=== PATIENT | male | born 1960 | race Caucasian/White ===

== ENCOUNTER 2021-09-04 15:22 | Inpatient (IN) | payer BC, MEDICAID ==
[2021-09-04 15:32] VITALS: TEMP 98
[2021-09-04] MEDS ORDERED: MAGNESIUM SULFATE-D5W PMX 1 GM in DEXTROSE/WATER 1 100ML.BAG IVPB STA (15:52)
[2021-09-04] MEDS ORDERED: DILTIAZEM DRIP BOLUS FROM BAG 1 MG SOLN IV ONE (15:52)
[2021-09-04] MEDS ORDERED: DILTIAZEM 125 MG in SODIUM CHLORIDE 0.9% 100 ML IV SCH (16:00)
[2021-09-04 16:03] LABS: Basophils # (A) 0.1 k/uL (0-0.2); Basophils % (A) 1 %; Eosinophils % (A) 0 %; HCT 48.8 % (39.0-53.0); HGB 16.6 gm/dL (13.0-17.5); Lymphocytes # (A) 0.8 k/uL (1.0-4.8); Lymphocytes % (A) 10 %; MCH 32.2 pg (25.0-35.0); MCV 94.8 fL (80.0-100.0); Mean Platelet Volume 9.3; Monocytes # (A) 0.4 k/uL (0-1.0); Monocytes % (A) 6 %; Neutrophils # (A) 6.5 k/uL (1.3-7.7); Neutrophils % (A) 83 %; Platelet Count 196 k/uL (150-450); RBC 5.15 m/uL (4.30-5.90); RDW 11.5 % (11.5-15.5); WBC 7.9 k/uL (3.8-10.6)
[2021-09-04] MEDS ORDERED: SODIUM CHLORIDE 0.9% 1,000 ML IV ONE (16:05)
[2021-09-04 16:08] VITALS: RESP 18
[2021-09-04 16:14] LABS: INR 1.2 (<1.2); Partial Thromboplastin Time 32.8 sec (22.0-30.0); Prothrombin Time 12.9 sec (9.0-12.0)
[2021-09-04 16:19] LABS: ALT 31 U/L (4-49); AST 28 U/L (17-59); African American GFR (CKD) 82 (>60 ml/min/1.73 sqM); Albumin 4.7 g/dL (3.5-5.0); Alkaline Phosphatase 67 U/L (38-126); Anion Gap 15 mmol/L; Blood Urea Nitrogen 15 mg/dL (9-20); Calcium 9.7 mg/dL (8.4-10.2); Carbon Dioxide 23 mmol/L (22-30); Chloride 98 mmol/L (98-107); Glucose 151 mg/dL (74-99); Magnesium 1.6 mg/dL (1.6-2.3); Non-African American GFR(CKD) 71 (>60 ml/min/1.73 sqM); Potassium 4.3 mmol/L (3.5-5.1); Sodium 136 mmol/L (137-145); Total Bilirubin 0.9 mg/dL (0.2-1.3); Total Protein 7.6 g/dL (6.3-8.2)
--- NOTE | 2021-09-04 17:29 | ED ---
Chest Pain HPI - General Chief Complaint: Chest Pain Stated Complaint: Chest Tightness Time Seen by Provider: 09/04/21 15:52 Source: patient Mode of arrival: wheelchair Limitations: no limitations - History of Present Illness Initial Comments: 61-year-old male with past medical history of A. fib presents emergency room with palpitations. Stated that they started around 9:30 AM this morning while he was at work. He had associated chest tightness and shortness of breath. Patient has a known history of A. fib and is on Cardizem and Xarelto. He took his medications this morning as directed. He follows with Dr. Garvey out of [facility]. No history of coronary disease or congestive heart failure. Patient has never had a heart cath before. He denies any nausea or vomiting. No recent medication changes. Denies ripping or tearing sensation to his back. Patient took an extra xarelto and aspirin today because of his discomfort. No alleviating, precipitating or modifying factors. - Related Data Home Medications Medication Instructions Recorded Confirmed Cyanocobalamin (Vitamin B-12) 1,000 mcg PO DAILY 09/04/21 09/04/21 [Vitamin B-12] Diltiazem HCl [Diltiazem HCl 24Hr 180 mg PO DAILY 09/04/21 09/04/21 ER (CD)] Ibuprofen [Motrin Ib] 400 mg PO BID 09/04/21 09/04/21 Rivaroxaban [Xarelto] 20 mg PO DAILY 09/04/21 09/04/21 lisinopriL [Zestril] 5 mg PO DAILY 09/04/21 09/04/21 Allergies Allergy/AdvReac Type Severity Reaction Status Date / Time No Known Allergies Allergy Verified 09/04/21 17:53 Review of Systems ROS Statement: Those systems with pertinent positive or pertinent negative responses have been documented in the HPI. ROS Other: All systems not noted in ROS Statement are negative. EKG Findings - EKG Comments: EKG Findings:: EKG done at 1537 demonstrates a narrow complex tachycardia with a rate of 177. QRS 162. QTC of 456. Diffuse ST depression 1, 2, 3, aVF as well as V3 through V6. A repeat EKG done at 1608 demonstrates normal sinus rhythm. Continued ST depression in the inferior and lateral leads. Past Medical History Past Medical History: Atrial Fibrillation, Hypertension History of Any Multi-Drug Resistant Organisms: None Reported Past Surgical History: No Surgical Hx Reported Past Psychological History: No Psychological Hx Reported Smoking Status: Never smoker Past Alcohol Use History: None Reported Past Drug Use History: None Reported General Exam Limitations: no limitations Course Vital Signs 09/04/21 09/04/21 09/04/21 15:28 15:45 15:49 Temperature 98 F Pulse Rate 188 H 188 H Pulse Rate [ 179 H Sales Representative Door To Door ] Respiratory 20 22 Rate Blood Pressure 86/61 104/61 O2 Sat by Pulse 100 99 Oximetry 09/04/21 09/04/21 09/04/21 16:00 16:06 17:00 Temperature Pulse Rate 179 H 83 81 Pulse Rate [ Sales Representative Door To Door ] Respiratory 22 18 18 Rate Blood Pressure 95/69 105/79 116/78 O2 Sat by Pulse 98 99 98 Oximetry 09/04/21 09/04/21 18:00 19:00 Temperature Pulse Rate 84 75 Pulse Rate [ Sales Representative Door To Door ] Respiratory 18 18 Rate Blood Pressure 118/78 126/79 O2 Sat by Pulse 98 100 Oximetry Chest Pain MDM - MDM Upon arrival patient was placed into trauma 1. He does have a heart rate of 190. He is placed on continuous pulse ox and cardiac monitoring. 12-lead EKG is obtained which demonstrates a narrow complex, tachycardic rhythm. IV is established and laboratory studies were conducted. Patient is hemodynamically stable with a blood pressure 104/61. Because of this the patient is given a Cardizem bolus and 1 g of magnesium. Patient does almost instantly convert with the Cardizem bolus to normal sinus rhythm and a repeat 12-lead EKG was performed. He does have some continued ST depression in the inferior and late ral leads. I do attempt to find an old EKG is a patient reports a complete resolution of his symptoms with conversion. We do request records from a chemical [facility] however these are never received after several hours. Because of the concerning ST depression and recommend hospital admission in order trend his troponins for which the patient did agree to. I spoke with Dr. Macias who agreed to admit the patient. Patient awaiting a bed on the floor in stable condition. Disposition Clinical Impression: Chest pain, Atrial fibrillation with RVR, Abnormal EKG Disposition: ADMITTED IP TO THIS HOSP Condition: Stable Is patient prescribed a controlled substance at d/c from ED?: No Referrals: Yue Barnes DO [Primary Care Provider] - 1-2 days Decision to Admit Reason: Admit from EC Decision Date: 09/04/21
--- NOTE | 2021-09-04 18:50 | XR ---
EXAMINATION TYPE: XR chest 2V DATE OF EXAM: 09/04/2021 COMPARISON: NONE HISTORY: Chest pain TECHNIQUE: 3 views FINDINGS: Heart and mediastinum are normal. Lungs are clear. Diaphragm is normal. Bony thorax is norm al. There are no hilar masses costophrenic angles are clear. IMPRESSION: No active cardiopulmonary disease. Normal heart.
[2021-09-04] MEDS ORDERED: NALOXONE 0.4 MG/ML 1 ML VIAL IV PRN (19:25)
[2021-09-04] MEDS ORDERED: ASPIRIN 81 MG PO STA (22:29)
[2021-09-05 03:08] LABS: Basophils % (A) 0 %; Eosinophils % (A) 0 %; HCT 41.9 % (39.0-53.0); HGB 14.4 gm/dL (13.0-17.5); Lymphocytes # (A) 1.1 k/uL (1.0-4.8); Lymphocytes % (A) 24 %; MCHC 34.5 g/dL (31.0-37.0); MCV 95.8 fL (80.0-100.0); Monocytes # (A) 0.4 k/uL (0-1.0); Monocytes % (A) 9 %; Neutrophils # (A) 3.1 k/uL (1.3-7.7); Neutrophils % (A) 65 %; Platelet Count 142 k/uL (150-450); RBC 4.37 m/uL (4.30-5.90); RDW 11.7 % (11.5-15.5); WBC 4.8 k/uL (3.8-10.6)
[2021-09-05 03:31] LABS: African American GFR (CKD) >90 (>60 ml/min/1.73 sqM); Anion Gap 5 mmol/L; Blood Urea Nitrogen 15 mg/dL (9-20); Calcium 9.2 mg/dL (8.4-10.2); Carbon Dioxide 29 mmol/L (22-30); Chloride 103 mmol/L (98-107); Glucose 107 mg/dL (74-99); Non-African American GFR(CKD) >90 (>60 ml/min/1.73 sqM); Potassium 4.5 mmol/L (3.5-5.1); Sodium 137 mmol/L (137-145)
--- NOTE | 2021-09-05 08:26 | P.HPIM ---
History of Present Illness This is a pleasant 61 years old male with past medical history of hypertension and atrial fibrillation on Xarelto. Patient states that he was going to work yesterday when he started noticing exertional dyspnea and sweating while walking, his chest was tight and he has to sit down so he can feel but are limited. After 1 hour he is been informed to go home and he lie down for about 2 hours he notices that he has but he shakes, li ttle bit with losing consciousness and at that time he checked his heart rate was 179-189 so he decided to come to emergency room Currently he denies any chest pain or dyspnea or coughing. No diarrhea or vomiting. No urinary complaints. He tested positive for colic in the emergency room which was an expected for him He denies smoking, alcohol or illicit drugs. 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 On admission he was tachycardic around 188, rest of Vitas looks stable Labs including CBC, INR, BMP and liver enzymes are unremarkable. Troponin are mildly elevated but stable at 0.08, 0.08 and 1.2. TSH is 1.2. Coronavirus detected EKG showing A. fib with RVR at 177 Chest x-ray:No acute process. In the emergency room patient was started on Cardizem drip Review of Systems CONSTITUTIONAL: No fever, no malaise, no fatigue. HEENT: No recent visual problems or hearing problems. Denied any sore throat. CARDIOVASCULAR: No orthopnea, PND, no palpitations, no syncope. PULMONARY: No shortness of breath, no cough, no hemoptysis. GASTROINTESTINAL: No diarrhea, no nausea, no vomiting, no abdominal pain. Normoactive bowel sounds. NEUROLOGICAL: No headaches, no weakness, no numbness. HEMATOLOGICAL: Denies any bleeding or petechiae. GENITOURINARY: Denies any burning micturition, frequency, or urgency. MUSCULOSKELETAL/RHEUMATOLOGICAL: Denies any joint pain, swelling, or any muscle pain. ENDOCRINE: Denies any polyuria or polydipsia. Past Medical History Past Medical History: Atrial Fibrillation, Hypertension History of Any Multi-Drug Resistant Organisms: None Reported Past Surgical History: No Surgical Hx Reported Past Psychological History: No Psychological Hx Reported Smoking Status: Never smoker Past Alcohol Use History: None Reported Past Drug Use History: None Reported Medications and Allergies Home Medications Medication Instructions Recorded Confirmed Type Cyanocobalamin (Vitamin B-12) 1,000 mcg PO DAILY 09/04/21 09/04/21 History [Vitamin B-12] Diltiazem HCl [Diltiazem HCl 24Hr 180 mg PO DAILY 09/04/21 09/04/21 History ER (CD)] Ibuprofen [Motrin Ib] 400 mg PO BID 09/04/21 09/04/21 History Rivaroxaban [Xarelto] 20 mg PO DAILY 09/04/21 09/04/21 History lisinopriL [Zestril] 5 mg PO DAILY 09/04/21 09/04/21 History Allergies Allergy/AdvReac Type Severity Reaction Status Date / Time No Known Allergies Allergy Verified 09/04/21 17:53 Physical Exam Vitals: Vital Signs Temp Pulse Pulse Resp BP Pulse Ox 09/05/21 04:22 56 L 18 107/71 95 09/05/21 01:12 55 L 18 127/86 99 09/04/21 22:59 75 18 135/97 99 09/04/21 19:00 75 18 126/79 100 09/04/21 18:00 84 18 118/78 98 09/04/21 17:00 81 18 116/78 98 09/04/21 16:06 83 18 105/79 99 09/04/21 16:00 179 H 22 95/69 98 09/04/21 15:49 179 H 09/04/21 15:45 188 H 22 104/61 99 09/04/21 15:28 98 F 188 H 20 86/61 100 Intake and Output 09/04/21 09/04/21 09/05/21 14:59 22:59 06:59 Other: Weight 85.275 kg GENERAL: The patient is alert and oriented x3, not in any acute distress. Well developed, well nourished. HEENT: Pupils are round and equally reacting to light. EOMI. No scleral icterus. No conjunctival pallor. Normocephalic, atraumatic. No pharyngeal erythema. No thyromegaly. CARDIOVASCULAR: S1 and S2 present. No murmurs, rubs, or gallops. PULMONARY: Chest is clear to auscultation, no wheezing or crackles. ABDOMEN: Soft, nontender, nondistended, normoactive bowel sounds. No palpable organomegaly. MUSCULOSKELETAL: No joint swelling or deformity. EXTREMITIES: No cyanosis, clubbing, or pedal edema. NEUROLOGICAL: Gross neurological examination did not reveal any focal deficits. SKIN: No rashes. No petechiae Results CBC & Chem 7: 09/05/21 02:34 09/05/21 02:34 Labs: Abnormal Lab Results - Last 24 Hours (Table) 09/04/21 09/04/21 09/04/21 Range/Units 15:53 15:53 15:53 Plt Count (150-450) k/uL Lymphocytes # 0.8 L (1.0-4.8) k/uL PT 12.9 H (9.0-12.0) sec INR 1.2 H (<1.2) APTT 32.8 H (22.0-30.0) sec Sodium 136 L (137-145) mmol/L Glucose 151 H (74-99) mg/dL Troponin I (0.000-0.034) ng/mL Coronavirus (PCR) (Not Detectd) 09/04/21 09/04/21 09/04/21 Range/Units 15:53 20:00 21:14 Plt Count (150-450) k/uL Lymphocytes # (1.0-4.8) k/uL PT (9.0-12.0) sec INR (<1.2) APTT (22.0-30.0) sec Sodium (137-145) mmol/L Glucose (74-99) mg/dL Troponin I 0.086 H* 0.868 H* (0.000-0.034) ng/mL Coronavirus (PCR) Detected A (Not Detectd) 09/05/21 09/05/21 09/05/21 Range/Units 00:24 02:34 02:34 Plt Count 142 L (150-450) k/uL Lymphocytes # (1.0-4.8) k/uL PT (9.0-12.0) sec INR (<1.2) APTT (22.0-30.0) sec Sodium (137-145) mmol/L Glucose 107 H (74-99) mg/dL Troponin I 1.200 H* (0.000-0.034) ng/mL Coronavirus (PCR) (Not Detectd) Assessment and Plan Assessment: Atrial fibrillation's with RVR, present on admission Hypertension Covid 19 infection without pneumonia or hypoxia Plan: This is a pleasant 61 years old male who presents with A. fib and RVR. Continue with Cardizem drip and switched to oral medication when his more stable heart rate. Cardiology consult Labs and medication were reviewed.. Continue same treatment. Continue with symptomatic treatment. Resume home medication. Monitor lytes and vitals. DVT and GI prophylaxis. Further recommendations depends on the clinical course of the patient DVT prophylaxis: Xarelto GI Prophylaxis: Pepcid
[2021-09-05] MEDS: lisinopriL 5 MG TAB PO SCH ×2 (08:51→08:52)
[2021-09-05] MEDS ORDERED: RIVAROXABAN 20 MG TAB PO SCH (09:00)
[2021-09-05] MEDS ORDERED: IBUPROFEN 400 MG TAB PO SCH (09:00)
[2021-09-05] MEDS ORDERED: CYANOCOBALAMIN 500 MCG TAB PO SCH (09:00)
[2021-09-05] MEDS ORDERED: DILTIAZEM CD 180 MG CAP.ER.24H PO SCH (09:00)
[2021-09-05] MEDS ORDERED: CHOLECALCIFEROL 25 MCG (1000 IU) TABLET PO SCH (09:00)
[2021-09-05] MEDS ORDERED: ZINC SULFATE 220 MG CAP PO SCH (09:00)
[2021-09-05] MEDS ORDERED: ASCORBIC ACID 500 MG TAB PO SCH (09:00)
--- NOTE | 2021-09-05 10:21 | P.CRDCN ---
History of Present Illness Consult date: 09/05/21 History of present illness: CHIEF COMPLAINT: afib with RVR HISTORY OF PRESENT ILLNESS: This is a 61-year-old male with a past medical history significant for hypertension and atrial fibrillation. Patient follows with a Dr. Garvey at [facility]. We have been asked to see the patient in consultation for atrial fibrillation with RVR. Patient examined this morning at the bedside in the ER. Patient states yesterday he was on his way to work when he began feeling short of breath. He also reports feeling mild palpitations. The patient states he left work and went home and his took his pulse ox which showed a heart rate in the 170s. At that time the patient came to the emergency room for further evaluation. The patient was found to be in atrial fibrillation/atrial tachycardia with heart rate in the 170s. The patient was given IV Cardizem and magnesium. He has since converted to sinus mechanism. The patient states he is feeling better this morning. He denies chest pain or pressure. Denies shortness of breath. The patient states he had a stress test about 3 years ago which was normal to his knowledge. He denies alcohol use. He is a former cigarette smoker. He reports minimal caffeine use and states he drinks decaf coffee. The patient was also found to be positive for Covid. He did receive the covid vaccine. He is currently asymptomatic in terms of his coronavirus. DIAGNOSTICS: EKG reveals atrial fibrillation versus atrial tachycardia with 2:1 conduction with RVR with ST depression throughout. No previous EKG available for comparison. Chest xray no active cardiopulmonary disease. Normal heart. Laboratory data: WBC 4.8. Hemoglobin 14.4. Platelet count 142. Sodium 137. Potassium 4.5. BUN 15. Creatinine 0.77. Troponin 0.086. 0.868. 1.200. Current home cardiac medications include Xarelto 20 mg daily, lisinopril 5 mg daily, and Cardizem CD 180 mg daily REVIEW OF SYSTEMS: Thorough review of systems not completed secondary to limited evaluation/examination due to Covid19 PHYSICAL EXAM: Thorough physical exam not completed secondary to limited evaluation/examination due to Covid19 ASSESSMENT: Covid 19 Shortness of breath Palpitations Paroxysmal atrial fibrillation/atrial tachycardia with RVR Abnormal troponins, suspect secondary to A. 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 Signing provider agrees with the documented findings, assessment, and plan of care. Past Medical History Past Medical History: Atrial Fibrillation, Hypertension History of Any Multi-Drug Resistant Organisms: None Reported Past Surgical History: No Surgical Hx Reported Past Psychological History: No Psychological Hx Reported Smoking Status: Never smoker Past Alcohol Use History: None Reported Past Drug Use History: None Reported Medications and Allergies Home Medications Medication Instructions Recorded Confirmed Type Cyanocobalamin (Vitamin B-12) 1,000 mcg PO DAILY 09/04/21 09/04/21 History [Vitamin B-12] Diltiazem HCl [Diltiazem HCl 24Hr 180 mg PO DAILY 09/04/21 09/04/21 History ER (CD)] Ibuprofen [Motrin Ib] 400 mg PO BID 09/04/21 09/04/21 History Rivaroxaban [Xarelto] 20 mg PO DAILY 09/04/21 09/04/21 History lisinopriL [Zestril] 5 mg PO DAILY 09/04/21 09/04/21 History Allergies Allergy/AdvReac Type Severity Reaction Status Date / Time No Known Allergies Allergy Verified 09/04/21 17:53 Physical Exam Vitals: Vital Signs Temp Pulse Pulse Resp BP Pulse Ox 09/05/21 07:27 56 L 18 115/70 98 09/05/21 04:22 56 L 18 107/71 95 09/05/21 01:12 55 L 18 127/86 99 09/04/21 22:59 75 18 135/97 99 09/04/21 19:00 75 18 126/79 100 09/04/21 18:00 84 18 118/78 98 09/04/21 17:00 81 18 116/78 98 09/04/21 16:06 83 18 105/79 99 09/04/21 16:00 179 H 22 95/69 98 09/04/21 15:49 179 H 09/04/21 15:45 188 H 22 104/61 99 09/04/21 15:28 98 F 188 H 20 86/61 100 Intake and Output 09/04/21 09/05/21 09/05/21 22:59 06:59 14:59 Other: Weight 85.275 kg Results 09/05/21 02:34 09/05/21 02:34 Cardiac Enzymes 09/04/21 09/04/21 09/04/21 Range/Units 15:53 15:53 21:14 AST 28 (17-59) U/L Troponin I 0.086 H* 0.868 H* (0.000-0.034) ng/mL 09/05/21 Range/Units 00:24 AST (17-59) U/L Troponin I 1.200 H* (0.000-0.034) ng/mL Coagulation 09/04/21 Range/Units 15:53 PT 12.9 H (9.0-12.0) sec APTT 32.8 H (22.0-30.0) sec CBC 09/04/21 09/05/21 Range/Units 15:53 02:34 WBC 7.9 4.8 (3.8-10.6) k/uL RBC 5.15 4.37 (4.30-5.90) m/uL Hgb 16.6 14.4 (13.0-17.5) gm/dL Hct 48.8 41.9 (39.0-53.0) % Plt Count 196 142 L (150-450) k/uL Comprehensive Metabolic Panel 09/04/21 09/05/21 Range/Units 15:53 02:34 Sodium 136 L 137 (137-145) mmol/L Potassium 4.3 4.5 (3.5-5.1) mmol/L Chloride 98 103 (98-107) mmol/L Carbon Dioxide 23 29 (22-30) mmol/L BUN 15 15 (9-20) mg/dL Creatinine 1.11 0.77 (0.66-1.25) mg/dL Glucose 151 H 107 H (74-99) mg/dL Calcium 9.7 9.2 (8.4-10.2) mg/dL AST 28 (17-59) U/L ALT 31 (4-49) U/L Alkaline Phosphatase 67 (38-126) U/L Total Protein 7.6 (6.3-8.2) g/dL Albumin 4.7 (3.5-5.0) g/dL Current Medications Generic Name Dose Route Start Last Admin Trade Name Coral PRN Reason Stop Dose Admin Ascorbic Acid 1,000 mg 09/05/21 09:00 09/05/21 08:51 Ascorbic Acid 500 Mg Tab PO 1,000 mg DAILY NIDA Administration Cholecalciferol 50 mcg 09/05/21 09:00 09/05/21 08:52 Cholecalciferol 25 Mcg (1000 Iu) Tablet PO 50 mcg DAILY NIDA Administration Cyanocobalamin 1,000 mcg 09/05/21 09:00 09/05/21 08:51 Cyanocobalamin 500 Mcg Tab PO 1,000 mcg DAILY NIDA Administration Diltiazem HCl 180 mg 09/05/21 09:00 09/05/21 08:51 Diltiazem Cd 180 Mg Cap.Er.24h PO 180 mg DAILY NIDA Administration Lisinopril 5 mg 09/05/21 09:00 09/05/21 08:52 Lisinopril 5 Mg Tab PO Not Given DAILY NIDA Naloxone HCl 0.2 mg 09/04/21 19:25 Naloxone 0.4 Mg/Ml 1 Ml Vial IV Q2M PRN Opioid Reversal Rivaroxaban 20 mg 09/05/21 09:00 09/05/21 08:51 Rivaroxaban 20 Mg Tab PO 20 mg DAILY NIDA Administration Protocol Zinc Sulfate 220 mg 09/05/21 09:00 09/05/21 08:51 Zinc Sulfate 220 Mg Cap PO 220 mg DAILY NIDA Administration Intake and Output 09/04/21 09/05/21 09/05/21 22:59 06:59 14:59 Other: Weight 85.275 kg 09/05/21 02:34 09/05/21 02:34
--- NOTE | 2021-09-05 11:11 | ECHOF ---
Referral Reason:LV function, abnormal troponins, afib, Covid MEASUREMENTS -------- HEIGHT: 182.9 cm WEIGHT: 86.2 kg BP: RVIDd: 3.0 cm (< 3.3) IVSd: 1.4 cm (0.6 - 1.1) LVIDd: 4.4 cm (3.9 - 5.3) LVPWd: 1.6 cm (0.6 - 1.1) IVSs: 1.2 cm LVIDs: 3.7 cm LVPWs: 1.3 cm LA Diam: 2.8 cm (2.7 - 3.8) FINDINGS -------- Sinus rhythm. Limited Study due to Covid 19 exposure. LV size, wall thickness and systolic function are normal, with an EF greater than 55%. The left shaina tricular size is normal. The right ventricle is normal in size. The left atrial size is normal. The right atrial size is normal. Echo free space indicative of a pericardial fat pad. CONCLUSIONS -------- 1. Limited Study due to Covid 19 exposure. 2. LV size, wall thickness and systolic function are normal, with an EF greater than 55%. 3. The left ventricular size is normal. 4. The right ventricle is normal in size. 5. The left atrial size is normal. 6. The right atrial size is normal. 7. Echo free space indicative of a pericardial fat pad. MANUFACTURING BUSINESS ANALYST: Regina Fraser RDCS
[2021-09-05 14:39] VITALS: BP 122/81; PULSE 70
== END 2021-09-05 16:27 | disposition home or self-care (01) | DRG 308 ==
LOC: EC 15:22 → 3SCARD 19:25 → 4SSUR 09-05 → 3SCARD 09-05 05:15
PROVIDERS: ADMIT Internal Medicine; ATTEND Internal Medicine
DX: I48.0 Paroxysmal atrial fibrillation (principal); U07.1 COVID-19; I47.1 Supraventricular tachycardia; R79.89 Other specified abnormal findings of blood chemistry; R09.89 Other specified symptoms and signs involving the circulatory and respiratory systems; I10 Essential (primary) hypertension; Z79.01 Long term (current) use of anticoagulants; Z79.899 Other long term (current) drug therapy; Z87.891 Personal history of nicotine dependence
CPT/HCPCS: 36415; 71046; 80048; 80053; 83735; 84443; 84484; 85025; 85610; 85730; 87635; 93005; 93308; 96365; 96366; 96368; 99285

== ENCOUNTER 2023-01-16 22:33 | Observation (INO) | payer MEDICAID ==
[2023-01-16 22:40] VITALS: TEMP 98.5
[2023-01-16] MEDS ORDERED: SODIUM CHLORIDE 0.9% 1,000 ML IV ONE (22:59)
[2023-01-16] MEDS ORDERED: DILTIAZEM 125 MG in SODIUM CHLORIDE 0.9% 100 ML IV SCH (23:00)
[2023-01-16 23:06] LABS: Basophils % (A) 0 %; Eosinophils # (A) 0.1 k/uL (0-0.7); Eosinophils % (A) 1 %; HCT 49.2 % (39.0-53.0); Lymphocytes # (A) 2.9 k/uL (1.0-4.8); Lymphocytes % (A) 29 %; MCH 32.4 pg (25.0-35.0); MCHC 34.6 g/dL (31.0-37.0); MCV 93.7 fL (80.0-100.0); Monocytes # (A) 0.5 k/uL (0-1.0); Monocytes % (A) 5 %; Neutrophils # (A) 6.3 k/uL (1.3-7.7); Neutrophils % (A) 63 %; Platelet Count 235 k/uL (150-450); RBC 5.24 m/uL (4.30-5.90); WBC 10.1 k/uL (3.8-10.6)
[2023-01-16 23:17] LABS: ALT 35 U/L (4-49); AST 29 U/L (17-59); African American GFR (CKD) 73 (>60 ml/min/1.73 sqM); Albumin 4.8 g/dL (3.5-5.0); Alkaline Phosphatase 67 U/L (38-126); Anion Gap 10 mmol/L; Blood Urea Nitrogen 20 mg/dL (9-20); Calcium 9.9 mg/dL (8.4-10.2); Carbon Dioxide 28 mmol/L (22-30); Chloride 100 mmol/L (98-107); Glucose 142 mg/dL (74-99); Magnesium 1.9 mg/dL (1.6-2.3); Non-African American GFR(CKD) 63 (>60 ml/min/1.73 sqM); Potassium 3.9 mmol/L (3.5-5.1); Sodium 138 mmol/L (137-145); Total Bilirubin 0.8 mg/dL (0.2-1.3); Total Protein 7.6 g/dL (6.3-8.2)
[2023-01-16 23:20] LABS: INR 1.2 (<1.2); Partial Thromboplastin Time 29.9 sec (22.0-30.0); Prothrombin Time 12.1 sec (9.0-12.0)
--- NOTE | 2023-01-17 00:03 | XR ---
EXAM: XR Chest, 1 View CLINICAL HISTORY: ITS.REASON XR Reason: CP TECHNIQUE: Frontal view of the chest. COMPARISON: No relevant prior studies available. FINDINGS: Lungs: Unremarkable. No consolidation. Pleural space: Unremarkable. No pneumothorax. Heart: Unremarkable. No cardiomegaly. Mediastinum: Unremarkable. Bones/joints: Unremarkable. IMPRESSION: No focal infiltrate.
[2023-01-17] MEDS ORDERED: ADENOSINE 3 MG/ML 2 ML VIAL IVP STA (00:13)
[2023-01-17] MEDS ORDERED: NALOXONE 0.4 MG/ML 1 ML VIAL IV PRN (03:49)
--- NOTE | 2023-01-17 03:49 | ED ---
General Adult HPI - General Chief complaint: Chest Pain Stated complaint: AFIB Time Seen by Provider: 01/16/23 22:47 Source: patient Mode of arrival: wheelchair Limitations: no limitations - History of Present Illness Initial comments: This is a 62-year-old male with a past medical history including atrial fibrillation presents the emergency department for elevated heart rate. The patient stated that he denied of any symptoms but stated that he did feel tired and did feel his pulse and noted that it was racing. The patient denied any chest pain, shortness of breath and lightheadedness. The patient did state he came to the emergency department just to make sure he was okay. The patient denied any other acute pain or complaints at this time. - Related Data Home Medications Medication Instructions Recorded Confirmed Cyanocobalamin (Vitamin B-12) 1,000 mcg PO DAILY 09/04/21 09/04/21 [Vitamin B-12] Rivaroxaban [Xarelto] 20 mg PO DAILY 09/04/21 09/04/21 dilTIAZem HCL [dilTIAZem HCL 24Hr 180 mg PO DAILY 09/04/21 09/04/21 ER (CD)] lisinopriL [Zestril] 5 mg PO DAILY 09/04/21 09/04/21 Previous Rx's Medication Instructions Recorded Ascorbic Acid [Vitamin C] 1,000 mg PO DAILY #60 tab 09/05/21 Cholecalciferol [Vitamin D3 (25 50 mcg PO DAILY #60 tablet 09/05/21 Mcg = 1000 Iu)] Zinc Sulfate [Orazinc] 220 mg PO DAILY #30 cap 09/05/21 Allergies Allergy/AdvReac Type Severity Reaction Status Date / Time No Known Allergies Allergy Verified 01/16/23 22:40 Review of Systems ROS Statement: Those systems with pertinent positive or pertinent negative responses have been documented in the HPI. ROS Other: All systems not noted in ROS Statement are negative. Past Medical History Past Medical History: Atrial Fibrillation, Hypertension Additional Past Medical History / Comment(s): 2009 esophageal cancer with sugery/chemo/radiation, recent antibiotic d/t tooth nerve pain, R caratid bruit, hemorrhoids/occasionally bleed. History of Any Multi-Drug Resistant Organisms: None Reported Past Surgical History: No Surgical Hx Reported Additional Past Surgical History / Comment(s): Vocal cord surgery, bilateral lasik eye surgery, wisdom teeth extractions, colonoscopy Past Anesthesia/Blood Transfusion Reactions: No Reported Reaction Past Psychological History: No Psychological Hx Reported Smoking Status: Never smoker Past Alcohol Use History: None Reported Past Drug Use History: None Reported - Past Family History Father Family Medical History: No Reported History Additional Family Medical History / Comment(s): Father is 90yrs old and takes care of his spouse. Mother Family Medical History: Cancer Additional Family Medical History / Comment(s): Mother is living. She has bone cancer General Exam Limitations: no limitations General appearance: alert, in no apparent distress Head exam: Present: atraumatic, normocephalic, normal inspection Eye exam: Present: normal appearance, PERRL Pupils: Present: normal accommodation ENT exam: Present: normal exam, normal oropharynx, mucous membranes moist Neck exam: Present: normal inspection, full ROM Respiratory exam: Present: normal lung sounds bilaterally Cardiovascular Exam: Present: normal rhythm, tachycardia, normal heart sounds GI/Abdominal exam: Present: soft, normal bowel sounds Extremities exam: Present: normal inspection, full ROM Back exam: Present: normal inspection, full ROM Neurological exam: Present: alert, oriented X3, CN II-XII intact Psychiatric exam: Present: normal affect, normal mood Skin exam: Present: warm, dry Course Vital Signs 01/16/23 01/16/23 01/16/23 22:36 22:50 23:40 Temperature 98.5 F Pulse Rate 180 H 165 H Pulse Rate [ 180 H Supine Dumping Machine Operator] Respiratory 16 18 Rate Blood Pressure 111/81 90/63 O2 Sat by Pulse 100 97 Oximetry 01/17/23 01/17/23 01/17/23 00:40 01:00 02:30 Temperature Pulse Rate 161 H 98 76 Pulse Rate [ Supine Dumping Machine Operator] Respiratory 18 16 18 Rate Blood Pressure 85/74 110/77 122/75 O2 Sat by Pulse 98 100 96 Oximetry 01/17/23 04:00 Temperature Pulse Rate 60 Pulse Rate [ Supine Dumping Machine Operator] Respiratory 14 Rate Blood Pressure 106/67 O2 Sat by Pulse 95 Oximetry EKG Findings - EKG Comments: EKG Findings:: An EKG was obtained and was interpreted by myself showing a rate of 181, QRS duration of 159, QTC of 347. There was no ST segment elevation or depression noted however the patient showed likely SVT versus A. fib with RVR. It was a regular rhythm however there was no P waves present. An EKG was also obtained as the patient did receive adenosine for his supposedly SVT. The EKG was continuous and did show conversion to normal sinus rhythm at a rate of 90. Medical Decision Making - Medical Decision Making Was pt. sent in by a medical professional or institution (NANDINI Osman, WORK[employer] S[employer]IOR [employer]OCIATE, urgent care, hospital, or residential...) When possible be specific @ -No Did you speak to anyone other than the patient for history (EMS, parent, family, police, friend...)? What history was obtained from this source @ -No Did you review nursing and triage notes (agree or disagree)? Why? @ -I reviewed and agree with nursing and triage notes Were old charts reviewed (outside hosp., previous admission, EMS record, old EKG, old radiological studies, urgent care reports/EKG's, residential records)? Report findings @ -No old charts were reviewed Differential Diagnosis (chest pain, altered mental status, abdominal pain women, abdominal pain men, vaginal bleeding, weakness, fever, dyspnea, syncope, headache, dizziness, GI bleed, back pain, seizure, CVA, palpatations, mental health)? @ -SVT, atrial fibrillation with RVR, ACS EKG interpreted by me (3pts min.). @ -As above X-rays interpreted by me (1pt min.). @ -Chest x-ray was obtained and was interpreted by myself showing no acute process. CT interpreted by me (1pt min.). @ -None done U/S interpreted by me (1pt. min.). @ -None done What testing was considered but not performed or refused? (CT, X-rays, U/S, labs)? Why? @ -None What meds were considered but not given or refused? Why? @ -None Did you discuss the management of the patient with other professionals (p rofessionals i.e. , NANDINI, WORKDAY SENIOR ASSOCIATE, lab, RT, psych nurse, social worker assistant, body builder apprentice, teacher, chief information security officer, showcase maker)? Give summary @ -Yes, admitting physician was contacted regarding observation for the patient. Was smoking cessation discussed for >3mins.? @ -No Was critical care preformed (if so, how long)? @ -Yes, see above Were there social determinants of health that impacted care today? How? (Homelessness, low income, unemployed, alcoholism, drug addiction, transportation, low edu. Level, literacy, decrease access to med. care, penitentiary, rehab)? @ -No Was there de-escalation of care discussed even if they declined (Discuss DNR or withdrawal of care, Hospice)? DNR status @ -No What co-morbidities impacted this encounter? (DM, HTN, Smoking, COPD, CAD, Cancer, CVA, ARF, Chemo, Hep., AIDS, mental health diagnosis, sleep apnea, morbid obesity)? @ -Atrial fibrillation Was patient admitted / discharged? Hospital course, mention meds given and route, prescriptions, significant lab abnormalities, going to OR and other pertinent info. @ -The patient was seen and evaluated in emergency department. Physical exam, the patient was resting in bed without any acute distress. Vital signs admission showed significant tachycardia and therefore an EKG was obtained on arrival. The patient had a blood pressure of 108/80 on arrival and did not complaining of any further pain at this time. Laboratory workup, chest x-ray was obtained. All laboratory workup and chest x-ray were negative. Because the EKG showed possible atrial fibrillation in the absence of P waves and elevated rate, the patient was started on a Cardizem drip and was not given a bolus secondary to the patient's lower blood pressure. The patient's heart rate minimally decreased and as the patient was watched in the emergency department, the patient's blood pressure did decrease with any increasing Cardizem. Because of the regularity of the tachycardia on EKG, it was decided to treat the rhythm is an SVT and vagal maneuvers were obtained however were unsuccessful. The nandini john did receive 6 mg of adenosine and did have conversion to a normal sinus rhythm. The patient remained asymptomatically and on reevaluation had stable blood pressure. Due to the patient's converted SVT, the patient will be placed observation for cardiology to evaluate the patient and will no longer be on a Cardizem drip requiring for admission. The patient was told of this plan and was agreeable. The patient was placed in observation in stable condition. Undiagnosed new problem with uncertain prognosis? @ -No Drug Therapy requiring intensive monitoring for toxicity (Heparin, Nitro, Insulin, Cardizem)? @ -No Were any procedures done? @ -No Diagnosis/symptom? @ -New-onset SVT, converted Acute, or Chronic, or Acute on Chronic? @ -Acute Uncomplicated (without systemic symptoms) or Complicated (systemic symptoms)? @ -Uncomplicated Side effects of treatment? @ -No Exacerbation, Progression, or Severe Exacerbation? @ -No Poses a threat to life or bodily function? How? (Chest pain, [place], [place], pneumonia, PE, COPD, DKA, ARF, appy, cholecystitis, CVA, Diverticulitis, Homicidal, Suicidal, threat to staff... and all critical care pts) @ -NoWas pt. sent in by a medical professional or institution (, NANDINI, WORK[employer] SENIOR ASSOCIATE, urgent care, hospital, or residential...) When possible be specific @ -No Did you speak to anyone other than the patient for history (EMS, parent, family, police, friend...)? What history was obtained from this source @ -No Did you review nursing and triage notes (agree or disagree)? Why? @ -I reviewed and agree with nursing and triage notes Were old charts reviewed (outside hosp., previous admission, EMS record, old EKG, old radiological studies, urgent care reports/EKG's, residential records)? Report findings @ -No old charts were reviewed Differential Diagnosis (chest pain, altered mental status, abdominal pain women, abdominal pain men, vaginal bleeding, weakness, fever, dyspnea, syncope, headache, dizziness, GI bleed, back pain, seizure, CVA, palpatations, mental health)? @ -SVT, atrial fibrillation with RVR, ACS EKG interpreted by me (3pts min.). @ -As above X-rays interpreted by me (1pt min.). @ -Chest x-ray was obtained and was interpreted by myself showing no acute process. CT interpreted by me (1pt min.). @ -None done U/S interpreted by me (1pt. min.). @ -None done What testing was considered but not performed or refused? (CT, X-rays, U/S, l abs)? Why? @ -None What meds were considered but not given or refused? Why? @ -None Did you discuss the management of the patient with other professionals (professionals i.e. NANDINI Osman, WORK[employer] SENIOR ASSOCIATE, lab, RT, psych nurse, social worker assistant, body builder apprentice, teacher, chief information security officer, showcase maker)? Give summary @ -Yes, admitting physician was contacted regarding observation for the patient. Was smoking cessation discussed for >3mins.? @ -No Was critical care preformed (if so, how long)? @ -Yes, see above Were there social determinants of health that impacted care today? How? (Homelessness, low income, unemployed, alcoholism, drug addiction, transportation, low edu. Level, literacy, decrease access to med. care, penitentiary, rehab)? @ -No Was there de-escalation of care discussed even if they declined (Discuss DNR or withdrawal of care, Hospice)? DNR status @ -No What co-morbidities impacted this encounter? (DM, HTN, Smoking, COPD, CAD, Cancer, CVA, ARF, Chemo, Hep., AIDS, mental health diagnosis, sleep apnea, morbid obesity)? @ -Atrial fibrillation Was patient admitted / discharged? Hospital course, mention meds given and route, prescriptions, significant lab abnormalities, going to OR and other pertinent info. @ -The patient was seen and evaluated in emergency department. Physical exam, the patient was resting in bed without any acute distress. Vital signs admission showed significant tachycardia and therefore an EKG was obtained on arrival. The patient had a blood pressure of 108/80 on arrival and did not complaining of any further pain at this time. Laboratory workup, chest x-ray was obtained. All laboratory workup and chest x-ray were negative. Because the EKG showed possible atrial fibrillation in the absence of P waves and elevated rate, the patient was started on a Cardizem drip and was not given a bolus secondary to the patient's lower blood pressure. The patient's heart rate minimally decreased and as the patient was watched in the emergency department, the patient's blood pressure did decrease with any increasing Cardizem. Because of the regularity of the tachycardia on EKG, it was decided to treat the rhythm is an SVT and vagal maneuvers were obtained however were unsuccessful. The patient did receive 6 mg of adenosine and did have conversion to a normal sinus rhythm. The patient remained asymptomatically and on reevaluation had stable blood pressure. Due to the patient's converted SVT, the patient will be placed observation for cardiology to evaluate the patient and will no longer be on a Cardizem drip requiring for admission. The patient was told of this plan and was agreeable. The patient was placed in observation in stable condition. Undiagnosed new problem with uncertain prognosis? @ -No Drug Therapy requiring intensive monitoring for toxicity (Heparin, Nitro, Insulin, Cardizem)? @ -No Were any procedures done? @ -No Diagnosis/symptom? @ -New-onset SVT, converted Acute, or Chronic, or Acute on Chronic? @ -Acute Uncomplicated (without systemic symptoms) or Complicated (systemic symptoms)? @ -Uncomplicated Side effects of treatment? @ -No Exacerbation, Progression, or Severe Exacerbation? @ -No Poses a threat to life or bodily function? How? (Chest pain, [place], [place], pneumonia, PE, COPD, DKA, ARF, appy, cholecystitis, CVA, Diverticulitis, Homicidal, Suicidal, threat to staff... and all critical care pts) @ -No - Lab Data Result diagrams: 01/16/23 22:51 01/16/23 23:01 Lab Results 01/16/23 01/16/23 01/16/23 Range/Units 22:51 23:01 23:01 WBC 10.1 (3.8-10.6) k/uL RBC 5.24 (4.30-5.90) m/uL Hgb 17.0 (13.0-17.5) gm/dL Hct 49.2 (39.0-53.0) % MCV 93.7 (80.0-100.0) fL MCH 32.4 (25.0-35.0) pg MCHC 34.6 (31.0-37.0) g/dL RDW 12.0 (11.5-15.5) % Plt Count 235 (150-450) k/uL MPV 9.0 Neutrophils % 63 % Lymphocytes % 29 % Monocytes % 5 % Eosinophils % 1 % Basophils % 0 % Neutrophils # 6.3 (1.3-7.7) k/uL Lymphocytes # 2.9 (1.0-4.8) k/uL Monocytes # 0.5 (0-1.0) k/uL Eosinophils # 0.1 (0-0.7) k/uL Basophils # 0.0 (0-0.2) k/uL PT 12.1 H (9.0-12.0) sec INR 1.2 H (<1.2) APTT 29.9 (22.0-30.0) sec Sodium 138 (137-145) mmol/L Potassium 3.9 (3.5-5.1) mmol/L Chloride 100 (98-107) mmol/L Carbon Dioxide 28 (22-30) mmol/L Anion Gap 10 mmol/L BUN 20 (9-20) mg/dL Creatinine 1.21 (0.66-1.25) mg/dL Est GFR (CKD-EPI)AfAm 73 (>60 ml/min/1.73 sqM) Est GFR (CKD-EPI)NonAf 63 (>60 ml/min/1.73 sqM) Glucose 142 H (74-99) mg/dL Calcium 9.9 (8.4-10.2) mg/dL Magnesium 1.9 (1.6-2.3) mg/dL Total Bilirubin 0.8 (0.2-1.3) mg/dL AST 29 (17-59) U/L ALT 35 (4-49) U/L Alkaline Phosphatase 67 (38-126) U/L Troponin I (0.000-0.034) ng/mL NT-Pro-B Natriuret Pep pg/mL Total Protein 7.6 (6.3-8.2) g/dL Albumin 4.8 (3.5-5.0) g/dL 01/16/23 01/16/23 Range/Units 23:01 23:01 WBC (3.8-10.6) k/uL RBC (4.30-5.90) m/uL Hgb (13.0-17.5) gm/dL Hct (39.0-53.0) % MCV (80.0-100.0) fL MCH (25.0-35.0) pg MCHC (31.0-37.0) g/dL RDW (11.5-15.5) % Plt Count (150-450) k/uL MPV Neutrophils % % Lymphocytes % % Monocytes % % Eosinophils % % Basophils % % Neutrophils # (1.3-7.7) k/uL Lymphocytes # (1.0-4.8) k/uL Monocytes # (0-1.0) k/uL Eosinophils # (0-0.7) k/uL Basophils # (0-0.2) k/uL PT (9.0-12.0) sec INR (<1.2) APTT (22.0-30.0) sec Sodium (137-145) mmol/L Potassium (3.5-5.1) mmol/L Chloride (98-107) mmol/L Carbon Dioxide (22-30) mmol/L Anion Gap mmol/L BUN (9-20) mg/dL Creatinine (0.66-1.25) mg/dL Est GFR (CKD-EPI)AfAm (>60 ml/min/1.73 sqM) Est GFR (CKD-EPI)NonAf (>60 ml/min/1.73 sqM) Glucose (74-99) mg/dL Calcium (8.4-10.2) mg/dL Magnesium (1.6-2.3) mg/dL Total Bilirubin (0.2-1.3) mg/dL AST (17-59) U/L ALT (4-49) U/L Alkaline Phosphatase (38-126) U/L Troponin I <0.012 (0.000-0.034) ng/mL NT-Pro-B Natriuret Pep 79 pg/mL Total Protein (6.3-8.2) g/dL Albumin (3.5-5.0) g/dL Critical Care Time Critical Care Time: Yes Total Critical Care Time: 62 Disposition Clinical Impression: SVT (supraventricular tachycardia) Disposition: ADMITTED IP TO THIS [facility] Condition: Stable Is patient prescribed a controlled substance at d/c from ED?: No Time of Disposition: 23:30 Decision to Admit Reason: Admit from EC Decision Date: 01/16/23 Decision Time: 23:30
[2023-01-17] MEDS ORDERED: RIVAROXABAN 20 MG TAB PO SCH (11:00)
[2023-01-17] MEDS ORDERED: VERAPAMIL SR 180 MG TABLET.ER PO SCH (11:00)
[2023-01-17 12:07] VITALS: PULSE 60; RESP 20
--- NOTE | 2023-01-17 12:22 | CONS ---
CONSULTATION HISTORY OF PRESENT ILLNESS: Mr. Lion is a 62-year-old gentleman, who presented to the emergency room early this morning with complaints of feeling tired and could not feel his pulse, and he felt his heart racing, no chest pain, had some mild shortness of breath, but no lightheadedness. He was found to be in supraventricular tachycardia, received adenosine, and converted to sinus rhythm. He does carry a history of atrial fibrillation and was in this hospital emergency room about a year ago. He carries a diagnosis of atrial fibrillation and is currently on diltiazem and Xarelto 20 mg daily. He also has hypertension and takes Zestril 5 mg daily. He is now in sinus rhythm, resting comfortably without symptoms. I reviewed the EKG and noted that the EKG from early this morning revealed what looks like an SVT at a rate of 180 beats per minute. Cannot exclude this being flutter, but I cannot see clear-cut flutter waves. Possibility of atrial tachycardia also exists. His prior EKG from August of 2021, also revealed the similar appearance suggesting that his rhythm abnormalities more of atrial tachycardia or SVT rather than atrial fibrillation. I explained to the patient and that he can be discharged, but I am suggesting he should take verapamil SR 180 mg daily, and this will substitute Cardizem. He can continue Xarelto, and he already has a visit with his chair frame builder scheduled in the next 2 weeks. Advised to follow up with him and consider EP evaluation as well. MEDICATIONS AT HOME: Include: 1. Diltiazem. 2. Rivaroxaban. 3. Zestril. PHYSICAL EXAMINATION: VITAL SIGNS: Blood pressure is 118/70. Pulse rate 64, regular. NECK: No JVD. HEART: S1 and S2 heard normally. LUNGS: Clear. ABDOMEN: Unchanged. LOWER EXTREMITIES: Unchanged. CENTRAL NERVOUS SYSTEM: Within normal limits. IMPRESSION: 1. Paroxysmal supraventricular tachycardia. 2. Hypertension. RECOMMENDATIONS: I am switching him from Cardizem to verapamil and advised to seek EP evaluation, and he is seeing his chair frame builder in the next 2 weeks. Thank you very much for the consult. MMODL / IJN: [id number] /
--- NOTE | 2023-01-17 12:41 | P.HPIM ---
History of Present Illness 62-year-old male came to ER with complaints of palpitations feeling tired and lightheadedness and heart racing, patient is found to be in SVT was given Indocin and the patient was converted to sinus rhythm. Patient is clinically do ing well. Patient was on Cardizem which is being discontinued at this time patient heart rate is well controlled at this time. Patient does have history of atrial fibrillation for which patient is an anticoagulation with Xarelto. Patient was ordered by cardiology cleared for discharge and they recommended switching to oral Cardizem to verapamil. Patient had a recent echocardiogram at his medical auditor office. REVIEW OF SYSTEMS: CONSTITUTIONAL: No fever, no malaise, no fatigue. HEENT: No recent visual problems or hearing problems. Denied any sore throat. CARDIOVASCULAR: As mentioned in HPI PULMONARY: No shortness of breath, no cough, no hemoptysis. GASTROINTESTINAL: No diarrhea, no nausea, no vomiting, no abdominal pain. NEUROLOGICAL: No headaches, no weakness, no numbness. HEMATOLOGICAL: Denies any bleeding or petechiae. GENITOURINARY: Denies any burning micturition, frequency, or urgency. MUSCULOSKELETAL/RHEUMATOLOGICAL: Denies any joint pain, swelling, or any muscle pain. ENDOCRINE: Denies any polyuria or polydipsia. The rest of the 14-point review of systems is negative. PHYSICAL EXAMINATION: GENERAL: The patient is alert and oriented x3, not in any acute distress. Well developed, well nourished. HEENT: Pupils are round and equally reacting to light. EOMI. No scleral icterus. No conjunctival pallor. Normocephalic, atraumatic. No pharyngeal erythema. No thyromegaly. CARDIOVASCULAR: S1 and S2 present. No murmurs, rubs, or gallops. PULMONARY: Chest is clear to auscultation, no wheezing or crackles. ABDOMEN: Soft, nontender, nondistended, normoactive bowel sounds. No palpable organomegaly. MUSCULOSKELETAL: No joint swelling or deformity. EXTREMITIES: No cyanosis, clubbing, or pedal edema. NEUROLOGICAL: Gross neurological examination did not reveal any focal deficits. SKIN: No rashes. Assessment and plan -Episode of SVT which resolved with Adenosine -Atrial fibrillation history patient will continue his anti-correlation Cardizem is being switched to verapamil follow-up with his medical auditor as an outpatient. Patient's atrial fibrillation is paroxysmal presently sinus rhythm. -Hypertension patient will be discharged today Past Medical History Past Medical History: Atrial Fibrillation, Hypertension Additional Past Medical History / Comment(s): 2009 esophageal cancer with sugery/chemo/radiation, recent antibiotic d/t tooth nerve pain, R caratid bruit, hemorrhoids/occasionally bleed. History of Any Multi-Drug Resistant Organisms: None Reported Past Surgical History: No Surgical Hx Reported Additional Past Surgical History / Comment(s): Vocal cord surgery, bilateral lasik eye surgery, wisdom teeth extractions, colonoscopy Past Anesthesia/Blood Transfusion Reactions: No Reported Reaction Past Psychological History: No Psychological Hx Reported Smoking Status: Never smoker Past Alcohol Use History: None Reported Past Drug Use History: None Reported - Past Family History Father Family Medical History: No Reported History Additional Family Medical History / Comment(s): Father is 90yrs old and takes care of his spouse. Mother Family Medical History: Cancer Additional Family Medical History / Comment(s): Mother is living. She has bone cancer Medications and Allergies Home Medications Medication Instructions Recorded Confirmed Type Rivaroxaban [Xarelto] 20 mg PO DAILY 09/04/21 01/17/23 History lisinopriL [Zestril] 5 mg PO DAILY 09/04/21 01/17/23 History Verapamil Sr [Isoptin Sr] 180 mg PO DAILY #30 tab 01/17/23 Rx Allergies Allergy/AdvReac Type Severity Reaction Status Date / Time No Known Allergies Allergy Verified 01/17/23 08:10 Physical Exam Vitals: Vital Signs Temp Pulse Pulse Resp BP Pulse Ox 01/17/23 12:05 60 20 101/76 100 01/17/23 09:00 64 22 116/77 96 01/17/23 08:00 62 21 113/71 96 01/17/23 07:36 58 L 18 113/71 98 01/17/23 06:00 60 19 104/68 97 01/17/23 05:00 64 102/67 97 01/17/23 04:00 60 14 106/67 95 01/17/23 02:30 76 18 122/75 96 01/17/23 01:00 98 16 110/77 100 01/17/23 00:40 161 H 18 85/74 98 01/16/23 23:40 165 H 18 90/63 97 01/16/23 22:50 180 H 01/16/23 22:36 98.5 F 180 H 16 111/81 100 Intake and Output 01/16/23 01/17/23 01/17/23 22:59 06:59 14:59 Intake Total 11.708 Balance 11.708 Intake: Intake, IV Titration 11.708 Amount Diltiazem 125 mg In 11.708 Sodium Chloride 0.9% 100 ml @ 5 MG/HR 5 mls/hr IV .Q24H [facility] Rx#:[id number] Other: Weight 86.183 kg Results CBC & Chem 7: 01/16/23 22:51 01/16/23 23:01 Labs: Abnormal Lab Results - Last 24 Hours (Table) 01/16/23 01/16/23 Range/Units 23:01 23:01 PT 12.1 H (9.0-12.0) sec INR 1.2 H (<1.2) Glucose 142 H (74-99) mg/dL
--- NOTE | 2023-01-17 12:41 | P.DS ---
Providers Date of admission: 01/17/23 03:49 Attending physician: Nu Wesley Consults: 01/17/23 03:49 Consult Physician Routine Consulting Provider: [facility] Consult Reason/Comments: SVT Do you want consulting provider notified?: Yes, Notify in am Primary care physician: Yue [facility] Hospital Course: 62-year-old male came to ER with complaints of palpitations feeling tired and lightheadedness and heart racing, patient is found to be in SVT was given Indocin and the patient was converted to sinus rhythm. Patient is clinically doing well. Patient was on Cardizem which is being discontinued at this time patient heart rate is well controlled at this time. Patient does have history of atrial fibrillation for which patient is an anticoagulation with Xarelto. Patient was ordered by cardiology cleared for discharge and they recommended switching to oral Cardizem to verapamil. Patient had a recent echocardiogram at his associate buyer office. REVIEW OF SYSTEMS: CONSTITUTIONAL: No fever, no malaise, no fatigue. HEENT: No recent visual problems or hearing problems. Denied any sore throat. CARDIOVASCULAR: As mentioned in HPI PULMONARY: No shortness of breath, no cough, no hemoptysis. GASTROINTESTINAL: No diarrhea, no nausea, no vomiting, no abdominal pain. NEUROLOGICAL: No headaches, no weakness, no numbness. HEMATOLOGICAL: Denies any bleeding or petechiae. GENITOURINARY: Denies any burning micturition, frequency, or urgency. MUSCULOSKELETAL/RHEUMATOLOGICAL: Denies any joint pain, swelling, or any muscle pain. ENDOCRINE: Denies any polyuria or polydipsia. The rest of the 14-point review of systems is negative. PHYSICAL EXAMINATION: GENERAL: The patient is alert and oriented x3, not in any acute distress. Well developed, well nourished. HEENT: Pupils are round and equally reacting to light. EOMI. No scleral icterus. No conjunctival pallor. Normocephalic, atraumatic. No pharyngeal erythema. No thyromegaly. CARDIOVASCULAR: S1 and S2 present. No murmurs, rubs, or gallops. PULMONARY: Chest is clear to auscultation, no wheezing or crackles. ABDOMEN: Soft, nontender, nondistended, normoactive bowel sounds. No palpable organomegaly. MUSCULOSKELETAL: No joint swelling or deformity. EXTREMITIES: No cyanosis, clubbing, or pedal edema. NEUROLOGICAL: Gross neurological examination did not reveal any focal deficits. SKIN: No rashes. Assessment and plan -Episode of SVT which resolved with Adenosine -Atrial fibrillation history patient will continue his anti-correlation Cardizem is being switched to verapamil follow-up with his associate buyer as an outpatient. Patient's atrial fibrillation is paroxysmal presently sinus rhythm. -Hypertension patient will be discharged today Patient Condition at Discharge: Stable Plan - Discharge Summary New Discharge Prescriptions: New Verapamil Sr [Isoptin Sr] 180 mg PO DAILY #30 tab Discontinued dilTIAZem HCL [dilTIAZem HCL 24Hr ER (CD)] 180 mg PO DAILY No Action Rivaroxaban [Xarelto] 20 mg PO DAILY lisinopriL [Zestril] 5 mg PO DAILY Discharge Medication List Rivaroxaban [Xarelto] 20 mg PO DAILY 09/04/21 [History] lisinopriL [Zestril] 5 mg PO DAILY 09/04/21 [History] Verapamil Sr [Isoptin Sr] 180 mg PO DAILY #30 tab 01/17/23 [Rx] Follow up Appointment(s)/Referral(s): Yue Barnes DO [Primary Care Provider] - 3 Days Discharge Disposition: HOME SELF-CARE
[2023-01-17 13:34] VITALS: BP 125/78
== END 2023-01-17 13:33 | disposition home or self-care (01) ==
LOC: EC 22:33 → 6NMEDSUR 01-17 03:49 → 3SCARD 01-17 04:05
PROVIDERS: ADMIT Hospitalist; ATTEND Hospitalist
DX: I47.1 Supraventricular tachycardia (principal); I48.0 Paroxysmal atrial fibrillation; I10 Essential (primary) hypertension; K64.9 Unspecified hemorrhoids; Z79.01 Long term (current) use of anticoagulants; Z79.899 Other long term (current) drug therapy; Z85.01 Personal history of malignant neoplasm of esophagus; Z92.3 Personal history of irradiation; Z92.21 Personal history of antineoplastic chemotherapy; Z98.818 Other dental procedure status; Z98.890 Other specified postprocedural states; Z80.8 Family history of malignant neoplasm of other organs or systems
CPT/HCPCS: 96366; 96365; 96375; 99291; 36415; 93005 ×2; 83880; 80053; 83735; 84484; 85025; 85610; 85730; 71045; G0378; J0153

== ENCOUNTER 2023-06-03 07:45 | Day surgery (SDC) | payer MEDICAID, MEDICARE ==
[~2023-06-03 07:45] MED LIST: LACTATED RINGERS 1,000 ML IV SCH; LIDOCAINE 1% (10MG/ML) FOR IV START INTRADERMA PRN; ONDANSETRON 4 MG/2 ML VIAL IVP PRN; SODIUM CHLORIDE 0.9% 1,000 ML IV SCH; fentaNYL (PF) 50 MCG/ML 2 ML AMP IV PRN
[2023-06-03 08:31] LABS: Basophils % (A) 0 %; Eosinophils # (A) 0.1 k/uL (0-0.7); Eosinophils % (A) 1 %; HCT 47.6 % (39.0-53.0); HGB 16.7 gm/dL (13.0-17.5); Lymphocytes # (A) 2.3 k/uL (1.0-4.8); Lymphocytes % (A) 38 %; MCH 33.2 pg (25.0-35.0); MCHC 35.1 g/dL (31.0-37.0); MCV 94.5 fL (80.0-100.0); Mean Platelet Volume 8.5; Monocytes # (A) 0.3 k/uL (0-1.0); Monocytes % (A) 5 %; Neutrophils # (A) 3.3 k/uL (1.3-7.7); Neutrophils % (A) 53 %; Platelet Count 181 k/uL (150-450); RBC 5.03 m/uL (4.30-5.90); RDW 11.8 % (11.5-15.5); WBC 6.1 k/uL (3.8-10.6)
[2023-06-03] MEDS ORDERED: SODIUM CHLORIDE 0.9% 1,000 ML IV ONE (08:36)
[2023-06-03 08:56] LABS: African American GFR (CKD) >90 (>60 ml/min/1.73 sqM); Anion Gap 12 mmol/L; Blood Urea Nitrogen 16 mg/dL (9-20); Carbon Dioxide 29 mmol/L (22-30); Chloride 99 mmol/L (98-107); Glucose 107 mg/dL (74-99); Non-African American GFR(CKD) >90 (>60 ml/min/1.73 sqM); Potassium 4.4 mmol/L (3.5-5.1); Sodium 140 mmol/L (137-145)
[2023-06-03] MEDS ORDERED: LIDOCAINE 1% INJ 10MG/ML (20 ML MDV) ONE (10:13)
[2023-06-03] MEDS ORDERED: fentaNYL (PF) 50 MCG/ML 2 ML AMP ONE (10:22)
[2023-06-03] MEDS ORDERED: ISOPROTERENOL 250 MCG/1.25 ML SYR IV ONE (10:22)
[2023-06-03] MEDS ORDERED: MIDAZOLAM 2 MG/2 ML VIAL ONE (10:22)
[2023-06-03] MEDS ORDERED: PROPOFOL 10 MG/ML 20 ML VIAL IV ONE (10:22)
--- NOTE | 2023-06-03 10:29 | P.HPCAR ---
History of Present Illness This is Dr. White dictating an H/P on this patient The patient was interviewed and examined IMPRESSION / ASSESSMENT: Recurrent SVT, symptomatic, associated with ST depression Adenosine sensitive, failed diltiazem Questionable history of atrial fibrillation Hypertension, on lisinopril PLAN: Xarelto has been discontinued Diagnostic EP study and ablation of SVT Evaluation for inducibility of atrial fibrillation in a minimally sedated state Final decision regarding Xarelto thereafter Management of hypertension Stress testing thereafter off verapamil, patient complains of shortness of breath with exertion and fatigue with yardwork HPI Patient has had recurrent episodes of tachycardia requiring emergency room visits and evaluation Valsalva maneuver failed to terminate the tachycardia These arrhythmias with adenosine sensitive He was told he has atrial fibrillation and was put on Xarelto for this However I have not seen any ECG that confirms atrial fibrillation He denies any fever chills cough expectoration or syncope at this time ROS: No fever chills or rigors, no cough, phlegm or expectoration, no nausea, vomiting or diarrhea, no hematuria, dysuria, no musculoskeletal complaints, no strokes or seizures, no skin lesions. EXAMINATION: Pulse rate 70s, blood pressure 106 9 over 90 mmHg afebrile Breath sounds are clear no rhonchi no crackles Normal heart sounds normal S1 normal S2 No rub no murmurs No lower extremity edema No JVD REVIEW OF LABS, ECG & MEDICAL DATA Normal hemoglobin 16.7 Normal sodium 140, potassium 4.4 normal BUN 16 and creatinine 0.8 normal TSH normal at 1.7 Physical Exam Vitals: Vital Signs Temp Pulse Resp BP BP Pulse Ox 06/03/23 08:23 98.1 F 70 16 169/90 166/90 98 Intake and Output 06/02/23 06/03/23 06/03/23 22:59 06:59 14:59 Other: Weight 88.9 kg Past Medical History Past Medical History: Atrial Fibrillation, Hypertension, Supraventricular Tachycardia (SVT), Vascular Disorder Additional Past Medical History / Comment(s): SEE DR. WHITE'S H&P. 2009 esophageal cancer with sugery/chemo/radiation, R caratid bruit, hemorrhoids/occasionally bleed. History of Any Multi-Drug Resistant Organisms: None Reported Past Surgical History: No Surgical Hx Reported Additional Past Surgical History / Comment(s): Vocal cord surgery, bilateral lasik eye surgery, wisdom teeth extractions, colonoscopy Past Anesthesia/Blood Transfusion Reactions: No Reported Reaction Smoking Status: Never smoker - Past Family History Father Family Medical History: No Reported History Additional Family Medical History / Comment(s): Father is 92 yrs old and takes care of his spouse. Mother Family Medical History: Cancer Additional Family Medical History / Comment(s): Mother is 90 yrs ago. She has bone cancer Physical Examination Vital Signs Temp Pulse Resp BP BP Pulse Ox 06/03/23 08:23 98.1 F 70 16 169/90 166/90 98 Intake and Output 06/02/23 06/03/23 06/03/23 22:59 06:59 14:59 Other: Weight 88.9 kg Results 06/03/23 08:10 06/03/23 08:10 CBC 06/03/23 Range/Units 08:10 WBC 6.1 (3.8-10.6) k/uL RBC 5.03 (4.30-5.90) m/uL Hgb 16.7 (13.0-17.5) gm/dL Hct 47.6 (39.0-53.0) % Plt Count 181 (150-450) k/uL Comprehensive Metabolic Panel 06/03/23 Range/Units 08:10 Sodium 140 (137-145) mmol/L Potassium 4.4 (3.5-5.1) mmol/L Chloride 99 (98-107) mmol/L Carbon Dioxide 29 (22-30) mmol/L BUN 16 (9-20) mg/dL Creatinine 0.81 (0.66-1.25) mg/dL Glucose 107 H (74-99) mg/dL Calcium 10.0 (8.4-10.2) mg/dL Current Medications Generic Name Dose Route Start Last Admin Trade Name Freq PRN Reason Stop Dose Admin Fentanyl Citrate 50 mcg 06/03/23 05:59 Fentanyl (Pf) 50 Mcg/Ml 2 Ml Amp IV 06/03/23 23:00 Q3M PRN Phase I - Pain Control Sodium Chloride 1,000 mls @ 20 mls/hr 06/03/23 05:59 Saline 0.9% IV 07/03/23 06:00 .Q24H NIDA Lactated Ringer's 1,000 mls @ 20 mls/hr 06/03/23 05:59 Lactated Ringers IV 07/03/23 06:00 .Q24H NIDA Lidocaine HCl 0.1 ml 06/03/23 05:59 Lidocaine 1% (10mg/Ml) For Iv Start INTRADERMA 07/03/23 06:00 PER PROTOCOL PRN IV Start Ondansetron HCl 4 mg 06/03/23 05:59 Ondansetron 4 Mg/2 Ml Vial IVP 06/03/23 23:00 ONCE PRN Phase 1 or 2 - Nausea/Vomiting Intake and Output 06/02/23 06/03/23 06/03/23 22:59 06:59 14:59 Other: Weight 88.9 kg Patient Weight 06/04/23 06:59 Weight 88.9 kg 06/03/23 08:10 06/03/23 08:10
[2023-06-03] MEDS ORDERED: HEPARIN SODIUM (1,000 UNIT/ML) 1,000 UNIT in SODIUM CHLORIDE 0.9% 1,000 ML IRRIGATION ONE (10:30)
[2023-06-03] MEDS ORDERED: LIDOCAINE 1% INJ 10MG/ML (20 ML MDV) SQ ONE (10:51)
[2023-06-03] MEDS ORDERED: ACETAMINOPHEN TAB 325 MG TAB PO PRN (12:51)
[2023-06-03] MEDS ORDERED: ACETAMINOPHEN IV (For NPO) 1,000 MG in EMPTY BAG 1 BAG IVPB ONE (12:51)
--- NOTE | 2023-06-03 12:57 | P.EPPROC ---
- EP Procedure Note Electrophysiology Procedure Note: Dear Dr. Cameron Mark underwent a diagnostic EP study which revealed typical AV node reentry He underwent successful radio frequency ablation for this and the tachycardia was rendered noninducible There was no evidence for inducible atrial fibrillation at the study All his arrhythmias were adenosine sensitive and the diagnosis of atrial fibrillation was questionable I would recommend discontinuing Xarelto completely and Discontinuing verapamil I have increased the dose of lisinopril from 10 mg by mouth daily for now Thank you for entrusting me with the care of the patient Warm regards Sincerely Mg White
--- NOTE | 2023-06-03 13:13 | P.EPPROC ---
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 Written informed consent was obtained prior to the procedure. The right and left groins were prepped and draped as a protocol and venous sheaths were placed in the femoral veins bilaterally. Diagnostic catheters were positioned in the high right atrium, His bundle area, coronary sinus and right ventricle Baseline measurements were normal Sinus cycle length 777 ms, OK interval 138 ms QRS 129 ms right bundle branch block morphology and QT interval normal are clear and 71 ms AH 54 and HV interval 31 ms Sinus recovery times were 1158, 1229th and 1010 ms Slow pathway conduction noted antegradely at 360 ms AV node Wenckebach block 310 ms VA Wenckebach block 290 ms Retrograde conduction midline and decremental Joao response to Parahisian pacing Atrial extra stimulation Stimulation was performed and a jump in the AH interval was noted @ 600/290 ms Ventricular ERP 500\20 and 20 ms Bursts in the high right atrium resulted in induction of SVT Pacing cycle length of 300 ms from the high right atrium induced SVT VA times less than 60 ms during SVT VAV response with a long PPI, consistent with AV joao reentry A long sheath was used Irrigated tip ablation catheter was used Mapping of the his cloud, coronary sinus and the slow pathway Successful ablation of the slow pathway performed Junctional rhythm obtained Following that a detailed EP study is performed on high dose Isuprel AV node Wenckebach block 260 ms Atrial lead system ablation performed ventricular extra stimulation performed and burst stimulation down to 200 ms performed No evidence for AV node reentry Very occasional single echo beats No inducible atrial fibrillation All sheaths were removed Vascade occlusion applied successfully Patient tolerated the procedure well without any acute complications
[2023-06-04 07:41] VITALS: BP 143/80; PULSE 62; RESP 16; TEMP 97.8
[2023-06-04] MEDS ORDERED: lisinopriL 10 MG TAB PO SCH (09:00)
--- NOTE | 2023-06-04 13:32 | P.DS ---
Providers Date of admission: Patient underwent successful SVT ablation yesterday He is ambulating around the room comfortably He has no chest discomfort dizziness lightheadedness On examination, heart sounds are normal Breath sounds are clear Blood pressure 138/77 and 142/76. His mercury I increased the dose of lisinopril to 10 mg a day and discontinued verapamil Xarelto has also been discontinued Impression AV carisa reentry No evidence for atrial fibrillation at EP study Successful slow pathway ablation for management of SVT/AV carisa reentry Plan Discontinue xarelto Discontinue verapamil Increase lisinopril to 10 mg by mouth daily Maximization of her antihypertensive therapy as an outpatient We'll see him again in about a week Attending physician: Mg White Primary care physician: Yue Barnes Plan - Discharge Summary Discharge Rx Participant: No New Discharge Prescriptions: New lisinopriL [Zestril] 10 mg PO DAILY #90 tab Discontinued Verapamil Sr [Isoptin Sr] 180 mg PO 1700 Rivaroxaban [Xarelto] 20 mg PO QAM lisinopriL [Zestril] 5 mg PO QAM Discharge Medication List lisinopriL [Zestril] 10 mg PO DAILY #90 tab 06/03/23 [Rx] Follow up Appointment(s)/Referral(s): Mg hWite MD [STAFF PHYSICIAN] - 06/13/23 9:45 am (Follow-up with Dr. White in 1-2 weeks. Appointment will be at the main office with PRASANNA Rosario) Patient Instructions/Handouts: Cardiac Ablation (GEN) Activity/Diet/Wound Care/Special Instructions: Post EP study - Ablation instructions 1. Keep access sites dry for 2 days. 2. No heavy lifting or straining for 2 days. 3. Avoid bending the hips repeatedly for 2 days. 4. You may go up and down stairs slowly Call if the following is noted 1. Bleeding, increasing swelling or pain at the access sites. 2. Increasing chest discomfort, especially upon taking a deep breath. 3. Increasing shortness of breath, at rest or with exertion. 4. Undue cough / phlegm 5. Difficulty or pain while swallowing. 6. Pain or change in color in the extremities. 7. Fever, chills, rigors. 8. Increasing headache or neurologic symptoms. 9. Dizziness, fainting, palpitations Stop Xarelto No evidence for atrial fibrillation so far Stop verapamil Increase lisinopril to 10 mg by mouth daily Discharge Disposition: HOME SELF-CARE
== END 2023-06-04 09:53 | disposition home or self-care (01) ==
LOC: CATHEP 07:45 → 6NMEDSUR 12:35 → CATHEP 06-04 09:53
PROVIDERS: ATTEND Internal Medicine Clinical Cardiac Electrophysiology
DX: I47.10 Supraventricular tachycardia, unspecified (principal); I10 Essential (primary) hypertension; I48.91 Unspecified atrial fibrillation; Z79.01 Long term (current) use of anticoagulants; Z85.01 Personal history of malignant neoplasm of esophagus; Z98.890 Other specified postprocedural states
CPT/HCPCS: 93623; 93653; 86900; 86901; 80048; 84443; 85025; 86850; C1894; C1769; C1760; C1730 ×3; C1893; C1732; J2001; J1644

== ENCOUNTER 2023-11-14 06:17 | Inpatient (IN) | payer MEDICARE ==
[~2023-11-14 06:17] MED LIST changes: +ALPRAZolam 0.25 MG TAB PO PRN; +ALPRAZolam 0.5 MG TAB PO PRN; -LACTATED RINGERS 1,000 ML IV SCH; -LIDOCAINE 1% (10MG/ML) FOR IV START INTRADERMA PRN; +NITROGLYCERIN SL TABS 0.4 MG TAB SUBLINGUAL PRN; -ONDANSETRON 4 MG/2 ML VIAL IVP PRN; -SODIUM CHLORIDE 0.9% 1,000 ML IV SCH; -fentaNYL (PF) 50 MCG/ML 2 ML AMP IV PRN
[2023-11-14] MEDS: SODIUM CHLORIDE 0.9% 1,000 ML IV ONE (06:51)
[2023-11-14] MEDS ORDERED: HEPARIN SODIUM 1,000 UN/ML (10ML VL) ONE (07:29)
[2023-11-14] MEDS ORDERED: fentaNYL (PF) 50 MCG/ML 2 ML AMP ONE (07:29)
[2023-11-14] MEDS ORDERED: LIDOCAINE 1% INJ 10MG/ML (20 ML MDV) ONE (07:30)
[2023-11-14] MEDS ORDERED: VERAPAMIL 2.5 MG/ML 2 ML AMP ONE (07:30)
[2023-11-14] MEDS: MIDAZOLAM 2 MG/2 ML VIAL IVP ONE (07:38)
[2023-11-14] MEDS: fentaNYL (PF) 50 MCG/ML 2 ML AMP IVP ONE (07:38)
[2023-11-14] MEDS: LIDOCAINE 1% INJ 10MG/ML (5 ML VIAL-PF) SQ ONE (07:40)
[2023-11-14] MEDS: VERAPAMIL 2.5 MG/ML 2 ML AMP INTRAARTER ONE (07:43)
[2023-11-14] MEDS: HEPARIN SODIUM 1,000 UN/ML (10ML VL) IV ONE ×2 (07:45→14:12)
[2023-11-14] MEDS: IOPAMIDOL-370 100ML BTL INJ ONE (08:11)
[2023-11-14] MEDS ORDERED: RX INFO: IV CONTRAST WAS GIVEN 1 EACH MISC MISCELLANE PRN (08:54)
--- NOTE | 2023-11-14 13:27 | US ---
EXAMINATION TYPE: US carotid duplex BILAT DATE OF EXAM: 11/14/2023 COMPARISON: NONE CLINICAL INDICATION: Male, 63 years old with history of preop cardiac surgery; open heart TECHNIQUE: Carotid duplex ultrasound examination. Indirect Doppler criteria was utilized. 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 The Right ECA appears narrowed and exhibits stenotic waveforms and velocities reaching 480cm/sec IMPRESSION: At least 50-69% diameter reduction right proximal ICA. Criteria for Assigning % of Stenosis / Diameter reduction (Estimation based on the indirect measurements of the internal carotid artery velocities (ICA PSV). 1. Normal (no stenosis)=ICA PSV < 125 cm/s: ratio < 2.0: ICA EDV<40 cm/s. 2. Less than 50% stenosis=ICA PSV < 125 cm/s: ratio < 2.0: ICA EDV<40 cm/s. 3. 50 to 69% stenosis=ICA PSV of 125 to 230 cm/s: ration 2.0 ? 4.0: ICA EDV 40-100 cm/s. 4. Greater than 70% stenosis to near occlusion= ICA PSV > 230 cm/s: ratio > 4.0: ICA EDV > 100 cm/s. 5. Near occlusion= ICA PSV velocities may be low or undetectable: variable ratio and ICA EDV. 6. Total occlusion=unable to detect flow.
--- NOTE | 2023-11-14 13:28 | US ---
EXAMINATION TYPE: US vein mapping BILAT DATE OF EXAM: 11/14/2023 1:02 PM COMPARISON: NONE CLINICAL INDICATION: Male, 63 years old with history of preop cardiac surgery; open heart SIDE PERFORMED: Bilateral TECHNIQUE: Lower extremity saphenous vein is examined and measured utilizing real time linear array sonography. Patient History: Smoker: n Heart Disease: n Previous DVT: n Vascular Surgery: n Discoloration: n Hypertension: on meds Diabetes: n Paralysis: n Varicosities: n Edema: n DUPLEX FINDINGS: Greater Saphenous: Color flow seen Measurements in mm: Right Greater Saphenous: Groin: 6.0x8.1 mm High Thigh: 4.0x3.4 mm Mid Thigh: 4.3x4.7 mm Above Knee: 3.6x3.2 mm Knee: 3.8x4.1 mm Below Knee: 1.7x2.4 mm Mid Calf: 2.4x3.0 mm At Ankle: 2.2x3.2 mm Left Greater Saphenous: Groin: 4.2x5.0 mm High Thigh: 3.7x3.5 mm Mid Thigh: 3.8x4.5 mm Above Knee: 3.7x4.4 mm Knee: 3.9x4.5 mm Below Knee: 3.7x4.1 mm Mid Calf: 2.1x2.7 mm At Ankle: branched out and became too small to visualize IMPRESSION: 1. Bilateral GSV measurements listed above. 2. Performing surgeon to determine viability as conduit.
--- NOTE | 2023-11-14 13:28 | US ---
EXAMINATION TYPE: Pre-Operative Non-Invasive Evaluation of the hand for Potential Radial Artery Christiano , Measurements only DATE OF EXAM: 11/14/2023 1:02 PM CLINICAL INDICATION: Male, 63 years old with history of measurements only; open heart SIDE PERFORMED: Bilateral TECHNIQUE: Radial artery is measured utilizing real time linear array sonography. Dominant hand: Right Duplex Findings: Radial Artery: Color flow seen Measurements in mm, transverse view: Right Radial: Proximal: 3.7x4.7 mm Mid: 3.6x5.0 mm Distal: 3.5x4.3 mm Left Radial: Proximal: 3.6x4.0 mm Mid: 3.6x3.8 mm Distal: 3.4x3.8 mm IMPRESSION: 1. Bilateral GSV measurements listed above. 2. Performing surgeon to determine viability as conduit.
[2023-11-14] MEDS: ASPIRIN 325 MG TAB PO ONE (13:47)
[2023-11-14] MEDS: SODIUM CHLORIDE 0.9% 1,000 ML in EMPTY BAG 1 BAG IV SCH (13:47)
[2023-11-14] MEDS: ATORVASTATIN 80 MG TAB PO ONE (13:47)
[2023-11-14] MEDS: HEPARIN SOD,PORK IN 0.45% NACL 25,000 UNIT in 0.45% NACL 1 250ML.BAG IV SCH (14:08)
[2023-11-14] MEDS: SODIUM CHLORIDE 0.9% 1,000 ML IV SCH (14:16)
[2023-11-14 15:09] LABS: Basophils % (A) 1 %; Eosinophils % (A) 1 %; HCT 42.1 % (39.0-53.0); HGB 14.4 gm/dL (13.0-17.5); Lymphocytes # (A) 1.3 k/uL (1.0-4.8); Lymphocytes % (A) 26 %; MCH 32.2 pg (25.0-35.0); MCHC 34.2 g/dL (31.0-37.0); MCV 94.2 fL (80.0-100.0); Mean Platelet Volume 9.3; Monocytes # (A) 0.3 k/uL (0-1.0); Monocytes % (A) 6 %; Neutrophils # (A) 3.3 k/uL (1.3-7.7); Neutrophils % (A) 65 %; Platelet Count 172 k/uL (150-450); RBC 4.46 m/uL (4.30-5.90); RDW 12.2 % (11.5-15.5); WBC 5.1 k/uL (3.8-10.6)
[2023-11-14 15:21] LABS: INR 1.1 (<1.2); Prothrombin Time 11.8 sec (10.0-12.5)
--- NOTE | 2023-11-14 15:43 | CT ---
EXAMINATION TYPE: CT chest wo con DATE OF EXAM: 11/14/2023 COMPARISON: 11/14/2023 HISTORY: Assess aorta for clampability, pre op Saturday sx CT DLP: 411.8 mGycm, Automated exposure control for dose reduction was used. CONTRAST: Performed injected with 0 mL of Isovue 300. TECHNIQUE: Axial images were obtained at 5 mm thick sections. Reconstructed images are reviewed on [employer] computer in the coronal plane. FINDINGS: Portion of the thyroid visualized is normal. There is a three-vessel arch. Aortic arch appears normal. No significant vascular calcification withi n the ascending or descending thoracic aorta is evident. Note is made of coronary artery calcificatio n. No enlarged mediastinal or hilar adenopathy is evident. The ascending aorta diameter at the level o f the main pulmonary artery is 3.5 cm. The main pulmonary artery diameter at the bifurcation is 3.[address] sections are obtained through the upper abdomen. Abdomen is essentially unremarkable. IMPRESSION: 1. No significant calcification within the aorta. Very minimal wall calcification may be in the dista l thoracic aorta. 2. No acute pulmonary process
--- NOTE | 2023-11-14 16:22 | XR ---
EXAMINATION TYPE: XR chest 2V DATE OF EXAM: 11/14/2023 COMPARISON: 01/16/2023 HISTORY: Shortness of breath TECHNIQUE: Frontal and lateral views of the chest are obtained. FINDINGS: Scattered senescent parenchymal changes noted. No evidence for infiltrate. No evidence for atelectasis. Heart size is stable. Mediastinal structures are stable and grossly unremarkable. No evidence for hilar prominence. Degenerative changes dorsal spine. IMPRESSION: 1. No evidence for acute pulmonary disease.
--- NOTE | 2023-11-14 16:27 | US ---
EXAMINATION TYPE: US arterial LE single level DATE OF EXAM: 11/14/2023 4:05 PM CLINICAL INDICATION: Male, 63 years old with history of Ankle Brachial Index (JUANA); Pre op cardiac brink rgery History of: Smoker: never Hypertension: yes Diabetic: no Hyperlipidemia: no TIA/CVA: no Previous Vascular Surgery: heart ablation 06/03/23 Vascular Ulcers: no Claudication: no Gangrene: no Doppler Waveforms: Triphasic waveforms are present bilaterally. Right Brachial Pressure: deferred due to right radial [facility] Left Brachial Pressure: 152 Ankle-Brachial Indices: Right: 1.27 Left: 1.20 (Vessel hardening > 1.4; Normal 0.9 - 1.4, Moderate 0.7 - 0.9, Severe 0.5-0.7) IMPRESSION: No suspicious flow-limiting stenosis
[2023-11-14 17:12] LABS: ALT 28 U/L (4-49); AST 23 U/L (17-59); African American GFR (CKD) >90 (>60 ml/min/1.73 sqM); Alkaline Phosphatase 72 U/L (38-126); Anion Gap 8 mmol/L; Blood Urea Nitrogen 17 mg/dL (9-20); Calcium 9.2 mg/dL (8.4-10.2); Carbon Dioxide 24 mmol/L (22-30); Chloride 107 mmol/L (98-107); Glucose 106 mg/dL (74-99); Magnesium 1.8 mg/dL (1.6-2.3); Non-African American GFR(CKD) 89 (>60 ml/min/1.73 sqM); Potassium 4.3 mmol/L (3.5-5.1); Sodium 139 mmol/L (137-145); Total Bilirubin 0.6 mg/dL (0.2-1.3); Total Protein 6.5 g/dL (6.3-8.2)
--- NOTE | 2023-11-14 18:48 | P.GSCN ---
History of Present Illness Consult date: 11/14/23 Reason for Consult: Triple-vessel coronary artery disease Requesting physician: Abner Barrientos History of present illness: This is a 63-year-old gentleman who follows on outpatient basis with Dr. Jonathan Hayward for his primary care and with Dr. Lopez for his cardiology care. He has a past medical history significant for recurrent SVT, adenosine sensitive status post successful radiofrequency ablation in May 2023, hypertension, GERD, esophageal cancer in 2008, status post chemotherapy and 45 radiation treatments, is a lifetime non-smoker, has a history of chewing tobacco which she quit in his early 40s, and has a family history of coronary artery disease on his father side. The patient reports since his ablation procedure in May 2023 he has been having episodes of chest pain with activity and subsides with rest and has also complaint of feeling fatigued. He reports he does get chest pain at least 5 out of the 7 days of the week. He reports he has been taking Imdur which he feels has not been helping his symptoms. He denies any fever, chills, nausea, vomiting, diarrhea, constipation, visual disturbances, hemoptysis, hematemesis, headache, shortness of breath, palpitations, presyncope or syncope. Due to the patient's complaints of chest pain he underwent a nuclear stress test which showed a large fixed defect in the inferior wall. Subsequently, due to the patient's symptoms and stress test findings he was recommended to undergo a cardiac catheterization which was completed today. The cardiac catheterization results showed triple-vessel coronary artery disease with a 70 to 80% stenosis to his right coronary artery, a totally occluded circumflex coronary artery, and an 80% stenosis to his proximal left anterior descending coronary artery. Due to the findings on the cardiac catheterization a consult was placed to Dr. Erich Mensah from cardiothoracic surgery for further evaluation and treatment recommendations including myocardial revascularization surgery. Review of Systems A 14 point review of systems was completed and was negative except as mentioned in the HPI. Past Medical History Past Medical History: Atrial Fibrillation, Cancer, Chest Pain / Angina, GERD/Reflux, Hypertension, Supraventricular Tachycardia (SVT), Vascular Disorder Additional Past Medical History / Comment(s): SEE DR. LOPEZ'S H&P. 2009 esophageal cancer with sugery/chemo/radiation, R carotid bruit, hemorrhoids/occasionally bleed. pt states chest pain since ablation last fall, recent stress test -abnormal per pt. History of Any Multi-Drug Resistant Organisms: None Reported Past Surgical History: Ablation, Hernia Repair, Tonsillectomy Additional Past Surgical History / Comment(s): Vocal cord surgery, bilateral lasik eye surgery, wisdom teeth extractions, colonoscopy, rt inguinal hernia repair Past Anesthesia/Blood Transfusion Reactions: No Reported Reaction Past Psychological History: No Psychological Hx Reported Additional Psychological History / Comment(s): Pt resides with his spouse. He is independent. Smoking Status: Never smoker (Former chewing tobacco, quit when he was in his 40s) Past Alcohol Use History: Rare Additional Past Alcohol Use History / Comment(s): Pt chewed tobacco from 1977 until 1997 Past Drug Use History: None Reported - Past Family History Father Family Medical History: No Reported History, Coronary Artery Disease (CAD) Additional Family Medical History / Comment(s): Father is 92 yrs old and takes care of his spouse. stent Mother Family Medical History: Cancer Additional Family Medical History / Comment(s): Mother is 90 yrs ago. She has bone cancer Medications and Allergies Home Medications Medication Instructions Recorded Confirmed Type lisinopriL [Zestril] 10 mg PO DAILY #90 tab 06/03/23 11/14/23 Rx Fluticasone Nasal [place] [Flonase 2 spray NASAL DAILY 11/11/23 11/14/23 History Nasal [place]] Isosorbide Mononitrate ER [Imdur] 30 mg PO DAILY 11/11/23 11/14/23 History Metoprolol Succinate (ER) [Toprol 25 mg PO DAILY 11/11/23 11/14/23 History Xl] Pantoprazole Sodium 40 mg PO DAILY 11/11/23 11/14/23 History Allergies Allergy/AdvReac Type Severity Reaction Status Date / Time No Known Allergies Allergy Verified 11/11/23 15:52 Surgical - Exam Vital Signs Pulse Resp BP 50 L 16 90/52 11/13/23 09:00 11/13/23 09:00 11/13/23 09:00 - General well developed, well nourished, no distress, no pain - Eyes PERRL, normal ocular movement, no pale, no icteric - ENT normal pinna, normal nares, normal mucosa, no hearing loss, no congestion - Neck no masses, trachea midline, no lymphadectomy, no venous distension, no limited ROM carotid bruit: right - Respiratory Lungs essentially clear throughout, respirations are symmetrical and nonlabored, oxygen saturations are 97% on room air. No wheezes, rhonchi or crackles. - Cardiovascular Regular rhythm and rate. S1 and S2 present, negative for S3, gallop or murmur. - Abdomen Abdomen is soft, nontender and nondistended. Active bowel sounds present all 4 abdominal quadrants. No organomegaly appreciated. No guarding or rigidity. - Genitourinary Deferred - Rectum Deferred - Integumentary Skin is warm and dry. No clubbing or cyanosis is present. no rash, no growths, no abnormal pigmentation - Neurologic No focal deficits. normal coordination, normal sensation - Musculoskeletal Moves all 4 extremities with equal strength bilateral. normal gait, normal posture - Psychiatric oriented to time, oriented to person, oriented to place, speech is normal, memory intact Results - Labs 11/17/23 08:17 11/17/23 08:17 Abnormal Lab Results - Last 24 Hours (Table) 11/14/23 11/14/23 Range/Units 14:30 14:30 APTT 87.0 H (22.0-30.0) sec Glucose 106 H (74-99) mg/dL Diabetes panel 11/14/23 Range/Units 14:30 Sodium 139 (137-145) mmol/L Potassium 4.3 (3.5-5.1) mmol/L Chloride 107 (98-107) mmol/L Carbon Dioxide 24 (22-30) mmol/L BUN 17 (9-20) mg/dL Creatinine 0.90 (0.66-1.25) mg/dL Glucose 106 H (74-99) mg/dL Calcium 9.2 (8.4-10.2) mg/dL AST 23 (17-59) U/L ALT 28 (4-49) U/L Alkaline Phosphatase 72 (38-126) U/L Total Protein 6.5 (6.3-8.2) g/dL Albumin 4.0 (3.5-5.0) g/dL Thyroid panel 11/14/23 Range/Units 14:30 TSH 1.330 (0.465-4.680) mIU/L Calcium panel 11/14/23 Range/Units 14:30 Calcium 9.2 (8.4-10.2) mg/dL Albumin 4.0 (3.5-5.0) g/dL Pituitary panel 11/14/23 Range/Units 14:30 Sodium 139 (137-145) mmol/L Potassium 4.3 (3.5-5.1) mmol/L Chloride 107 (98-107) mmol/L Carbon Dioxide 24 (22-30) mmol/L BUN 17 (9-20) mg/dL Creatinine 0.90 (0.66-1.25) mg/dL Glucose 106 H (74-99) mg/dL Calcium 9.2 (8.4-10.2) mg/dL TSH 1.330 (0.465-4.680) mIU/L Adrenal panel 11/14/23 Range/Units 14:30 Sodium 139 (137-145) mmol/L Potassium 4.3 (3.5-5.1) mmol/L Chloride 107 (98-107) mmol/L Carbon Dioxide 24 (22-30) mmol/L BUN 17 (9-20) mg/dL Creatinine 0.90 (0.66-1.25) mg/dL Glucose 106 H (74-99) mg/dL Calcium 9.2 (8.4-10.2) mg/dL Total Bilirubin 0.6 (0.2-1.3) mg/dL AST 23 (17-59) U/L ALT 28 (4-49) U/L Alkaline Phosphatase 72 (38-126) U/L Total Protein 6.5 (6.3-8.2) g/dL Albumin 4.0 (3.5-5.0) g/dL - Imaging Additional studies: Cardiac catheterization films reviewed by Dr. Mensah Assessment and Plan Assessment: Multivessel coronary artery disease Unstable angina Abnormal stress testing Hypertension History of SVT status post ablation in May 2023 GERD History of esophageal cancer in 2008, status post chemotherapy and 45 radiation treatment Lifetime non-smoker, history of chewing tobacco which she quit in his early 40s Right carotid bruit with 50 to 69% diameter reduction right proximal ICA on carotid duplex study Family history of coronary artery disease Plan: The patient was seen and examined at his bedside on the third floor cardiac s tepdown unit with his present. His chart diagnostics were reviewed. His case was discussed in detail with Dr. Erich Mensah from cardiothoracic surgery. Treatment options were discussed with the patient by Dr. Mensah including myocardial revascularization surgery. Risks and benefits of myocardial vascularization surgery were discussed with the patient, and knowing and understanding the risks the patient wished to proceed with the surgical option. Preoperative testing and preoperative teaching has been initiated. A 5 m walk test has been completed with the patient with time 1: 2.83 seconds, time 2: 2.76 seconds, time 3: 3.06 seconds. The patient tolerated the 5 m walk test without complaints. A clinical frailty score was calculated with a score equaling 3 showing mild frailty. Once his preoperative testing has been collected and obtained an STS risk or will be calculated and discussed with the patient. The patient has been scheduled for off-pump myocardial vascularization surgery with left internal mammary artery, endoscopic left radial artery harvest, endoscopic greater saphenous vein harvest, exclusion of left atrial appendage and intraoperative transesophageal echocardiogram for Saturday, November 18, 2023 to be completed by Dr. Mensah. Medical management and other comorbidities per primary care service and cardiology service. Continue to optimize medical management w ith aspirin, statin and beta-alejandra. More recommendations to follow based on patient's clinical course. Thank you Dr. Barrientos for this consult and we look forward to working with you in the care of this patient. I have personally seen and examined the patient, performed the documentation and the assessment and plan as written. Number of minutes spent on the visit: 30. IRINA White Attending Addendum: Pt seen and evaluated with PICKER PACKER above. Agree with his assessment and plan. This is a 63 year-old M with a hx of SVT s/p AV node ablation who presents with unstable angina. Angiography reveals significant 3v CAD. We will plan for CABG this admission. I spent 35 minutes reviewing the data and discussing the plan of care with the patient and the team. Time with Patient: Greater than 30
[2023-11-14 19:55] LABS: Hepatitis A Antibody IgM Nonreactive (Nonreactive); Hepatitis B Core IgM Nonreactive (Nonreactive); Hepatitis B Surface Antigen Nonreactive (Nonreactive); Hepatitis C IgG Antibody Nonreactive (Nonreactive)
[2023-11-14 20:51] LABS: Appearance,Urine Clear (Clear); Bilirubin,Urine Negative (Negative); Blood,Urine Negative (Negative); Color,Urine Colorless; Glucose,Urine (UA) Negative (Negative); Ketones,Urine Negative (Negative); Leukocyte Esterase,Urine Negative (Negative); Nitrite,Urine Negative (Negative); PH, Urine 6.5 (5.0-8.0); Protein,Urine Negative (Negative); Specific Gravity,Urine 1.008 (1.001-1.035); Urobilinogen,Urine <2.0 mg/dL (<2.0)
[2023-11-14] MEDS: ATORVASTATIN 80 MG TAB PO SCH (21:00)
[2023-11-14] MEDS: MUPIROCIN 2% OINT 22 GM TUBE NASAL SCH (21:36)
[2023-11-14] MEDS: HEPARIN SODIUM 1,000 UN/ML (10ML VL) IV PRN (21:40)
[2023-11-15 03:15] LABS: Chol/HDL Ratio 4.15 Ratio; LDL Cholesterol,Calculated 136.1 mg/dL (0.0-131.0)
[2023-11-15 04:38] LABS: Basophils % (A) 1 %; Eosinophils # (A) 0.1 k/uL (0-0.7); Eosinophils % (A) 2 %; HCT 41.7 % (39.0-53.0); HGB 14.1 gm/dL (13.0-17.5); Lymphocytes # (A) 2.2 k/uL (1.0-4.8); Lymphocytes % (A) 40 %; MCH 31.9 pg (25.0-35.0); MCHC 33.8 g/dL (31.0-37.0); MCV 94.4 fL (80.0-100.0); Monocytes # (A) 0.3 k/uL (0-1.0); Monocytes % (A) 6 %; Neutrophils # (A) 2.7 k/uL (1.3-7.7); Neutrophils % (A) 50 %; Platelet Count 156 k/uL (150-450); RBC 4.41 m/uL (4.30-5.90); RDW 12.2 % (11.5-15.5); WBC 5.4 k/uL (3.8-10.6)
[2023-11-15 05:14] LABS: INR 1.1 (<1.2); Partial Thromboplastin Time 64.3 sec (22.0-30.0); Prothrombin Time 11.7 sec (10.0-12.5)
[2023-11-15] MEDS ORDERED: MAGNESIUM HYDROXIDE 2,400 MG/30 ML CUP PO PRN (07:23)
[2023-11-15] MEDS ORDERED: bisacodyL 10 MG SUPP RECTAL PRN (07:23)
--- NOTE | 2023-11-15 08:05 | P.PN ---
Subjective Progress Note Date: 11/15/23 Principal diagnosis: Triple-vessel coronary artery disease. Past medical history significant for recurrent SVT, adenosine sensitive status post successful radiofrequency ablation in May 2023, hypertension, GERD, esophageal cancer in 2008, status post chemotherapy and 45 radiation treatments, is a lifetime non-smoker, has a history of chewing tobacco which she quit in his early 40s, and has a family history of coronary artery disease on his father side. The patient was seen and examined in follow-up today November 15, 2023 at his bedside on the third floor cardiac stepdown unit. He is currently sitting up to his bedside chair, is awake, alert, oriented x 3 and is in no acute apparent distress. He denies any complaints of chest pain/pressure since his admission. Heparin drip remains infusing per protocol. He is currently scheduled for myocardial revascularization surgery on Saturday, November 18, 2023 to be performed by Dr. Mensah. Preoperative teaching has been reinforced with the patient, preoperative testing remains in progress with his transthoracic 2D echocar diogram report pending. Once his preoperative testing has been obtained and STS risk or will be calculated and discussed with the patient. Remote telemetry is showing normal sinus rhythm heart rate 65 bpm. Oxygen saturations are 99% on room air and he is achieving around 3500 mL on his incentive spirometry with encouragement. A bedside FEV1 was completed last evening which showed a predicted value of 102% with a base volume of 3.77 L. Laboratory results reviewed. Objective - Vital Signs Vital signs: Vital Signs Temp 97.7 F 11/15/23 04:00 Pulse 61 11/15/23 04:00 Resp 18 11/15/23 04:00 BP 135/85 11/15/23 04:00 Pulse Ox 99 11/15/23 04:00 FiO2 Intake & Output 11/14/23 11/15/23 11/15/23 18:59 06:59 18:59 Intake Total 500 314.833 Balance 500 314.833 Weight 89.9 kg Intake: IV 500 Intake, IV Titration 74.833 Amount Heparin Sod,Pork in 0.45% 74.833 NaCl 25,000 unit In 0.45 % NaCl 1 250ml.bag @ 11. 123 UNITS/KG/HR 10 mls/hr IV .Q24H [facility] Rx#: [id number] Oral 240 Other: # Voids 1 1 - Exam CONSTITUTIONAL: Appears comfortable, cooperative, no apparent acute distress. HEENT: Neck is supple, no JVD, no lymphadenopathy. Right carotid bruit. RESPIRATORY: Lungs sounds essentially clear throughout. Respirations are symmetrical and nonlabored. Currently on room air with oxygen saturations 99%. Able to achieve 3500 mL on his incentive spirometry. Strong cough. CARDIOVASCULAR: Regular rhythm and rate. S1 and S2 present, negative for S3, gallop or murmur. Remote telemetry is showing normal sinus rhythm heart rate 65 bpm. GASTROINTESTINAL: Abdomen soft, nontender, nondistended. Active bowel sounds present 4 quadrants. Tolerating diet. Passing flatus. No guarding or rigidity. GENITOURINARY: Continues to void. INTEGUMENTARY: Skin is warm and dry with no evidence of clubbing or cyanosis. NEUROLOGIC: Cranial nerves II through XII intact. No focal deficits. MUSKULOSKELETAL: Able to move all extremities, strength equal bilaterally. PSYCHIATRIC: Alert and oriented to person place and time, appropriate affect, intact judgment and insight. - Allied health notes Allied health notes reviewed: nursing - Labs CBC & Chem 7: 11/15/23 04:13 11/14/23 14:30 Labs: Abnormal Lab Results - Last 24 Hours (Table) 11/14/23 11/14/23 11/14/23 Range/Units 14:30 14:30 19:03 APTT 87.0 H 35.9 H (22.0-30.0) sec Glucose 106 H (74-99) mg/dL Cholesterol 218.00 H (0.00-200.00) mg/dL LDL Cholesterol, Calc 136.1 H (0.0-131.0) mg/dL 11/15/23 Range/Units 04:13 APTT 64.3 H (22.0-30.0) sec Glucose (74-99) mg/dL Cholesterol (0.00-200.00) mg/dL LDL Cholesterol, Calc (0.0-131.0) mg/dL Assessment and Plan Assessment: Multivessel coronary artery disease Unstable angina Abnormal stress testing Hypertension History of SVT status post ablation in May 2023 GERD History of esophageal cancer in 2008, status post chemotherapy and 45 radiation treatment Lifetime non-smoker, history of chewing tobacco which she quit in his early 40s Right carotid bruit with 50 to 69% diameter reduction right proximal ICA on carotid duplex study Family history of coronary artery disease Plan: Continue to reinforce preoperative teaching. Once his transthoracic 2D echocardiogram report has been obtained we will calculated STS risk score and discussed with the patient. Clinical frailty score was calculated yesterday, with a score of 3 showing mild frailty. Heparin drip management per cardiology recommendations. Encourage use of incentive spirometry 10 times every hour while awake. GI and DVT prophylaxis. Medical management and other comorbidities per cardiology. Continue to maximize medical management with aspirin, statin and beta-alejandra. He is currently scheduled for off-pump myocardial revascularization surgery on Saturday, November 18, 2023 with left internal mammary artery, endoscopic radial artery harvest, endoscopic greater saphenous vein harvest, exclusion left atrial appendage and intraoperative transesophageal echocardiogram to be performed by Dr. Mensah. More recommendations to follow based on patient's clinical course. Time with Patient: Greater than 30
[2023-11-15] MEDS: FLUTICASONE 50MCG/SPRAY NASAL 16GM NASAL SCH (08:54)
[2023-11-15] MEDS: ASPIRIN 81 MG PO SCH (09:03)
[2023-11-15] MEDS: PANTOPRAZOLE 40 MG TABLET PO SCH (09:03)
[2023-11-15] MEDS: METOPROLOL SUCCINATE (ER) 25 MG TAB.ER.24H PO SCH (09:03)
[2023-11-15] MEDS: lisinopriL 10 MG TAB PO SCH (09:03)
[2023-11-15] MEDS: ISOSORBIDE MONONITRATE ER 30 MG TAB.ER.24H PO SCH (09:03)
[2023-11-15] MEDS: SENNOSIDES-DOCUSATE SODIUM 1 EACH TAB PO SCH (09:03)
--- NOTE | 2023-11-15 09:40 | CA ---
Transthoracic Echo Report Name: Jas Lion Age: 63 Gender: M : 1960 Exam Date: 11/14/2023 14:39 Exam Location: [facility] Ht (in): 73 Wt (lb): 198 Ordering Physician: Tamiko Bailey Attending/Referring Phys: [id number], Lynn Sourcing Assistant Kyra Claros, TALISHA Procedure CPT: Indications: preop cardiac surgery Cardiac Hx: Technical Quality: Fair Contrast 1: Total Dose (mL): Contrast 2: Total Dose (mL): MEASUREMENTS (Male / Female) Normal Values 2D ECHO LV Diastolic Diameter PLAX 4.9 cm 4.2 - 5.9 / 3.9 - 5.3 cm LV Systolic Diameter PLAX 3.2 cm IVS Diastolic Thickness 1.2 cm 0.6 - 1.0 / 0.6 - 0.9 cm LVPW Diastolic Thickness 1.3 cm 0.6 - 1.0 / 0.6 - 0.9 cm LV Relative Wall Thickness 0.5 RV Internal Dim ED PLAX 2.7 cm LA Systolic Diameter LX 3.7 cm 3.0 - 4.0 / 2.7 - 3.8 cm LV Diastolic Volume MOD BP 74.7 cm??? 67 - 155 / 56 - 104 cm??? LV Systolic Volume MOD BP 26.5 cm??? 22 - 58 / 19 - 49 cm??? LV Ejection Fraction MOD BP 64.5 % >= 55 % LV Cardiac Index MOD BP 1337.9 cm???/min???m??? LV Diastolic Volume MOD 4C 66.3 cm??? LV Systolic Volume MOD 4C 24.8 cm??? LV Ejection Fraction MOD 4C 62.5 % LV Cardiac Index MOD 4C 1151.1 cm???/min???m??? LV Diastolic Length 4C 6.9 cm LV Systolic Length 4C 5.6 cm LV Diastolic Volume MOD 2C 78.1 cm??? LV Systolic Volume MOD 2C 29.8 cm??? LV Ejection Fraction MOD 2C 61.9 % LV Cardiac Index MOD 2C 1341.4 cm???/min???m??? LV Diastolic Length 2C 7.5 cm LV Systolic Length 2C 6.2 cm LA Volume 45.1 cm??? 18 - 58 / 22 - 52 cm??? LA Volume Index 20.9 cm???/m??? 16 - 28 cm???/m??? M-MODE Aortic Root Diameter MM 3.6 cm DOPPLER AV Peak Velocity 104.2 cm/s AV Peak Gradient 4.3 mmHg MV Area PHT 3.2 cm??? Mitral E Point Velocity 91.2 cm/s Mitral A Point Velocity 64.8 cm/s Mitral E to A Ratio 1.4 MV Deceleration Time 240.5 ms FINDINGS Left Ventricle Left ventricular ejection fraction is estimated at 55 %. Left ventricular cavity size normal. Mildly increased septal wall thickness. No obvious regional wall motion abnormalities. Right Ventricle Normal right ventricular size. Unable to estimate the right ventricular systolic pressure. Right Atrium Right atrium not well visualized. Left Atrium Normal left atrial size. Mitral Valve Structurally normal mitral valve. No mitral stenosis, regurgitation or prolapse. Aortic Valve Trileaflet aortic valve. No aortic valve stenosis or regurgitation. Tricuspid Valve Structurally normal tricuspid valve. No tricuspid stenosis, regurgitation or prolapse. Pulmonic Valve Pulmonic valve not well visualized. No pulmonic regurgitation. Pericardium No pericardial effusion. Aorta Normal size aortic root and proximal ascending aorta. CONCLUSIONS Normal LV size and systolic function. No segmental wall motion abnormalities. No significant abnormality on the Doppler exam. No pericardial effusion Previewed by: Dr. Carlie Triana MD (Electronically Signed) Final Date: 15 November 2023 09:39
--- NOTE | 2023-11-15 12:09 | P.PN ---
Subjective Progress Note Date: 11/15/23 History of present illness: This is a 63-year-old male patient of Dr. White with past medical history of AVNRT status post ablation, hypertension, esophageal cancer in 2009 status postchemotherapy and radiation treatments. Patient underwent nuclear stress testing which showed a large fixed defect in the inferior wall and subsequently was scheduled for cardiac catheterization with Dr. Barrientos which was performed yesterday. Patient was found to have multivessel coronary artery disease. Patient was thus admitted to the cardiac stepdown unit and cardiothoracic consult was placed. Patient is undergoing workup and is scheduled for CABG on Saturday. Blood pressure 148/81, heart rate in the 60s, pulse ox 98% on room air. Repeat blood work reveals normal CBC. INR 1.1. Patient has been started on heparin drip, aspirin, statin, beta-alejandra, Imdur. Telemetry sinus rhythm. Patient denies having any chest pain at this time. He states he had a little twinge earlier today which was brief. Carotid ultrasound revealed 50 to 69% stenosis in the right proximal ICA. Echocardiogram reveals normal LV size and systolic function. No significant abnormality on Doppler exam. No pericardial effusion. Physical examination: Gen: This is a 63-year-old male resting in the recliner in no acute distress. VS: reviewed HEENT: Head is atraumatic, normocephalic. Pupils equal, round. Sclerae is anicteric. NECK: Supple. No JVD. Right-sided carotid bruit. LUNGS: Clear to auscultation. No wheezes or rhonchi. No intercostal retractions. HEART: Regular rate and rhythm. No murmur. ABDOMEN: Soft No tenderness. EXTREMITIES: No pedal edema. No calf tenderness. NEUROLOGICAL: Patient is awake, alert and oriented x3. Assessment: Multivessel coronary artery disease Unstable angina Carotid stenosis right ICA, 50 to 69% AVNRT status post ablation Hypertension Gastroesophageal reflux disease History of esophageal cancer status post chemo and radiation Tobacco chewing history Plan: Continue current cardiac medications Discontinue Imdur and start patient on nitro patch 1 inch every 6 hours Patient is scheduled for CABG on Saturday Further recommendations to follow based upon clinical course Nurse practitioner note has been reviewed, I agree with documented findings and plan of care. Patient was seen and examined. Objective - Vital Signs Vital signs: Vital Signs Temp 98 F 11/15/23 08:00 Pulse 60 04/12/24 08:00 Resp 18 11/15/23 08:00 BP 148/81 11/15/23 08:00 Pulse Ox 98 11/15/23 08:00 FiO2 Intake & Output 11/14/23 11/15/23 11/15/23 18:59 06:59 18:59 Intake Total 500 314.833 236 Balance 500 314.833 236 Weight 89.9 kg Intake: IV 500 Intake, IV Titration 74.833 Amount Heparin Sod,Pork in 0.45% 74.833 NaCl 25,000 unit In 0.45 % NaCl 1 250ml.bag @ 11. 123 UNITS/KG/HR 10 mls/hr IV .Q24H [facility] Rx#: [id number] Oral 240 236 Other: # Voids 1 1 - Labs CBC & Chem 7: 11/15/23 04:13 11/14/23 14:30 Labs: Abnormal Lab Results - Last 24 Hours (Table) 11/14/23 11/14/23 11/14/23 Range/Units 14:30 14:30 19:03 APTT 87.0 H 35.9 H (22.0-30.0) sec Glucose 106 H (74-99) mg/dL Cholesterol 218.00 H (0.00-200.00) mg/dL LDL Cholesterol, Calc 136.1 H (0.0-131.0) mg/dL 11/15/23 Range/Units 04:13 APTT 64.3 H (22.0-30.0) sec Glucose (74-99) mg/dL Cholesterol (0.00-200.00) mg/dL LDL Cholesterol, Calc (0.0-131.0) mg/dL
[2023-11-15] MEDS: MD COMMUNICATION TO PHARMACY 1 EACH MISC PO ONE ×3 (16:11→16:12)
[2023-11-15] MEDS: NITROGLYCERIN OINT 1 INCH/GM PACKET TOPICAL SCH (16:12)
[2023-11-16] MEDS ORDERED: SENNOSIDES-DOCUSATE SODIUM 1 EACH TAB PO PRN (07:55)
--- NOTE | 2023-11-16 08:29 | P.PN ---
Subjective Progress Note Date: 11/16/23 Principal diagnosis: Multivessel coronary artery disease, unstable angina. History of hypertension, SVT status post ablation in May 2023, GERD, esophageal cancer in 2008 status post chemotherapy and 45 radiation treatments, lifetime non-smoker although history of chewing tobacco with cessation in his early 40s, right proximal ICA stenosis 50-69%, and family history of coronary artery disease The patient was seen and examined this morning sitting up in recliner on the [facility] stepdown unit in no acute distress. Denies any pain or shortness of breath. Has been ambulatory multiple times around the hallway without difficulty. His only complaint is of being bored. Remains in sinus rhythm, hemodynamically stable. Currently on room air. Anticipates CABG on Saturday with Dr. Mensah. No other new concerns. Objective - Vital Signs Vital signs: Vital Signs Temp 97.9 F 11/15/23 23:32 Pulse 63 11/16/23 04:00 Resp 16 11/16/23 04:00 BP 107/55 11/16/23 04:00 Pulse Ox 93 L 11/16/23 04:00 FiO2 Intake & Output 11/15/23 11/16/23 11/16/23 18:59 06:59 18:59 Intake Total 767.167 753.098 Balance 767.167 753.098 Intake: Intake, IV Titration 175.167 213.098 Amount Heparin Sod,Pork in 0.45% 175.167 213.098 NaCl 25,000 unit In 0.45 % NaCl 1 250ml.bag @ 11. 123 UNITS/KG/HR 10 mls/hr IV .Q24H [facility] Rx#: [id number] Oral [id number] Other: # Voids 1 1 # Bowel Movements 1 - Exam CONSTITUTIONAL: Appears comfortable, cooperative, no acute distress RESPIRATORY: Lungs sounds diminished bilaterally. Respirations even, nonlabored. Currently on room air with oxygen saturation 93%. Able to achieve 3000 mL on incentive spirometry. Strong cough. CARDIOVASCULAR: S1, S2 present. Regular rate and rhythm, sinus rhythm on telemetry. Palpable peripheral pulses bilaterally. No edema present. No calf pain or tenderness noted GASTROINTESTINAL: Abdomen soft, nontender, nondistended. Active bowel sounds present 4 quadrants. Tolerating diet. Positive bowel movement. GENITOURINARY: Continues to void INTEGUMENTARY: Skin is warm and dry NEUROLOGIC: Cranial nerves II through XII intact MUSKULOSKELETAL: Able to move all extremities, strength equal bilaterally, gait normal PSYCHIATRIC: Alert and oriented to person place and time, appropriate affect, intact judgment and insight - Allied health notes Allied health notes reviewed: nursing - Labs CBC & Chem 7: 11/15/23 04:13 11/14/23 14:30 Assessment and Plan Assessment: Multivessel coronary artery disease, unstable angina History of hypertension Hyperlipidemia, previously untreated outpatient, cholesterol 218, LDL 136 SVT status post ablation in May 2023 GERD Esophageal cancer in 2008 status post chemotherapy and 45 radiation treatments Lifetime non-smoker although history of chewing tobacco with cessation in his early 40s, preoperative FEV1 102% of predicted Right proximal ICA stenosis 50-69% Family history of coronary artery disease Plan: Continue to maximize medical therapy with aspirin, statin, beta-alejandra Continue to reinforce preoperative teaching. Encourage use of incentive spirometry 10 times every hour while awake. GI and DVT prophylaxis. Plan is for off-pump CABG on Saturday, n.p.o. after midnight More recommendations to follow based on patient's clinical course.
--- NOTE | 2023-11-16 12:49 | P.PN ---
Subjective Progress Note Date: 11/16/23 Patient is a 63-year-old male who follows in the office with Dr. White. The patient was found to have triple-vessel coronary artery disease after having abnormal stress testing. He has been evaluated by cardiothoracic surgery and will be undergoing triple-vessel bypass on Saturday with Dr. Mensah. Overnight the patient did have an episode of chest discomfort. He states he developed severe gas and epigastric pain. EKG did not show any new ST or T wave abnormalities. His pain ultimately subsided within 5 minutes. He has not had any discomfort when ambulating around the unit. He currently denies any pain or difficulty breathing. No dizziness when up to the bathroom. GENERAL: Well-appearing, well-nourished and in no acute distress. NECK: Supple without JVD or thyromegaly. LUNGS: Breath sounds clear to auscultation bilaterally. Respiration equal and unlabored. No wheezes, rales or rhonchi. HEART: Regular rate and rhythm without murmurs, rubs or gallops. S1 and S2 heard. EXTREMITIES: Normal range of motion, no edema. No clubbing or cyanosis. Peripheral pulses intact and strong. 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 Objective - Vital Signs Vital signs: Vital Signs Temp 97.5 F L 11/16/23 08:00 Pulse 62 11/16/23 11:24 Resp 16 11/16/23 11:24 BP 128/66 11/16/23 11:24 Pulse Ox 99 11/16/23 11:24 FiO2 Intake & Output 11/15/23 11/16/23 11/16/23 18:59 06:59 18:59 Intake Total 767.167 753.098 358 Balance 767.167 753.098 358 Intake: Intake, IV Titration 175.167 213.098 Amount Heparin Sod,Pork in 0.45% 175.167 213.098 NaCl 25,000 unit In 0.45 % NaCl 1 250ml.bag @ 11. 123 UNITS/KG/HR 10 mls/hr IV .Q24H [facility] Rx#: [id number] Oral [id number] Other: Voiding Method Toilet # Voids 1 1 1 # Bowel Movements 1 - Labs CBC & Chem 7: 11/15/23 04:13 11/14/23 14:30 Labs: Abnormal Lab Results - Last 24 Hours (Table) 11/16/23 Range/Units 07:28 APTT 73.2 H (22.0-30.0) sec Microbiology - Last 24 Hours (Table) 11/14/23 15:30 Nasal Screen MRSA/MSSA - Final Nasal Swab
--- NOTE | 2023-11-16 13:46 | P.CARDCATH ---
Date of Procedure: 11/14/23 Description of Procedure: DIAGNOSTIC CORONARY ANGIOGRAPHY and LEFT HEART CATH REPORT PROCEDURES PERFORMED: Left heart catheterization Selective coronary angiography Moderate conscious sedation 22 mins Right radial access INDICATION: 63-year-old with past medical history of AVNRT s/p ablation has been having symptoms of substernal chest pressure and shortness of breath and easy fatigue. For this he underwent a nuclear stress test which showed large fixed perfusion defect involving the inferior inferolateral wall. For this he was scheduled for an outpatient heart catheterization. CONSENT: I have explained the procedural steps of above-mentioned procedures in layman's terms to the patient. I discussed the risks (including but not limited to stroke, emergent vascular or cardiac surgery or ), benefits and alternative therapies for the above-mentioned procedure. I discussed the risks of sedation/analgesia and blood product administration (if indicated). The patient has indicated understanding and acceptance of these risks. Conscious Sedation: Patient's ECG, heart rate, blood pressure, pulse oximetry were monitored throughout the duration of procedure under my direct supervision. [2] mg Versed and [50] mg Fentanyl were used for induction of moderate conscious sedation. Total duration of moderate concious sedation 22 minutes. PROCEDURE: After explaining the risks, benefits and alternatives of the above mentioned procedures in detail to the patient, informed consent was obtained. Patient was taken to the catheterization lab, prepped and draped in usual sterile fashion using universal precuations. Barbow and anabell test were performed to confirm adequate perfusion to fingers. 1% lidocaine was infiltrated over the right radial artery. A 6-Thai sheath was placed and secured in the right radial artery using modified Seldinger technique. The sheath was flushed and 5 mg verapamil was administered intra-arterially. J tipped wire was advanced under fluoroscopic guidance. Once the wire tip reached aortic root 5500 units of IV heparin was given. Over the wire JR4 diagnostic catheter was advanced. The wire in place the catheter was manipulated to cross the aortic valve and entered into LV under fluoroscopy guidance. The wire was removed and the catheter was flushed. LV pressures were obtained and pullback was performed under fluoroscopy. Catheter was manipulated to selectively engage the right coronary ostium. Right coronary angiography was performed in different angiographic projections. The JR4 diagnostic catheter was exchanged for a JL 4 diagnostic catheter over the J-wire. The wire was removed, catheter was flushed and manipulated under fluoroscopy to selectively engaged the left coronary ostium. Left coronary angioplasty was performed in different angiographic projections. Catheter was removed over the wire. Radial sheath was flushed. The right radial sheath was removed and a TR band was placed with excellent patent hemostasis was achieved. The patient tolerated the procedure well. Patient was transported back to the post catheterization holding area in stable condition. Angiographic images were reviewed in detail. HEMODYNAMICS: Aortic Pressure: 93/45 mmHg. LV pressure: 95/5 mmHg. LVEDP 20 mmHg. There was no significant gradient across the aortic valve. SELECTIVE CORONARY ARTERIOGRAPHY: LEFT MAIN: The left main is a large caliber vessel which trifurcates into the LAD, Ramus and circumflex. Left main appears angiographically normal. RAMUS: 1.75 mm caliber vessel. Moderate diffuse disease in proximal segment LEFT ANTERIOR DESCENDING CORONARY ARTERY: Proximal RCA has 80% diffuse disease. It gives rise to a small diagonal 1 which has moderate diffuse disease. Mid LAD has 80% diffuse disease. It gives rise to a small diagonal 2 which has mild disease. Distal LAD is large caliber and appears angiographically normal and wraps around the apex. LEFT CIRCUMFLEX CORONARY ARTERY: It is nondominant vessel. Proximal LCx has 70% focal disease. Proximal and mid LCx has mild diffuse disease. OM1 has 100% ostial disease with no forward flow. It fills retrogradely from left to left collaterals and appears to be medium in caliber 2.5 mm vessel. LCx continues to give OM 2 branch which is mild luminal irregularities. RIGHT CORONARY ARTERY: Dominant vessel. Proximal RCA has a focal 60 to 70% disease. Mid and distal RCA appears angiographically normal. Distal RCA bifurcates into PDA and PL branch which appears angiographically normal. IMPRESSION: 100% ostial OM1 , fills with left to left collaterals 80% proximal and mid diffuse LAD disease 60 to 70% proximal RCA disease Elevated LVEDP PLAN: 100 cc fluids for [address] surgery consult Performing Physician Abner Barrientos MD, FACC, RPVI Thank you for allowing [facility] to participate in this patient's care. Feel free to reach out in case of any followup questions.
[2023-11-16] MEDS: NITROGLYCERIN OINT 1 INCH/GM PACKET TOPICAL SCH (15:07)
[2023-11-16] MEDS: CALCIUM CARBONATE 500 MG CHEWABLE PO PRN (18:15)
--- NOTE | 2023-11-17 07:49 | P.PN ---
Subjective Progress Note Date: 11/17/23 Principal diagnosis: Multivessel coronary artery disease, unstable angina. History of hypertension, SVT status post ablation in May 2023, GERD, esophageal cancer in 2008 status post chemotherapy and 45 radiation treatments, lifetime non-smoker although history of chewing tobacco with cessation in his early 40s, right proximal ICA stenosis 50-69%, and family history of coronary artery disease The patient was seen and examined this morning sitting up in recliner on the [facility] stepdown unit in no acute distress. Denies any pain or shortness of breath. Has been ambulatory multiple times around the hallway without difficulty. He did state he has had a bowel movement, the patient does have hemorrhoids with periodic bleeding, patient wanted everyone to be aware as he will be on antiplatelet medication. Remains in sinus rhythm, hemodynamically stable. Currently on room air. Anticipates CABG on Saturday with Dr. Mensah. No other new concerns. Objective - Vital Signs Vital signs: Vital Signs Temp 97.5 F L 11/16/23 20:00 Pulse 56 L 11/17/23 04:00 Resp 16 11/17/23 04:00 BP 121/75 11/17/23 04:00 Pulse Ox 96 11/17/23 04:00 FiO2 Intake & Output 11/16/23 11/17/23 11/17/23 18:59 06:59 18:59 Intake Total 1016 773.413 Balance 1016 773.413 Intake: Intake, IV Titration 233.413 Amount Heparin Sod,Pork in 0.45% 233.413 NaCl 25,000 unit In 0.45 % NaCl 1 250ml.bag @ 11. 123 UNITS/KG/HR 10 mls/hr IV .Q24H [facility] Rx#: [id number] Oral [id number] Other: Voiding Method Toilet Toilet # Voids 1 2 - Exam CONSTITUTIONAL: Appears comfortable, cooperative, no acute distress RESPIRATORY: Lungs sounds diminished bilaterally. Respirations even, nonlabore d. Currently on room air with oxygen saturation 96%. Able to achieve 3000 mL on incentive spirometry. Strong cough. CARDIOVASCULAR: S1, S2 present. Regular rate and rhythm, sinus rhythm on tele metry. Palpable peripheral pulses bilaterally. No edema present. No calf pain or tenderness noted GASTROINTESTINAL: Abdomen soft, nontender, nondistended. Active bowel sounds present 4 quadrants. Tolerating diet. Positive bowel movement. GENITOURINARY: Continues to void INTEGUMENTARY: Skin is warm and dry NEUROLOGIC: Cranial nerves II through XII intact MUSKULOSKELETAL: Able to move all extremities, strength equal bilaterally, gait normal PSYCHIATRIC: Alert and oriented to person place and time, appropriate affect, intact judgment and insight - Labs CBC & Chem 7: 11/15/23 04:13 11/14/23 14:30 Labs: Abnormal Lab Results - Last 24 Hours (Table) 11/16/23 Range/Units 07:28 APTT 73.2 H (22.0-30.0) sec Microbiology - Last 24 Hours (Table) 11/14/23 15:30 Nasal Screen MRSA/MSSA - Final Nasal Swab Assessment and Plan Assessment: Multivessel coronary artery disease, unstable angina History of hypertension Hyperlipidemia, previously untreated outpatient, cholesterol 218, LDL 136 SVT status post ablation in May 2023 GERD Esophageal cancer in 2008 status post chemotherapy and 45 radiation treatments Lifetime non-smoker although history of chewing tobacco with cessation in his early 40s, preoperative FEV1 102% of predicted Right proximal ICA stenosis 50-69% Family history of coronary artery disease Plan: Continue to maximize medical therapy with aspirin, statin, beta-alejandra Continue to reinforce preoperative teaching. Encourage use of incentive spirometry 10 times every hour while awake. GI and DVT prophylaxis. Plan is for off-pump CABG on Saturday, n.p.o. after midnight More recommendations to follow based on patient's clinical course.
[2023-11-17] MEDS ORDERED: MD COMMUNICATION TO PHARMACY 1 EACH MISC PO ONE (07:55)
[2023-11-17 10:14] LABS: Basophils # (A) 0.1 k/uL (0-0.2); Basophils % (A) 1 %; Eosinophils # (A) 0.1 k/uL (0-0.7); Eosinophils % (A) 1 %; HCT 44.8 % (39.0-53.0); HGB 14.9 gm/dL (13.0-17.5); Lymphocytes # (A) 1.4 k/uL (1.0-4.8); Lymphocytes % (A) 29 %; MCH 31.9 pg (25.0-35.0); MCHC 33.4 g/dL (31.0-37.0); MCV 95.5 fL (80.0-100.0); Mean Platelet Volume 9.4; Monocytes # (A) 0.2 k/uL (0-1.0); Monocytes % (A) 5 %; Neutrophils # (A) 3.1 k/uL (1.3-7.7); Neutrophils % (A) 63 %; Platelet Count 168 k/uL (150-450); RBC 4.69 m/uL (4.30-5.90); RDW 12.5 % (11.5-15.5)
[2023-11-17 10:45] LABS: ALT 33 U/L (4-49); AST 29 U/L (17-59); African American GFR (CKD) >90 (>60 ml/min/1.73 sqM); Albumin 4.2 g/dL (3.5-5.0); Alkaline Phosphatase 67 U/L (38-126); Anion Gap 8 mmol/L; Blood Urea Nitrogen 10 mg/dL (9-20); Calcium 9.8 mg/dL (8.4-10.2); Carbon Dioxide 29 mmol/L (22-30); Chloride 104 mmol/L (98-107); Glucose 100 mg/dL (74-99); Magnesium 1.7 mg/dL (1.6-2.3); Non-African American GFR(CKD) >90 (>60 ml/min/1.73 sqM); Potassium 3.8 mmol/L (3.5-5.1); Sodium 141 mmol/L (137-145); Total Protein 6.9 g/dL (6.3-8.2)
--- NOTE | 2023-11-17 10:58 | P.PN ---
Subjective Progress Note Date: 11/17/23 Patient is a 63-year-old male who follows in the office with Dr. White. The patient was found to have triple-vessel coronary artery disease after having abnormal stress testing. He has been evaluated by cardiothoracic surgery and will be undergoing triple-vessel bypass on Saturday with Dr. Mensah. After breakfast again this morning he had some mild epigastric discomfort with radiation to the right arm. This was not as significant as his pain yesterday. He continues to ambulate around the unit and has no exertional discomfort. No difficulty breathing. GENERAL: Well-appearing, well-nourished and in no acute distress. NECK: Supple without JVD or thyromegaly. LUNGS: Breath sounds clear to auscultation bilaterally. Respiration equal and unlabored. No wheezes, rales or rhonchi. HEART: Regular rate and rhythm without murmurs, rubs or gallops. S1 and S2 heard. EXTREMITIES: Normal range of motion, no edema. No clubbing or cyanosis. Peripheral pulses intact and strong. TELEMETRY: Sinus rhythm overnight IMPRESSION: Multivessel coronary artery disease Unstable angina Carotid stenosis right ICA, 50 to 69% AVNRT status post ablation Hypertension Gastroesophageal reflux disease History of esophageal cancer status post chemo and radiation Tobacco chewing history PLAN: Continue heparin drip Patient is currently on PPI Patient is scheduled for CABG tomorrow. No additional questions at this time. Further recommendations to be based upon clinical course I am dictating on behalf of Dr Mg White's history/physical and assessment/plan. Objective - Vital Signs Vital signs: Vital Signs Temp 97.5 F L 11/16/23 20:00 Pulse 56 L 11/17/23 04:00 Resp 16 11/17/23 04:00 BP 121/75 11/17/23 04:00 Pulse Ox 96 11/17/23 04:00 FiO2 Intake & Output 11/16/23 11/17/23 11/17/23 18:59 06:59 18:59 Intake Total 1016 773.413 358 Balance 1016 773.413 358 Intake: Intake, IV Titration 233.413 Amount Heparin Sod,Pork in 0.45% 233.413 NaCl 25,000 unit In 0.45 % NaCl 1 250ml.bag @ 11. 123 UNITS/KG/HR 10 mls/hr IV .Q24H [facility] Rx#: [id number] Oral [id number] [id number] 358 Other: Voiding Method Toilet Toilet # Voids 1 2 1 - Labs CBC & Chem 7: 11/17/23 08:17 11/17/23 08:17 Labs: Microbiology - Last 24 Hours (Table) 11/14/23 15:30 Nasal Screen MRSA/MSSA - Final Nasal Swab
--- NOTE | 2023-11-17 12:37 | P.CNPUL ---
History of Present Illness Consult date: 11/17/23 Chief complaint: Triple-vessel coronary artery disease History of present illness: Is a 63-year-old female patient with multivessel coronary artery disease, symptomatic and the patient is going to undergo coronary artery bypass surgery tomorrow. The patient is doing well. No specific complaints. History of any chest pain. He was having some chest pain on outpatient basis and the patient underwent a outpatient nuclear stress test that came back positive for a defect in the inferior wall. Subsequent the patient underwent a cardiac apurva terization that showed triple-vessel coronary artery disease. He has a 70 to 80% stenosis of the RCA, totally occluded circumflex and 80% c lesion in the LAD. The patient has previous history of SVTs and he has undergone previous radiofrequency ablation. He has previous history of esophageal cancer back in 2008 treated with chemotherapy and radiation therapy. He is a non-smoker. He does chew tobacco. His spirometry is essentially within normal limits. Chest x-ray within normal limits. Using incentive spirometer. Has good performance and functional status with a pulse ox of 98% on room air oxygen. The white cell count is 5 with a hemoglobin 14.9. Renal function is stable. Electrolytes are all stable. Review of Systems Constitutional: Reports as per HPI Eyes: denies as per HPI, denies blurred vision, denies bulging eye, denies decreased vision, denies diplopia, denies discharge, denies dry eye, denies irritation, denies itching, denies pain, denies photophobia, denies loss of peripheral vision, denies loss of vision, denies tunnel vision/blind spots Ears: deny: decreased hearing, ear discharge, earache, tinnitus Ears, nose, mouth and throat: Reports as per HPI Breasts: absent: as per HPI, gynecomastia Cardiovascular: Reports as per HPI, Reports chest pain, Reports dyspnea on exertion Respiratory: Reports as per HPI Gastrointestinal: Reports as per HPI Genitourinary: Reports as per HPI Musculoskeletal: Reports as per HPI Musculoskeletal: absent: ankle pain, ankle stiffness, ankle swelling Integumentary: Reports as per HPI Neurological: Reports as per HPI Psychiatric: Reports as per HPI Endocrine: Reports as per HPI Hematologic/Lymphatic: Reports as per HPI Allergic/Immunologic: Reports as per HPI Past Medical History Past Medical History: Atrial Fibrillation, Cancer, Chest Pain / Angina, GERD/Reflux, Hypertension, Supraventricular Tachycardia (SVT), Vascular Disorder Additional Past Medical History / Comment(s): SEE DR. LOPEZ'S H&P. 2009 esophageal cancer with sugery/chemo/radiation, R carotid bruit, hemorrhoids/occasionally bleed. pt states chest pain since ablation last fall, recent stress test -abnormal per pt. History of Any Multi-Drug Resistant Organisms: None Reported Past Surgical History: Ablation, Hernia Repair, Tonsillectomy Additional Past Surgical History / Comment(s): Vocal cord surgery, bilateral lasik eye surgery, wisdom teeth extractions, colonoscopy, rt inguinal hernia repair Past Anesthesia/Blood Transfusion Reactions: No Reported Reaction Past Psychological History: No Psychological Hx Reported Additional Psychological History / Comment(s): Pt resides with his spouse. He is independent. Smoking Status: Never smoker (Former chewing tobacco, quit when he was in his 40s) Past Alcohol Use History: Rare Additional Past Alcohol Use History / Comment(s): Pt chewed tobacco from 1977 until 1997 Past Drug Use History: None Reported - Past Family History Father Family Medical History: No Reported History, Coronary Artery Disease (CAD) Additional Family Medical History / Comment(s): Father is 92 yrs old and takes care of his spouse. stent Mother Family Medical History: Cancer Additional Family Medical History / Comment(s): Mother is 90 yrs ago. She has bone cancer Medications and Allergies Home Medications Medication Instructions Recorded Confirmed Type lisinopriL [Zestril] 10 mg PO DAILY #90 tab 06/03/23 11/14/23 Rx Fluticasone Nasal [employer] [Flonase 2 spray NASAL DAILY 11/11/23 11/14/23 History Nasal [employer]] Isosorbide Mononitrate ER [Imdur] 30 mg PO DAILY 11/11/23 11/14/23 History Metoprolol Succinate (ER) [Toprol 25 mg PO DAILY 11/11/23 11/14/23 History Xl] Pantoprazole Sodium 40 mg PO DAILY 11/11/23 11/14/23 History Allergies Allergy/AdvReac Type Severity Reaction Status Date / Time No Known Allergies Allergy Verified 11/11/23 15:52 Physical Exam Vitals: Vital Signs Temp Pulse Resp BP Pulse Ox 11/17/23 08:00 97.7 F 65 18 155/88 98 11/17/23 04:00 56 L 16 121/75 96 11/17/23 00:00 55 L 16 120/77 97 11/16/23 20:00 97.5 F L 57 L 16 143/82 99 11/16/23 15:22 97.9 F 65 16 138/73 98 11/16/23 11:24 62 16 128/66 99 Intake and Output 11/16/23 11/17/23 11/17/23 22:59 06:59 14:59 Intake Total 118 773.413 358 Balance 118 773.413 358 Intake: Intake, IV Titration 233.413 Amount Heparin Sod,Pork in 0.45% 233.413 NaCl 25,000 unit In 0.45 % NaCl 1 250ml.bag @ 11. 123 UNITS/KG/HR 10 mls/hr IV .Q24H [facility] Rx#: [id number] Oral 118 540 358 Other: Voiding Method Toilet Toilet Toilet # Voids 1 2 1 CONSTITUTIONAL: Appears comfortable, cooperative, no acute distress Head exam was generally normal. There was no scleral icterus or corneal arcus. Mucous membranes were moist. Neck was supple and without jugular venous distension, thyromegaly, or carotid bruits. Carotids were easily palpable bilaterally. There was no adenopathy. RESPIRATORY: Lungs sounds diminished bilaterally. Respirations even, n onlabored. Currently on room air with oxygen saturation 96%. Able to achieve 3000 mL on incentive spirometry. Strong cough. CARDIOVASCULAR: S1, S2 present. Regular rate and rhythm, sinus rhythm on telemetry. Palpable peripheral pulses bilaterally. No edema present. No calf pain or tenderness noted GASTROINTESTINAL: Abdomen soft, nontender, nondistended. Active bowel sounds present 4 quadrants. Tolerating diet. Positive bowel movement. GENITOURINARY: Continues to void INTEGUMENTARY: Skin is warm and dry NEUROLOGIC: Cranial nerves II through XII intact MUSKULOSKELETAL: Able to move all extremities, strength equal bilaterally, gait normal PSYCHIATRIC: Alert and oriented to person place and time, appropriate affect, intact judgment and insight Results - Laboratory Findings CBC and BMP: 11/17/23 08:17 11/17/23 08:17 PT/INR, D-dimer PT 11.7 sec (10.0-12.5) 11/15/23 04:13 INR 1.1 (<1.2) 11/15/23 04:13 Abnormal lab findings: Abnormal Labs 11/14/23 11/14/23 11/14/23 14:30 14:30 19:03 APTT 87.0 H 35.9 H Glucose 106 H Cholesterol 218.00 H LDL Cholesterol, Calc 136.1 H 11/15/23 11/16/23 04:13 07:28 APTT 64.3 H 73.2 H Glucose Cholesterol LDL Cholesterol, Calc - Diagnostic Findings Chest x-ray: image reviewed Assessment and Plan Plan: Multivessel coronary artery disease,, please refer to the most recent cardiac catheterization that showed triple-vessel disease. The patient is undergoing coronary artery bypass surgery in a.m. Overall cardiopulmonary status is stable. The patient's chest x-ray is clear. Oxygenation is within normal limits. The patient has adequate performance and functional status. hypertension Hyperlipidemia, previously untreated outpatient, cholesterol 218, LDL 136 SVT status post ablation in May 2023 GERD Esophageal cancer in 2008 status post chemotherapy and 45 radiation treatments, the patient is in remission. Lifetime non-smoker although history of chewing tobacco with cessation in his early 40s, preoperative FEV1 102% of predicted Right proximal ICA stenosis 50-69% Family history of coronary artery disease Hemorrhoids, history of, currently not bleeding. Plan The patient will be undergoing coronary bypass surgery in a.m. Overall pulmonary status is stable. He is considered to be at low risk for pulmonary complications based on his current condition. No history of any chronic lung disease. No asthma or emphysema. Chest x-ray within normal. Oxygenation is stable. Spirometry shows an FEV1 of 102% of predicted and the patient has good performance and functional status. Will manage the ventilator postop. Appropriate education was given. Will continue using the incentive spirometer. Will continue to follow-up this patient's care postop.
[2023-11-18] MEDS: ASPIRIN 325 MG TAB PO ONE (04:51)
[2023-11-18] MEDS: ATORVASTATIN 10 MG TAB PO ONE (04:51)
[2023-11-18] MEDS: METOPROLOL TARTRATE 12.5 MG TAB PO ONE (04:51)
[2023-11-18] MEDS ORDERED: NITROGLYCERIN-D5W PMX 50 MG in DEXTROSE/WATER 1 250ML.BAG IV SCH (05:00)
[2023-11-18] MEDS ORDERED: PAPAVERINE 360 MG in SODIUM CHLORIDE 0.9% 90 ML IV ONE (05:00)
[2023-11-18] MEDS ORDERED: HEPARIN SODIUM 1,000 UN/ML (10ML VL) IV ONE (05:00)
[2023-11-18] MEDS ORDERED: ALBUMIN HUMAN 25% 50 ML in EMPTY BAG 1 BAG IVPB ONE (05:00)
[2023-11-18] MEDS ORDERED: ELECTROLYTE-A SOLUTION 1,000 ML with POTASSIUM CHLORIDE 40 MEQ, MAGNESIUM SULFATE 16 ME... IV ONE (05:00)
[2023-11-18] MEDS ORDERED: TRANEXAMIC ACID 2,000 MG in SODIUM CHLORIDE 0.9% 80 ML IV ONE (05:00)
[2023-11-18] MEDS ORDERED: SODIUM BICARB 8.4% 50 ML SYR (1 MEQ/ML) IV ONE (05:00)
[2023-11-18] MEDS ORDERED: NITROGLYCERIN-D5W PMX 25 MG/250 ML BTL IV ONE (05:00)
[2023-11-18] MEDS ORDERED: ceFAZolin 1,000 MG in SODIUM CHLORIDE 0.9% IRRIGATIO 1,000 ML IRRIGATION ONE (05:00)
[2023-11-18] MEDS ORDERED: ELECTROLYTE-A SOLUTION 1,000 ML with POTASSIUM CHLORIDE 100 MEQ, MAGNESIUM SULFATE 16 M... IV ONE (05:00)
[2023-11-18] MEDS ORDERED: PROTAMINE SULFATE 250 MG in EMPTY BAG 1 BAG IV ONE (05:00)
[2023-11-18] MEDS ORDERED: ALBUMIN HUMAN 5% 500 ML in EMPTY BAG 1 BAG IVPB ONE ×6 (05:00)
[2023-11-18] MEDS ORDERED: HEPARIN SODIUM,PORCINE (1 ML) 5,000 UNIT in SODIUM CHLORIDE 0.9% 500 ML 500 ML IV ONE (05:00)
[2023-11-18] MEDS ORDERED: NOREPINEPHRINE 4 MG in SODIUM CHLORIDE 0.9% 250 ML IV SCH (05:00)
[2023-11-18] MEDS ORDERED: INSULIN REGULAR 100 UNIT in SODIUM CHLORIDE 0.9% 100 ML IV SCH (05:00)
[2023-11-18] MEDS ORDERED: CALCIUM CHLORIDE 100 MG/ML 10 ML SYRINGE IVP ONE (05:00)
[2023-11-18] MEDS ORDERED: CHLORHEXIDINE GLUCONATE 15 ML CUP MUCOUS MEM ONE (05:00)
[2023-11-18] MEDS ORDERED: PROTAMINE SULFATE 10 MG/ML 25 ML VIAL IV ONE ×2 (05:00→07:45)
[2023-11-18] MEDS ORDERED: CLEVIDIPINE BUTYRATE 25 MG in EMPTY BAG 1 BAG IV SCH (05:00)
[2023-11-18] MEDS ORDERED: MANNITOL 25% 12.5 GM/50 ML VIAL IV ONE ×2 (05:00)
[2023-11-18] MEDS ORDERED: MAGNESIUM SULFATE 16.24 MEQ in EMPTY SYRINGE 1 SYR IV ONE (05:00)
[2023-11-18] MEDS ORDERED: PHENYLEPHRINE 40 MG in SODIUM CHLORIDE 0.9% 250 ML IV ONE (05:00)
[2023-11-18] MEDS ORDERED: LACTATED RINGERS 1,000 ML IV SCH (05:00)
[2023-11-18] MEDS ORDERED: PHENYLEPHRINE 10 MG/ML VIAL IV ONE (05:00)
[2023-11-18] MEDS: LACTATED RINGERS 1,000 ML IV ONE ×3 (05:57→06:10)
[2023-11-18 06:11] LABS: Glucose,Whole Blood 99 mg/dL (70-110)
[2023-11-18] MEDS ORDERED: ePHEDrine 50 MG/ML 1 ML VIAL ONE (07:45)
[2023-11-18] MEDS ORDERED: HEPARIN SODIUM,PORCINE 10,000 UNIT/ML 1 ML VIAL ONE (07:45)
[2023-11-18] MEDS ORDERED: VECURONIUM 10 MG VIAL IV ONE (07:45)
[2023-11-18] MEDS ORDERED: fentaNYL (PF) 50 MCG/ML 50 ML VIAL ONE (07:45)
[2023-11-18] MEDS ORDERED: PROPOFOL 10 MG/ML 20 ML VIAL IV ONE (07:45)
[2023-11-18] MEDS ORDERED: PHENYLEPHRINE 10 MG/ML VIAL ONE (07:45)
[2023-11-18] MEDS ORDERED: CALCIUM CHLORIDE 100 MG/ML 10 ML SYRINGE ONE (07:45)
[2023-11-18] MEDS ORDERED: SUCCINYLCHOLINE CHLORIDE 200 MG/10 ML VIAL IV ONE (07:45)
[2023-11-18] MEDS ORDERED: INSULIN REGULAR 100 UNIT/ML VIAL (IV) ONE (07:45)
[2023-11-18] MEDS ORDERED: ROCURONIUM 10 MG/ML (5 ML VIAL) IV ONE (07:45)
[2023-11-18] MEDS ORDERED: MIDAZOLAM HCL 10 MG/10 ML VIAL ONE (07:45)
[2023-11-18 08:32] LABS: ABG Base Excess 0.5 mmol/L; ABG Glucose Whole Blood 98 mg/dL (75-99); ABG HCO3 26 mmol/L (21-25); ABG Hematocrit 41 % (34.0-46.0); ABG Ionized Calcium 4.9 mg/dL (4.5-5.3); ABG Lactic Acid Whole Blood 0.9 mmol/L (0.5-1.6); ABG Oxygen Saturation >99.4 % (94-97); ABG PCO2 44 mmHg (35-45); ABG PH 7.38 (7.35-7.45); ABG PO2 273 mmHg (83-108); ABG Potassium Whole Blood 4.4 mmol/L (3.4-4.5); ABG Sodium Whole Blood 141 mmol/L (135-146); Allen Test Performed? Yes
[2023-11-18 09:35] LABS: ABG Glucose Whole Blood 109 mg/dL (75-99); ABG HCO3 25 mmol/L (21-25); ABG Hematocrit 39 % (34.0-46.0); ABG Ionized Calcium 4.8 mg/dL (4.5-5.3); ABG Lactic Acid Whole Blood 0.9 mmol/L (0.5-1.6); ABG Oxygen Saturation 99.2 % (94-97); ABG PCO2 41 mmHg (35-45); ABG PO2 186 mmHg (83-108); ABG Potassium Whole Blood 3.9 mmol/L (3.4-4.5); ABG Sodium Whole Blood 140 mmol/L (135-146); Allen Test Performed? Yes
[2023-11-18] MEDS: DILTIAZEM 125 MG in SODIUM CHLORIDE 0.9% 100 ML IV SCH (10:12)
[2023-11-18] MEDS: PAPAVERINE 360 MG in SODIUM CHLORIDE 0.9% 90 ML IV ONE (10:12)
[2023-11-18] MEDS: SODIUM CHLORIDE 0.9% 500 ML 500 ML with HEPARIN SODIUM,PORCINE (1 ML) 5,000 UNIT IV ONE (10:12)
[2023-11-18] MEDS: ceFAZolin 1,000 MG in SODIUM CHLORIDE 0.9% 1,000 ML IRRIGATION ONE (10:12)
[2023-11-18 10:45] LABS: ABG Base Excess -0.6 mmol/L; ABG Glucose Whole Blood 130 mg/dL (75-99); ABG HCO3 24 mmol/L (21-25); ABG Hematocrit 39 % (34.0-46.0); ABG Ionized Calcium 4.7 mg/dL (4.5-5.3); ABG Lactic Acid Whole Blood 1.3 mmol/L (0.5-1.6); ABG Oxygen Saturation 99.4 % (94-97); ABG PCO2 39 mmHg (35-45); ABG PO2 275 mmHg (83-108); ABG Potassium Whole Blood 3.8 mmol/L (3.4-4.5); ABG Sodium Whole Blood 141 mmol/L (135-146); Allen Test Performed? Yes
[2023-11-18 11:14] LABS: ABG Base Excess -1.5 mmol/L; ABG Glucose Whole Blood 118 mg/dL (75-99); ABG HCO3 23 mmol/L (21-25); ABG Hematocrit 39 % (34.0-46.0); ABG Ionized Calcium 4.8 mg/dL (4.5-5.3); ABG Lactic Acid Whole Blood 1.3 mmol/L (0.5-1.6); ABG Oxygen Saturation >99.4 % (94-97); ABG PCO2 39 mmHg (35-45); ABG PH 7.38 (7.35-7.45); ABG PO2 286 mmHg (83-108); ABG Potassium Whole Blood 3.6 mmol/L (3.4-4.5); ABG Sodium Whole Blood 141 mmol/L (135-146); Allen Test Performed? Yes
[2023-11-18 12:10] LABS: ABG Base Excess -2.6 mmol/L; ABG Glucose Whole Blood 116 mg/dL (75-99); ABG HCO3 23 mmol/L (21-25); ABG Hematocrit 39 % (34.0-46.0); ABG Ionized Calcium 4.6 mg/dL (4.5-5.3); ABG Lactic Acid Whole Blood 1.4 mmol/L (0.5-1.6); ABG Oxygen Saturation 99.3 % (94-97); ABG PCO2 40 mmHg (35-45); ABG PH 7.36 (7.35-7.45); ABG PO2 270 mmHg (83-108); ABG Potassium Whole Blood 3.6 mmol/L (3.4-4.5); ABG Sodium Whole Blood 140 mmol/L (135-146); Allen Test Performed? Yes
[2023-11-18 12:59] LABS: ABG Base Excess -3.5 mmol/L; ABG Glucose Whole Blood 111 mg/dL (75-99); ABG HCO3 22 mmol/L (21-25); ABG Hematocrit 38 % (34.0-46.0); ABG Ionized Calcium 4.9 mg/dL (4.5-5.3); ABG Lactic Acid Whole Blood 1.1 mmol/L (0.5-1.6); ABG Oxygen Saturation 99.3 % (94-97); ABG PCO2 39 mmHg (35-45); ABG PH 7.36 (7.35-7.45); ABG PO2 231 mmHg (83-108); ABG Potassium Whole Blood 4.2 mmol/L (3.4-4.5); ABG Sodium Whole Blood 140 mmol/L (135-146); Allen Test Performed? Yes
--- NOTE | 2023-11-18 13:27 | XR ---
EXAMINATION TYPE: XR chest 1V portable DATE OF EXAM: 11/18/2023 COMPARISON: 11/14/2023 INDICATION: Foreign body TECHNIQUE: Single frontal view of the chest is obtained. FINDINGS: The heart size is normal. The pulmonary vasculature is normal. Infiltration of the left lung. Correlate for atelectasis. There is a transesophageal electronic device present. Endotracheal tube tip is 7 cm above the michel. [place] catheter tip is in the right main pulmonary artery region. S shaped right chest tube is pr esent. Left-sided chest tube is directed towards the apex. Postsurgical changes from CABG are evident . Mediastinal tube is present. Additional radiopaque foreign bodies are not identified. IMPRESSION: 1. No definite abnormal radiopaque foreign body. 2. Multiple lines and catheters discussed above. 3. Atelectatic type changes left mid lung
[2023-11-18] MEDS ORDERED: AMIODARONE 360 MG in DEXTROSE 5% IN WATER 200 ML IV PRN (13:55)
[2023-11-18] MEDS ORDERED: Magnesium Replacement Protocol 1 EACH MISC MISCELLANE PRN (13:55)
[2023-11-18] MEDS ORDERED: DEXTROSE 5% IN WATER 100 ML with AMIODARONE 150 MG IV PRN (13:55)
[2023-11-18] MEDS ORDERED: METOCLOPRAMIDE 5 MG/ML 2 ML VIAL IVP PRN (13:55)
[2023-11-18] MEDS ORDERED: AMIODARONE 450 MG in DEXTROSE 5% IN WATER 250 ML IV PRN (13:55)
[2023-11-18] MEDS ORDERED: ONDANSETRON 4 MG/2 ML VIAL IVP PRN (13:55)
[2023-11-18] MEDS ORDERED: DEXTROSE 50% SYRINGE 50 ML IVP PRN ×2 (13:55)
[2023-11-18] MEDS ORDERED: BENZOCAINE/MENTHOL LOZENG 1 EACH LOZENGE MUCOUS MEM PRN (13:55)
[2023-11-18] MEDS ORDERED: IPRATROPIUM-ALBUTEROL 3 ML NEB INHALATION PRN (13:55)
[2023-11-18] MEDS ORDERED: Potassium Replacement Protocol 1 EACH MISC MISCELLANE PRN (13:55)
--- NOTE | 2023-11-18 14:31 | XR ---
EXAMINATION TYPE: XR forearm LT DATE OF EXAM: 11/18/2023 COMPARISON: None HISTORY: foreign body TECHNIQUE: 2 view left forearm FINDINGS: There is a catheter present overlying the radius extending from the antecubital region towa rds the wrist. There is a linear metallic density at the distal radius may be a foreign body. No acute fractures are evident. IMPRESSION: 1. Linear metallic density at the distal radius could be a foreign body. 2. Catheter and the proximal forearm
[2023-11-18 14:46] LABS: Glucose,Whole Blood 115 mg/dL (70-110)
[2023-11-18 14:56] LABS: ABG Base Excess -2.9 mmol/L; ABG HCO3 23 mmol/L (21-25); ABG PCO2 46 mmHg (35-45); ABG PH 7.31 (7.35-7.45); ABG PO2 340 mmHg (83-108); ABG TCO2 25 mmol/L (19-24); Allen Test Performed? Yes
[2023-11-18 15:03] LABS: ABG Oxygen Saturation 99.5 % (94-97)
[2023-11-18] MEDS: LACTATED RINGERS 1,000 ML IV SCH (15:03)
[2023-11-18] MEDS: CLEVIDIPINE BUTYRATE 25 MG in EMPTY BAG 1 BAG IV SCH (15:05)
[2023-11-18] MEDS: NITROGLYCERIN-D5W PMX 50 MG in DEXTROSE/WATER 1 250ML.BAG IV SCH (15:06)
--- NOTE | 2023-11-18 15:12 | P.PN ---
Subjective Progress Note Date: 11/18/23 Principal diagnosis: Multivessel coronary artery disease, status post CABG, postoperative day #0 Is a 63-year-old male patient with multivessel coronary artery disease, symptomatic and the patient is going to undergo coronary artery bypass surgery tomorrow. The patient is doing well. No specific complaints. History of any chest pain. He was having some chest pain on outpatient basis and the patient underwent a outpatient nuclear stress test that came back positive for a defect in the inferior wall. Subsequent the patient underwent a cardiac catheterization that showed triple-vessel coronary artery disease. He has a 70 to 80% stenosis of the RCA, totally occluded circumflex and 80% c lesion in the LAD. The patient has previous history of SVTs and he has undergone previous radiofrequency ablation. He has previous history of esophageal cancer back in 2008 treated with chemotherapy and radiation therapy. He is a non-smoker. He does chew tobacco. His spirometry is essentially within normal limits. Chest x-ray within normal limits. Using incentive spirometer. Has good performance and functional status with a pulse ox of 98% on room air oxygen. The white cell count is 5 with a hemoglobin 14.9. Renal function is stable. Electrolytes are all stable. Patient was reevaluated today on 11/18/2023, patient just came back from the operating room, he is now in the ICU, he underwent triple-vessel coronary artery myocardial revascularization., Patient is on the ventilator, he is on assist- control rate of 16 tidal volume 450 FiO2 100% and PEEP of 5. ABG is pending, patient is hemodynamically stable, cardiac output is 6.1, cardiac index is 2.9. Patient is requiring nitroglycerin at 5 mcg/min, he is also on propofol at 20 mcg/kg/min. Chest x-ray is pending, ABG showed a pO2 of 340 pCO2 46 pH of 7.31, hence we will cut down the FiO2 down to 50%, and increase rate to 18 Objective - Vital Signs Vital signs: Vital Signs Temp 95.7 F L 11/18/23 14:40 Pulse 88 11/18/23 14:50 Resp 16 11/18/23 14:50 BP 135/78 11/18/23 05:44 Pulse Ox 100 11/18/23 14:50 FiO2 60 11/18/23 14:59 Intake & Output 11/17/23 11/18/23 11/18/23 18:59 06:59 18:59 Intake Total 918.729 200 4 Output Total 600 Balance 918.729 200 -596 Weight 88.4 kg Intake: IV 200 4 Intake, IV Titration 202.729 Amount Heparin Sod,Pork in 0.45% 202.729 NaCl 25,000 unit In 0.45 % NaCl 1 250ml.bag @ 11. 123 UNITS/KG/HR 10 mls/hr IV .Q24H [facility] Rx#: [id number] Oral 716 Output: Urine 350 Estimated Blood Loss 250 Other: Voiding Method Toilet Toilet # Voids 1 1 # Bowel Movements 1 ABP, PAP, CO, CI - Last Documented Arterial Blood Pressure 148/79 Pulmonary Artery Pressure 30/21 Cardiac Output 6.1 Cardiac Index 2.9 - Exam General: Reveals 63-year-old white male sedated, calm, on mechanical ventilation, not in distress. Skin: Skin is warm and dry and no rashes or lesions are noted. Eye: Pupils are equal, round and reactive to light Ears, nose, mouth and throat: There are moist mucous membranes and no oral lesions. Endotracheal tube and orogastric tube are intact. Neck: The neck is supple, there is no tenderness or JVD. Cardiovascular: There is a regular rate and rhythm. No murmur, rub or gallop is appreciated. Respiratory: Bilaterally no crackles rhonchi or wheezes Gastrointestinal: Soft nontender no megaly no rebound no guarding.. Musculoskeletal: No obvious deformities. Neurological: Not assessed patient is sedated,. Psychiatric: Not assessed - Labs CBC & Chem 7: 11/17/23 08:17 11/17/23 08:17 Labs: Abnormal Lab Results - Last 24 Hours (Table) 11/17/23 11/18/23 11/18/23 Range/Units 08:17 14:44 14:51 ABG pH 7.31 L (7.35-7.45) ABG pCO2 46 H (35-45) mmHg ABG pO2 340 H (83-108) mmHg ABG Total CO2 25 H (19-24) mmol/L ABG O2 Saturation 99.5 H (94-97) % POC Glucose (mg/dL) 115 H (70-110) mg/dL Crossmatch See Detail Assessment and Plan Assessment: Impression: Multivessel coronary artery disease, status post CABG postoperative day #0, on mechanical ventilation, will address ventilator settings accordingly based on ABG decreased FiO2 down to 50% and increased rate to 18. Benign essential hypertension Dyslipidemia History of SVT requiring ablation May 06, 2002 3 History of esophageal cancer in 2009 status postchemotherapy and radiation treatment presently in remission Lifetime non-smoker. History of proximal ICA stenosis 50 to 69% Family history of premature coronary artery disease Recommendation: Continue ventilatory support GI and DVT prophylaxis Vent changes as noted above Will consider weaning and extubation hopefully in the next couple of hours. Early ambulation after extubation Discontinue unnecessary catheters and lines early. Will continue to follow. Patient was seen shortly after he came up to the ICU from the operating room for Critical care time over 30 Time with Patient: Greater than 30
--- NOTE | 2023-11-18 15:22 | P.ANPRN ---
Procedure Note - Anesthesia - Invasive Line Right Central Line Time Out Performed: Yes (0724) Date of Procedure: 11/18/23 Time of Procedure: 07:25 Location of Patient: Phase I Preparation: Sterile Prep, Sterile Dressing Central Line Location: Internal Jugular (right IJ cordis) Ultrasound Used: Yes Purpose - Visualization and Identification of Vasculature: Yes Needle Guage: 18g angio Image Stored and Saved: Yes Narrative: Invasive line placement per sterile protocol utilized. Anesthesia note Procedure: right internal jugular central venous catheter insertion: 8.5-[place] Cordis Sterile protocol followed. Right neck prepped. Ultrasound used. Lidocaine 1% used. Using ultrasound local anesthetic was instilled site over right Internal Jugular vein. Angiocath was used to gain access via ultrasound. Once free flow non-pulsatile blood flow was confirmed, 12 inch extension tubing was then placed on Angiocath. Once central venous pressure was confirmed, J-wire was then placed through Angiocath. Angiocath was then withdrawn. Local was instilled at J-wire site. Small skin av was then made with provided sterile scalpel. 8.5- [place] Cordis was then inserted over the wire while maintaining control of wire at all times. Uneventful insertion with dilation. Free flow nonpulsatile blood flow through Cordis. Hooked up to IV tubing. Secured with suture. Dressings applied. Drapes Removed. Attempts x1.
--- NOTE | 2023-11-18 15:23 | P.ANPRN ---
Procedure Note - Anesthesia - Invasive Line Right Gordon Soo Time Out Performed: Yes (0724) Date of Procedure: 11/18/23 Time of Procedure: 07:35 Location of Patient: Phase I Preparation: Sterile Prep, Sterile Dressing Gordon Soo Line Location: Internal Jugular (right IJ) Ultrasound Used: No Purpose - Visualization and Identification of Vasculature: No Image Stored and Saved: No Narrative: Invasive line placement per sterile protocol utilized. Anesthesia note Procedure right Gordon-Soo catheter placed through right internal jugular central venous catheter Sterile protocol maintained from previous procedure. [place]-Soo catheter sterilely placed in sheath and flushed prior to insertion. After advancing 15 cm Gordon-Soo catheter was then slowly inserted with balloon up. Advanced through CVP, RV to PA waveform. Gordon-Soo catheter wedged around 53 cm. Balloon down. Catheter withdrawn 5 cm. . No wedge. Proximal and distal sites locked on sheath. Attempts x1. Sterile drapes removed and dressings applied.
--- NOTE | 2023-11-18 15:26 | P.ANPRN ---
Procedure Note - Anesthesia - RICHARD Intraop Pre Bypass RICHARD Intraop - Anesthesia Indication: Cabg Date of Procedure: 11/18/23 Pre-operative Diagnosis: CAD Post-operative Diagnosis: CAD, S/p CABG Surgeon: Erich Mensah Left Ventricle: wnl Ejection Fraction: Normal Regional Wall Motion Abnormalities: None Left Ventricle Hypertrophy: No R. Ventricle Function: Normal Anatomy: Trileaflet Aortic Stenosis: None Aortic Regurgitation: None Mitral Stenosis: None Mitral Regurgitation: Trace Tricuspid Stenosis: None Tricuspid Regurgitation: None Pulmonic Stenosis: None Pulmonic Regurgitation: None R. Atrial Dilation: No R. Atrial PFO: No L. Atrial Dilation: No Aortic Dissection: No Aortic Calcification: None Plural Effusion: None
--- NOTE | 2023-11-18 15:27 | P.ANPRN ---
Procedure Note - Anesthesia - RICHARD Intraop Post Bypass RICHARD Intraop Post Bypass Procedure Performed: offpump cabg Left Ventricle: wnl Ejection Fraction: Normal Regional Wall Motion Abnormalities: None R. Ventricle Function: Normal Aortic Valve: Unchanged Mitral Valve: Unchanged Tricuspid: Unchanged Pulmonic: Unchanged Aortic Dissection: No
[2023-11-18 15:31] LABS: Glucose,Whole Blood 129 mg/dL (70-110)
--- NOTE | 2023-11-18 15:45 | XR ---
EXAMINATION TYPE: XR chest 1V portable DATE OF EXAM: 11/18/2023 3:10 PM CLINICAL INDICATION:Male, 63 years old with history of Post Operative Cardiac Surgery; [facility] COMPARISON: 11/17/2022. TECHNIQUE: XR chest 1V portable Frontal view of the chest. FINDINGS: Lungs/Pleura: There is no evidence of pleural effusion, focal consolidation, or pneumothorax. Pulmonary vascularity: Unremarkable. Heart/mediastinum: Cardiomediastinal silhouette is unremarkable. Left atrial appendage occlusion ines ce is present. Musculoskeletal: No acute osseous pathology. Midline sternotomy wires are noted. Other findings: Lines/Tubes: Endotracheal tube with distal tip 7.3 cm above the michel. There is a [place]-Soo catheter with tip projecting over the spine. Drainage tubes with tips projecting over the mediastinum. Bilateral thoracotomy tubes are present without evidence of pneumothorax. IMPRESSION: 1. Postsurgical changes with lines and tubes as described above. 2. Endotracheal tube in high position consider advancement of 4 cm for optimal placement.
[2023-11-18 15:50] LABS: Basophils % (A) 0 %; Eosinophils % (A) 0 %; HCT 37.8 % (39.0-53.0); HGB 12.9 gm/dL (13.0-17.5); Ionized Calcium 4.9 mg/dL (4.5-5.3); Lymphocytes % (A) 12 %; MCH 32.3 pg (25.0-35.0); MCHC 34.2 g/dL (31.0-37.0); MCV 94.6 fL (80.0-100.0); Mean Platelet Volume 9.4; Monocytes # (A) 0.4 k/uL (0-1.0); Monocytes % (A) 4 %; Neutrophils # (A) 7.2 k/uL (1.3-7.7); Neutrophils % (A) 83 %; Platelet Count 116 k/uL (150-450); RDW 12.2 % (11.5-15.5); WBC 8.7 k/uL (3.8-10.6)
[2023-11-18] MEDS: IPRATROPIUM-ALBUTEROL 3 ML NEB INHALATION SCH ×2 (15:57→20:11)
[2023-11-18 15:59] LABS: ALT 36 U/L (4-49); AST 49 U/L (17-59); African American GFR (CKD) >90 (>60 ml/min/1.73 sqM); Albumin 3.6 g/dL (3.5-5.0); Alkaline Phosphatase 42 U/L (38-126); Anion Gap 10 mmol/L; Blood Urea Nitrogen 11 mg/dL (9-20); Calcium 8.4 mg/dL (8.4-10.2); Carbon Dioxide 20 mmol/L (22-30); Chloride 109 mmol/L (98-107); Glucose 113 mg/dL (74-99); INR 1.3 (<1.2); Magnesium 1.3 mg/dL (1.6-2.3); Non-African American GFR(CKD) >90 (>60 ml/min/1.73 sqM); Partial Thromboplastin Time 28.6 sec (22.0-30.0); Potassium 4.1 mmol/L (3.5-5.1); Prothrombin Time 13.9 sec (10.0-12.5); Sodium 139 mmol/L (137-145); Total Bilirubin 1.3 mg/dL (0.2-1.3); Total Protein 5.4 g/dL (6.3-8.2)
[2023-11-18 16:10] LABS: Glucose,Whole Blood 132 mg/dL (70-110)
[2023-11-18] MEDS: HEPARIN SODIUM,PORCINE 5,000 UNIT/ML 1 ML VIAL SQ SCH (16:23)
[2023-11-18] MEDS: INSULIN REGULAR 100 UNIT in SODIUM CHLORIDE 0.9% 100 ML IV SCH (16:25)
[2023-11-18] MEDS: MAGNESIUM SULFATE-D5W PMX 1 GM in DEXTROSE/WATER 1 100ML.BAG IVPB SCH (16:29)
[2023-11-18] MEDS: DEXMEDETOMIDINE/0.9% NACL(PMX) 400 MCG in EMPTY BAG 1 BAG IV SCH (16:38)
[2023-11-18 17:00] LABS: Glucose,Whole Blood 140 mg/dL (70-110)
[2023-11-18] MEDS: hydrALAZINE HCL 20 MG/ML 1 ML VIAL IVP PRN (17:44)
[2023-11-18 18:00] LABS: Glucose,Whole Blood 184 mg/dL (70-110)
[2023-11-18] MEDS: KETOROLAC 15 MG/ML 1 ML VIAL IVP SCH (18:04)
[2023-11-18] MEDS: ACETAMINOPHEN IV (For NPO) 1,000 MG in EMPTY BAG 1 BAG IVPB SCH (18:04)
[2023-11-18 18:10] LABS: Basophils # (A) 0.1 k/uL (0-0.2); Basophils % (A) 0 %; Eosinophils % (A) 0 %; HCT 41.2 % (39.0-53.0); HGB 14.6 gm/dL (13.0-17.5); Lymphocytes # (A) 1.6 k/uL (1.0-4.8); Lymphocytes % (A) 8 %; MCH 32.6 pg (25.0-35.0); MCHC 35.4 g/dL (31.0-37.0); MCV 92.3 fL (80.0-100.0); Mean Platelet Volume 9.8; Monocytes # (A) 1.5 k/uL (0-1.0); Monocytes % (A) 8 %; Neutrophils # (A) 15.5 k/uL (1.3-7.7); Neutrophils % (A) 82 %; RBC 4.46 m/uL (4.30-5.90); RDW 12.6 % (11.5-15.5); WBC 18.9 k/uL (3.8-10.6)
[2023-11-18 18:13] LABS: Platelet Count 190 k/uL (150-450)
[2023-11-18 18:49] LABS: ABG Base Excess -3.8 mmol/L; ABG HCO3 22 mmol/L (21-25); ABG PCO2 39 mmHg (35-45); ABG PH 7.36 (7.35-7.45); ABG PO2 70 mmHg (83-108); ABG TCO2 23 mmol/L (19-24); Allen Test Performed? Yes
[2023-11-18 18:51] LABS: ABG Oxygen Saturation 95.1 % (94-97)
[2023-11-18 19:04] LABS: Glucose,Whole Blood 173 mg/dL (70-110)
[2023-11-18] MEDS: ALBUMIN HUMAN 5% 250 ML in EMPTY BAG 1 BAG IVPB PRN (19:31)
[2023-11-18 19:58] LABS: Glucose,Whole Blood 160 mg/dL (70-110)
[2023-11-18] MEDS: SENNOSIDES-DOCUSATE SODIUM 1 EACH TAB PO SCH (20:33)
[2023-11-18 20:57] LABS: Glucose,Whole Blood 149 mg/dL (70-110)
[2023-11-18 21:34] LABS: Basophils % (A) 0 %; Eosinophils % (A) 0 %; HCT 35.8 % (39.0-53.0); HGB 12.8 gm/dL (13.0-17.5); Lymphocytes # (A) 0.3 k/uL (1.0-4.8); Lymphocytes % (A) 4 %; MCH 32.8 pg (25.0-35.0); MCHC 35.7 g/dL (31.0-37.0); MCV 91.7 fL (80.0-100.0); Mean Platelet Volume 9.6; Monocytes # (A) 0.4 k/uL (0-1.0); Monocytes % (A) 5 %; Neutrophils # (A) 8.1 k/uL (1.3-7.7); Neutrophils % (A) 91 %; Platelet Count 124 k/uL (150-450); RBC 3.91 m/uL (4.30-5.90); RDW 12.6 % (11.5-15.5); WBC 8.9 k/uL (3.8-10.6)
[2023-11-18 21:55] LABS: Glucose,Whole Blood 149 mg/dL (70-110)
[2023-11-18 22:56] LABS: Glucose,Whole Blood 144 mg/dL (70-110)
[2023-11-18 23:54] LABS: Glucose,Whole Blood 142 mg/dL (70-110)
[2023-11-19 00:57] LABS: Glucose,Whole Blood 133 mg/dL (70-110)
[2023-11-19 01:59] LABS: Glucose,Whole Blood 126 mg/dL (70-110)
[2023-11-19 02:59] LABS: Glucose,Whole Blood 126 mg/dL (70-110)
[2023-11-19 03:53] LABS: Glucose,Whole Blood 123 mg/dL (70-110)
[2023-11-19 04:01] LABS: Basophils % (A) 0 %; Eosinophils % (A) 0 %; HCT 36.7 % (39.0-53.0); HGB 12.6 gm/dL (13.0-17.5); Lymphocytes # (A) 0.5 k/uL (1.0-4.8); Lymphocytes % (A) 5 %; MCHC 34.4 g/dL (31.0-37.0); MCV 93.1 fL (80.0-100.0); Mean Platelet Volume 11.2; Monocytes # (A) 0.4 k/uL (0-1.0); Monocytes % (A) 5 %; Neutrophils # (A) 8.3 k/uL (1.3-7.7); Neutrophils % (A) 89 %; Platelet Count 135 k/uL (150-450); RBC 3.94 m/uL (4.30-5.90); RDW 12.4 % (11.5-15.5); WBC 9.3 k/uL (3.8-10.6)
[2023-11-19 04:25] LABS: Ionized Calcium 4.9 mg/dL (4.5-5.3)
[2023-11-19 04:34] LABS: ALT 36 U/L (4-49); AST 60 U/L (17-59); African American GFR (CKD) >90 (>60 ml/min/1.73 sqM); Albumin 3.6 g/dL (3.5-5.0); Alkaline Phosphatase 40 U/L (38-126); Anion Gap 8 mmol/L; Blood Urea Nitrogen 11 mg/dL (9-20); Calcium 8.4 mg/dL (8.4-10.2); Carbon Dioxide 22 mmol/L (22-30); Chloride 105 mmol/L (98-107); Glucose 116 mg/dL (74-99); Magnesium 2.2 mg/dL (1.6-2.3); Non-African American GFR(CKD) >90 (>60 ml/min/1.73 sqM); Potassium 3.9 mmol/L (3.5-5.1); Sodium 135 mmol/L (137-145); Total Bilirubin 1.1 mg/dL (0.2-1.3); Total Protein 5.6 g/dL (6.3-8.2)
[2023-11-19] MEDS: POTASSIUM CHLORIDE ER 20 MEQ TAB.ER PO SCH (05:01)
[2023-11-19 05:09] LABS: Glucose,Whole Blood 117 mg/dL (70-110)
[2023-11-19 06:17] LABS: Glucose,Whole Blood 89 mg/dL (70-110)
[2023-11-19 06:53] LABS: Glucose,Whole Blood 101 mg/dL (70-110)
--- NOTE | 2023-11-19 08:13 | P.PN ---
Subjective Progress Note Date: 11/19/23 Principal diagnosis: The patient is a pleasant 63-year-old gentleman with coronary artery disease as well as diabetes and hypertension and dyslipidemia and carotid atherosclerosis was admitted to the hospital with chest discomfort concerning for angina he underwent a heart catheterization which revealed triple-vessel coronary artery disease. He underwent CABG yesterday. November 19, 2023 This is postoperation day #1. The patient seems to be stable besides soft blood pressure. He is not on any vasopressors or inotropes at this point. He has been maintaining normal sinus mechanism. Urine output has been adequate. Overall hemodynamically he is stable. He is on dual antiplatelet therapy along with beta-alejandra along with low-dose of statin. Will consider increasing dose of statin down the line. The physical examination revealed regular rhythm with a distant heart sounds and diminished breathing sounds bilaterally. The chest x-ray also was reviewed. Assessment Severe coronary artery disease status post surgical revascularization Multiple comorbid conditions including diabetes and hypertension and dyslipidemia Carotid atherosclerosis Plan Continue the current medical regimen Monitor for any arrhythmia Continue monitoring urine output Monitor the hemoglobin and electrolytes and kidney function Consider increasing the dose of statin Follow-up with Objective - Vital Signs Vital signs: Vital Signs Temp 99.7 F H 11/18/23 19:00 Pulse 82 11/19/23 07:00 Resp 24 11/19/23 07:00 BP 94/66 11/19/23 06:00 Pulse Ox 97 11/19/23 07:00 FiO2 40 11/18/23 18:50 Intake & Output 11/18/23 11/19/23 11/19/23 18:59 06:59 18:59 Intake Total 744.902 4037.547 Output Total 1945 975 Balance -8550.393 8633.547 Weight 91.9 kg Intake: IV 149 1727 0.9 pressure bag 45 117 ACETAMINOPHEN IV (For NPO 300 ) 1,000 mg In Empty Bag 1 bag @ 400 mls/hr IVPB Q6HR NIDA Rx#:[id number] Albumin Human 5% 250 ml 500 In Empty Bag 1 bag @ 250 mls/hr IVPB Q1HR PRN Rx#: [id number] CO/CI 100 210 Lactated Ringers 1,000 ml 350 @ 20 mls/hr IV .Q24H NIDA Rx#:[id number] Magnesium Sulfate-D5w Pmx 100 1 gm In Dextrose/Water 1 100ml.bag @ 100 mls/hr IVPB Q1H NIDA Rx#: [id number] ceFAZolin 2 gm In Sodium 150 Chloride 0.9% 50 ml @ 100 mls/hr IVPB ONCE ONE Rx# :[id number] Intake, IV Titration 724.246 187.547 Amount ACETAMINOPHEN IV (For NPO 100 ) 1,000 mg In Empty Bag 1 bag @ 400 mls/hr IVPB Q6HR NIDA Rx#:[id number] Clevidipine Butyrate 25 30.100 1.467 mg In Empty Bag 1 bag @ 1 MG/HR 2 mls/hr IV .Q24H NIDA Rx#:[id number] Dexmedetomidine/0.9% NaCl 11.087 6.814 (Pmx) 400 mcg In Empty Bag 1 bag @ Titrate IV . Q0M NIDA Rx#:[id number] Insulin Regular 100 unit 1.633 29.266 In Sodium Chloride 0.9% 100 ml @ Per Protocol IV .Q0M NIDA Rx#:[id number] Lactated Ringers 1,000 ml 250 50 @ 20 mls/hr IV .Q24H NIDA Rx#:[id number] Magnesium Sulfate-D5w Pmx 200 100 1 gm In Dextrose/Water 1 100ml.bag @ 100 mls/hr IVPB Q1H NIDA Rx#: [id number] ceFAZolin 2 gm In Sodium 100 Chloride 0.9% 50 ml @ 100 mls/hr IVPB Q8HR NIDA Rx# :[id number] propofoL 1,000 mg In 31.426 Empty Bag 1 bag @ Titrate IV .Q0M NIDA Rx#: [id number] Oral 400 Output: Chest Tube Drainage 480 460 Chest Tube Mediastinal 140 230 Pleural Catheter 340 230 Bilateral Drainage 20 30 Left Arm 20 30 Urine 1195 485 Estimated Blood Loss 250 Other: Voiding Method Indwelling Catheter Indwelling Catheter ABP, PAP, CO, CI - Last Documented Arterial Blood Pressure 91/53 Pulmonary Artery Pressure 17/11 Cardiac Output 5.3 Cardiac Index 2.5 - Labs CBC & Chem 7: 11/19/23 03:53 11/19/23 03:53 Labs: Abnormal Lab Results - Last 24 Hours (Table) 11/17/23 11/18/23 11/18/23 Range/Units 08:17 08:32 09:35 WBC (3.8-10.6) k/uL RBC (4.30-5.90) m/uL Hgb (13.0-17.5) gm/dL Hct (39.0-53.0) % Plt Count (150-450) k/uL Neutrophils # (1.3-7.7) k/uL Lymphocytes # (1.0-4.8) k/uL Monocytes # (0-1.0) k/uL PT (10.0-12.5) sec INR (<1.2) ABG pH (7.35-7.45) ABG pCO2 (35-45) mmHg ABG pO2 273 H 186 H (83-108) mmHg ABG HCO3 26 H (21-25) mmol/L ABG Total CO2 (19-24) mmol/L ABG O2 Saturation >99.4 H 99.2 H (94-97) % ABG Glucose 109 H (75-99) mg/dL Hemoglobin 12.6 L (13.0-17.5) gm/dL Sodium (137-145) mmol/L Chloride (98-107) mmol/L Carbon Dioxide (22-30) mmol/L Creatinine (0.66-1.25) mg/dL Glucose (74-99) mg/dL POC Glucose (mg/dL) (70-110) mg/dL Magnesium (1.6-2.3) mg/dL AST (17-59) U/L Total Protein (6.3-8.2) g/dL Arterial Blood Glucose 109 H (75-99) mg/dL Crossmatch See Detail 11/18/23 11/18/23 11/18/23 Range/Units 10:45 11:14 12:10 WBC (3.8-10.6) k/uL RBC (4.30-5.90) m/uL Hgb (13.0-17.5) gm/dL Hct (39.0-53.0) % Plt Count (150-450) k/uL Neutrophils # (1.3-7.7) k/uL Lymphocytes # (1.0-4.8) k/uL Monocytes # (0-1.0) k/uL PT (10.0-12.5) sec INR (<1.2) ABG pH (7.35-7.45) ABG pCO2 (35-45) mmHg ABG pO2 275 H 286 H 270 H (83-108) mmHg ABG HCO3 (21-25) mmol/L ABG Total CO2 (19-24) mmol/L ABG O2 Saturation 99.4 H >99.4 H 99.3 H (94-97) % ABG Glucose 130 H 118 H 116 H (75-99) mg/dL Hemoglobin 12.9 L 12.8 L 12.7 L (13.0-17.5) gm/dL Sodium (137-145) mmol/L Chloride (98-107) mmol/L Carbon Dioxide (22-30) mmol/L Creatinine (0.66-1.25) mg/dL Glucose (74-99) mg/dL POC Glucose (mg/dL) (70-110) mg/dL Magnesium (1.6-2.3) mg/dL AST (17-59) U/L Total Protein (6.3-8.2) g/dL Arterial Blood Glucose 130 H 118 H 116 H (75-99) mg/dL Crossmatch 11/18/23 11/18/23 11/18/23 Range/Units 12:59 14:44 14:46 WBC (3.8-10.6) k/uL RBC 4.00 L (4.30-5.90) m/uL Hgb 12.9 L (13.0-17.5) gm/dL Hct 37.8 L (39.0-53.0) % Plt Count 116 L (150-450) k/uL Neutrophils # (1.3-7.7) k/uL Lymphocytes # (1.0-4.8) k/uL Monocytes # (0-1.0) k/uL PT (10.0-12.5) sec INR (<1.2) ABG pH (7.35-7.45) ABG pCO2 (35-45) mmHg ABG pO2 231 H (83-108) mmHg ABG HCO3 (21-25) mmol/L ABG Total CO2 (19-24) mmol/L ABG O2 Saturation 99.3 H (94-97) % ABG Glucose 111 H (75-99) mg/dL Hemoglobin 12.4 L (13.0-17.5) gm/dL Sodium (137-145) mmol/L Chloride (98-107) mmol/L Carbon Dioxide (22-30) mmol/L Creatinine (0.66-1.25) mg/dL Glucose (74-99) mg/dL POC Glucose (mg/dL) 115 H (70-110) mg/dL Magnesium (1.6-2.3) mg/dL AST (17-59) U/L Total Protein (6.3-8.2) g/dL Arterial Blood Glucose 111 H (75-99) mg/dL Crossmatch 11/18/23 11/18/23 11/18/23 Range/Units 14:46 14:46 14:51 WBC (3.8-10.6) k/uL RBC (4.30-5.90) m/uL Hgb (13.0-17.5) gm/dL Hct (39.0-53.0) % Plt Count (150-450) k/uL Neutrophils # (1.3-7.7) k/uL Lymphocytes # (1.0-4.8) k/uL Monocytes # (0-1.0) k/uL PT 13.9 H (10.0-12.5) sec INR 1.3 H (<1.2) ABG pH 7.31 L (7.35-7.45) ABG pCO2 46 H (35-45) mmHg ABG pO2 340 H (83-108) mmHg ABG HCO3 (21-25) mmol/L ABG Total CO2 25 H (19-24) mmol/L ABG O2 Saturation 99.5 H (94-97) % ABG Glucose (75-99) mg/dL Hemoglobin (13.0-17.5) gm/dL Sodium (137-145) mmol/L Chloride 109 H (98-107) mmol/L Carbon Dioxide 20 L (22-30) mmol/L Creatinine (0.66-1.25) mg/dL Glucose 113 H (74-99) mg/dL POC Glucose (mg/dL) (70-110) mg/dL Magnesium 1.3 L (1.6-2.3) mg/dL AST (17-59) U/L Total Protein 5.4 L (6.3-8.2) g/dL Arterial Blood Glucose (75-99) mg/dL Crossmatch 11/18/23 11/18/2324 Range/Units 15:29 16:08 16:58 WBC (3.8-10.6) k/uL RBC (4.30-5.90) m/uL Hgb (13.0-17.5) gm/dL Hct (39.0-53.0) % Plt Count (150-450) k/uL Neutrophils # (1.3-7.7) k/uL Lymphocytes # (1.0-4.8) k/uL Monocytes # (0-1.0) k/uL PT (10.0-12.5) sec INR (<1.2) ABG pH (7.35-7.45) ABG pCO2 (35-45) mmHg ABG pO2 (83-108) mmHg ABG HCO3 (21-25) mmol/L ABG Total CO2 (19-24) mmol/L ABG O2 Saturation (94-97) % ABG Glucose (75-99) mg/dL Hemoglobin (13.0-17.5) gm/dL Sodium (137-145) mmol/L Chloride (98-107) mmol/L Carbon Dioxide (22-30) mmol/L Creatinine (0.66-1.25) mg/dL Glucose (74-99) mg/dL POC Glucose (mg/dL) 129 H 132 H 140 H (70-110) mg/dL Magnesium (1.6-2.3) mg/dL AST (17-59) U/L Total Protein (6.3-8.2) g/dL Arterial Blood Glucose (75-99) mg/dL Crossmatch 11/18/23 11/18/23 11/18/23 Range/Units 17:54 17:58 18:47 WBC 18.9 H (3.8-10.6) k/uL RBC (4.30-5.90) m/uL Hgb (13.0-17.5) gm/dL Hct (39.0-53.0) % Plt Count (150-450) k/uL Neutrophils # 15.5 H (1.3-7.7) k/uL Lymphocytes # (1.0-4.8) k/uL Monocytes # 1.5 H (0-1.0) k/uL PT (10.0-12.5) sec INR (<1.2) ABG pH (7.35-7.45) ABG pCO2 (35-45) mmHg ABG pO2 70 L (83-108) mmHg ABG HCO3 (21-25) mmol/L ABG Total CO2 (19-24) mmol/L ABG O2 Saturation (94-97) % ABG Glucose (75-99) mg/dL Hemoglobin (13.0-17.5) gm/dL Sodium (137-145) mmol/L Chloride (98-107) mmol/L Carbon Dioxide (22-30) mmol/L Creatinine (0.66-1.25) mg/dL Glucose (74-99) mg/dL POC Glucose (mg/dL) 184 H (70-110) mg/dL Magnesium (1.6-2.3) mg/dL AST (17-59) U/L Total Protein (6.3-8.2) g/dL Arterial Blood Glucose (75-99) mg/dL Crossmatch 11/18/23 11/18/23 11/18/23 Range/Units 19:02 19:57 20:57 WBC (3.8-10.6) k/uL RBC (4.30-5.90) m/uL Hgb (13.0-17.5) gm/dL Hct (39.0-53.0) % Plt Count (150-450) k/uL Neutrophils # (1.3-7.7) k/uL Lymphocytes # (1.0-4.8) k/uL Monocytes # (0-1.0) k/uL PT (10.0-12.5) sec INR (<1.2) ABG pH (7.35-7.45) ABG pCO2 (35-45) mmHg ABG pO2 (83-108) mmHg ABG HCO3 (21-25) mmol/L ABG Total CO2 (19-24) mmol/L ABG O2 Saturation (94-97) % ABG Glucose (75-99) mg/dL Hemoglobin (13.0-17.5) gm/dL Sodium (137-145) mmol/L Chloride (98-107) mmol/L Carbon Dioxide (22-30) mmol/L Creatinine (0.66-1.25) mg/dL Glucose (74-99) mg/dL POC Glucose (mg/dL) 173 H 160 H 149 H (70-110) mg/dL Magnesium (1.6-2.3) mg/dL AST (17-59) U/L Total Protein (6.3-8.2) g/dL Arterial Blood Glucose (75-99) mg/dL Crossmatch 11/18/23 11/18/23 11/18/23 Range/Units 20:58 21:53 22:54 WBC (3.8-10.6) k/uL RBC 3.91 L (4.30-5.90) m/uL Hgb 12.8 L (13.0-17.5) gm/dL Hct 35.8 L (39.0-53.0) % Plt Count 124 L (150-450) k/uL Neutrophils # 8.1 H (1.3-7.7) k/uL Lymphocytes # 0.3 L (1.0-4.8) k/uL Monocytes # (0-1.0) k/uL PT (10.0-12.5) sec INR (<1.2) ABG pH (7.35-7.45) ABG pCO2 (35-45) mmHg ABG pO2 (83-108) mmHg ABG HCO3 (21-25) mmol/L ABG Total CO2 (19-24) mmol/L ABG O2 Saturation (94-97) % ABG Glucose (75-99) mg/dL Hemoglobin (13.0-17.5) gm/dL Sodium (137-145) mmol/L Chloride (98-107) mmol/L Carbon Dioxide (22-30) mmol/L Creatinine (0.66-1.25) mg/dL Glucose (74-99) mg/dL POC Glucose (mg/dL) 149 H 144 H (70-110) mg/dL Magnesium (1.6-2.3) mg/dL AST (17-59) U/L Total Protein (6.3-8.2) g/dL Arterial Blood Glucose (75-99) mg/dL Crossmatch 11/18/23 11/19/23 11/19/23 Range/Units 23:51 00:55 01:57 WBC (3.8-10.6) k/uL RBC (4.30-5.90) m/uL Hgb (13.0-17.5) gm/dL Hct (39.0-53.0) % Plt Count (150-450) k/uL Neutrophils # (1.3-7.7) k/uL Lymphocytes # (1.0-4.8) k/uL Monocytes # (0-1.0) k/uL PT (10.0-12.5) sec INR (<1.2) ABG pH (7.35-7.45) ABG pCO2 (35-45) mmHg ABG pO2 (83-108) mmHg ABG HCO3 (21-25) mmol/L ABG Total CO2 (19-24) mmol/L ABG O2 Saturation (94-97) % ABG Glucose (75-99) mg/dL Hemoglobin (13.0-17.5) gm/dL Sodium (137-145) mmol/L Chloride (98-107) mmol/L Carbon Dioxide (22-30) mmol/L Creatinine (0.66-1.25) mg/dL Glucose (74-99) mg/dL POC Glucose (mg/dL) 142 H 133 H 126 H (70-110) mg/dL Magnesium (1.6-2.3) mg/dL AST (17-59) U/L Total Protein (6.3-8.2) g/dL Arterial Blood Glucose (75-99) mg/dL Crossmatch 11/19/23 11/19/23 11/19/23 Range/Units 02:57 03:51 03:53 WBC (3.8-10.6) k/uL RBC 3.94 L (4.30-5.90) m/uL Hgb 12.6 L (13.0-17.5) gm/dL Hct 36.7 L (39.0-53.0) % Plt Count 135 L (150-450) k/uL Neutrophils # 8.3 H (1.3-7.7) k/uL Lymphocytes # 0.5 L (1.0-4.8) k/uL Monocytes # (0-1.0) k/uL PT (10.0-12.5) sec INR (<1.2) ABG pH (7.35-7.45) ABG pCO2 (35-45) mmHg ABG pO2 (83-108) mmHg ABG HCO3 (21-25) mmol/L ABG Total CO2 (19-24) mmol/L ABG O2 Saturation (94-97) % ABG Glucose (75-99) mg/dL Hemoglobin (13.0-17.5) gm/dL Sodium (137-145) mmol/L Chloride (98-107) mmol/L Carbon Dioxide (22-30) mmol/L Creatinine (0.66-1.25) mg/dL Glucose (74-99) mg/dL POC Glucose (mg/dL) 126 H 123 H (70-110) mg/dL Magnesium (1.6-2.3) mg/dL AST (17-59) U/L Total Protein (6.3-8.2) g/dL Arterial Blood Glucose (75-99) mg/dL Crossmatch 11/19/23 11/19/23 Range/Units 03:53 05:07 WBC (3.8-10.6) k/uL RBC (4.30-5.90) m/uL Hgb (13.0-17.5) gm/dL Hct (39.0-53.0) % Plt Count (150-450) k/uL Neutrophils # (1.3-7.7) k/uL Lymphocytes # (1.0-4.8) k/uL Monocytes # (0-1.0) k/uL PT (10.0-12.5) sec INR (<1.2) ABG pH (7.35-7.45) ABG pCO2 (35-45) mmHg ABG pO2 (83-108) mmHg ABG HCO3 (21-25) mmol/L ABG Total CO2 (19-24) mmol/L ABG O2 Saturation (94-97) % ABG Glucose (75-99) mg/dL Hemoglobin (13.0-17.5) gm/dL Sodium 135 L (137-145) mmol/L Chloride (98-107) mmol/L Carbon Dioxide (22-30) mmol/L Creatinine 0.62 L (0.66-1.25) mg/dL Glucose 116 H (74-99) mg/dL POC Glucose (mg/dL) 117 H (70-110) mg/dL Magnesium (1.6-2.3) mg/dL AST 60 H (17-59) U/L Total Protein 5.6 L (6.3-8.2) g/dL Arterial Blood Glucose (75-99) mg/dL Crossmatch
[2023-11-19 08:14] LABS: Glucose,Whole Blood 133 mg/dL (70-110)
[2023-11-19] MEDS: ATORVASTATIN 40 MG TAB PO SCH (08:43)
[2023-11-19] MEDS: PANTOPRAZOLE 40 MG/10 ML VIAL IVP SCH (08:43)
[2023-11-19] MEDS: METOPROLOL TARTRATE 12.5 MG TAB PO SCH (08:43)
[2023-11-19] MEDS: ASPIRIN 325 MG TAB PO SCH (08:43)
[2023-11-19] MEDS: CLOPIDOGREL 75 MG TAB PO SCH (08:43)
--- NOTE | 2023-11-19 08:49 | P.OP ---
Date of Procedure: 11/18/23 Preoperative Diagnosis: 3v CAD Unstable Angina SVT HTN GERD Esophageal Cancer Postoperative Diagnosis: 3v CAD Unstable Angina SVT HTN GERD Esophageal Cancer Procedure(s) Performed: 1. Off pump coronary artery bypass grafting x 4. Left internal thoracic artery (in-situ) to left anterior descending coronary artery. Left radial from busch of saphenous vein to obtuse marginal coronary artery. Saphenous vein from aorta to ramus intermedius. Saphenous vein from aorta to right coronary artery. 2. Left atrial appendage ligation with #35mm AtriClip 3. Endoscopic left radial and left greater saphenous vein harvest 4. Graft flow measurements using the Medi-Stim flow meter system 5. Trans-esophageal echo Implants: #35 AtriClip Anesthesia: GETA Surgeon: Erich Mensah Platform Loader #1: Juan Carlos Silverman Platform Loader #2: Cosmo Brooke Estimated Blood Loss (ml): 250 Pathology: none sent Condition: critical Disposition: ICU Indications for Procedure: This patient is a 63 year-old M with a hx noted above as well at [facility] who underwent an AV carisa ablation last year who developed chest pain with minimal activity. Coronary angio revealed 3v CAD. Given these findings, CABG was recommended. His STS risk of morbidity and mortality was discussed with him and he is in agreement to proceed. Operative Findings: SENAIT 1.75mm Great conduit. SENAIT-LAD Flow 18ml/min, P.I. 3.0 SVG 2.25mm good conduit. Ramus small, not a great target. SVG-Ramus Flow 10ml/min, P.I. 4.7 RCA 2.0mm good target. SVG-RCA Flow 25ml/min, P.I. 1.7 Radial artery 2.25mm good conduit. OM 1.5mm good target. RA-OM Flow 48ml/min, P.I. 1.9 Description of Procedure: The patient underwent central line, arterial line, and [place] Soo catheter placement in the pre-operative suite by the anesthesia team. The patient was then brought to the operating room and placed in the supine position. General anesthesia was induced and the patient was prepped from the chin to the ankles in the usual sterile fashion. A time-out was performed and antibiotics were given. A midline incision was made on the chest and carried down to bone. A median sternotomy was performed. Hemostasis on the bone was achieved using electrocautery and some bone wax. The left pleura was entered and the left internal thoracic artery was harvested in a skeletonized fashion. Simultaneously a physician mail handler assistant harvested the right greater saphenous vein and left radial artery in an endoscopic fashion. The patient was systemically heparinized and the SENAIT was transected and placed in a papaverine jacuzzi. A left sided chest tube was placed. The pericardium was incised in a reverse T-fashion and a pericardial cradle was created. The right pleura was opened. Stay sutures were placed. #35mm AtriClip was placed on the left atrial appendage. With ACT > 250, the octopus sabilizer was placed on the mid to distal LAD which was a good target. An ateriorotomy was made and 1.5mm shunt inserted. The patient did go into atrial fibrillation at this point with rapid ventricular response. The patient was cardioverted x 1. An end to side anastomosis between the SENAIT and LAD was performed using a running 7-0 prolene. The shunt was removed prior to tieing down the suture. Next stay sutures were placed on the diaphragm near the IVC and oblique sinus. The inferior wall was exposed and the right coronary artery was stabilized. The artery was opened it was a good target and 2.0mm shunt was inserted. An end to side anastomosis between the saphenous vein and RCA was performed using a running 7-0 prolene again removing the shunt prior to tieing down the suture. Next the lateral wall was exposed and the ramus was identified. The stabilizer was placed on the vessel and arteriorotomy was made. This vessel was extremely small. It was very difficult to even place a 1mm flow through. At this point, silastic loop was placed around the artery and it was ligated and bypassed immediately distal to the ligation point in an end to end fashion using a running 7-0 prolene. At this point, the lateral wall was exposed and the obtuse marginal #1 was identified and stabilized. It was opened and 1.5mm flow through was inserted. It was a good target. An end to side anastomosis was created with the radial artery using a running 7-0 prolene. Next, the heartstring device was used to create aortotomy x 2. Both saphenous vein were fastened to the ascending aorta using a running 5-0 prolene x 2. The heartstring device was removed in its entirety x 2. At this point, the radial artery was put on the busch of the saphenous vein going to the ramus using a running 6-0 prolene. At this point, graft flows were measured which were excellent. There was some competitive flow in the ramus graft. At this point, protamine was given and hemostasis was secured. A 32F chest tube and 19F debi were placed in the mediastinum and right pleura respectively. The pericardium was reapproximated partially and the sternum was closed with pioneer cables and layers of suture. The leg was closed in layers as well. The patient tolerated the procedure without any significant hypotension and was transferred to CVICU in critical condition on only nitro gtt.
[2023-11-19] MEDS ORDERED: MAGNESIUM HYDROXIDE 2,400 MG/30 ML CUP PO PRN (09:00)
[2023-11-19] MEDS ORDERED: bisacodyL 10 MG SUPP RECTAL PRN (09:00)
[2023-11-19 09:04] LABS: Glucose,Whole Blood 110 mg/dL (70-110)
--- NOTE | 2023-11-19 09:19 | XR ---
EXAMINATION TYPE: XR chest 1V portable DATE OF EXAM: 11/19/2023 Comparison: 11/18/2023 Clinical History: 63-year-old male Post Operative Cardiac Surgery Findings: Interval extubation. Median sternotomy wires are present. Right IJ En[place]-Soo catheter tip at the prox imal right main pulmonary artery. Bilateral chest tubes and mediastinal drain. Post-CABG clips. Heart mildly enlarged. Scattered patchy interstitial densities are unchanged. No appreciable pneumothorax. Impression: Post-CABG changes. Stable exam with scattered mild patchy interstitial densities, probably mild pulmo nary vascular congestion.
--- NOTE | 2023-11-19 09:34 | P.PN ---
Subjective Progress Note Date: 11/19/23 Principal diagnosis: Multivessel coronary artery disease, unstable angina. History of hypertension, SVT status post ablation in May 2023, GERD, esophageal cancer in 2008 status post chemotherapy and 45 radiation treatments, lifetime non-smoker although history of chewing tobacco with cessation in his early 40s, right proximal ICA stenosis 50-69%, and family history of coronary artery disease POD #1 off-pump coronary artery bypass graft x 4, left internal thoracic artery (in situ) to the left anterior descending artery, left radial artery to the obtuse marginal artery, reverse saphenous vein graft to the ramus intermedius, reverse saphenous vein graft to the RCA, left atrial appendage ligation with a 35 mm AtriClip, endoscopic left radial and left greater saphenous vein harvest, graft flow measurements using the BitGo flow meter system, intraoperative transesophageal echocardiogram performed by anesthesia The patient was seen and examined this morning sitting up in recliner in the intensive care unit in no acute distress. He was successfully extubated last night at 18:55. Does complain of expected postsurgical chest discomfort especially with deep breaths, denies shortness of breath. Remains in sinus rhythm, hemodynamically stable. Currently on room air. Chest x-ray, labs reviewed. Right internal jugular Carolina/Cordis, right radial arterial line, mediastinal/left/right pleural chest tubes all remain. No other new concerns. Objective - Vital Signs Vital signs: Vital Signs Temp 99.7 F H 11/18/23 19:00 Pulse 82 11/19/23 07:00 Resp 24 11/19/23 07:00 BP 94/66 11/19/23 06:00 Pulse Ox 97 11/19/23 07:00 FiO2 40 11/18/23 18:50 Intake & Output 11/18/23 11/19/23 11/19/23 18:59 06:59 18:59 Intake Total 070.767 2249.547 Output Total 1945 975 Balance -1814.824 6210.547 Weight 91.9 kg Intake: IV 149 1727 0.9 pressure bag 45 117 ACETAMINOPHEN IV (For NPO 300 ) 1,000 mg In Empty Bag 1 bag @ 400 mls/hr IVPB Q6HR N[facility] Rx#:[id number] Albumin Human 5% 250 ml 500 In Empty Bag 1 bag @ 250 mls/hr IVPB Q1HR PRN Rx#: [id number] CO/CI 100 210 Lactated Ringers 1,000 ml 350 @ 20 mls/hr IV .Q24H NIDA Rx#:[id number] Magnesium Sulfate-D5w Pmx 100 1 gm In Dextrose/Water 1 100ml.bag @ 100 mls/hr IVPB Q1H NIDA Rx#: [id number] ceFAZolin 2 gm In Sodium 150 Chloride 0.9% 50 ml @ 100 mls/hr IVPB ONCE ONE Rx# :[id number] Intake, IV Titration 724.246 187.547 Amount ACETAMINOPHEN IV (For NPO 100 ) 1,000 mg In Empty Bag 1 bag @ 400 mls/hr IVPB Q6HR NIDA Rx#:[id number] Clevidipine Butyrate 25 30.100 1.467 mg In Empty Bag 1 bag @ 1 MG/HR 2 mls/hr IV .Q24H N[facility] Rx#:[id number] Dexmedetomidine/0.9% NaCl 11.087 6.814 (Pmx) 400 mcg In Empty Bag 1 bag @ Titrate IV . Q0M N[facility] Rx#:[id number] Insulin Regular 100 unit 1.633 29.266 In Sodium Chloride 0.9% 100 ml @ Per Protocol IV .Q0M NIDA Rx#:[id number] Lactated Ringers 1,000 ml 250 50 @ 20 mls/hr IV .Q24H NIDA Rx#:[id number] Magnesium Sulfate-D5w Pmx 200 100 1 gm In Dextrose/Water 1 100ml.bag @ 100 mls/hr IVPB Q1H N[facility] Rx#: [id number] ceFAZolin 2 gm In Sodium 100 Chloride 0.9% 50 ml @ 100 mls/hr IVPB Q8HR NIDA Rx# :[id number] propofoL 1,000 mg In 31.426 Empty Bag 1 bag @ Titrate IV .Q0M NIDA Rx#: [id number] Oral 400 Output: Chest Tube Drainage 480 460 Chest Tube Mediastinal 140 230 Pleural Catheter 340 230 Bilateral Drainage 20 30 Left Arm 20 30 Urine 1195 485 Estimated Blood Loss 250 Other: Voiding Method Indwelling Catheter Indwelling Catheter ABP, PAP, CO, CI - Last Documented Arterial Blood Pressure 91/53 Pulmonary Artery Pressure 17/11 Cardiac Output 5.3 Cardiac Index 2.5 - Exam CONSTITUTIONAL: Appears comfortable, cooperative, no acute distress RESPIRATORY: Lungs sounds diminished bilaterally. Respirations even, nonlabored. Currently on room air with oxygen saturation 96%. Able to achieve 500 mL on incentive spirometry. Strong cough. CARDIOVASCULAR: S1, S2 present. Regular rate and rhythm, sinus rhythm on telemetry. Sternum stable. Palpable peripheral pulses bilaterally. No edema present. No calf pain or tenderness noted. Heart hugger in place with patient demonstrating appropriate use. Antiembolism stockings, SCDs present. GASTROINTESTINAL: Abdomen soft, nontender, nondistended. Hypoactive bowel s ounds present 4 quadrants. Tolerating clear liquids. Denies flatus, positive belching GENITOURINARY: Cline present draining clear, yellow urine. Output overnight 25-60 mL per hour INTEGUMENTARY: Skin is warm and dry with evidence of good perfusion. Anterior chest incision well approximated and covered with dry intact dressing. Left lower extremity EVH site as well as left radial artery harvest site well approximated without redness, LILIA drain present to left radial artery harvest site with minimal drainage. NEUROLOGIC: Cranial nerves II through XII intact MUSKULOSKELETAL: Able to move all extremities, strength equal bilaterally, gait normal PSYCHIATRIC: Alert and oriented to person place and time, appropriate affect, intact judgment and insight INVASIVE LINES AND TUBES: Mediastinal/left/right pleural chest tubes present and connected to wall suction, no air leaks present. Mediastinal tube with 180 mL serosanguineous drainage overnight, 400 mL since surgery. Left/right pleural chest tubes with 140 mL serosanguineous drainage overnight, 600 mL since surgery. Atrial epicardial pacemaker wires present, connected to generator, backup rate 50 bpm. Right internal jugular Carolina/Cordis, right radial arterial line present. Last CO/CI 5.3/2.5, PA 20/06, CVP 2. - Allied health notes Allied health notes reviewed: nursing - Labs CBC & Chem 7: 11/19/23 03:53 11/19/23 03:53 Labs: Abnormal Lab Results - Last 24 Hours (Table) 11/17/23 11/18/23 11/18/23 Range/Units 08:17 08:32 09:35 WBC (3.8-10.6) k/uL RBC (4.30-5.90) m/uL Hgb (13.0-17.5) gm/dL Hct (39.0-53.0) % Plt Count (150-450) k/uL Neutrophils # (1.3-7.7) k/uL Lymphocytes # (1.0-4.8) k/uL Monocytes # (0-1.0) k/uL PT (10.0-12.5) sec INR (<1.2) ABG pH (7.35-7.45) ABG pCO2 (35-45) mmHg ABG pO2 273 H 186 H (83-108) mmHg ABG HCO3 26 H (21-25) mmol/L ABG Total CO2 (19-24) mmol/L ABG O2 Saturation >99.4 H 99.2 H (94-97) % ABG Glucose 109 H (75-99) mg/dL Hemoglobin 12.6 L (13.0-17.5) gm/dL Sodium (137-145) mmol/L Chloride (98-107) mmol/L Carbon Dioxide (22-30) mmol/L Creatinine (0.66-1.25) mg/dL Glucose (74-99) mg/dL POC Glucose (mg/dL) (70-110) mg/dL Magnesium (1.6-2.3) mg/dL AST (17-59) U/L Total Protein (6.3-8.2) g/dL Arterial Blood Glucose 109 H (75-99) mg/dL Crossmatch See Detail 11/18/23 11/18/23 11/18/23 Range/Units 10:45 11:14 12:10 WBC (3.8-10.6) k/uL RBC (4.30-5.90) m/uL Hgb (13.0-17.5) gm/dL Hct (39.0-53.0) % Plt Count (150-450) k/uL Neutrophils # (1.3-7.7) k/uL Lymphocytes # (1.0-4.8) k/uL Monocytes # (0-1.0) k/uL PT (10.0-12.5) sec INR (<1.2) ABG pH (7.35-7.45) ABG pCO2 (35-45) mmHg ABG pO2 275 H 286 H 270 H (83-108) mmHg ABG HCO3 (21-25) mmol/L ABG Total CO2 (19-24) mmol/L ABG O2 Saturation 99.4 H >99.4 H 99.3 H (94-97) % ABG Glucose 130 H 118 H 116 H (75-99) mg/dL Hemoglobin 12.9 L 12.8 L 12.7 L (13.0-17.5) gm/dL Sodium (137-145) mmol/L Chloride (98-107) mmol/L Carbon Dioxide (22-30) mmol/L Creatinine (0.66-1.25) mg/dL Glucose (74-99) mg/dL POC Glucose (mg/dL) (70-110) mg/dL Magnesium (1.6-2.3) mg/dL AST (17-59) U/L Total Protein (6.3-8.2) g/dL Arterial Blood Glucose 130 H 118 H 116 H (75-99) mg/dL Crossmatch 11/18/23 11/18/23 11/18/23 Range/Units 12:59 14:44 14:46 WBC (3.8-10.6) k/uL RBC 4.00 L (4.30-5.90) m/uL Hgb 12.9 L (13.0-17.5) gm/dL Hct 37.8 L (39.0-53.0) % Plt Count 116 L (150-450) k/uL Neutrophils # (1.3-7.7) k/uL Lymphocytes # (1.0-4.8) k/uL Monocytes # (0-1.0) k/uL PT (10.0-12.5) sec INR (<1.2) ABG pH (7.35-7.45) ABG pCO2 (35-45) mmHg ABG pO2 231 H (83-108) mmHg ABG HCO3 (21-25) mmol/L ABG Total CO2 (19-24) mmol/L ABG O2 Saturation 99.3 H (94-97) % ABG Glucose 111 H (75-99) mg/dL Hemoglobin 12.4 L (13.0-17.5) gm/dL Sodium (137-145) mmol/L Chloride (98-107) mmol/L Carbon Dioxide (22-30) mmol/L Creatinine (0.66-1.25) mg/dL Glucose (74-99) mg/dL POC Glucose (mg/dL) 115 H (70-110) mg/dL Magnesium (1.6-2.3) mg/dL AST (17-59) U/L Total Protein (6.3-8.2) g/dL Arterial Blood Glucose 111 H (75-99) mg/dL Crossmatch 11/18/23 11/18/23 11/18/23 Range/Units 14:46 14:46 14:51 WBC (3.8-10.6) k/uL RBC (4.30-5.90) m/uL Hgb (13.0-17.5) gm/dL Hct (39.0-53.0) % Plt Count (150-450) k/uL Neutrophils # (1.3-7.7) k/uL Lymphocytes # (1.0-4.8) k/uL Monocytes # (0-1.0) k/uL PT 13.9 H (10.0-12.5) sec INR 1.3 H (<1.2) ABG pH 7.31 L (7.35-7.45) ABG pCO2 46 H (35-45) mmHg ABG pO2 340 H (83-108) mmHg ABG HCO3 (21-25) mmol/L ABG Total CO2 25 H (19-24) mmol/L ABG O2 Saturation 99.5 H (94-97) % ABG Glucose (75-99) mg/dL Hemoglobin (13.0-17.5) gm/dL Sodium (137-145) mmol/L Chloride 109 H (98-107) mmol/L Carbon Dioxide 20 L (22-30) mmol/L Creatinine (0.66-1.25) mg/dL Glucose 113 H (74-99) mg/dL POC Glucose (mg/dL) (70-110) mg/dL Magnesium 1.3 L (1.6-2.3) mg/dL AST (17-59) U/L Total Protein 5.4 L (6.3-8.2) g/dL Arterial Blood Glucose (75-99) mg/dL Crossmatch 11/18/23 11/18/23 11/18/23 Range/Units 15:29 16:08 16:58 WBC (3.8-10.6) k/uL RBC (4.30-5.90) m/uL Hgb (13.0-17.5) gm/dL Hct (39.0-53.0) % Plt Count (150-450) k/uL Neutrophils # (1.3-7.7) k/uL Lymphocytes # (1.0-4.8) k/uL Monocytes # (0-1.0) k/uL PT (10.0-12.5) sec INR (<1.2) ABG pH (7.35-7.45) ABG pCO2 (35-45) mmHg ABG pO2 (83-108) mmHg ABG HCO3 (21-25) mmol/L ABG Total CO2 (19-24) mmol/L ABG O2 Saturation (94-97) % ABG Glucose (75-99) mg/dL Hemoglobin (13.0-17.5) gm/dL Sodium (137-145) mmol/L Chloride (98-107) mmol/L Carbon Dioxide (22-30) mmol/L Creatinine (0.66-1.25) mg/dL Glucose (74-99) mg/dL POC Glucose (mg/dL) 129 H 132 H 140 H (70-110) mg/dL Magnesium (1.6-2.3) mg/dL AST (17-59) U/L Total Protein (6.3-8.2) g/dL Arterial Blood Glucose (75-99) mg/dL Crossmatch 11/18/23 11/18/23 11/18/23 Range/Units 17:54 17:58 18:47 WBC 18.9 H (3.8-10.6) k/uL RBC (4.30-5.90) m/uL Hgb (13.0-17.5) gm/dL Hct (39.0-53.0) % Plt Count (150-450) k/uL Neutrophils # 15.5 H (1.3-7.7) k/uL Lymphocytes # (1.0-4.8) k/uL Monocytes # 1.5 H (0-1.0) k/uL PT (10.0-12.5) sec INR (<1.2) ABG pH (7.35-7.45) ABG pCO2 (35-45) mmHg ABG pO2 70 L (83-108) mmHg ABG HCO3 (21-25) mmol/L ABG Total CO2 (19-24) mmol/L ABG O2 Saturation (94-97) % ABG Glucose (75-99) mg/dL Hemoglobin (13.0-17.5) gm/dL Sodium (137-145) mmol/L Chloride (98-107) mmol/L Carbon Dioxide (22-30) mmol/L Creatinine (0.66-1.25) mg/dL Glucose (74-99) mg/dL POC Glucose (mg/dL) 184 H (70-110) mg/dL Magnesium (1.6-2.3) mg/dL AST (17-59) U/L Total Protein (6.3-8.2) g/dL Arterial Blood Glucose (75-99) mg/dL Crossmatch 11/18/23 11/18/23 11/18/23 Range/Units 19:02 19:57 20:57 WBC (3.8-10.6) k/uL RBC (4.30-5.90) m/uL Hgb (13.0-17.5) gm/dL Hct (39.0-53.0) % Plt Count (150-450) k/uL Neutrophils # (1.3-7.7) k/uL Lymphocytes # (1.0-4.8) k/uL Monocytes # (0-1.0) k/uL PT (10.0-12.5) sec INR (<1.2) ABG pH (7.35-7.45) ABG pCO2 (35-45) mmHg ABG pO2 (83-108) mmHg ABG HCO3 (21-25) mmol/L ABG Total CO2 (19-24) mmol/L ABG O2 Saturation (94-97) % ABG Glucose (75-99) mg/dL Hemoglobin (13.0-17.5) gm/dL Sodium (137-145) mmol/L Chloride (98-107) mmol/L Carbon Dioxide (22-30) mmol/L Creatinine (0.66-1.25) mg/dL Glucose (74-99) mg/dL POC Glucose (mg/dL) 173 H 160 H 149 H (70-110) mg/dL Magnesium (1.6-2.3) mg/dL AST (17-59) U/L Total Protein (6.3-8.2) g/dL Arterial Blood Glucose (75-99) mg/dL Crossmatch 11/18/23 11/18/23 11/18/23 Range/Units 20:58 21:53 22:54 WBC (3.8-10.6) k/uL RBC 3.91 L (4.30-5.90) m/uL Hgb 12.8 L (13.0-17.5) gm/dL Hct 35.8 L (39.0-53.0) % Plt Count 124 L (150-450) k/uL Neutrophils # 8.1 H (1.3-7.7) k/uL Lymphocytes # 0.3 L (1.0-4.8) k/uL Monocytes # (0-1.0) k/uL PT (10.0-12.5) sec INR (<1.2) ABG pH (7.35-7.45) ABG pCO2 (35-45) mmHg ABG pO2 (83-108) mmHg ABG HCO3 (21-25) mmol/L ABG Total CO2 (19-24) mmol/L ABG O2 Saturation (94-97) % ABG Glucose (75-99) mg/dL Hemoglobin (13.0-17.5) gm/dL Sodium (137-145) mmol/L Chloride (98-107) mmol/L Carbon Dioxide (22-30) mmol/L Creatinine (0.66-1.25) mg/dL Glucose (74-99) mg/dL POC Glucose (mg/dL) 149 H 144 H (70-110) mg/dL Magnesium (1.6-2.3) mg/dL AST (17-59) U/L Total Protein (6.3-8.2) g/dL Arterial Blood Glucose (75-99) mg/dL Crossmatch 11/18/23 11/19/23 11/19/23 Range/Units 23:51 00:55 01:57 WBC (3.8-10.6) k/uL RBC (4.30-5.90) m/uL Hgb (13.0-17.5) gm/dL Hct (39.0-53.0) % Plt Count (150-450) k/uL Neutrophils # (1.3-7.7) k/uL Lymphocytes # (1.0-4.8) k/uL Monocytes # (0-1.0) k/uL PT (10.0-12.5) sec INR (<1.2) ABG pH (7.35-7.45) ABG pCO2 (35-45) mmHg ABG pO2 (83-108) mmHg ABG HCO3 (21-25) mmol/L ABG Total CO2 (19-24) mmol/L ABG O2 Saturation (94-97) % ABG Glucose (75-99) mg/dL Hemoglobin (13.0-17.5) gm/dL Sodium (137-145) mmol/L Chloride (98-107) mmol/L Carbon Dioxide (22-30) mmol/L Creatinine (0.66-1.25) mg/dL Glucose (74-99) mg/dL POC Glucose (mg/dL) 142 H 133 H 126 H (70-110) mg/dL Magnesium (1.6-2.3) mg/dL AST (17-59) U/L Total Protein (6.3-8.2) g/dL Arterial Blood Glucose (75-99) mg/dL Crossmatch 11/19/23 11/19/23 11/19/23 Range/Units 02:57 03:51 03:53 WBC (3.8-10.6) k/uL RBC 3.94 L (4.30-5.90) m/uL Hgb 12.6 L (13.0-17.5) gm/dL Hct 36.7 L (39.0-53.0) % Plt Count 135 L (150-450) k/uL Neutrophils # 8.3 H (1.3-7.7) k/uL Lymphocytes # 0.5 L (1.0-4.8) k/uL Monocytes # (0-1.0) k/uL PT (10.0-12.5) sec INR (<1.2) ABG pH (7.35-7.45) ABG pCO2 (35-45) mmHg ABG pO2 (83-108) mmHg ABG HCO3 (21-25) mmol/L ABG Total CO2 (19-24) mmol/L ABG O2 Saturation (94-97) % ABG Glucose (75-99) mg/dL Hemoglobin (13.0-17.5) gm/dL Sodium (137-145) mmol/L Chloride (98-107) mmol/L Carbon Dioxide (22-30) mmol/L Creatinine (0.66-1.25) mg/dL Glucose (74-99) mg/dL POC Glucose (mg/dL) 126 H 123 H (70-110) mg/dL Magnesium (1.6-2.3) mg/dL AST (17-59) U/L Total Protein (6.3-8.2) g/dL Arterial Blood Glucose (75-99) mg/dL Crossmatch 11/19/23 11/19/23 Range/Units 03:53 05:07 WBC (3.8-10.6) k/uL RBC (4.30-5.90) m/uL Hgb (13.0-17.5) gm/dL Hct (39.0-53.0) % Plt Count (150-450) k/uL Neutrophils # (1.3-7.7) k/uL Lymphocytes # (1.0-4.8) k/uL Monocytes # (0-1.0) k/uL PT (10.0-12.5) sec INR (<1.2) ABG pH (7.35-7.45) ABG pCO2 (35-45) mmHg ABG pO2 (83-108) mmHg ABG HCO3 (21-25) mmol/L ABG Total CO2 (19-24) mmol/L ABG O2 Saturation (94-97) % ABG Glucose (75-99) mg/dL Hemoglobin (13.0-17.5) gm/dL Sodium 135 L (137-145) mmol/L Chloride (98-107) mmol/L Carbon Dioxide (22-30) mmol/L Creatinine 0.62 L (0.66-1.25) mg/dL Glucose 116 H (74-99) mg/dL POC Glucose (mg/dL) 117 H (70-110) mg/dL Magnesium (1.6-2.3) mg/dL AST 60 H (17-59) U/L Total Protein 5.6 L (6.3-8.2) g/dL Arterial Blood Glucose (75-99) mg/dL Crossmatch - Imaging and Cardiology Chest x-ray: report reviewed, image reviewed Assessment and Plan Assessment: Multivessel coronary artery disease, unstable angina, status post four-vessel CABG History of hypertension Hyperlipidemia, previously untreated outpatient, cholesterol 218, LDL 136 SVT status post ablation in May 2023 GERD Esophageal cancer in 2008 status post chemotherapy and 45 radiation treatments Lifetime non-smoker although history of chewing tobacco with cessation in his early 40s, preoperative FEV1 102% of predicted Right proximal ICA stenosis 50-69% Family history of coronary artery disease Plan: Continue to maximize medical therapy with aspirin, statin, Plavix, beta-alejandra. Will increase beta-alejandra therapy as tolerated Will add oral calcium channel alejandra for radial artery spasm prophylaxis with hold parameters Encourage use of incentive spirometry 10 times every hour while awake. Bronchodilators per pulmonology Increase activity, ambulate as tolerated. PT/OT/cardiac rehab consulted Will monitor daily labs and x-rays. Electrolyte replacement per protocol GI and DVT prophylaxis. Insulin management per internal medicine, patient is not diabetic, hemoglobin A1c 5.5%, should remain on IV insulin for 48 hours then may transition to sliding scale per protocol Pain control with current medication regimen Discontinue Carolina, connect Cordis to continuous CVP monitoring Continue chest tubes for another 24 hours, monitor output Continue Cline catheter for another 24 hours, continue to monitor and record strict accurate intake and output Daily weights Will discontinue LILIA More recommendations to follow based on patient's progress
[2023-11-19 09:45] LABS: Glucose,Whole Blood 122 mg/dL (70-110)
[2023-11-19 10:58] VITALS: BMI 26.7
[2023-11-19 11:00] LABS: Glucose,Whole Blood 102 mg/dL (70-110)
[2023-11-19] MEDS: amLODIPine 2.5 MG TAB PO SCH (11:48)
[2023-11-19 11:56] LABS: Glucose,Whole Blood 121 mg/dL (70-110)
[2023-11-19 13:03] LABS: Glucose,Whole Blood 125 mg/dL (70-110)
--- NOTE | 2023-11-19 13:31 | P.PN ---
Subjective Progress Note Date: 11/19/23 Principal diagnosis: Multivessel coronary artery disease, status post CABG, postoperative day #1 Is a 63-year-old male patient with multivessel coronary artery disease, symptomatic and the patient is going to undergo coronary artery bypass surgery tomorrow. The patient is doing well. No specific complaints. History of any chest pain. He was having some chest pain on outpatient basis and the patient underwent a outpatient nuclear stress test that came back positive for a defect in the inferior wall. Subsequent the patient underwent a cardiac catheterization that showed triple-vessel coronary artery disease. He has a 70 to 80% stenosis of the RCA, totally occluded circumflex and 80% c lesion in the LAD. The patient has previous history of SVTs and he has undergone previous radiofrequency ablation. He has previous history of esophageal cancer back in 2008 treated with chemotherapy and radiation therapy. He is a non-smoker. He does chew tobacco. His spirometry is essentially within normal limits. Chest x-ray within normal limits. Using incentive spirometer. Has good performance and functional status with a pulse ox of 98% on room air oxygen. The white cell count is 5 with a hemoglobin 14.9. Renal function is stable. Electrolytes are all stable. Patient was reevaluated today on 11/18/2023, patient just came back from the operating room, he is now in the ICU, he underwent triple-vessel coronary artery myocardial revascularization., Patient is on the ventilator, he is on assist- control rate of 16 tidal volume 450 FiO2 100% and PEEP of 5. ABG is pending, patient is hemodynamically stable, cardiac output is 6.1, cardiac index is 2.9. Patient is requiring nitroglycerin at 5 mcg/min, he is also on propofol at 20 mcg/kg/min. Chest x-ray is pending, ABG showed a pO2 of 340 pCO2 46 pH of 7.31, hence we will cut down the FiO2 down to 50%, and increase rate to 18 Patient evaluated today on 11/19/2023, patient remains in the ICU, he is now postoperative day #1off-pump coronary artery bypass graft x 4, left internal thoracic artery (in situ) to the left anterior descending artery, left radial artery to the obtuse marginal artery, reverse saphenous vein graft to the ramus intermedius, reverse saphenous vein graft to the RCA, patient was extubated yesterday at 18:55 successfully. Patient is sitting at the bedside chair, does not seem to be in any distress, he has minimal postsurgical discomfort, chest x- ray is reassuring showing mostly postoperative changes and minimal atelectasis. Continues to have Right internal jugular Elkins/Cordis, right radial arterial line, mediastinal/left/right pleural chest tubes. Labs today showed WBC count of 9.3 hemoglobin is 12.6.Basic metabolic profile is normal and renal profile is normal patient is not requiring any pressors or any inotropes Objective - Vital Signs Vital signs: Vital Signs Temp 98.9 F 11/19/23 12:06 Pulse 92 11/19/23 13:00 Resp 19 11/19/23 13:00 BP 119/68 11/19/23 11:00 Pulse Ox 97 11/19/23 13:00 FiO2 40 11/18/23 18:50 Intake & Output 11/18/23 11/19/23 11/19/23 18:59 06:59 18:59 Intake Total 182.130 3388.547 234.454 Output Total 1945 975 315 Balance -7640.698 6916.547 -80.546 Weight 91.9 kg 91.9 kg Intake: IV 149 1727 229 0.9 pressure bag 45 117 39 ACETAMINOPHEN IV (For NPO 300 ) 1,000 mg In Empty Bag 1 bag @ 400 mls/hr IVPB Q6HR N[facility] Rx#:[id number] Albumin Human 5% 250 ml 500 In Empty Bag 1 bag @ 250 mls/hr IVPB Q1HR PRN Rx#: [id number] CO/CI 100 210 20 Lactated Ringers 1,000 ml 350 120 @ 20 mls/hr IV .Q24H NIDA Rx#:[id number] Magnesium Sulfate-D5w Pmx 100 1 gm In Dextrose/Water 1 100ml.bag @ 100 mls/hr IVPB Q1H N[facility] Rx#: [id number] ceFAZolin 2 gm In Sodium 150 50 Chloride 0.9% 50 ml @ 100 mls/hr IVPB ONCE ONE Rx# :[id number] Intake, IV Titration 724.246 187.547 5.454 Amount ACETAMINOPHEN IV (For NPO 100 ) 1,000 mg In Empty Bag 1 bag @ 400 mls/hr IVPB Q6HR NIDA Rx#:[id number] Clevidipine Butyrate 25 30.100 1.467 mg In Empty Bag 1 bag @ 1 MG/HR 2 mls/hr IV .Q24H NIDA Rx#:[id number] Dexmedetomidine/0.9% NaCl 11.087 6.814 (Pmx) 400 mcg In Empty Bag 1 bag @ Titrate IV . Q0M N[facility] Rx#:[id number] Insulin Regular 100 unit 1.633 29.266 5.454 In Sodium Chloride 0.9% 100 ml @ Per Protocol IV .Q0M NIDA Rx#:[id number] Lactated Ringers 1,000 ml 250 50 @ 20 mls/hr IV .Q24H NIDA Rx#:[id number] Magnesium Sulfate-D5w Pmx 200 100 1 gm In Dextrose/Water 1 100ml.bag @ 100 mls/hr IVPB Q1H N[facility] Rx#: [id number] ceFAZolin 2 gm In Sodium 100 Chloride 0.9% 50 ml @ 100 mls/hr IVPB Q8HR NIDA Rx# :[id number] propofoL 1,000 mg In 31.426 Empty Bag 1 bag @ Titrate IV .Q0M NIDA Rx#: [id number] Oral 400 Output: Chest Tube Drainage 480 460 160 Chest Tube Mediastinal 140 230 80 Pleural Catheter 340 230 80 Bilateral Drainage 20 30 Left Arm 20 30 Urine 1195 485 155 Estimated Blood Loss 250 Other: Voiding Method Indwelling Catheter Indwelling Catheter Indwelling Catheter ABP, PAP, CO, CI - Last Documented Arterial Blood Pressure 92/65 Pulmonary Artery Pressure 15/9 Cardiac Output 5.3 Cardiac Index 2.5 - Exam General: Reveals 63-year-old white male in no distress, on room air Skin: Skin is warm and dry and no rashes or lesions are noted. Eye: Pupils are equal, round and reactive to light Ears, nose, mouth and throat: There are moist mucous membranes and no oral lesions Neck: The neck is supple, there is no tenderness or JVD. Cardiovascular: There is a regular rate and rhythm. No murmur, rub or gallop is appreciated. Respiratory: Clear bilaterally no rhonchi no wheeze Gastrointestinal: Soft nontender no megaly no rebound no guarding.. Musculoskeletal: No obvious deformities. No limitations in range of motion Neurological: Alert and oriented x 3 no gross focal deficit Psychiatric: Normal mood affect and normal status examination - Labs CBC & Chem 7: 11/19/23 03:53 11/19/23 03:53 Labs: Abnormal Lab Results - Last 24 Hours (Table) 11/17/23 11/18/23 11/18/23 Range/Units 08:17 08:32 09:35 WBC (3.8-10.6) k/uL RBC (4.30-5.90) m/uL Hgb (13.0-17.5) gm/dL Hct (39.0-53.0) % Plt Count (150-450) k/uL Neutrophils # (1.3-7.7) k/uL Lymphocytes # (1.0-4.8) k/uL Monocytes # (0-1.0) k/uL PT (10.0-12.5) sec INR (<1.2) ABG pH (7.35-7.45) ABG pCO2 (35-45) mmHg ABG pO2 273 H 186 H (83-108) mmHg ABG HCO3 26 H (21-25) mmol/L ABG Total CO2 (19-24) mmol/L ABG O2 Saturation >99.4 H 99.2 H (94-97) % ABG Glucose 109 H (75-99) mg/dL Hemoglobin 12.6 L (13.0-17.5) gm/dL Sodium (137-145) mmol/L Chloride (98-107) mmol/L Carbon Dioxide (22-30) mmol/L Creatinine (0.66-1.25) mg/dL Glucose (74-99) mg/dL POC Glucose (mg/dL) (70-110) mg/dL Magnesium (1.6-2.3) mg/dL AST (17-59) U/L Total Protein (6.3-8.2) g/dL Arterial Blood Glucose 109 H (75-99) mg/dL Crossmatch See Detail 11/18/23 11/18/23 11/18/23 Range/Units 10:45 11:14 12:10 WBC (3.8-10.6) k/uL RBC (4.30-5.90) m/uL Hgb (13.0-17.5) gm/dL Hct (39.0-53.0) % Plt Count (150-450) k/uL Neutrophils # (1.3-7.7) k/uL Lymphocytes # (1.0-4.8) k/uL Monocytes # (0-1.0) k/uL PT (10.0-12.5) sec INR (<1.2) ABG pH (7.35-7.45) ABG pCO2 (35-45) mmHg ABG pO2 275 H 286 H 270 H (83-108) mmHg ABG HCO3 (21-25) mmol/L ABG Total CO2 (19-24) mmol/L ABG O2 Saturation 99.4 H >99.4 H 99.3 H (94-97) % ABG Glucose 130 H 118 H 116 H (75-99) mg/dL Hemoglobin 12.9 L 12.8 L 12.7 L (13.0-17.5) gm/dL Sodium (137-145) mmol/L Chloride (98-107) mmol/L Carbon Dioxide (22-30) mmol/L Creatinine (0.66-1.25) mg/dL Glucose (74-99) mg/dL POC Glucose (mg/dL) (70-110) mg/dL Magnesium (1.6-2.3) mg/dL AST (17-59) U/L Total Protein (6.3-8.2) g/dL Arterial Blood Glucose 130 H 118 H 116 H (75-99) mg/dL Crossmatch 11/18/23 11/18/23 11/18/23 Range/Units 12:59 14:44 14:46 WBC (3.8-10.6) k/uL RBC 4.00 L (4.30-5.90) m/uL Hgb 12.9 L (13.0-17.5) gm/dL Hct 37.8 L (39.0-53.0) % Plt Count 116 L (150-450) k/uL Neutrophils # (1.3-7.7) k/uL Lymphocytes # (1.0-4.8) k/uL Monocytes # (0-1.0) k/uL PT (10.0-12.5) sec INR (<1.2) ABG pH (7.35-7.45) ABG pCO2 (35-45) mmHg ABG pO2 231 H (83-108) mmHg ABG HCO3 (21-25) mmol/L ABG Total CO2 (19-24) mmol/L ABG O2 Saturation 99.3 H (94-97) % ABG Glucose 111 H (75-99) mg/dL Hemoglobin 12.4 L (13.0-17.5) gm/dL Sodium (137-145) mmol/L Chloride (98-107) mmol/L Carbon Dioxide (22-30) mmol/L Creatinine (0.66-1.25) mg/dL Glucose (74-99) mg/dL POC Glucose (mg/dL) 115 H (70-110) mg/dL Magnesium (1.6-2.3) mg/dL AST (17-59) U/L Total Protein (6.3-8.2) g/dL Arterial Blood Glucose 111 H (75-99) mg/dL Crossmatch 11/18/23 11/18/23 11/18/23 Range/Units 14:46 14:46 14:51 WBC (3.8-10.6) k/uL RBC (4.30-5.90) m/uL Hgb (13.0-17.5) gm/dL Hct (39.0-53.0) % Plt Count (150-450) k/uL Neutrophils # (1.3-7.7) k/uL Lymphocytes # (1.0-4.8) k/uL Monocytes # (0-1.0) k/uL PT 13.9 H (10.0-12.5) sec INR 1.3 H (<1.2) ABG pH 7.31 L (7.35-7.45) ABG pCO2 46 H (35-45) mmHg ABG pO2 340 H (83-108) mmHg ABG HCO3 (21-25) mmol/L ABG Total CO2 25 H (19-24) mmol/L ABG O2 Saturation 99.5 H (94-97) % ABG Glucose (75-99) mg/dL Hemoglobin (13.0-17.5) gm/dL Sodium (137-145) mmol/L Chloride 109 H (98-107) mmol/L Carbon Dioxide 20 L (22-30) mmol/L Creatinine (0.66-1.25) mg/dL Glucose 113 H (74-99) mg/dL POC Glucose (mg/dL) (70-110) mg/dL Magnesium 1.3 L (1.6-2.3) mg/dL AST (17-59) U/L Total Protein 5.4 L (6.3-8.2) g/dL Arterial Blood Glucose (75-99) mg/dL Crossmatch 11/18/23 11/18/23 11/18/23 Range/Units 15:29 16:08 16:58 WBC (3.8-10.6) k/uL RBC (4.30-5.90) m/uL Hgb (13.0-17.5) gm/dL Hct (39.0-53.0) % Plt Count (150-450) k/uL Neutrophils # (1.3-7.7) k/uL Lymphocytes # (1.0-4.8) k/uL Monocytes # (0-1.0) k/uL PT (10.0-12.5) sec INR (<1.2) ABG pH (7.35-7.45) ABG pCO2 (35-45) mmHg ABG pO2 (83-108) mmHg ABG HCO3 (21-25) mmol/L ABG Total CO2 (19-24) mmol/L ABG O2 Saturation (94-97) % ABG Glucose (75-99) mg/dL Hemoglobin (13.0-17.5) gm/dL Sodium (137-145) mmol/L Chloride (98-107) mmol/L Carbon Dioxide (22-30) mmol/L Creatinine (0.66-1.25) mg/dL Glucose (74-99) mg/dL POC Glucose (mg/dL) 129 H 132 H 140 H (70-110) mg/dL Magnesium (1.6-2.3) mg/dL AST (17-59) U/L Total Protein (6.3-8.2) g/dL Arterial Blood Glucose (75-99) mg/dL Crossmatch 11/18/23 11/18/23 11/18/23 Range/Units 17:54 17:58 18:47 WBC 18.9 H (3.8-10.6) k/uL RBC (4.30-5.90) m/uL Hgb (13.0-17.5) gm/dL Hct (39.0-53.0) % Plt Count (150-450) k/uL Neutrophils # 15.5 H (1.3-7.7) k/uL Lymphocytes # (1.0-4.8) k/uL Monocytes # 1.5 H (0-1.0) k/uL PT (10.0-12.5) sec INR (<1.2) ABG pH (7.35-7.45) ABG pCO2 (35-45) mmHg ABG pO2 70 L (83-108) mmHg ABG HCO3 (21-25) mmol/L ABG Total CO2 (19-24) mmol/L ABG O2 Saturation (94-97) % ABG Glucose (75-99) mg/dL Hemoglobin (13.0-17.5) gm/dL Sodium (137-145) mmol/L Chloride (98-107) mmol/L Carbon Dioxide (22-30) mmol/L Creatinine (0.66-1.25) mg/dL Glucose (74-99) mg/dL POC Glucose (mg/dL) 184 H (70-110) mg/dL Magnesium (1.6-2.3) mg/dL AST (17-59) U/L Total Protein (6.3-8.2) g/dL Arterial Blood Glucose (75-99) mg/dL Crossmatch 11/18/23 11/18/23 11/18/23 Range/Units 19:02 19:57 20:57 WBC (3.8-10.6) k/uL RBC (4.30-5.90) m/uL Hgb (13.0-17.5) gm/dL Hct (39.0-53.0) % Plt Count (150-450) k/uL Neutrophils # (1.3-7.7) k/uL Lymphocytes # (1.0-4.8) k/uL Monocytes # (0-1.0) k/uL PT (10.0-12.5) sec INR (<1.2) ABG pH (7.35-7.45) ABG pCO2 (35-45) mmHg ABG pO2 (83-108) mmHg ABG HCO3 (21-25) mmol/L ABG Total CO2 (19-24) mmol/L ABG O2 Saturation (94-97) % ABG Glucose (75-99) mg/dL Hemoglobin (13.0-17.5) gm/dL Sodium (137-145) mmol/L Chloride (98-107) mmol/L Carbon Dioxide (22-30) mmol/L Creatinine (0.66-1.25) mg/dL Glucose (74-99) mg/dL POC Glucose (mg/dL) 173 H 160 H 149 H (70-110) mg/dL Magnesium (1.6-2.3) mg/dL AST (17-59) U/L Total Protein (6.3-8.2) g/dL Arterial Blood Glucose (75-99) mg/dL Crossmatch 11/18/23 11/18/23 11/18/23 Range/Units 20:58 21:53 22:54 WBC (3.8-10.6) k/uL RBC 3.91 L (4.30-5.90) m/uL Hgb 12.8 L (13.0-17.5) gm/dL Hct 35.8 L (39.0-53.0) % Plt Count 124 L (150-450) k/uL Neutrophils # 8.1 H (1.3-7.7) k/uL Lymphocytes # 0.3 L (1.0-4.8) k/uL Monocytes # (0-1.0) k/uL PT (10.0-12.5) sec INR (<1.2) ABG pH (7.35-7.45) ABG pCO2 (35-45) mmHg ABG pO2 (83-108) mmHg ABG HCO3 (21-25) mmol/L ABG Total CO2 (19-24) mmol/L ABG O2 Saturation (94-97) % ABG Glucose (75-99) mg/dL Hemoglobin (13.0-17.5) gm/dL Sodium (137-145) mmol/L Chloride (98-107) mmol/L Carbon Dioxide (22-30) mmol/L Creatinine (0.66-1.25) mg/dL Glucose (74-99) mg/dL POC Glucose (mg/dL) 149 H 144 H (70-110) mg/dL Magnesium (1.6-2.3) mg/dL AST (17-59) U/L Total Protein (6.3-8.2) g/dL Arterial Blood Glucose (75-99) mg/dL Crossmatch 04/11/19/23 11/19/23 Range/Units 23:51 00:55 01:57 WBC (3.8-10.6) k/uL RBC (4.30-5.90) m/uL Hgb (13.0-17.5) gm/dL Hct (39.0-53.0) % Plt Count (150-450) k/uL Neutrophils # (1.3-7.7) k/uL Lymphocytes # (1.0-4.8) k/uL Monocytes # (0-1.0) k/uL PT (10.0-12.5) sec INR (<1.2) ABG pH (7.35-7.45) ABG pCO2 (35-45) mmHg ABG pO2 (83-108) mmHg ABG HCO3 (21-25) mmol/L ABG Total CO2 (19-24) mmol/L ABG O2 Saturation (94-97) % ABG Glucose (75-99) mg/dL Hemoglobin (13.0-17.5) gm/dL Sodium (137-145) mmol/L Chloride (98-107) mmol/L Carbon Dioxide (22-30) mmol/L Creatinine (0.66-1.25) mg/dL Glucose (74-99) mg/dL POC Glucose (mg/dL) 142 H 133 H 126 H (70-110) mg/dL Magnesium (1.6-2.3) mg/dL AST (17-59) U/L Total Protein (6.3-8.2) g/dL Arterial Blood Glucose (75-99) mg/dL Crossmatch 11/19/23 11/19/23 11/19/23 Range/Units 02:57 03:51 03:53 WBC (3.8-10.6) k/uL RBC 3.94 L (4.30-5.90) m/uL Hgb 12.6 L (13.0-17.5) gm/dL Hct 36.7 L (39.0-53.0) % Plt Count 135 L (150-450) k/uL Neutrophils # 8.3 H (1.3-7.7) k/uL Lymphocytes # 0.5 L (1.0-4.8) k/uL Monocytes # (0-1.0) k/uL PT (10.0-12.5) sec INR (<1.2) ABG pH (7.35-7.45) ABG pCO2 (35-45) mmHg ABG pO2 (83-108) mmHg ABG HCO3 (21-25) mmol/L ABG Total CO2 (19-24) mmol/L ABG O2 Saturation (94-97) % ABG Glucose (75-99) mg/dL Hemoglobin (13.0-17.5) gm/dL Sodium (137-145) mmol/L Chloride (98-107) mmol/L Carbon Dioxide (22-30) mmol/L Creatinine (0.66-1.25) mg/dL Glucose (74-99) mg/dL POC Glucose (mg/dL) 126 H 123 H (70-110) mg/dL Magnesium (1.6-2.3) mg/dL AST (17-59) U/L Total Protein (6.3-8.2) g/dL Arterial Blood Glucose (75-99) mg/dL Crossmatch 11/19/23 11/19/23 11/19/23 Range/Units 03:53 05:07 08:12 WBC (3.8-10.6) k/uL RBC (4.30-5.90) m/uL Hgb (13.0-17.5) gm/dL Hct (39.0-53.0) % Plt Count (150-450) k/uL Neutrophils # (1.3-7.7) k/uL Lymphocytes # (1.0-4.8) k/uL Monocytes # (0-1.0) k/uL PT (10.0-12.5) sec INR (<1.2) ABG pH (7.35-7.45) ABG pCO2 (35-45) mmHg ABG pO2 (83-108) mmHg ABG HCO3 (21-25) mmol/L ABG Total CO2 (19-24) mmol/L ABG O2 Saturation (94-97) % ABG Glucose (75-99) mg/dL Hemoglobin (13.0-17.5) gm/dL Sodium 135 L (137-145) mmol/L Chloride (98-107) mmol/L Carbon Dioxide (22-30) mmol/L Creatinine 0.62 L (0.66-1.25) mg/dL Glucose 116 H (74-99) mg/dL POC Glucose (mg/dL) 117 H 133 H (70-110) mg/dL Magnesium (1.6-2.3) mg/dL AST 60 H (17-59) U/L Total Protein 5.6 L (6.3-8.2) g/dL Arterial Blood Glucose (75-99) mg/dL Crossmatch 11/19/23 11/19/23 11/19/23 Range/Units 09:44 11:54 13:01 WBC (3.8-10.6) k/uL RBC (4.30-5.90) m/uL Hgb (13.0-17.5) gm/dL Hct (39.0-53.0) % Plt Count (150-450) k/uL Neutrophils # (1.3-7.7) k/uL Lymphocytes # (1.0-4.8) k/uL Monocytes # (0-1.0) k/uL PT (10.0-12.5) sec INR (<1.2) ABG pH (7.35-7.45) ABG pCO2 (35-45) mmHg ABG pO2 (83-108) mmHg ABG HCO3 (21-25) mmol/L ABG Total CO2 (19-24) mmol/L ABG O2 Saturation (94-97) % ABG Glucose (75-99) mg/dL Hemoglobin (13.0-17.5) gm/dL Sodium (137-145) mmol/L Chloride (98-107) mmol/L Carbon Dioxide (22-30) mmol/L Creatinine (0.66-1.25) mg/dL Glucose (74-99) mg/dL POC Glucose (mg/dL) 122 H 121 H 125 H (70-110) mg/dL Magnesium (1.6-2.3) mg/dL AST (17-59) U/L Total Protein (6.3-8.2) g/dL Arterial Blood Glucose (75-99) mg/dL Crossmatch Assessment and Plan Assessment: Impression: POD #1 off-pump coronary artery bypass graft x 4, left internal thoracic artery (in situ) to the left anterior descending artery, left radial artery to the obtuse marginal artery, reverse saphenous vein graft to the ramus intermedius, reverse saphenous vein graft to the RCA Benign essential hypertension Dyslipidemia History of SVT requiring ablation May 06, 2002 3 History of esophageal cancer in 2009 status postchemotherapy and radiation treatment presently in remission Lifetime non-smoker. History of proximal ICA stenosis 50 to 69% Family history of premature coronary artery disease Recommendation: Continue to monitor in the ICU for the next 24 hours Continue incentive spirometry GI and DVT prophylaxis Ambulate Continue aspirin Plavix beta-blockers and statinsmaximal medical therapy Discontinue unnecessary catheters and lines early. Daily labs and daily chest x-rays Will continue to follow. Time with Patient: Less than 30
[2023-11-19 14:05] LABS: Glucose,Whole Blood 118 mg/dL (70-110)
--- NOTE | 2023-11-19 14:30 | CONS ---
CONSULTATION REASON FOR CONSULTATION: Advice regarding atrial fibrillation, hypertension, other medical issues requested by Cardiothoracic surgery. HISTORY OF PRESENT ILLNESS: This is a 63-year-old gentleman with a past medical history of atrial fibrillation, GERD, hypertension, being followed by Dr. Davis in the outpatient setting, underwent CAD, CABG. Currently, the patient is monitored in ICU. The blood sugar was elevated. The insulin drip was being initiated with very small dose of insulin. The patient does not have any history of diabetes mellitus in the past. Chest tubes are in place. There is no history of any fever, rigors, or chills. PAST MEDICAL HISTORY: Reviewed include atrial fibrillation, GERD, hypertension, and SVT. HOME MEDICATIONS: Reviewed include Zestril, dose and rest of medications noted. ALLERGIES: None. FAMILY HISTORY: History of CAD in the family. SOCIAL HISTORY: No history of smoking. Tobacco chewing. REVIEW OF SYSTEMS: A 14-point review of systems is negative except as mentioned. PHYSICAL EXAMINATION: VITAL SIGNS: Pulse is 97, blood pressure is 92/62, respirations 19. CHEST: Few scattered rhonchi and crackles. Chest tubes in situ. CARDIOVASCULAR: S1, S2 muffled. ABDOMEN: Soft, nontender. NERVOUS SYSTEM: No focal deficits. SKIN: No ulcer, rash, bleeding. JOINTS: No active deforming arthropathy. LABS: Glucose 125, hemoglobin 12.8, and creatinine is 0.62. Rest of the labs are noted. The most recent chest x-ray reviewed, showed some atelectasis. ASSESSMENT: 1. Status post CAD, CABG. 2. Elevated blood sugars, glucose. 3. Atrial fibrillation. 4. GERD. 5. Hypertension. 6. History of SVT. RECOMMENDATIONS: Recommended to continue current management, continue symptomatic treatment, otherwise I would recommend hemoglobin A1c and blood sugars can be switched to Accu-Cheks a.c. and h.s. and continue to monitor. Incentive spirometry. DVT prophylaxis. We will follow the patient closely and continue to monitor. Further recommendations to follow. Recommend close followup with Dr. Davis after discharge. MMJOHANNAL / YAHIR: [id number] /
[2023-11-19 15:07] LABS: Glucose,Whole Blood 126 mg/dL (70-110)
[2023-11-19] MEDS ORDERED: Magnesium Replacement Protocol 1 EACH MISC MISCELLANE PRN (15:34)
[2023-11-19] MEDS ORDERED: DEXTROSE 50% SYRINGE 50 ML IVP PRN ×2 (15:34)
[2023-11-19] MEDS ORDERED: MAGNESIUM SULFATE-D5W PMX 1 GM in DEXTROSE/WATER 1 100ML.BAG IVPB SCH (15:45)
[2023-11-19] MEDS: INSULIN ASPART (NovoLOG) 100 UNIT/ML VIAL SQ SCH (17:00)
[2023-11-19 17:02] LABS: Glucose,Whole Blood 108 mg/dL (70-110)
[2023-11-19 20:22] LABS: Glucose,Whole Blood 131 mg/dL (70-110)
[2023-11-19] MEDS: INSULIN DETEMIR (LEVEMIR) 100 UNIT/ML SYR SQ SCH (21:37)
[2023-11-19] MEDS: ACETAMINOPHEN TAB 325 MG TAB PO PRN (22:05)
[2023-11-20 06:15] LABS: Glucose,Whole Blood 125 mg/dL (70-110)
[2023-11-20] MEDS: PANTOPRAZOLE 40 MG TABLET PO SCH (06:34)
[2023-11-20 06:56] LABS: Basophils % (A) 0 %; Eosinophils % (A) 0 %; HCT 34.3 % (39.0-53.0); Lymphocytes # (A) 0.7 k/uL (1.0-4.8); Lymphocytes % (A) 9 %; MCH 32.9 pg (25.0-35.0); MCHC 34.9 g/dL (31.0-37.0); MCV 94.1 fL (80.0-100.0); Mean Platelet Volume 9.8; Monocytes # (A) 0.5 k/uL (0-1.0); Monocytes % (A) 6 %; Neutrophils # (A) 6.9 k/uL (1.3-7.7); Neutrophils % (A) 83 %; Platelet Count 111 k/uL (150-450); RBC 3.64 m/uL (4.30-5.90); RDW 12.9 % (11.5-15.5); WBC 8.3 k/uL (3.8-10.6)
[2023-11-20 07:16] LABS: ALT 27 U/L (4-49); AST 44 U/L (17-59); African American GFR (CKD) >90 (>60 ml/min/1.73 sqM); Albumin 3.8 g/dL (3.5-5.0); Alkaline Phosphatase 48 U/L (38-126); Anion Gap 5 mmol/L; Blood Urea Nitrogen 16 mg/dL (9-20); Calcium 8.9 mg/dL (8.4-10.2); Carbon Dioxide 24 mmol/L (22-30); Chloride 103 mmol/L (98-107); Glucose 124 mg/dL (74-99); Magnesium 1.9 mg/dL (1.6-2.3); Non-African American GFR(CKD) >90 (>60 ml/min/1.73 sqM); Potassium 4.7 mmol/L (3.5-5.1); Sodium 132 mmol/L (137-145); Total Bilirubin 1.6 mg/dL (0.2-1.3); Total Protein 5.8 g/dL (6.3-8.2)
--- NOTE | 2023-11-20 07:41 | P.PN ---
Subjective Progress Note Date: 11/20/23 Principal diagnosis: Multivessel coronary artery disease, unstable angina. History of hypertension, SVT status post ablation in May 2023, GERD, esophageal cancer in 2008 status post chemotherapy and 45 radiation treatments, lifetime non-smoker although history of chewing tobacco with cessation in his early 40s, right proximal ICA stenosis 50-69%, and family history of coronary artery disease POD #2 off-pump coronary artery bypass graft x 4, left internal thoracic artery (in situ) to the left anterior descending artery, left radial artery to the obtuse marginal artery, reverse saphenous vein graft to the ramus intermedius, reverse saphenous vein graft to the RCA, left atrial appendage ligation with a 35 mm AtriClip, endoscopic left radial and left greater saphenous vein harvest, graft flow measurements using the [employer] flow meter system, intraoperative transesophageal echocardiogram performed by anesthesia The patient was seen and examined this morning sitting up in recliner in the intensive care unit in no acute distress. States pain is controlled on current medication regimen, denies shortness of breath. Remains in sinus rhythm, hemodynamically stable. Currently on room air. Chest x-ray, labs reviewed. Right internal jugular cordis, mediastinal/left/right pleural chest tubes all remain. No other new concerns. Objective - Vital Signs Vital signs: Vital Signs Temp 97.7 F 11/20/23 00:00 Pulse 92 11/20/23 07:00 Resp 27 H 11/20/23 07:00 BP 124/71 11/20/23 07:00 Pulse Ox 96 11/20/23 07:00 FiO2 40 11/18/23 18:50 Intake & Output 11/19/23 11/20/23 11/20/23 18:59 06:59 18:59 Intake Total 366.676 389 33 Output Total 460 715 30 Balance -93.324 -326 3 Weight 91.9 kg 92.6 kg Intake: IV 359 389 33 0.9 pressure bag 69 39 3 CO/CI 20 Lactated Ringers 1,000 ml 220 350 30 @ 20 mls/hr IV .Q24H [facility] Rx#:[id number] ceFAZolin 2 gm In Sodium 50 Chloride 0.9% 50 ml @ 100 mls/hr IVPB ONCE ONE Rx# :[id number] Intake, IV Titration 7.676 Amount Insulin Regular 100 unit 7.676 In Sodium Chloride 0.9% 100 ml @ Per Protocol IV .Q0M [facility] Rx#:[id number] Output: Chest Tube Drainage 160 350 Chest Tube Mediastinal 80 200 Pleural Catheter 80 150 Bilateral Urine 300 365 30 Other: Voiding Method Indwelling Catheter Indwelling Catheter ABP, PAP, CO, CI - Last Documented Arterial Blood Pressure 101/92 Pulmonary Artery Pressure 15/9 Cardiac Output 5.3 Cardiac Index 2.5 - Exam CONSTITUTIONAL: Appears comfortable, cooperative, no acute distress RESPIRATORY: Lungs sounds diminished bilaterally. Respirations even, nonlabored. Currently on room air with oxygen saturation 96%. Able to achieve 500 mL on incentive spirometry. Strong cough. CARDIOVASCULAR: S1, S2 present. Regular rate and rhythm, sinus rhythm on telemetry. Sternum stable. Palpable peripheral pulses bilaterally. No edema present. No calf pain or tenderness noted. Heart hugger in place with patient demonstrating appropriate use. Antiembolism stockings, SCDs present. GASTROINTESTINAL: Abdomen soft, nontender, nondistended. Hypoactive bowel sounds present 4 quadrants. Tolerating diet. Positive flatus, positive belching GENITOURINARY: Cline present draining clear, yellow urine. Output overnight 20-40 mL per hour, 665 mL in the last 24 hours INTEGUMENTARY: Skin is warm and dry with evidence of good perfusion. Anterior chest incision well approximated and covered with dry intact dressing. Left lower extremity EVH site as well as left radial artery harvest site well approximated, left forearm ecchymotic, expected NEUROLOGIC: Cranial nerves II through XII intact MUSKULOSKELETAL: Able to move all extremities, strength equal bilaterally, gait normal PSYCHIATRIC: Alert and oriented to person place and time, appropriate affect, intact judgment and insight INVASIVE LINES AND TUBES: Mediastinal/left/right pleural chest tubes present and connected to wall suction, no air leaks present. Mediastinal tube with 100 mL serosanguineous drainage overnight, 300 mL in the last 24 hours. Left/right pleural chest tubes with 140 mL serosanguineous drainage overnight, 250 mL in the last 24 hours. Atrial epicardial pacemaker wires present, grounded. Right internal jugular cordis present. Last CVP 11. - Allied health notes Allied health notes reviewed: nursing - Labs CBC & Chem 7: 11/20/23 06:24 11/20/23 06:24 Labs: Abnormal Lab Results - Last 24 Hours (Table) 11/19/23 11/19/23 11/19/23 Range/Units 08:12 09:44 11:54 RBC (4.30-5.90) m/uL Hgb (13.0-17.5) gm/dL Hct (39.0-53.0) % Plt Count (150-450) k/uL Lymphocytes # (1.0-4.8) k/uL Sodium (137-145) mmol/L Glucose (74-99) mg/dL POC Glucose (mg/dL) 133 H 122 H 121 H (70-110) mg/dL Total Bilirubin (0.2-1.3) mg/dL Total Protein (6.3-8.2) g/dL 11/19/23 11/19/23 11/19/23 Range/Units 13:01 14:03 15:05 RBC (4.30-5.90) m/uL Hgb (13.0-17.5) gm/dL Hct (39.0-53.0) % Plt Count (150-450) k/uL Lymphocytes # (1.0-4.8) k/uL Sodium (137-145) mmol/L Glucose (74-99) mg/dL POC Glucose (mg/dL) 125 H 118 H 126 H (70-110) mg/dL Total Bilirubin (0.2-1.3) mg/dL Total Protein (6.3-8.2) g/dL 11/19/23 11/20/23 11/20/23 Range/Units 20:21 06:13 06:24 RBC 3.64 L (4.30-5.90) m/uL Hgb 12.0 L (13.0-17.5) gm/dL Hct 34.3 L (39.0-53.0) % Plt Count 111 L (150-450) k/uL Lymphocytes # 0.7 L (1.0-4.8) k/uL Sodium (137-145) mmol/L Glucose (74-99) mg/dL POC Glucose (mg/dL) 131 H 125 H (70-110) mg/dL Total Bilirubin (0.2-1.3) mg/dL Total Protein (6.3-8.2) g/dL 11/20/23 Range/Units 06:24 RBC (4.30-5.90) m/uL Hgb (13.0-17.5) gm/dL Hct (39.0-53.0) % Plt Count (150-450) k/uL Lymphocytes # (1.0-4.8) k/uL Sodium 132 L (137-145) mmol/L Glucose 124 H (74-99) mg/dL POC Glucose (mg/dL) (70-110) mg/dL Total Bilirubin 1.6 H (0.2-1.3) mg/dL Total Protein 5.8 L (6.3-8.2) g/dL - Imaging and Cardiology Chest x-ray: image reviewed Assessment and Plan Assessment: Multivessel coronary artery disease, unstable angina, status post four-vessel CABG History of hypertension Hyperlipidemia, previously untreated outpatient, cholesterol 218, LDL 136 SVT status post ablation in May 2023 GERD Esophageal cancer in 2008 status post chemotherapy and 45 radiation treatments Lifetime non-smoker although history of chewing tobacco with cessation in his early 40s, preoperative FEV1 102% of predicted Right proximal ICA stenosis 50-69% Family history of coronary artery disease Plan: Continue to maximize medical therapy with aspirin, statin, Plavix, beta-alejandra. Will increase beta-alejandra therapy as tolerated Continue oral calcium channel aleajndra for radial artery spasm prophylaxis with hold parameters Encourage use of incentive spirometry 10 times every hour while awake. Bronchodilators per pulmonology Increase activity, ambulate as tolerated. PT/OT/cardiac rehab consulted Will monitor daily labs and x-rays. Electrolyte replacement per protocol. Will give IV lasix today GI and DVT prophylaxis. Insulin management per internal medicine, patient is not diabetic, hemoglobin A1c 5.5%, should remain on IV insulin for 48 hours then may transition to sliding scale per protocol Pain control with current medication regimen Discontinue Cordis Will discontinue chest tubes Discontinue Cline catheter after diuresis from lasix, may bladder scan and straight cath for >300 mL residual Continue to monitor and record strict accurate intake and output Daily weights Will place transfer orders for [facility], may transfer when bed available More recommendations to follow based on patient's progress
--- NOTE | 2023-11-20 07:59 | P.PN ---
Subjective Progress Note Date: 11/20/23 Principal diagnosis: CAD The patient is a pleasant 63-year-old gentleman with coronary artery disease as well as diabetes and hypertension and dyslipidemia and carotid atherosclerosis was admitted to the hospital with chest discomfort concerning for angina he underwent a heart catheterization which revealed triple-vessel coronary artery disease. He underwent CABG yesterday. November 19, 2023 This is postoperation day #1. The patient seems to be stable besides soft blood pressure. He is not on any vasopressors or inotropes at this point. He has been maintaining normal sinus mechanism. Urine output has been adequate. Overall hemodynamically he is stable. He is on dual antiplatelet therapy along with beta-alejandra along with low-dose of statin. Will consider increasing dose of statin down the line. The physical examination revealed regular rhythm with a distant heart sounds and diminished breathing sounds bilaterally. The chest x-ray also was reviewed. November 20, 2023 The patient was seen and evaluated this morning. Overall he is doing well. Hemodynamically he is stable. Urine output has been adequate as well. Blood work was reviewed and chest x-ray was reviewed as well. He has been maintaining normal sinus mechanism. At this point I would advise continue the current medical regimen and follow-up with the patient. The examination revealed regular rhythm with a clear breathing sounds bilaterally and no edema was noted. Assessment Severe coronary artery disease status post surgical revascularization Multiple comorbid conditions including diabetes and hypertension and dyslipidemia Carotid atherosclerosis Plan Continue the current medical regimen Monitor for any arrhythmia Continue monitoring urine output Monitor the hemoglobin and electrolytes and kidney function Consider increasing the dose of statin Follow-up with Objective - Vital Signs Vital signs: Vital Signs Temp 97.7 F 11/20/23 00:00 Pulse 92 11/20/23 07:00 Resp 27 H 11/20/23 07:00 BP 124/71 11/20/23 07:00 Pulse Ox 96 11/20/23 07:00 FiO2 40 11/18/23 18:50 Intake & Output 11/19/23 11/20/23 11/20/23 18:59 06:59 18:59 Intake Total 366.676 389 33 Output Total 460 715 30 Balance -93.324 -326 3 Weight 91.9 kg 92.6 kg Intake: IV 359 389 33 0.9 pressure bag 69 39 3 CO/CI 20 Lactated Ringers 1,000 ml 220 350 30 @ 20 mls/hr IV .Q24H [facility] Rx#:[id number] ceFAZolin 2 gm In Sodium 50 Chloride 0.9% 50 ml @ 100 mls/hr IVPB ONCE ONE Rx# :[id number] Intake, IV Titration 7.676 Amount Insulin Regular 100 unit 7.676 In Sodium Chloride 0.9% 100 ml @ Per Protocol IV .Q0M [facility] Rx#:[id number] Output: Chest Tube Drainage 160 350 Chest Tube Mediastinal 80 200 Pleural Catheter 80 150 Bilateral Urine 300 365 30 Other: Voiding Method Indwelling Catheter Indwelling Catheter ABP, PAP, CO, CI - Last Documented Arterial Blood Pressure 101/92 Pulmonary Artery Pressure 15/9 Cardiac Output 5.3 Cardiac Index 2.5 - Labs CBC & Chem 7: 11/20/23 06:24 11/20/23 06:24 Labs: Abnormal Lab Results - Last 24 Hours (Table) 11/19/23 11/19/23 11/19/23 Range/Units 08:12 09:44 11:54 RBC (4.30-5.90) m/uL Hgb (13.0-17.5) gm/dL Hct (39.0-53.0) % Plt Count (150-450) k/uL Lymphocytes # (1.0-4.8) k/uL Sodium (137-145) mmol/L Glucose (74-99) mg/dL POC Glucose (mg/dL) 133 H 122 H 121 H (70-110) mg/dL Total Bilirubin (0.2-1.3) mg/dL Total Protein (6.3-8.2) g/dL 11/19/23 11/19/23 11/19/23 Range/Units 13:01 14:03 15:05 RBC (4.30-5.90) m/uL Hgb (13.0-17.5) gm/dL Hct (39.0-53.0) % Plt Count (150-450) k/uL Lymphocytes # (1.0-4.8) k/uL Sodium (137-145) mmol/L Glucose (74-99) mg/dL POC Glucose (mg/dL) 125 H 118 H 126 H (70-110) mg/dL Total Bilirubin (0.2-1.3) mg/dL Total Protein (6.3-8.2) g/dL 11/19/23 11/20/23 11/20/23 Range/Units 20:21 06:13 06:24 RBC 3.64 L (4.30-5.90) m/uL Hgb 12.0 L (13.0-17.5) gm/dL Hct 34.3 L (39.0-53.0) % Plt Count 111 L (150-450) k/uL Lymphocytes # 0.7 L (1.0-4.8) k/uL Sodium (137-145) mmol/L Glucose (74-99) mg/dL POC Glucose (mg/dL) 131 H 125 H (70-110) mg/dL Total Bilirubin (0.2-1.3) mg/dL Total Protein (6.3-8.2) g/dL 11/20/23 Range/Units 06:24 RBC (4.30-5.90) m/uL Hgb (13.0-17.5) gm/dL Hct (39.0-53.0) % Plt Count (150-450) k/uL Lymphocytes # (1.0-4.8) k/uL Sodium 132 L (137-145) mmol/L Glucose 124 H (74-99) mg/dL POC Glucose (mg/dL) (70-110) mg/dL Total Bilirubin 1.6 H (0.2-1.3) mg/dL Total Protein 5.8 L (6.3-8.2) g/dL
[2023-11-20] MEDS: FUROSEMIDE 10 MG/ML 2 ML VIAL IV ONE (08:08)
--- NOTE | 2023-11-20 08:34 | XR ---
EXAMINATION TYPE: XR chest 1V portable DATE OF EXAM: 11/20/2023 COMPARISON: 11/19/2023 INDICATION: Postop cardiac surgery TECHNIQUE: Single frontal view of the chest is obtained. FINDINGS: The heart size is mildly prominent. Sternotomy wires are present. The pulmonary vasculature is normal. Left-sided chest tube is present. No pneumothorax is evident. Mild plate atelectasis of the left base . IMPRESSION: 1. Minimal plate atelectasis left lung base. Left-sided chest tube is present. No pneumothorax is pre sent.
[2023-11-20 11:25] LABS: Glucose,Whole Blood 83 mg/dL (70-110)
--- NOTE | 2023-11-20 13:44 | P.PN ---
Subjective Progress Note Date: 11/20/23 Principal diagnosis: Multivessel coronary artery disease, status post CABG, postoperative day #2 Is a 63-year-old male patient with multivessel coronary artery disease, symptomatic and the patient is going to undergo coronary artery bypass surgery tomorrow. The patient is doing well. No specific complaints. History of any chest pain. He was having some chest pain on outpatient basis and the patient underwent a outpatient nuclear stress test that came back positive for a defect in the inferior wall. Subsequent the patient underwent a cardiac catheterization that showed triple-vessel coronary artery disease. He has a 70 to 80% stenosis of the RCA, totally occluded circumflex and 80% c lesion in the LAD. The patient has previous history of SVTs and he has undergone previous radiofrequency ablation. He has previous history of esophageal cancer back in 2008 treated with chemotherapy and radiation therapy. He is a non-smoker. He does chew tobacco. His spirometry is essentially within normal limits. Chest x-ray within normal limits. Using incentive spirometer. Has good performance and functional status with a pulse ox of 98% on room air oxygen. The white cell count is 5 with a hemoglobin 14.9. Renal function is stable. Electrolytes are all stable. Patient was reevaluated today on 11/18/2023, patient just came back from the operating room, he is now in the ICU, he underwent triple-vessel coronary artery myocardial revascularization., Patient is on the ventilator, he is on assist- control rate of 16 tidal volume 450 FiO2 100% and PEEP of 5. ABG is pending, patient is hemodynamically stable, cardiac output is 6.1, cardiac index is 2.9. Patient is requiring nitroglycerin at 5 mcg/min, he is also on propofol at 20 mcg/kg/min. Chest x-ray is pending, ABG showed a pO2 of 340 pCO2 46 pH of 7.31, hence we will cut down the FiO2 down to 50%, and increase rate to 18 Patient evaluated today on 11/19/2023, patient remains in the ICU, he is now postoperative day #1off-pump coronary artery bypass graft x 4, left internal thoracic artery (in situ) to the left anterior descending artery, left radial artery to the obtuse marginal artery, reverse saphenous vein graft to the ramus intermedius, reverse saphenous vein graft to the RCA, patient was extubated yesterday at 18:55 successfully. Patient is sitting at the bedside chair, does not seem to be in any distress, he has minimal postsurgical discomfort, chest x- ray is reassuring showing mostly postoperative changes and minimal atelectasis. Continues to have Right internal jugular [place]/Cordis, right radial arterial line, mediastinal/left/right pleural chest tubes. Labs today showed WBC count of 9.3 hemoglobin is 12.6.Basic metabolic profile is normal and renal profile is normal patient is not requiring any pressors or any inotropes Patient was reevaluated today 11/20/2023, patient is now postoperative day #2, off-pump CABG x 4 as noted above. Patient is resting at the bedside chair, does not seem to be in any distress. Doing extremely well with incentive spirometry. Chest x-ray showed minimal plate atelectasis at the left lung base, expected. No pneumothorax is noted. WBC count is 8.3 hemoglobin is 12 basic metabolic profile is normal and renal profile is normal Objective - Vital Signs Vital signs: Vital Signs Temp 98.0 F 11/20/23 12:00 Pulse 97 11/20/23 12:00 Resp 18 11/20/23 12:00 BP 111/70 11/20/23 12:00 Pulse Ox 96 11/20/23 12:00 FiO2 40 11/18/23 18:50 Intake & Output 11/19/23 11/20/23 11/20/23 18:59 06:59 18:59 Intake Total 366.676 389 66 Output Total 146 286 3037 Balance -93.324 326 -1144 Weight 91.9 kg 92.6 kg Intake: IV 359 389 66 0.9 pressure bag 69 39 6 CO/CI 20 Lactated Ringers 1,000 ml 220 350 60 @ 20 mls/hr IV .Q24H [facility] Rx#:[id number] ceFAZolin 2 gm In Sodium 50 Chloride 0.9% 50 ml @ 100 mls/hr IVPB ONCE ONE Rx# :[id number] Intake, IV Titration 7.676 Amount Insulin Regular 100 unit 7.676 In Sodium Chloride 0.9% 100 ml @ Per Protocol IV .Q0M [facility] Rx#:[id number] Output: Chest Tube Drainage 160 350 Chest Tube Mediastinal 80 200 Pleural Catheter 80 150 Bilateral Urine 096 378 7938 Other: Voiding Method Indwelling Catheter Indwelling Catheter Indwelling Catheter # Voids 2 ABP, PAP, CO, CI - Last Documented Arterial Blood Pressure 101/92 Pulmonary Artery Pressure 15/9 Cardiac Output 5.3 Cardiac Index 2.5 - Exam General: Reveals 63-year-old white male in no distress, on room air Skin: Skin is warm and dry and no rashes or lesions are noted. Eye: Pupils are equal, round and reactive to light Ears, nose, mouth and throat moist mucous membranes and no oral lesions Neck: The neck is supple, there is no tenderness or JVD. Cardiovascular: There is a regular rate and rhythm. No murmur, rub or gallop is appreciated. Respiratory: Clear bilaterally no rhonchi no wheeze Gastrointestinal: Soft nontender no megaly no rebound no guarding.. Musculoskeletal: No obvious deformities. No limitations in range of motion Neurological: Alert and oriented x 3 no gross focal deficit Psychiatric: Normal mood affect and normal status examination - Labs CBC & Chem 7: 11/20/23 06:24 11/20/23 06:24 Labs: Abnormal Lab Results - Last 24 Hours (Table) 11/19/23 11/19/23 11/19/23 Range/Units 14:03 15:05 20:21 RBC (4.30-5.90) m/uL Hgb (13.0-17.5) gm/dL Hct (39.0-53.0) % Plt Count (150-450) k/uL Lymphocytes # (1.0-4.8) k/uL Sodium (137-145) mmol/L Glucose (74-99) mg/dL POC Glucose (mg/dL) 118 H 126 H 131 H (70-110) mg/dL Total Bilirubin (0.2-1.3) mg/dL Total Protein (6.3-8.2) g/dL 11/20/23 11/20/23 11/20/23 Range/Units 06:13 06:24 06:24 RBC 3.64 L (4.30-5.90) m/uL Hgb 12.0 L (13.0-17.5) gm/dL Hct 34.3 L (39.0-53.0) % Plt Count 111 L (150-450) k/uL Lymphocytes # 0.7 L (1.0-4.8) k/uL Sodium 132 L (137-145) mmol/L Glucose 124 H (74-99) mg/dL POC Glucose (mg/dL) 125 H (70-110) mg/dL Total Bilirubin 1.6 H (0.2-1.3) mg/dL Total Protein 5.8 L (6.3-8.2) g/dL Assessment and Plan Assessment: Impression: POD #2 off-pump coronary artery bypass graft x 4, left internal thoracic artery (in situ) to the left anterior descending artery, left radial artery to the obtuse marginal artery, reverse saphenous vein graft to the ramus intermedius, reverse saphenous vein graft to the RCA Benign essential hypertension Dyslipidemia History of SVT requiring ablation May 06, 2002 3 History of esophageal cancer in 2009 status postchemotherapy and radiation treatment presently in remission Lifetime non-smoker. History of proximal ICA stenosis 50 to 69% Family history of premature coronary artery disease Postoperative atelectasis, expected Recommendation: Continue present supportive care measures, including ambulation and incentive spirometry GI and DVT prophylaxis Continue aspirin Plavix beta-blockers and statinsmaximal medical therapy X-ray and labs were reviewed from today. IJ cordis will be removed today. Possible discharge planning in the next 24 hours Will continue to follow. Time with Patient: Less than 30
[2023-11-20] MEDS: METOPROLOL TARTRATE 12.5 MG TAB PO SCH (15:41)
[2023-11-20 16:04] LABS: Glucose,Whole Blood 84 mg/dL (70-110)
--- NOTE | 2023-11-20 20:42 | PN ---
PROGRESS NOTE DATE OF SERVICE: 11/20/2023 SUBJECTIVE: This is a 63-year-old gentleman admitted after CAD, CABG, had elevated blood sugars. The patient is off insulin drip with long-acting insulin. Sugars are dropping. I would recommend just to cover the sugars with insulin scale at this time. No chest pain. No palpitation. No fever. Hemoglobin A1c is only 5.5. OBJECTIVE: VITAL SIGNS: Pulse is 92, blood pressure 124/70, respirations 30. CHEST: A few scattered rhonchi and crackles. ABDOMEN: Soft. NERVOUS SYSTEM: No focal deficits. LABORATORY DATA: Reviewed. Hemoglobin 12. ASSESSMENT: 1. Status post coronary artery disease, coronary artery bypass graft. 2. Elevated blood sugar, improved. 3. Atrial fibrillation. 4. Gastroesophageal reflux disease. 5. Hypertension. 6. History of supraventricular tachycardia. RECOMMENDATIONS: Recommend to continue current management and continue symptomatic treatment, incentive spirometry. Just continue with insulin scale in coverage. Recommend close follow with Primary Physician in the outpatient setting. Rest of the recommendations per Cardiothoracic Surgery and Pulmonology. The chest tubes have been removed. MMODL / IJN: [id number] /
[2023-11-20 23:16] LABS: Glucose,Whole Blood 95 mg/dL (70-110)
[2023-11-21 06:17] LABS: Glucose,Whole Blood 86 mg/dL (70-110)
--- NOTE | 2023-11-21 08:45 | P.PN ---
Subjective Progress Note Date: 11/21/23 Principal diagnosis: Multivessel coronary artery disease, unstable angina. History of hypertension, SVT status post ablation in May 2023, GERD, esophageal cancer in 2008 status post chemotherapy and 45 radiation treatments, lifetime non-smoker although history of chewing tobacco with cessation in his early 40s, right proximal ICA stenosis 50-69%, and family history of coronary artery disease POD #3 off-pump coronary artery bypass graft x 4, left internal thoracic artery (in situ) to the left anterior descending artery, left radial artery to the obtuse marginal artery, reverse saphenous vein graft to the ramus intermedius, reverse saphenous vein graft to the RCA, left atrial appendage ligation with a 35 mm AtriClip, endoscopic left radial and left greater saphenous vein harvest, graft flow measurements using the [employer] flow meter system, intraoperative transesophageal echocardiogram performed by anesthesia The patient was seen and examined with Dr. Mensah this morning sitting up in recliner on the cardiac stepdown unit in no acute distress. States pain is controlled on current medication regimen, denies shortness of breath. Remains in sinus rhythm, hemodynamically stable. Currently on room air. Chest x-ray, labs reviewed. Patient has been ambulatory without difficulty. No other new concerns. Objective - Vital Signs Vital signs: Vital Signs Temp 98.5 F 11/21/23 04:00 Pulse 76 11/21/23 04:00 Resp 18 11/21/23 04:00 BP 108/61 11/21/23 04:00 Pulse Ox 100 11/21/23 04:00 FiO2 40 11/18/23 18:50 Intake & Output 11/20/23 11/21/23 11/21/23 18:59 06:59 18:59 Intake Total 566 Output Total 1510 300 Balance -944 -300 Weight 90.9 kg Intake: IV 66 0.9 pressure bag 6 Lactated Ringers 1,000 ml 60 @ 20 mls/hr IV .Q24H [facility] Rx#:[id number] Oral 500 Output: Urine 1510 300 Other: Voiding Method Toilet Toilet Urinal # Voids 2 # Bowel Movements 1 ABP, PAP, CO, CI - Last Documented Arterial Blood Pressure 101/92 Pulmonary Artery Pressure 15/9 Cardiac Output 5.3 Cardiac Index 2.5 - Exam CONSTITUTIONAL: Appears comfortable, cooperative, no acute distress RESPIRATORY: Lungs sounds diminished bilaterally. Respirations even, nonlabored. Currently on room air with oxygen saturation 100%. Able to achieve 1000 mL on incentive spirometry. Strong cough. CARDIOVASCULAR: S1, S2 present. Regular rate and rhythm, sinus rhythm on telemetry. Sternum stable. Palpable peripheral pulses bilaterally. No edema present. No calf pain or tenderness noted. Heart hugger in place with patient demonstrating appropriate use. Antiembolism stockings, SCDs present. GASTROINTESTINAL: Abdomen soft, nontender, nondistended. Hypoactive bowel sounds present 4 quadrants. Tolerating diet. Positive bowel movement 11/19 GENITOURINARY: Continues to void, 1810 mL in the last 24 hours INTEGUMENTARY: Skin is warm and dry with evidence of good perfusion. Anterior chest incision well approximated. Left lower extremity EVH site as well as left radial artery harvest site well approximated, left forearm ecchymotic, expected NEUROLOGIC: Cranial nerves II through XII intact MUSKULOSKELETAL: Able to move all extremities, strength equal bilaterally, gait normal PSYCHIATRIC: Alert and oriented to person place and time, appropriate affect, intact judgment and insight INVASIVE LINES AND TUBES: Atrial epicardial pacemaker wires present, grounded. - Allied health notes Allied health notes reviewed: nursing - Labs CBC & Chem 7: 11/20/23 06:24 11/20/23 06:24 - Imaging and Cardiology Chest x-ray: image reviewed Assessment and Plan Assessment: Multivessel coronary artery disease, unstable angina, status post four-vessel CABG History of hypertension Hyperlipidemia, previously untreated outpatient, cholesterol 218, LDL 136 SVT status post ablation in May 2023 GERD Esophageal cancer in 2008 status post chemotherapy and 45 radiation treatments Lifetime non-smoker although history of chewing tobacco with cessation in his early 40s, preoperative FEV1 102% of predicted Right proximal ICA stenosis 50-69% Family history of coronary artery disease Plan: Continue to maximize medical therapy with aspirin, statin, Plavix, beta-alejandra. Will increase beta-alejandra therapy as tolerated, increased to 25 mg twice daily today Continue oral calcium channel alejandra for radial artery spasm prophylaxis with hold parameters Encourage use of incentive spirometry 10 times every hour while awake. Bronchodilators per pulmonology Increase activity, ambulate as tolerated. PT/OT/cardiac rehab consulted Will monitor daily labs and x-rays. Electrolyte replacement per protocol GI and DVT prophylaxis. Insulin management per internal medicine, patient is not diabetic, hemoglobin A1c 5.5% Pain control with current medication regimen Epicardial pacemaker wires discontinued, patient to remain on bedrest for 1 hour post wire removal Continue to monitor and record strict accurate intake and output Daily weights First postoperative shower today, then daily Discharge planning in progress, anticipate discharge to home with home care tomorrow More recommendations to follow based on patient's progress
[2023-11-21] MEDS: METOPROLOL TARTRATE 12.5 MG TAB PO STA (08:53)
[2023-11-21 11:02] LABS: Basophils % (A) 0 %; Eosinophils % (A) 0 %; HCT 37.7 % (39.0-53.0); Lymphocytes # (A) 1.4 k/uL (1.0-4.8); Lymphocytes % (A) 14 %; MCH 32.4 pg (25.0-35.0); MCHC 34.4 g/dL (31.0-37.0); Mean Platelet Volume 10.1; Monocytes # (A) 0.7 k/uL (0-1.0); Monocytes % (A) 7 %; Neutrophils # (A) 7.5 k/uL (1.3-7.7); Neutrophils % (A) 76 %; Platelet Count 162 k/uL (150-450); RBC 4.01 m/uL (4.30-5.90); RDW 12.8 % (11.5-15.5); WBC 9.8 k/uL (3.8-10.6)
[2023-11-21 11:13] LABS: ALT 28 U/L (4-49); AST 38 U/L (17-59); African American GFR (CKD) >90 (>60 ml/min/1.73 sqM); Alkaline Phosphatase 72 U/L (38-126); Anion Gap 10 mmol/L; Blood Urea Nitrogen 17 mg/dL (9-20); Calcium 9.1 mg/dL (8.4-10.2); Carbon Dioxide 24 mmol/L (22-30); Chloride 100 mmol/L (98-107); Glucose 111 mg/dL (74-99); Non-African American GFR(CKD) >90 (>60 ml/min/1.73 sqM); Potassium 3.7 mmol/L (3.5-5.1); Sodium 134 mmol/L (137-145); Total Bilirubin 1.8 mg/dL (0.2-1.3); Total Protein 6.4 g/dL (6.3-8.2)
[2023-11-21 11:19] LABS: Glucose,Whole Blood 106 mg/dL (70-110)
--- NOTE | 2023-11-21 11:44 | XR ---
EXAMINATION TYPE: XR chest 2V DATE OF EXAM: 11/21/2023 COMPARISON: 11/20/2023 HISTORY: 63-year-old male post cardiac surgery TECHNIQUE: PA and lateral views FINDINGS: Median sternotomy wires are present with post-CABG clips. Extensive overlying external artifacts. Med sandy sternotomy wires. No appreciable pneumothorax. Suspect trace right pleural effusion. There may be some mild patchy postoperative atelectasis in the lower lungs. IMPRESSION: There may be trace right effusion and some mild patchy postoperative atelectasis in the lower lungs.
--- NOTE | 2023-11-21 12:31 | P.PN ---
Subjective HISTORY OF PRESENT ILLNESS: The patient is a pleasant 63-year-old gentleman with coronary artery disease as well as diabetes and hypertension and dyslipidemia and carotid atherosclerosis was admitted to the hospital with chest discomfort concerning for angina he underwent a heart catheterization which revealed triple-vessel coronary artery disease. He underwent CABG yesterday. November 19, 2023 This is postoperation day #1. The patient seems to be stable besides soft blood pressure. He is not on any vasopressors or inotropes at this point. He has been maintaining normal sinus mechanism. Urine output has been adequate. Overall hemodynamically he is stable. He is on dual antiplatelet therapy along with beta-alejandra along with low-dose of statin. Will consider increasing dose of statin down the line. The physical examination revealed regular rhythm with a distant heart sounds and diminished breathing sounds bilaterally. The chest x-ray also was reviewed. November 20, 2023 The patient was seen and evaluated this morning. Overall he is doing well. Hemodynamically he is stable. Urine output has been adequate as well. Blood w ork was reviewed and chest x-ray was reviewed as well. He has been maintaining normal sinus mechanism. At this point I would advise continue the current medical regimen and follow-up with the patient. The examination revealed regular rhythm with a clear breathing sounds bilaterally and no edema was noted. 11/21/2023 Patient examined this morning. Patient is sitting up in the chair. Patient de nies chest pain or pressure. He denies shortness of breath. Telemetry reveals sinus mechanism. Vital signs are stable. PHYSICAL EXAM: VITAL SIGNS: Reviewed. GENERAL: Well-developed in no acute distress. NECK: Supple. No JVD or thyromegaly LUNGS: Respirations even and unlabored. Lungs essentially clear to auscultation bilaterally. HEART: Regular rate and rhythm. S1 and S2 heard. EXTREMITIES: Normal range of motion. No clubbing or cyanosis. Peripheral pulses intact. No lower extremity edema ASSESSMENT: Ben artery disease, status post CABG x 4 vessel Hypertension Hyperlipidemia Diabetes Carotid stenosis, right ICA 50 to 69% History of SVT with ablation in May 2023 PLAN: Continue postoperative management per CT surgery Continue current cardiac medications Increase activity as tolerated Encourage use of incentive spirometer Possible discharge home tomorrow Further recommendations pending patient course Nurse practitioner note has been reviewed by physician. Signing provider agrees with the documented findings, assessment, and plan of care documented by [employer] as a scribe. Objective - Vital Signs Vital signs: Vital Signs Temp 97.8 F 11/21/23 12:24 Pulse 92 11/21/23 12:24 Resp 17 11/21/23 12:24 BP 107/70 11/21/23 12:24 Pulse Ox 96 11/21/23 12:24 FiO2 40 11/18/23 18:50 Intake & Output 11/20/23 11/21/23 11/21/23 18:59 06:59 18:59 Intake Total 566 180 Output Total 1510 300 200 Balance -944 -300 -20 Weight 90.9 kg Intake: IV 66 0.9 pressure bag 6 Lactated Ringers 1,000 ml 60 @ 20 mls/hr IV .Q24H [facility] Rx#:[id number] Oral 500 180 Output: Urine 1510 300 200 Other: Voiding Method Toilet Toilet Toilet Urinal Urinal # Voids 2 2 # Bowel Movements 1 ABP, PAP, CO, CI - Last Documented Arterial Blood Pressure 101/92 Pulmonary Artery Pressure 15/9 Cardiac Output 5.3 Cardiac Index 2.5 - Labs CBC & Chem 7: 11/21/23 09:44 11/21/23 09:44 Labs: Abnormal Lab Results - Last 24 Hours (Table) 11/21/23 11/21/23 Range/Units 09:44 09:44 RBC 4.01 L (4.30-5.90) m/uL Hct 37.7 L (39.0-53.0) % Sodium 134 L (137-145) mmol/L Glucose 111 H (74-99) mg/dL Total Bilirubin 1.8 H (0.2-1.3) mg/dL
--- NOTE | 2023-11-21 13:57 | PN ---
PROGRESS NOTE DATE OF SERVICE: 11/21/2023 SUBJECTIVE: This is a 63-year-old gentleman who was admitted with after CAD, CABG, improving. No chest pain, no palpitations. Blood sugars are controlled. OBJECTIVE: VITAL SIGNS: Pulse 92, blood pressure 107/74, respirations 18. CHEST: Clear to auscultation. CARDIOVASCULAR: S1, S2. ABDOMEN: Soft. LABORATORY DATA: Accu-Cheks 106. ASSESSMENT: 1. Status post CAD, CABG. 2. Elevated blood sugars, improved. 3. Atrial fibrillation. 4. Gastroesophageal reflux disease. 5. Hypertension. RECOMMENDATIONS: Recommended to continue current management, continue symptomatic treatment. Monitor blood sugars closely. DVT prophylaxis, incentive spirometry, and closely follow with Dr. Black after discharge. MMODL / IJN: [id number] /
--- NOTE | 2023-11-21 14:19 | P.PN ---
Subjective Progress Note Date: 11/21/23 Principal diagnosis: Multivessel coronary artery disease, status post CABG, postoperative day #3 Is a 63-year-old male patient with multivessel coronary artery disease, symptomatic and the patient is going to undergo coronary artery bypass surgery tomorrow. The patient is doing well. No specific complaints. History of any chest pain. He was having some chest pain on outpatient basis and the patient underwent a outpatient nuclear stress test that came back positive for a defect in the inferior wall. Subsequent the patient underwent a cardiac catheterization that showed triple-vessel coronary artery disease. He has a 70 to 80% stenosis of the RCA, totally occluded circumflex and 80% c lesion in the LAD. The patient has previous history of SVTs and he has undergone previous radiofrequency ablation. He has previous history of esophageal cancer back in 2008 treated with chemotherapy and radiation therapy. He is a non-smoker. He does chew tobacco. His spirometry is essentially within normal limits. Chest x-ray within normal limits. Using incentive spirometer. Has good performance and functional status with a pulse ox of 98% on room air oxygen. The white cell count is 5 with a hemoglobin 14.9. Renal function is stable. Electrolytes are all stable. Patient was reevaluated today on 11/18/2023, patient just came back from the operating room, he is now in the ICU, he underwent triple-vessel coronary artery myocardial revascularization., Patient is on the ventilator, he is on assist- control rate of 16 tidal volume 450 FiO2 100% and PEEP of 5. ABG is pending, patient is hemodynamically stable, cardiac output is 6.1, cardiac index is 2.9. Patient is requiring nitroglycerin at 5 mcg/min, he is also on propofol at 20 mcg/kg/min. Chest x-ray is pending, ABG showed a pO2 of 340 pCO2 46 pH of 7.31, hence we will cut down the FiO2 down to 50%, and increase rate to 18 Patient evaluated today on 11/19/2023, patient remains in the ICU, he is now postoperative day #1off-pump coronary artery bypass graft x 4, left internal thoracic artery (in situ) to the left anterior descending artery, left radial artery to the obtuse marginal artery, reverse saphenous vein graft to the ramus intermedius, reverse saphenous vein graft to the RCA, patient was extubated yesterday at 18:55 successfully. Patient is sitting at the bedside chair, does not seem to be in any distress, he has minimal postsurgical discomfort, chest x- ray is reassuring showing mostly postoperative changes and minimal atelectasis. Continues to have Right internal jugular [place]/Cordis, right radial arterial line, mediastinal/left/right pleural chest tubes. Labs today showed WBC count of 9.3 hemoglobin is 12.6.Basic metabolic profile is normal and renal profile is normal patient is not requiring any pressors or any inotropes Patient was reevaluated today 11/20/2023, patient is now postoperative day #2, off-pump CABG x 4 as noted above. Patient is resting at the bedside chair, does not seem to be in any distress. Doing extremely well with incentive spirometry. Chest x-ray showed minimal plate atelectasis at the left lung base, expected. No pneumothorax is noted. WBC count is 8.3 hemoglobin is 12 basic metabolic profile is normal and renal profile is normal Reevaluate today on 11/21/2023, patient is now postoperative day #3 status post CABG x 4. Patient is on room air, sitting at the bedside chair, does not seem to be in any distress. O2 sat is 96%. Patient is hemodynamically stable. Chest x-ray showed a very minimal trace of right-sided pleural effusion and minimal postoperative atelectasis in the bases of both lungs. WBC count is 9.8 hemoglobin 13.0 basic metabolic profile is normal and renal profile is normal Objective - Vital Signs Vital signs: Vital Signs Temp 97.8 F 11/21/23 12:24 Pulse 92 11/21/23 14:02 Resp 17 11/21/23 14:02 BP 107/70 11/21/23 12:24 Pulse Ox 96 11/21/23 12:24 FiO2 40 11/18/23 18:50 Intake & Output 11/20/23 11/21/23 11/21/23 18:59 06:59 18:59 Intake Total 566 298 Output Total 1510 300 200 Balance -944 -300 98 Weight 90.9 kg Intake: IV 66 0.9 pressure bag 6 Lactated Ringers 1,000 ml 60 @ 20 mls/hr IV .Q24H [facility] Rx#:[id number] Oral 500 298 Output: Urine 1510 300 200 Other: Voiding Method Toilet Toilet Toilet Urinal Urinal # Voids 2 2 # Bowel Movements 1 ABP, PAP, CO, CI - Last Documented Arterial Blood Pressure 101/92 Pulmonary Artery Pressure 15/9 Cardiac Output 5.3 Cardiac Index 2.5 - Exam General: Reveals 63-year-old white male in no distress, on room air Skin: Skin is warm and dry and no rashes or lesions are noted. Eye: Pupils are equal, round and reactive to light Ears, nose, mouth and throat moist mucous membranes and no oral lesions Neck: The neck is supple, there is no tenderness or JVD. Cardiovascular: There is a regular rate and rhythm. No murmur, rub or gallop is appreciated. Respiratory: Clear bilaterally no rhonchi no wheeze Gastrointestinal: Soft nontender no megaly no rebound no guarding.. Musculoskeletal: No obvious deformities. No limitations in range of motion Neurological: Alert and oriented x 3 no gross focal deficit Psychiatric: Normal mood affect and normal status examination - Labs CBC & Chem 7: 18 09:44 04 09:44 Labs: Abnormal Lab Results - Last 24 Hours (Table) 11/21/23 11/21/23 Range/Units 09:44 09:44 RBC 4.01 L (4.30-5.90) m/uL Hct 37.7 L (39.0-53.0) % Sodium 134 L (137-145) mmol/L Glucose 111 H (74-99) mg/dL Total Bilirubin 1.8 H (0.2-1.3) mg/dL Assessment and Plan Assessment: Impression: POD #3 off-pump coronary artery bypass graft x 4, left internal thoracic artery (in situ) to the left anterior descending artery, left radial artery to the obtuse marginal artery, reverse saphenous vein graft to the ramus intermedius, reverse saphenous vein graft to the RCA Benign essential hypertension Dyslipidemia History of SVT requiring ablation May 06, 2002 3 History of esophageal cancer in 2009 status postchemotherapy and radiation treatment presently in remission Lifetime non-smoker. History of proximal ICA stenosis 50 to 69% Family history of premature coronary artery disease Postoperative atelectasis, expected Recommendation: Continue present supportive care measures Continue incentive spirometry Continue GI and DVT prophylaxis Continue aspirin Plavix beta-blockers and statinsmaximal medical therapy Continue to monitor daily x-rays of the chest Possible discharge home tomorrow Will continue to follow. Time with Patient: Less than 30
[2023-11-21 16:21] LABS: Glucose,Whole Blood 126 mg/dL (70-110)
[2023-11-21 20:16] LABS: Glucose,Whole Blood 103 mg/dL (70-110)
[2023-11-21] MEDS: METOPROLOL TARTRATE 25 MG TAB PO SCH (20:20)
[2023-11-22 06:08] LABS: Glucose,Whole Blood 109 mg/dL (70-110)
--- NOTE | 2023-11-22 07:06 | XR ---
EXAMINATION TYPE: XR chest 2V DATE OF EXAM: 11/22/2023 COMPARISON: 11/21/2023 INDICATION: Post cardiac surgery TECHNIQUE: Frontal and lateral views of the chest are obtained. FINDINGS: The heart size is upper limits of normal. The pulmonary vasculature is normal. The lungs are clear. Previous mildly basilar infiltrates have largely resolved. Sternotomy wires are in the midline IMPRESSION: 1. No acute pulmonary process.
--- NOTE | 2023-11-22 08:46 | P.PN ---
Subjective Progress Note Date: 11/22/23 Principal diagnosis: Multivessel coronary artery disease, unstable angina. History of hypertension, SVT status post ablation in May 2023, GERD, esophageal cancer in 2008 status post chemotherapy and 45 radiation treatments, lifetime non-smoker although history of chewing tobacco with cessation in his early 40s, right proximal ICA stenosis 50-69%, and family history of coronary artery disease POD #4 off-pump coronary artery bypass graft x 4, left internal thoracic artery (in situ) to the left anterior descending artery, left radial artery to the obtuse marginal artery, reverse saphenous vein graft to the ramus intermedius, reverse saphenous vein graft to the RCA, left atrial appendage ligation with a 35 mm AtriClip, endoscopic left radial and left greater saphenous vein harvest, graft flow measurements using the [email or web address] flow meter system, intraoperative transesophageal echocardiogram performed by anesthesia The patient was seen and examined this morning sitting up in recliner on the cardiac stepdown unit in no acute distress. States pain is controlled on c urrent medication regimen, denies shortness of breath. Remains in sinus rhythm, hemodynamically stable. Currently on room air. Chest x-ray, labs reviewed. Patient has been ambulatory without difficulty. Anticipates discharge to home today. No other new concerns. Objective - Vital Signs Vital signs: Vital Signs Temp 98.1 F 11/21/23 23:18 Pulse 74 11/22/23 08:41 Resp 14 11/22/23 04:00 BP 149/92 11/22/23 04:00 Pulse Ox 96 11/22/23 04:00 FiO2 40 11/18/23 18:50 Intake & Output 11/21/23 11/22/23 11/22/23 18:59 06:59 18:59 Intake Total 416 480 Output Total 800 450 Balance -384 30 Intake: Oral 416 480 Output: Urine 800 450 Other: Voiding Method Toilet Toilet Urinal # Voids 2 ABP, PAP, CO, CI - Last Documented Arterial Blood Pressure 101/92 Pulmonary Artery Pressure 15/9 Cardiac Output 5.3 Cardiac Index 2.5 - Exam CONSTITUTIONAL: Appears comfortable, cooperative, no acute distress RESPIRATORY: Lungs sounds diminished bilaterally. Respirations even, nonlabored. Currently on room air with oxygen saturation 96%. Able to achieve 1250 mL on incentive spirometry. Strong cough. CARDIOVASCULAR: S1, S2 present. Regular rate and rhythm, sinus rhythm on telemetry. Sternum stable. Palpable peripheral pulses bilaterally. No edema present. No calf pain or tenderness noted. Heart hugger in place with patient demonstrating appropriate use. Antiembolism stockings, SCDs present. GASTROINTESTINAL: Abdomen soft, nontender, nondistended. Active bowel sounds present 4 quadrants. Tolerating diet. Positive bowel movement 11/19 GENITOURINARY: Continues to void, 1250 mL in the last 24 hours INTEGUMENTARY: Skin is warm and dry with evidence of good perfusion. Anterior chest incision well approximated. Left lower extremity EVH site as well as left radial artery harvest site well approximated, left forearm ecchymotic, expected NEUROLOGIC: Cranial nerves II through XII intact MUSKULOSKELETAL: Able to move all extremities, strength equal bilaterally, gait normal PSYCHIATRIC: Alert and oriented to person place and time, appropriate affect, intact judgment and insight - Allied health notes Allied health notes reviewed: nursing - Labs CBC & Chem 7: 11/21/23 09:44 11/21/23 09:44 Labs: Abnormal Lab Results - Last 24 Hours (Table) 11/21/23 11/21/23 11/21/23 Range/Units 09:44 09:44 16:12 RBC 4.01 L (4.30-5.90) m/uL Hct 37.7 L (39.0-53.0) % Sodium 134 L (137-145) mmol/L Glucose 111 H (74-99) mg/dL POC Glucose (mg/dL) 126 H (70-110) mg/dL Total Bilirubin 1.8 H (0.2-1.3) mg/dL - Imaging and Cardiology Chest x-ray: report reviewed, image reviewed Assessment and Plan Assessment: Multivessel coronary artery disease, unstable angina, status post four-vessel CABG History of hypertension Hyperlipidemia, previously untreated outpatient, cholesterol 218, LDL 136 SVT status post ablation in May 2023 GERD Esophageal cancer in 2008 status post chemotherapy and 45 radiation treatments Lifetime non-smoker although history of chewing tobacco with cessation in his early 40s, preoperative FEV1 102% of predicted Right proximal ICA stenosis 50-69% Family history of coronary artery disease Plan: Continue to maximize medical therapy with aspirin, statin, Plavix, beta-alejandra Continue oral calcium channel alejandra for radial artery spasm prophylaxis with hold parameters Encourage use of incentive spirometry 10 times every hour while awake. Bronchodilators per pulmonology Increase activity, ambulate as tolerated. PT/OT/cardiac rehab consulted Will monitor daily labs and x-rays. Electrolyte replacement per protocol GI and DVT prophylaxis. Insulin management per internal medicine, patient is not diabetic, hemoglobin A1c 5.5% Pain control with current medication regimen Continue to monitor and record strict accurate intake and output Daily weights Daily showers Discharge planning in progress, anticipate discharge to home with home care this morning More recommendations to follow based on patient's progress
[2023-11-22 09:13] VITALS: PULSE 98
[2023-11-22 09:14] VITALS: BP 133/70; RESP 16; TEMP 97.5
--- NOTE | 2023-11-22 09:46 | P.PN ---
Subjective HISTORY OF PRESENT ILLNESS: The patient is a pleasant 63-year-old gentleman with coronary artery disease as well as diabetes and hypertension and dyslipidemia and carotid atherosclerosis was admitted to the hospital with chest discomfort concerning for angina he underwent a heart catheterization which revealed triple-vessel coronary artery disease. He underwent CABG yesterday. November 19, 2023 This is postoperation day #1. The patient seems to be stable besides soft blood pressure. He is not on any vasopressors or inotropes at this point. He has been maintaining normal sinus mechanism. Urine output has been adequate. Overall hemodynamically he is stable. He is on dual antiplatelet therapy along with beta-alejandra along with low-dose of statin. Will consider increasing dose of statin down the line. The physical examination revealed regular rhythm with a distant heart sounds and diminished breathing sounds bilaterally. The chest x-ray also was reviewed. November 20, 2023 The patient was seen and evaluated this morning. Overall he is doing well. Hemodynamically he is stable. Urine output has been adequate as well. Blood w ork was reviewed and chest x-ray was reviewed as well. He has been maintaining normal sinus mechanism. At this point I would advise continue the current medical regimen and follow-up with the patient. The examination revealed regular rhythm with a clear breathing sounds bilaterally and no edema was noted. 11/21/2023 Patient examined this morning. Patient is sitting up in the chair. Patient de nies chest pain or pressure. He denies shortness of breath. Telemetry reveals sinus mechanism. Vital signs are stable. 11/22/2023 Patient examined this morning. Patient is sitting up in the chair. Patient denies chest pain or pressure. He denies shortness of breath. Telemetry reveals sinus mechanism. Vital signs are stable. Patient has been up ambulating in the hallway without difficulty. PHYSICAL EXAM: VITAL SIGNS: Reviewed. GENERAL: Well-developed in no acute distress. NECK: Supple. No JVD or thyromegaly LUNGS: Respirations even and unlabored. Lungs essentially clear to auscultation bilaterally. HEART: Regular rate and rhythm. S1 and S2 heard. EXTREMITIES: Normal range of motion. No clubbing or cyanosis. Peripheral pulses intact. No lower extremity edema ASSESSMENT: Coronary artery disease, status post CABG x 4 vessel Hypertension Hyperlipidemia Diabetes Carotid stenosis, right ICA 50 to 69% History of SVT with ablation in May 2023 PLAN: Continue postoperative management per CT surgery Continue current cardiac medications Increase activity as tolerated Encourage use of incentive spirometer Anticipate discharge home this afternoon Further recommendations pending patient course Nurse practitioner note has been reviewed by physician. Signing provider agrees with the documented findings, assessment, and plan of care documented by BAKER TEST as a scribe. Objective - Vital Signs Vital signs: Vital Signs Temp 97.5 F L 11/22/23 09:11 Pulse 98 11/22/23 09:11 Resp 16 11/22/23 09:11 BP 133/70 11/22/23 09:11 Pulse Ox 97 11/22/23 09:11 FiO2 40 11/18/23 18:50 Intake & Output 11/21/23 11/22/23 11/22/23 18:59 06:59 18:59 Intake Total 416 480 Output Total 800 450 Balance -384 30 Intake: Oral 416 480 Output: Urine 800 450 Other: Voiding Method Toilet Toilet Urinal # Voids 2 ABP, PAP, CO, CI - Last Documented Arterial Blood Pressure 101/92 Pulmonary Artery Pressure 15/9 Cardiac Output 5.3 Cardiac Index 2.5 - Labs CBC & Chem 7: 11/21/23 09:44 11/21/23 09:44 Labs: Abnormal Lab Results - Last 24 Hours (Table) 11/21/23 11/21/23 11/21/23 Range/Units 09:44 09:44 16:12 RBC 4.01 L (4.30-5.90) m/uL Hct 37.7 L (39.0-53.0) % Sodium 134 L (137-145) mmol/L Glucose 111 H (74-99) mg/dL POC Glucose (mg/dL) 126 H (70-110) mg/dL Total Bilirubin 1.8 H (0.2-1.3) mg/dL
[2023-11-22 10:53] LABS: HCT 34.4 % (39.0-53.0); HGB 11.6 gm/dL (13.0-17.5); MCH 31.9 pg (25.0-35.0); MCHC 33.7 g/dL (31.0-37.0); MCV 94.5 fL (80.0-100.0); Mean Platelet Volume 9.7; Platelet Count 170 k/uL (150-450); RBC 3.64 m/uL (4.30-5.90); RDW 12.9 % (11.5-15.5); WBC 6.7 k/uL (3.8-10.6)
[2023-11-22 11:16] LABS: African American GFR (CKD) >90 (>60 ml/min/1.73 sqM); Anion Gap 12 mmol/L; Blood Urea Nitrogen 14 mg/dL (9-20); Carbon Dioxide 24 mmol/L (22-30); Chloride 100 mmol/L (98-107); Glucose 112 mg/dL (74-99); Magnesium 1.9 mg/dL (1.6-2.3); Non-African American GFR(CKD) >90 (>60 ml/min/1.73 sqM); Potassium 3.9 mmol/L (3.5-5.1); Sodium 136 mmol/L (137-145)
--- NOTE | 2023-11-22 11:17 | P.DS ---
Providers Date of admission: 11/18/23 09:05 Expected date of discharge: 11/22/23 Attending physician: Erich Mensah MD Consults: 11/14/23 09:04 Consult Physician Routine Consulting Provider: Erich Mensah Consult Reason/Comments: triple vessel disease Do you want consulting provider notified?: Yes 11/17/23 07:55 Consult Physician Routine Consulting Provider: Sami Alejandra Consult Reason/Comments: preop CABG Do you want consulting provider notified?: Already Contacted Consult to Anesthesia Routine Consulting Provider: Anesthesia,Services Consult Reason/Comments: Cardiac Surgery Pre-Op 11/18/23 13:55 Consult Physician Routine Consulting Provider: Mg White Consult Reason/Comments: Skin Peeling Machine 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 Consult: post cardiac surgery Do you want consulting provider notified?: Yes Consult Physician Routine Consulting Provider: Jenna Argueta Consult Reason/Comments: alice gonzalez; Cameron patient Do you want consulting provider notified?: Yes Primary care physician: Yue Barnes Hospital Course: FINAL DIAGNOSIS: Multivessel coronary artery disease, unstable angina History of hypertension SVT status post ablation in May 2023 GERD Esophageal cancer in 2008 status post chemotherapy and 45 radiation treatments Lifetime non-smoker although history of chewing tobacco with cessation in his early 40s Right proximal ICA stenosis 50-69% Family history of coronary artery disease PRINCIPAL PROCEDURE: Off-pump coronary artery bypass graft x 4, left internal thoracic artery (in situ) to the left anterior descending artery, left radial artery to the obtuse marginal artery, reverse saphenous vein graft to the ramus intermedius, reverse saphenous vein graft to the RCA Left atrial appendage ligation with a 35 mm AtriClip Endoscopic left radial and left greater saphenous vein harvest Graft flow measurements using the [employer] flow meter system Intraoperative transesophageal echocardiogram performed by anesthesia HISTORY OF PRESENT ILLNESS: This is a 63-year-old gentleman who follows outpatient with Dr. Barnes for primary care and Dr. White for cardiology. The patient reported since his ablation procedure in May 2023 he had been having episodes of chest pain with activity which subsided with rest, as well as fatigue. Reportedly he had been taking Imdur without relief of his symptoms. Due to the patient's complaints of chest pain he underwent a nuclear stress test which showed a large fixed defect in the inferior wall. Subsequently, he was recommended to undergo elective cardiac catheterization which demonstrated triple-vessel coronary artery disease. Consultation was placed to Dr. Mensah from cardiothoracic surgery. He was recommended to undergo coronary artery bypass surgery. The usual perioperative course was discussed in detail with the patient and his family, all risks and benefits were explained, all questions were answered, and consent was obtained to proceed with surgery. The patient was kept inpatient due to the nature of his disease process. HOSPITAL COURSE: The patient was brought to the preoperative area 11/18/23, prepared in the usual fashion, and subsequently taken to the operating room where Dr. Mensah performed four-vessel off-pump CABG. Upon completion of surgery the patient was transferred to the cardiovascular intensive care unit where he was recovered and monitored hemodynamically. He was extubated, all lines, tubes, and drips were discontinued when appropriate, and he was transferred to S cardiac stepdown unit for further monitoring and rehabilitation. His oxygen was titrated down, he continued to work with physical and occupational therapy, he was tolerating oral diet, his pain was controlled, and he was ready to be discharged to home with [facility] care on postoperative day #4. He received written and verbal instruction regarding his medications, activity restrictions, signs and symptoms requiring physician notification, and follow-up appointments. Patient Condition at Discharge: Stable Plan - Discharge Summary Discharge Rx Participant: No New Discharge Prescriptions: New Atorvastatin [Lipitor] 40 mg PO DAILY #30 tab Metoprolol Tartrate [Lopressor] 25 mg PO BID #60 tab amLODIPine [Norvasc] 2.5 mg PO DAILY@1200 #30 tab Clopidogrel [Plavix] 75 mg PO DAILY #30 tab Sennosides-Docusate Sodium [Senokot-S] 2 each PO HS PRN tab PRN Reason: Constipation Aspirin 325 mg PO DAILY #30 tab Acetaminophen Tab [Tylenol] 650 mg PO Q4HR PRN tab PRN Reason: Fever And/ Or Pain Continue Fluticasone Nasal [place] [Flonase Nasal [place]] 2 spray NASAL DAILY Pantoprazole Sodium 40 mg PO DAILY Discontinued lisinopriL [Zestril] 10 mg PO DAILY #90 tab Metoprolol Succinate (ER) [Toprol Xl] 25 mg PO DAILY Isosorbide Mononitrate ER [Imdur] 30 mg PO DAILY Discharge Medication List Fluticasone Nasal [place] [Flonase Nasal [place]] 2 spray NASAL DAILY 11/11/23 [History] Pantoprazole Sodium 40 mg PO DAILY 11/11/23 [History] Acetaminophen Tab [Tylenol] 650 mg PO Q4HR PRN tab 11/22/23 [Rx] Aspirin 325 mg PO DAILY #30 tab 11/22/23 [Rx] Atorvastatin [Lipitor] 40 mg PO DAILY #30 tab 11/22/23 [Rx] Clopidogrel [Plavix] 75 mg PO DAILY #30 tab 11/22/23 [Rx] Metoprolol Tartrate [Lopressor] 25 mg PO BID #60 tab 11/22/23 [Rx] Sennosides-Docusate Sodium [Senokot-S] 2 each PO HS PRN tab 11/22/23 [Rx] amLODIPine [Norvasc] 2.5 mg PO DAILY@1200 #30 tab 11/22/23 [Rx] Follow up Appointment(s)/Referral(s): Chencho Chandler MD [STAFF PHYSICIAN] - 12/20/23 1:45 pm Mg White MD [STAFF PHYSICIAN] - 12/06/23 10:00 am Tamiko Bailey NPC [Nurse Practitioner] - 11/26/23 12:30 pm (You will be seen in the surgeon's office behind the hospital in [facility], [address] Office phone number is ) Rehab April HAMMOND,Cardiac [NON-STAFF] - 4 Weeks (You will receive a phone call in approximately 4-6 weeks for evaluation for cardiac rehab) Susana [facility] [NON-STAFF] - 1-2 Days ([facility] will call you to arrange a visit; you should be seen the day after discharge then 2-3 times per week until you start cardiac rehab) Yue Barnes DO [Primary Care Provider] - 12/11/23 1:40 pm Erich Mensah MD [STAFF PHYSICIAN] - 12/16/23 2:00 pm Ambulatory/Diagnostic Orders: Complete Blood Count w/diff [LAB.AMB] Time Frame: 3 Days, Location: None Selected Comprehensive Metabolic Panel [LAB.AMB] Time Frame: 3 Days, Location: None Selected Patient Instructions/Handouts: Moderate Sedation (DC), After Radial Heart Catheterization (GEN) Activity/Diet/Wound Care/Special Instructions: DISCHARGE INSTRUCTIONS: 1. No driving for 4 weeks, or until physician gives their ok. 2. The patient should sleep in their own bed, no medical bed needed. 3. Stairs are not an issue. If the bedroom is upstairs, it is advised that the patient go up at night and down in the morning for the first week. Go slowly, using handrail and take 1 step at a time. 4. SINDHU hose are to be worn for 30 days post surgery or until physician discontinues. 5. Heart hugger is to be worn 100% of the time until physician discontinues.(except when showering) 6. No lifting, pushing, or pulling more than 10 pounds for 12 weeks. The physician will advise of any restriction changes. 7. The patient is expected to continue the prescribed walking program. 8. Continue pain control per as needed orders. 9. Continue with incentive spirometry and splinting/heart hugger until otherwise directed by the physician. 10. Must shower daily using liquid antibacterial soap 11. Routine sternal incision care. No powders, lotions, ointments on incisions. No dressings are necessary on incisions unless they are draining. Dermabond tape is to remain on sternal incision until surgeon follow-up. 12. Please call surgeon/TENTER FRAME OPERATOR for temp greater than 101 F or purulent drainage from incisions. 13. You should weigh yourself daily, record and bring log with you to follow up appointments. 14. All prescriptions given by surgeon for 30 days. Refills need to be filled through breaker hand/primary care physician. 15. A Red armband has been placed on the patient. It should be worn for 30 days post discharge from surgery and will be removed by the cardiac surgeons. If an ER visit is necessary, please make sure the number on the Red armband is called before going to ER. 16. You have been referred to and are expected to begin Cardiac Rehab in approximately 4-6 weeks. 17. Quitting smoking is the most important step you can take to improve your health. For additional information and assistance to quit smoking, please call the [place] tobacco quit line (5-541-BSIN-NOW/ ) or online: https://www.[place].gov/[facility]/mbeo-hj-uguppso/chronicdiseases/tobacco/how-to- quit-tobacco HOME HEALTH SERVICES TO PROVIDE: RN SKILLED HOME CARE SERVICES FOR POST-OP SURGICAL PATIENTS WITH THE FOLLOWING: Coronary Artery Bypass Surgery (CABG), Mitral Valve Replacement/Repai r ( MVR), Aortic Valve Replacement/Repair (AVR) RN TO CONTINUE EDUCATION FROM ``ROAD TO A HEALTH HEART PATIENT EDUCATION MANUAL (GIVEN TO PATIENT IN THE HOSPITAL) MEDICATION RECONCILIATION WITH EDUCATION NEEDED ON FIRST HOME VISIT EMPHASIZE IMPORTANCE OF WEARING BREAST SUPPORT/HEART HUGGER ENCOURAGE USE OF INCENTIVE SPIROMETER 10 X EVERY HOUR WHILE AWAKE ENCOURAGE UTILIZATION OF LOWER EXTREMITY COMPRESSION STOCKINGS/SINDHU HOSE and ELEVATE LEGS ABOVE LEVEL OF HEART WHILE AT REST. ENCOURAGE AMBULATION 3-5x/day INCREASING TOLERATES, WHILE AVOIDING EXTREMES IN TEMPERATURE FREQUENCY: RN TO OPEN THE PATIENT WITHIN 24 HOURS OF DISCHARGE FROM THE HOSPITAL WITH TELEHEALTH INSTALLED AT [facility] [place] TO VISIT 2-3 X A WEEK FOR 4 WEEKS ESTABLISHED BY PATIENT NEEDS. LABORATORY: CBC, CMP TO BE DRAWN ON THE THIRD DAY HOME, (RAN STAT) FAX RESULTS TO [phone]. TELEHEALTH PARAMETERS: WEIGHT: NOTIFY MD OF WEIGHT GAIN OF 2 LBS IN 24 HOURS OR 5 LBS IN ONE WEEK HR: NOTIFY MD OF HR <55 BPM OR HR>100 BPM BP: NOTIFY MD IF BP <90/55 OR BP>140/100 O2 SAT: NOTIFY MD IF PO2<93% ON ROOM AIR SEND TELEHEALTH REPORT TO LOSS PREVENTION ASSOCIATE AND CARDIOVASCULAR SURGEON THE FIRST WEEK OF CARE AND THEN BI-WEEKLY. PLEASE ADDITIONALLY COMMUNICATE ANY ABNORMALS AND NEW FINDINGS TO THE SURGEONS OFFICE. Discharge Disposition: HOME WITH HOME HEALTH SERVICES
--- NOTE | 2023-11-22 13:30 | PN ---
PROGRESS NOTE DATE OF SERVICE: 11/22/2023 SUBJECTIVE: This 63-year-old gentleman admitted after CAD, CABG, is improving significantly. No chest pain, no palpitations, no fever. OBJECTIVE: VITAL SIGNS: Pulse 98, blood pressure 130/70, respirations 16. CHEST: Clear to auscultation. CARDIOVASCULAR: S1, S2. ABDOMEN: Soft. NERVOUS SYSTEM: No focal deficits. LABORATORY DATA: Hemoglobin 11.7. ASSESSMENT: 1. Status post CAD, CABG. 2. Elevated blood sugar, improved. 3. Atrial fibrillation. 4. History of GERD. 5. Hypertension. RECOMMENDATIONS: Recommended to continue current management, continue symptomatic treatment. Resume home medication and follow with primary physician, Dr. Barnes. Rest of the recommendations per Surgery and Cardiology. MMODL / IJN: [id number] /
== END 2023-11-22 11:13 | disposition home health service (06) | DRG 234 ==
LOC: CATHCVL 06:17 → 3SCARD 08:01 → CATHCVL 11-15 13:08 → 2SICU 11-18 05:52 → OBSVTOIN 11-18 09:05 → 2SICU 11-18 12:04 → 3SCARD 11-20 22:49
PROVIDERS: ADMIT Thoracic Surgery (Cardiothoracic Vascular Surgery); ATTEND Thoracic Surgery (Cardiothoracic Vascular Surgery)
PROC: B2111ZZ Fluoroscopy of Multiple Coronary Arteries using Low Osmolar Contrast (ICD-10-PCS; 2023-11-14)
PROC: 4A023N7 Measurement of Cardiac Sampling and Pressure, Left Heart, Percutaneous Approach (ICD-10-PCS; 2023-11-14 07:30)
PROC: 02100Z9 Bypass Coronary Artery, One Artery from Left Internal Mammary, Open Approach (ICD-10-PCS; principal; 2023-11-17)
PROC: 0JH63VZ Insertion of Infusion Pump into Chest Subcutaneous Tissue and Fascia, Percutaneous Approach (ICD-10-PCS; 2023-11-17)
PROC: 021209W Bypass Coronary Artery, Three Arteries from Aorta with Autologous Venous Tissue, Open Approach (ICD-10-PCS; 2023-11-17)
PROC: 06BQ0ZZ Excision of Left Saphenous Vein, Open Approach (ICD-10-PCS; 2023-11-17)
PROC: 05BA4ZZ Excision of Left Brachial Vein, Percutaneous Endoscopic Approach (ICD-10-PCS; 2023-11-17)
PROC: 06BQ4ZZ Excision of Left Saphenous Vein, Percutaneous Endoscopic Approach (ICD-10-PCS; 2023-11-17)
PROC: 5A1221Z Performance of Cardiac Output, Continuous (ICD-10-PCS; 2023-11-17)
PROC: 4A133B1 Monitoring of Arterial Pressure, Peripheral, Percutaneous Approach (ICD-10-PCS; 2023-11-17)
PROC: 03HY32Z Insertion of Monitoring Device into Upper Artery, Percutaneous Approach (ICD-10-PCS; 2023-11-17)
PROC: 02L70CK Occlusion of Left Atrial Appendage with Extraluminal Device, Open Approach (ICD-10-PCS; 2023-11-17)
PROC: 4A133J1 Monitoring of Arterial Pulse, Peripheral, Percutaneous Approach (ICD-10-PCS; 2023-11-17)
PROC: B24BZZ4 Ultrasonography of Heart with Aorta, Transesophageal (ICD-10-PCS; 2023-11-17)
PROC: 02HV33Z Insertion of Infusion Device into Superior Vena Cava, Percutaneous Approach (ICD-10-PCS; 2023-11-17)
DX: I25.110 Atherosclerotic heart disease of native coronary artery with unstable angina pectoris (principal); J98.11 Atelectasis; K21.9 Gastro-esophageal reflux disease without esophagitis; I65.21 Occlusion and stenosis of right carotid artery; I10 Essential (primary) hypertension; E11.65 Type 2 diabetes mellitus with hyperglycemia; E78.5 Hyperlipidemia, unspecified; Z95.1 Presence of aortocoronary bypass graft; E11.649 Type 2 diabetes mellitus with hypoglycemia without coma; I08.1 Rheumatic disorders of both mitral and tricuspid valves; I48.91 Unspecified atrial fibrillation; Z85.01 Personal history of malignant neoplasm of esophagus; Z92.21 Personal history of antineoplastic chemotherapy; Z79.899 Other long term (current) drug therapy; F17.220 Nicotine dependence, chewing tobacco, uncomplicated; Z82.49 Family history of ischemic heart disease and other diseases of the circulatory system; Z92.3 Personal history of irradiation; Z98.61 Coronary angioplasty status; Z71.6 Tobacco abuse counseling; Z87.19 Personal history of other diseases of the digestive system
CPT/HCPCS: 71045; 71046; 71250; 76937; 80048; 80053; 80061; 80074; 81003; 82330; 82805; 83036; 83735; 84443; 85025; 85027; 85610; 85730; 86850; 86891; 86900; 86901; 86920; 87070; 93306; 93458; 93880; 93922; 93930; 93970; 94640

== ENCOUNTER 2024-01-16 09:42 | Inpatient (IN) | payer MEDICARE ==
[2024-01-16] MEDS: ASPIRIN 81 MG PO STA (10:11)
[2024-01-16] MEDS: SODIUM CHLORIDE 0.9% 1,000 ML IV STA ×2 (10:12→14:48)
[2024-01-16] MEDS: METOPROLOL TARTRATE 5 MG/5 ML VIAL IVP STA (10:13)
[2024-01-16 10:29] LABS: Basophils % (A) 0 %; Eosinophils % (A) 0 %; HCT 47.7 % (39.0-53.0); HGB 15.4 gm/dL (13.0-17.5); Lymphocytes # (A) 1.8 k/uL (1.0-4.8); Lymphocytes % (A) 19 %; MCH 29.9 pg (25.0-35.0); MCHC 32.4 g/dL (31.0-37.0); Mean Platelet Volume 9.8; Monocytes # (A) 0.8 k/uL (0-1.0); Monocytes % (A) 8 %; Neutrophils # (A) 6.7 k/uL (1.3-7.7); Neutrophils % (A) 71 %; Platelet Count 230 k/uL (150-450); RBC 5.17 m/uL (4.30-5.90); RDW 12.9 % (11.5-15.5); WBC 9.4 k/uL (3.8-10.6)
[2024-01-16 10:41] LABS: MCV 92.2 fL (80.0-100.0)
[2024-01-16 10:44] LABS: ALT 68 U/L (4-49); AST 44 U/L (17-59); African American GFR (CKD) >90 (>60 ml/min/1.73 sqM); Albumin 4.3 g/dL (3.5-5.0); Alkaline Phosphatase 161 U/L (38-126); Anion Gap 13 mmol/L; Blood Urea Nitrogen 17 mg/dL (9-20); Calcium 9.3 mg/dL (8.4-10.2); Carbon Dioxide 22 mmol/L (22-30); Chloride 99 mmol/L (98-107); Glucose 138 mg/dL (74-99); Magnesium 1.8 mg/dL (1.6-2.3); Non-African American GFR(CKD) 89 (>60 ml/min/1.73 sqM); Potassium 4.1 mmol/L (3.5-5.1); Sodium 134 mmol/L (137-145); Total Protein 7.2 g/dL (6.3-8.2)
--- NOTE | 2024-01-16 10:44 | XR ---
EXAMINATION TYPE: XR chest 2V DATE OF EXAM: 01/16/2024 COMPARISON: 11/22/2023 HISTORY: Shortness of breath TECHNIQUE: Frontal and lateral views of the chest are obtained. FINDINGS: Scattered senescent parenchymal changes noted. Hyperinflation compatible with COPD. No evidence for infiltrate. No evidence for atelectasis. Heart size is stable. Mediastinal structures are stable and grossly unremarkable. No evidence for hilar prominence. Degenerative changes dorsal spine. IMPRESSION: 1. No evidence for acute pulmonary disease.
[2024-01-16 10:46] LABS: INR 1.1 (<1.2); Partial Thromboplastin Time 23.5 sec (22.0-30.0); Prothrombin Time 12.3 sec (10.0-12.5)
[2024-01-16] MEDS: METOPROLOL TARTRATE 25 MG TAB PO STA (11:03)
--- NOTE | 2024-01-16 12:29 | CT ---
EXAMINATION TYPE: CT chest angio for PE DATE OF EXAM: 01/16/2024 COMPARISON: Radiograph same day and prior CT 11/14/2023 HISTORY: 63-year-old male Eval for PE, new onset of Afib, hx ablation, open heart November 17. TECHNIQUE: Contiguous axial scanning of the chest performed with IV Contrast, patient injected with 1 00 mL of Isovue 370. Coronal/sagittal MIP reconstructions performed. CT DLP: 386.3 mGycm Automated exposure control for dose reduction was used. FINDINGS: Interval median sternotomy with some mild stranding deep to the sternotomy likely due to relatively r ecent surgery. Heart normal size. However, there is a moderate to large pericardial effusion along the left lateral and basilar aspect of the heart measuring up to 5.1 cm thick (refer to coronal series 404 image 13). Aorta normal caliber with conventional arch vessel branching anatomy. A few prominent mediastinal lymph nodes measuring up to 1 cm low right paratracheal, 1.3 cm subcarina l, and 1.2 cm bilateral ashley, likely reactive. Satisfactory opacification of the pulmonary arterial system without evidence for pulmonary embolus. Mild septal line scattered throughout the lungs. Some strandy atelectasis posterior basilar lungs. Sm all left pleural effusion. No cintia consolidation. Visualized upper abdomen shows no gross abnormality. Bones: No osseous destructive process. IMPRESSION: 1. DEVELOPMENT OF A MODERATE TO LARGE PERICARDIAL EFFUSION MEASURING 5.1 CM THICK LOCALIZED TO THE LE FT LATERAL AND BASILAR ASPECT OF THE HEART (REFER TO CORONAL SERIES 404 IMAGE 13). 2. CHANGES RELATED TO RECENT MEDIAN STERNOTOMY. 3. MILD SEPTAL LINES AND TRACE LEFT PLEURAL EFFUSION. CORRELATE TO EXCLUDE MILD PULMONARY VASCULAR CO NGESTION. PROMINENT STRANDY AREAS OF ATELECTASIS ARE ALSO PRESENT. 4. NO EVIDENCE FOR PULMONARY EMBOLUS.
[2024-01-16] MEDS ORDERED: NALOXONE 0.4 MG/ML 1 ML VIAL IV PRN (13:05)
[2024-01-16] MEDS ORDERED: ONDANSETRON 4 MG/2 ML VIAL IVP PRN (13:05)
--- NOTE | 2024-01-16 13:17 | ED ---
General Adult HPI - General Chief complaint: Arrhythmia/Palpitations Stated complaint: a team Time Seen by Provider: 01/16/24 09:59 Source: patient, RN notes reviewed, old records reviewed Mode of arrival: wheelchair Limitations: no limitations - History of Present Illness Initial comments: Patient is a 63-year-old male who presents emergency department after an 18 mile patient was at cardiac rehab upstairs. Was an incidental finding of A-fib with RVR. Was sent here for further evaluation. Patient has no complaints. States he has intermittent shortness of breath over the last few weeks. Had CABG surgery completed in mid November approximately [address] Mensah. Has a history of ablation for A-fib versus SVT previously. Is not on blood thinners. History of hypertension as well. Currently has no complaints. Heart rate is in the 160s to 170s. Presents for further evaluation at this time. denies any recent long distance travel, lower extremity swelling. No history of blood clots. - Related Data Home Medications Medication Instructions Recorded Confirmed Fluticasone Nasal [place] [Flonase 2 spray NASAL DAILY 11/11/23 01/16/24 Nasal [place]] Pantoprazole Sodium 40 mg PO DAILY 11/11/23 01/16/24 Atorvastatin [Lipitor] 40 mg PO HS 01/16/24 01/16/24 Furosemide [Lasix] 10 - 20 mg PO DIRECTED PRN 01/16/24 01/16/24 Previous Rx's Medication Instructions Recorded Acetaminophen Tab [Tylenol] 650 mg PO Q4HR PRN tab 11/22/23 Aspirin 325 mg PO DAILY #30 tab 11/22/23 Clopidogrel [Plavix] 75 mg PO DAILY #30 tab 11/22/23 Metoprolol Tartrate [Lopressor] 25 mg PO BID #60 tab 11/22/23 amLODIPine [Norvasc] 2.5 mg PO DAILY@1200 #30 tab 11/22/23 Allergies Allergy/AdvReac Type Severity Reaction Status Date / Time No Known Allergies Allergy Verified 01/16/24 10:46 Review of Systems ROS Statement: Those systems with pertinent positive or pertinent negative responses have been documented in the HPI. Review of Systems: CONST: Denies fever EYES: Denies blurry vision ENT: Denies nasal congestion C/V: Denies Chest pain RESP: Denies shortness of breath GI: Denies abdominal pain : Denies dysuria SKIN: Denies rash. MSK: Denies joint pain. NEURO: Denies headache ROS Other: All systems not noted in ROS Statement are negative. Past Medical History Past Medical History: Atrial Fibrillation, Cancer, Chest Pain / Angina, GERD/Reflux, Hypertension, Supraventricular Tachycardia (SVT), Vascular Disorder Additional Past Medical History / Comment(s): SEE DR. LOPEZ'S H&P. 2009 esophageal cancer with sugery/chemo/radiation, R carotid bruit, hemorrhoids/occasionally bleed. pt states chest pain since ablation last fall, recent stress test -abnormal per pt. History of Any Multi-Drug Resistant Organisms: None Reported Past Surgical History: Ablation, Hernia Repair Additional Past Surgical History / Comment(s): Vocal cord surgery, bilateral lasik eye surgery, wisdom teeth extractions, colonoscopy, rt inguinal hernia repair Past Anesthesia/Blood Transfusion Reactions: No Reported Reaction Past Psychological History: No Psychological Hx Reported Additional Psychological History / Comment(s): Pt resides with his spouse. He is independent. Smoking Status: Never smoker (Former chewing tobacco, quit when he was in his 40s) Past Alcohol Use History: Rare Additional Past Alcohol Use History / Comment(s): Pt chewed tobacco from 1977 until 1997 Past Drug Use History: None Reported - Past Family History Father Family Medical History: No Reported History, Coronary Artery Disease (CAD) Additional Family Medical History / Comment(s): Father is 92 yrs old and takes care of his spouse. stent Mother Family Medical History: Cancer Additional Family Medical History / Comment(s): Mother is 90 yrs ago. She has bone cancer General Exam - General Exam Comments Initial Comments: General: Appears in no acute distress. HEAD: Normal with no signs of head trauma. EYES: PERRLA, EOMI, conjunctiva normal, no discharge. ENT: Hearing grossly intact, normal oropharynx. RESPIRATORY: Clear breath sounds bilaterally. No wheezes, rales, or rhonchi. C/V: Irregular rate and rhythm. S1 and S2 auscultated. No obvious peripheral edema. Peripheral pulses 2+ intact throughout. ABD: Abd is soft, nontender, nondistended EXT: Normal range of motion, no obvious deformity SKIN: No rashes or lesions observed on exposed skin. NEURO: Alert and oriented x 4. Limitations: no limitations Course Vital Signs 01/16/24 01/16/24 01/16/24 10:00 10:01 11:04 Temperature 98.4 F Pulse Rate 161 H 84 Pulse Rate [ 172 H Sales Floor Associate ] Respiratory 16 16 Rate Blood Pressure 91/67 111/85 O2 Sat by Pulse 99 98 Oximetry 01/16/24 14:08 Temperature 98.0 F Pulse Rate 71 Pulse Rate [ Sales Floor Associate ] Respiratory 20 Rate Blood Pressure 106/79 O2 Sat by Pulse 96 Oximetry Medical Decision Making - Medical Decision Making Was pt. sent in by a medical professional or institution (, PA, DROP HAMMER SET UP OPERATOR, urgent care, hospital, or custodial...) When possible be specific @ -Sent from cardiac rehab in the hospital for evaluation for new onset A-fib with RVR Did you speak to anyone other than the patient for history (EMS, parent, family, police, friend...)? What history was obtained from this source @ -No Did you review nursing and triage notes (agree or disagree)? Why? @ -I reviewed and agree with nursing and triage notes Were old charts reviewed (outside hosp., previous admission, EMS record, old EKG, old radiological studies, urgent care reports/EKG's, custodial records)? Report findings @ -Old charts reviewed including from November 2023 Differential Diagnosis (chest pain, altered mental status, abdominal pain women, abdominal pain men, vaginal bleeding, weakness, fever, dyspnea, syncope, headache, dizziness, GI bleed, back pain, seizure, CVA, palpatations, mental health, musculoskeletal)? @ -ACS, PE, A-fib with RVR, pericardial effusion. This list is not all inclusive. EKG interpreted by me (3pts min.). @ -As above X-rays interpreted by me (1pt min.). @ -Chest x-ray shows no obvious acute cardiopulmonary process. CT interpreted by me (1pt min.). @ -CT angiogram negative for PE. Moderate to large pericardial effusion present. Mild pleural effusions also present. U/S interpreted by me (1pt. min.). @ -Bilateral lower extremity venous duplex is negative for DVT. What testing was considered but not performed or refused? (CT, X-rays, U/S, labs)? Why? @ -None What meds were considered but not given or refused? Why? @ -Considered heparin however patient is having no active symptoms concerning for ACS. Elevated troponin likely secondary to the pericardial effusion. Did you discuss the management of the patient with other professionals (pr ofessionals i.e. , PA, DROP HAMMER SET UP OPERATOR, lab, RT, psych nurse, licensed social worker, shaping machine operator, teacher, adult probation officer, counter caser)? Give summary @ -Discussed with ANN Brooke of cardiothoracic surgery who expressed under standing and requested patient be made n.p.o. Otherwise was in agreement with management. Discussed with admitting physician, Dr. Argueta who accepted the admission. Was smoking cessation discussed for >3mins.? @ -No Was critical care preformed (if so, how long)? @ -Yes, 35 minutes. Were there social determinants of health that impacted care today? How? (Homelessness, low income, unemployed, alcoholism, drug addiction, transportation, low edu. Level, literacy, decrease access to med. care, skilled nursing, rehab)? @ -No Was there de-escalation of care discussed even if they declined (Discuss DNR or withdrawal of care, Hospice)? DNR status @ -No What co-morbidities impacted this encounter? (DM, HTN, Smoking, COPD, CAD, Cancer, CVA, ARF, Chemo, Hep., AIDS, mental health diagnosis, sleep apnea, morbid obesity)? @ -CABG Was patient admitted / discharged? Hospital course, mention meds given and route, prescriptions, significant lab abnormalities, going to OR and other pertinent info. @ -Based on the patient's presentation and physical exam, patient presents emergency department complaining of new onset A-fib with RVR. Patient given aspirin. Patient given 1 push of 2.5 IV metoprolol. Patient converted to normal sinus rhythm. Will obtain cardiopulmonary workup. Patient in agreement this plan. Has no other complaints. Given 1 L fluid bolus. Vital signs otherwise within acceptable limits following metoprolol push. EKG shows initially atrial fibrillation and after conversion normal sinus rhythm. No obvious signs of acute ischemia. Chest x-ray shows no obvious acute cardiopulmonary process. D-dimer is elevated at 7.18. Troponin minimally elevated to 0.065 likely secondary to other processes. CT angiogram was ordered to evaluate for PE. CT PE negative but does show a moderate to large pericardial effusion. I updated the patient. Remains asymptomatic at this time. Pericardial effusion likely could be related to his recent CABG and I spoke with Shantanu Brooke of c ardiothoracic surgery who requested patient be made n.p.o. he will evaluate the patient. Was otherwise in agreement management plan. Heparin will be held at this time as troponin likely secondary to the recent A-fib event as well as low effusion. We will trend it. Echo ordered. Venous duplex ultrasound of the lower extremities ordered to complete workup for elevated D-dimer. Venous duplex ultrasound negative for DVT. I spoke with the admitting physician, Dr. Argueta who accepted the admission. Cardiology consulted for the atrial fibrillation. Undiagnosed new problem with uncertain prognosis? @ -No Drug Therapy requiring intensive monitoring for toxicity (Heparin, Nitro, Insulin, Cardizem)? @ -No Were any procedures done? @ -No Diagnosis/symptom? @ -New onset A-fib with RVR status post conversion, moderate to large pericardial effusion in setting of recent CABG, elevated troponin Acute, or Chronic, or Acute on Chronic? @ -Acute Uncomplicated (without systemic symptoms) or Complicated (systemic symptoms)? @ -Complicated Side effects of treatment? @ -No Exacerbation, Progression, or Severe Exacerbation? @ -No Poses a threat to life or bodily function? How? (Chest pain, USA, AR, pneumonia, PE, COPD, DKA, ARF, appy, cholecystitis, CVA, Diverticulitis, Homicidal, Suicid al, threat to staff... and all critical care pts) @ -Yes - Lab Data Result diagrams: 01/16/24 10:13 01/16/24 10:13 Lab Results 01/16/24 01/16/24 01/16/24 Range/Units 10:13 10:13 10:13 WBC 9.4 (3.8-10.6) k/uL RBC 5.17 (4.30-5.90) m/uL Hgb 15.4 (13.0-17.5) gm/dL Hct 47.7 (39.0-53.0) % MCV 92.2 D (80.0-100.0) fL MCH 29.9 (25.0-35.0) pg MCHC 32.4 (31.0-37.0) g/dL RDW 12.9 (11.5-15.5) % Plt Count 230 (150-450) k/uL MPV 9.8 Neutrophils % 71 % Lymphocytes % 19 % Monocytes % 8 % Eosinophils % 0 % Basophils % 0 % Neutrophils # 6.7 (1.3-7.7) k/uL Lymphocytes # 1.8 (1.0-4.8) k/uL Monocytes # 0.8 (0-1.0) k/uL Eosinophils # 0.0 (0-0.7) k/uL Basophils # 0.0 (0-0.2) k/uL PT 12.3 (10.0-12.5) sec INR 1.1 (<1.2) APTT 23.5 (22.0-30.0) sec D-Dimer 7.18 H (<0.60) mg/L FEU Sodium 134 L (137-145) mmol/L Potassium 4.1 (3.5-5.1) mmol/L Chloride 99 (98-107) mmol/L Carbon Dioxide 22 (22-30) mmol/L Anion Gap 13 mmol/L BUN 17 (9-20) mg/dL Creatinine 0.90 (0.66-1.25) mg/dL Est GFR (CKD-EPI)AfAm >90 (>60 ml/min/1.73 sqM) Est GFR (CKD-EPI)NonAf 89 (>60 ml/min/1.73 sqM) Glucose 138 H (74-99) mg/dL Calcium 9.3 (8.4-10.2) mg/dL Magnesium 1.8 (1.6-2.3) mg/dL Total Bilirubin 2.0 H (0.2-1.3) mg/dL AST 44 (17-59) U/L ALT 68 H (4-49) U/L Alkaline Phosphatase 161 H (38-126) U/L Troponin I (0.000-0.034) ng/mL Total Protein 7.2 (6.3-8.2) g/dL Albumin 4.3 (3.5-5.0) g/dL 01/16/24 Range/Units 10:13 WBC (3.8-10.6) k/uL RBC (4.30-5.90) m/uL Hgb (13.0-17.5) gm/dL Hct (39.0-53.0) % MCV (80.0-100.0) fL MCH (25.0-35.0) pg MCHC (31.0-37.0) g/dL RDW (11.5-15.5) % Plt Count (150-450) k/uL MPV Neutrophils % % Lymphocytes % % Monocytes % % Eosinophils % % Basophils % % Neutrophils # (1.3-7.7) k/uL Lymphocytes # (1.0-4.8) k/uL Monocytes # (0-1.0) k/uL Eosinophils # (0-0.7) k/uL Basophils # (0-0.2) k/uL PT (10.0-12.5) sec INR (<1.2) APTT (22.0-30.0) sec D-Dimer (<0.60) mg/L FEU Sodium (137-145) mmol/L Potassium (3.5-5.1) mmol/L Chloride (98-107) mmol/L Carbon Dioxide (22-30) mmol/L Anion Gap mmol/L BUN (9-20) mg/dL Creatinine (0.66-1.25) mg/dL Est GFR (CKD-EPI)AfAm (>60 ml/min/1.73 sqM) Est GFR (CKD-EPI)NonAf (>60 ml/min/1.73 sqM) Glucose (74-99) mg/dL Calcium (8.4-10.2) mg/dL Magnesium (1.6-2.3) mg/dL Total Bilirubin (0.2-1.3) mg/dL AST (17-59) U/L ALT (4-49) U/L Alkaline Phosphatase (38-126) U/L Troponin I 0.065 H* (0.000-0.034) ng/mL Total Protein (6.3-8.2) g/dL Albumin (3.5-5.0) g/dL - EKG Data -: EKG Interpreted by Me EKG Comments: 12-lead Electrocardiogram Interpretation Note EKG was reviewed and interpreted by myself. 12-lead ECG performed at 0955 is interpreted by me as revealing A-fib with RVR at a rate of 164 beats per minute. [place] is normal. QRS durations 112 ms, QTc is [address] segment depressions. Likely secondary to A-fib with RVR.. R wave progression across the precordium was satisfactory. 12-lead Electrocardiogram Interpretation Note EKG was reviewed and interpreted by myself. 12-lead ECG performed at 1042 is interpreted by me as revealing normal sinus rhythm at a rate of 93 beats per minute. [place] is normal. [place] interval is 140 ms, QRS duration is 110 ms, QTc is [address] segment and T wave abnormalities redemonstrated.. R wave progression across the precordium was satisfactory. Critical Care Time Critical Care Time: Yes Total Critical Care Time: 35 Disposition Clinical Impression: Atrial fibrillation, Pericardial effusion, Elevated troponin Disposition: ADMITTED IP TO THIS HOSP Condition: Serious Time of Disposition: 13:01
[2024-01-16] MEDS ORDERED: FUROSEMIDE 20 MG TAB PO PRN (13:55)
--- NOTE | 2024-01-16 14:42 | P.HPIM ---
History of Present Illness Patient pleasant 58-year-old male was sent in here from cardiac rehab because of atrial fibrillation. Patient heart rate went up to around 1 60-1 90 the rhythm strips looks like atrial fibrillation patient converted to sinus rhythm just with 1 IV Cardizem. Patient is also found to have pericardial effusion moderate on the CT scan that was done because of elevated D-dimer. Patient although does not have any pulmonary embolism. Patient had coronary bypass grafting and left atrial appendage ligation that was done in late November. Patient does not have any chest symptoms of chest pain shortness of breath at this time. Patient is mildly hyponatremic and patient positive troponin is slightly elevated to 0.061. Patient is not started on IV heparin at this time. Cardiology and cardiothoracic surgery were consulted. Patient had a normal ejection fraction in the past patient is presently receiving normal saline at 75 for hyponatremia. REVIEW OF SYSTEMS: CONSTITUTIONAL: No fever, no malaise, no fatigue. HEENT: No recent visual problems or hearing problems. Denied any sore throat. CARDIOVASCULAR: No chest pain, orthopnea, PND, no palpitations, no syncope. PULMONARY: No shortness of breath, no cough, no hemoptysis. GASTROINTESTINAL: No diarrhea, no nausea, no vomiting, no abdominal pain. NEUROLOGICAL: No headaches, no weakness, no numbness. HEMATOLOGICAL: Denies any bleeding or petechiae. GENITOURINARY: Denies any burning micturition, frequency, or urgency. MUSCULOSKELETAL/RHEUMATOLOGICAL: Denies any joint pain, swelling, or any muscle pain. ENDOCRINE: Denies any polyuria or polydipsia. The rest of the 14-point review of systems is negative. PHYSICAL EXAMINATION: GENERAL: The patient is alert and oriented x3, not in any acute distress. Well developed, well nourished. HEENT: Pupils are round and equally reacting to light. EOMI. No scleral icterus. No conjunctival pallor. Normocephalic, atraumatic. No pharyngeal erythema. No thyromegaly. CARDIOVASCULAR: S1 and S2 present. No murmurs, rubs, or gallops. PULMONARY: Chest is clear to auscultation, no wheezing or crackles. ABDOMEN: Soft, nontender, nondistended, normoactive bowel sounds. No palpable organomegaly. MUSCULOSKELETAL: No joint swelling or deformity. EXTREMITIES: No cyanosis, clubbing, or pedal edema. NEUROLOGICAL: Gross neurological examination did not reveal any focal deficits. SKIN: No rashes. Assessment and plan -New onset atrial fibrillation converted with Cardizem. Patient is presently sinus rhythm cardiology will evaluate the patient -Pericardial effusion moderate may be reactive secondary to his CABG, ca rdiothoracic surgery was consulted patient had an echocardiogram today -Mild hypovolemic hyponatremia continue with IV fluids until tomorrow morning. -History of SVT with ablation in the past patient had left atrial appendage ligation History esophageal reflux disease -Hypertension Hyperlipidemia DVT prophylaxis: Early ambulation Past Medical History Past Medical History: Coronary Artery Disease (CAD), Cancer, Chest Pain / Angina, GERD/Reflux, Hyperlipidemia, Hypertension, Supraventricular Tachycardia (SVT), Vascular Disorder Additional Past Medical History / Comment(s): SEE DR. LOPEZ'S H&P. 2009 esophageal cancer with sugery/chemo/radiation, R carotid bruit, hemorrhoids/occasionally bleed. pt states chest pain since ablation last fall, recent stress test -abnormal per pt. History of Any Multi-Drug Resistant Organisms: None Reported Past Surgical History: Ablation, Coronary Bypass/CABG (November 18, 2023), Hernia Repair Additional Past Surgical History / Comment(s): Vocal cord surgery, bilateral lasik eye surgery, wisdom teeth extractions, colonoscopy, rt inguinal hernia repair Past Anesthesia/Blood Transfusion Reactions: No Reported Reaction Past Psychological History: No Psychological Hx Reported Additional Psychological History / Comment(s): Pt resides with his spouse. He is independent. Smoking Status: Never smoker (Former chewing tobacco, quit when he was in his 40s) Past Alcohol Use History: None Reported, Rare Additional Past Alcohol Use History / Comment(s): Pt chewed tobacco from 1977 until 1997 Past Drug Use History: None Reported - Past Family History Father Family Medical History: No Reported History, Coronary Artery Disease (CAD) Additional Family Medical History / Comment(s): Father is 92 yrs old and takes care of his spouse. stent Mother Family Medical History: Cancer Additional Family Medical History / Comment(s): Mother is 90 yrs ago. She has bone cancer Medications and Allergies Home Medications Medication Instructions Recorded Confirmed Type Fluticasone Nasal [place] [Flonase 2 spray NASAL DAILY 11/11/23 01/16/24 History Nasal [place]] Pantoprazole Sodium 40 mg PO DAILY 11/11/23 01/16/24 History Acetaminophen Tab [Tylenol] 650 mg PO Q4HR PRN tab 11/22/23 01/16/24 Rx Aspirin 325 mg PO DAILY #30 tab 11/22/23 01/16/24 Rx Clopidogrel [Plavix] 75 mg PO DAILY #30 tab 11/22/23 01/16/24 Rx Metoprolol Tartrate [Lopressor] 25 mg PO BID #60 tab 11/22/23 01/16/24 Rx amLODIPine [Norvasc] 2.5 mg PO DAILY@1200 #30 tab 11/22/23 01/16/24 Rx Atorvastatin [Lipitor] 40 mg PO HS 01/16/24 01/16/24 History Furosemide [Lasix] 10 - 20 mg PO DIRECTED PRN 01/16/24 01/16/24 History Allergies Allergy/AdvReac Type Severity Reaction Status Date / Time No Known Allergies Allergy Verified 01/16/24 10:46 Physical Exam Vitals: Vital Signs Temp Pulse Pulse Resp BP Pulse Ox 01/16/24 14:08 98.0 F 71 20 106/79 96 01/16/24 11:04 84 16 111/85 98 01/16/24 10:01 98.4 F 161 H 16 91/67 99 01/16/24 10:00 172 H Intake and Output 01/15/24 01/16/24 01/16/24 22:59 06:59 14:59 Other: Weight 84.822 kg Results CBC & Chem 7: 01/16/24 10:13 01/16/24 10:13 Labs: Abnormal Lab Results - Last 24 Hours (Table) 01/16/24 01/16/24 01/16/24 Range/Units 10:13 10:13 10:13 D-Dimer 7.18 H (<0.60) mg/L FEU Sodium 134 L (137-145) mmol/L Glucose 138 H (74-99) mg/dL Total Bilirubin 2.0 H (0.2-1.3) mg/dL ALT 68 H (4-49) U/L Alkaline Phosphatase 161 H (38-126) U/L Troponin I 0.065 H* (0.000-0.034) ng/mL
--- NOTE | 2024-01-16 14:55 | US ---
EXAMINATION TYPE: US venous doppler duplex LE BI DATE OF EXAM: 01/16/2024 2:37 PM COMPARISON: NONE CLINICAL INDICATION: Male, 63 years old with history of eval for dvt; SIDE PERFORMED: Bilateral TECHNIQUE: The lower extremity deep venous system is examined utilizing real time linear array sonog ari with graded compression, doppler sonography and color-flow sonography. VESSELS IMAGED: Common Femoral Vein Deep Femoral Vein Greater Saphenous Vein * Femoral Vein Popliteal Vein Small Saphenous Vein * Proximal Calf Veins (* superficial vessels) Right Leg: Appears negative for DVT Left Leg: Appears negative for DVT IMPRESSION: 1. No diagnostic evidence of DVT.
--- NOTE | 2024-01-16 15:02 | P.GSCN ---
History of Present Illness Consult date: 01/16/24 Reason for Consult: Pericardial effusion Requesting physician: Kevin Pereira History of present illness: This is a 63-year-old gentleman who follows on outpatient basis with Dr. Jonathan Hayward for his primary care and with Dr. Lopez for his cardiology care. He has a past medical history significant for multivessel coronary artery disease, unstable angina, status post off-pump coronary artery bypass graft x 4 and exclusion of left atrial appendage on November 18, 2023, recurrent SVT, adenosine sensitive status post successful radiofrequency ablation in May 2023, hypertension, GERD, esophageal cancer in 2008, status post chemotherapy and 45 radiation treatments, is a lifetime non-smoker, has a history of chewing tobacco which he quit in his early 40s, and has a family history of coronary artery disease on his father side. The patient underwent a four-vessel off-pump coronary artery bypass grafting surgery on November 18, 2023, and was discharged home on November 22, 2023 with home health care in place. Patient reports while he was at home after discharge he was feeling fairly well each day, although r eports lack of appetite. The patient states over the past few days he has been feeling somewhat short of breath with activity and feeling fatigued, Although he states yesterday he saw Dr. Lopez from cardiology and states he felt pretty good all day and today. He denies any recent fever, chills, nausea, vomiting, constipation, diarrhea, headache, hematemesis, hemoptysis, palpitations, presyncope or syncope. The patient presented to the hospital today January 16, 2024 for outpatient cardiac rehab. When the patient got on the stationary bike to begin his exercises the cardiac rehab personnel stopped him due to an elevated heart rate in the 160s, consistent with atrial fibrillation with RVR. The patient continued to deny any symptoms. Subsequently an "A" team response was initiated by the cardiac rehab staff and the patient was transferred to the emergency department here at [facility] via wheelchair for further evaluation and treatment recommendations. A twelve-lead EKG was completed in the emergency department which revealed atrial fibrillation with rapid ventricular response with a heart rate of 164 bpm. Initial laboratory results showed a WBC count of 9.4, hemoglobin 15.4, hematocrit 47.7, platelets 230, PT 12.3, INR 1.1, PTT 23.5, D-dimer 7.18, sodium 134, potassium 4.1, chloride 99, CO2 22, BUN 17, creatinine 0.90, glucose 138, magnesium 1.8, AST 44, ALT 68, alkaline phosphatase 161, and troponins 0.065. Chest x-ray was completed which showed no evidence for acute pulmonary disease. A chest angio for pulmonary embolus was completed due to the patient's elevated D-dimer which demonstrated a development of a moderate to large pericardial effusion measuring 5.1 cm thick localized to the left lateral and basilar aspect of the heart, changes related to recent median sternotomy, mild septal lines and trace left pleural effusion, mild pulmonary vascular congestion and no evidence for pulmonary embolus. Subsequently, due to the findings of a moderate to large pericardial effusion on the CT scan of the chest a consult was placed to Dr. Mensah from cardiothoracic surgery for further evaluation and treatment recommendations. A repeat twelve-lead EKG was completed at 10:42 AM which showed normal sinus rhythm heart rate 93 bpm. Review of Systems A review of systems was completed and was negative except as mentioned in the HPI. Past Medical History Past Medical History: Coronary Artery Disease (CAD), Cancer, Chest Pain / Angina, GERD/Reflux, Hyperlipidemia, Hypertension, Supraventricular Tachycardia (SVT), Vascular Disorder Additional Past Medical History / Comment(s): SEE DR. LOPEZ'S H&P. 2009 esophageal cancer with sugery/chemo/radiation, R carotid bruit, hemorrhoids/occasionally bleed. pt states chest pain since ablation last fall, recent stress test -abnormal per pt. History of Any Multi-Drug Resistant Organisms: None Reported Past Surgical History: Ablation, Coronary Bypass/CABG (November 18, 2023), Hernia Repair Additional Past Surgical History / Comment(s): Vocal cord surgery, bilateral lasik eye surgery, wisdom teeth extractions, colonoscopy, rt inguinal hernia repair Past Anesthesia/Blood Transfusion Reactions: No Reported Reaction Past Psychological History: No Psychological Hx Reported Additional Psychological History / Comment(s): Pt resides with his spouse. He is independent. Smoking Status: Never smoker (Former chewing tobacco, quit when he was in his 40s) Past Alcohol Use History: None Reported, Rare Additional Past Alcohol Use History / Comment(s): Pt chewed tobacco from 1977 until 1997 Past Drug Use History: None Reported - Past Family History Father Family Medical History: No Reported History, Coronary Artery Disease (CAD) Additional Family Medical History / Comment(s): Father is 92 yrs old and takes care of his spouse. stent Mother Family Medical History: Cancer Additional Family Medical History / Comment(s): Mother is 90 yrs ago. She has bone cancer Medications and Allergies Home Medications Medication Instructions Recorded Confirmed Type Fluticasone Nasal [place] [Flonase 2 spray NASAL DAILY 11/11/23 01/16/24 History Nasal [place]] Pantoprazole Sodium 40 mg PO DAILY 11/11/23 01/16/24 History Acetaminophen Tab [Tylenol] 650 mg PO Q4HR PRN tab 11/22/23 01/16/24 Rx Aspirin 325 mg PO DAILY #30 tab 11/22/23 01/16/24 Rx Clopidogrel [Plavix] 75 mg PO DAILY #30 tab 11/22/23 01/16/24 Rx Metoprolol Tartrate [Lopressor] 25 mg PO BID #60 tab 11/22/23 01/16/24 Rx amLODIPine [Norvasc] 2.5 mg PO DAILY@1200 #30 tab 11/22/23 01/16/24 Rx Atorvastatin [Lipitor] 40 mg PO HS 01/16/24 01/16/24 History Furosemide [Lasix] 10 - 20 mg PO DIRECTED PRN 01/16/24 01/16/24 History Allergies Allergy/AdvReac Type Severity Reaction Status Date / Time No Known Allergies Allergy Verified 01/16/24 10:46 Surgical - Exam Vital Signs Pulse 172 H 01/16/24 10:00 - General well developed, well nourished, no distress, no pain - Eyes PERRL, normal ocular movement, no pale, no icteric - ENT normal pinna, normal nares, normal mucosa, no hearing loss, no congestion - Neck no masses, no bruits, trachea midline, no venous distension carotid bruit: right - Respiratory Lungs essentially clear throughout, respirations are symmetrical and nonlabored, oxygen saturations are 97% on room air. No wheezes, rhonchi or crackles. - Cardiovascular Regular rhythm and rate. S1 and S2 present, negative for S3, gallop or murmur. - Abdomen Abdomen is soft, nontender and nondistended. Active bowel sounds present all 4 abdominal quadrants. No organomegaly appreciated. No guarding or rigidity. - Genitourinary Deferred - Rectum Deferred - Integumentary Skin is warm and dry. No clubbing or cyanosis is present. no rash, no growths, no abnormal pigmentation - Neurologic No focal deficits. normal coordination, normal sensation - Musculoskeletal Moves all 4 extremities with equal strength bilateral. normal gait, normal posture - Psychiatric oriented to time, oriented to person, oriented to place, speech is normal, memory intact Results - Labs 01/16/24 10:13 01/16/24 10:13 Abnormal Lab Results - Last 24 Hours (Table) 01/16/24 01/16/24 01/16/24 Range/Units 10:13 10:13 10:13 D-Dimer 7.18 H (<0.60) mg/L FEU Sodium 134 L (137-145) mmol/L Glucose 138 H (74-99) mg/dL Total Bilirubin 2.0 H (0.2-1.3) mg/dL ALT 68 H (4-49) U/L Alkaline Phosphatase 161 H (38-126) U/L Troponin I 0.065 H* (0.000-0.034) ng/mL Diabetes panel 01/16/24 Range/Units 10:13 Sodium 134 L (137-145) mmol/L Potassium 4.1 (3.5-5.1) mmol/L Chloride 99 (98-107) mmol/L Carbon Dioxide 22 (22-30) mmol/L BUN 17 (9-20) mg/dL Creatinine 0.90 (0.66-1.25) mg/dL Glucose 138 H (74-99) mg/dL Calcium 9.3 (8.4-10.2) mg/dL AST 44 (17-59) U/L ALT 68 H (4-49) U/L Alkaline Phosphatase 161 H (38-126) U/L Total Protein 7.2 (6.3-8.2) g/dL Albumin 4.3 (3.5-5.0) g/dL Calcium panel 01/16/24 Range/Units 10:13 Calcium 9.3 (8.4-10.2) mg/dL Albumin 4.3 (3.5-5.0) g/dL Pituitary panel 01/16/24 Range/Units 10:13 Sodium 134 L (137-145) mmol/L Potassium 4.1 (3.5-5.1) mmol/L Chloride 99 (98-107) mmol/L Carbon Dioxide 22 (22-30) mmol/L BUN 17 (9-20) mg/dL Creatinine 0.90 (0.66-1.25) mg/dL Glucose 138 H (74-99) mg/dL Calcium 9.3 (8.4-10.2) mg/dL Adrenal panel 01/15/ Range/Units 10:13 Sodium 134 L (137-145) mmol/L Potassium 4.1 (3.5-5.1) mmol/L Chloride 99 (98-107) mmol/L Carbon Dioxide 22 (22-30) mmol/L BUN 17 (9-20) mg/dL Creatinine 0.90 (0.66-1.25) mg/dL Glucose 138 H (74-99) mg/dL Calcium 9.3 (8.4-10.2) mg/dL Total Bilirubin 2.0 H (0.2-1.3) mg/dL AST 44 (17-59) U/L ALT 68 H (4-49) U/L Alkaline Phosphatase 161 H (38-126) U/L Total Protein 7.2 (6.3-8.2) g/dL Albumin 4.3 (3.5-5.0) g/dL - Imaging Chest x-ray: report reviewed, image reviewed CT scan - chest: report reviewed, image reviewed Assessment and Plan Assessment: Moderate to large left lateral and basilar aspect pericardial effusion seen on CTA of the chest Atrial fibrillation with RVR, currently in normal sinus rhythm, status post left atrial appendage ligation with a 35 mm atrial clip on November 18, 2023 Multivessel coronary artery disease, unstable angina, status post off pump coronary artery bypass grafting x 4. Left internal thoracic artery (in-situ) to left anterior descending coronary artery. Left radial from busch of saphenous vein to obtuse marginal coronary artery. Saphenous vein from aorta to ramus intermedius. Saphenous vein from aorta to right coronary artery on November 18, 2023 History of hypertension SVT status post ablation in May 2023 GERD Esophageal cancer in 2008 status post chemotherapy and 45 radiation treatments Lifetime non-smoker although history of chewing tobacco with cessation in his ea rly 40s Right proximal ICA stenosis 50-69% Family history of coronary artery disease Plan: The patient was seen and examined at his bedside in the emergency department with his present. His chart and diagnostics reviewed. His case was discussed in detail with Dr. Erich Mensah from cardiothoracic surgery. The patient is currently hemodynamically stable, bedside monitor is showing normal sinus rhythm. The patient will be scheduled for a pericardial window left mi nithoracotomy approach to be completed by Dr. Mensah tomorrow January 17, 2024. Risks and benefits of the procedure were discussed with the patient by Dr. Mensah and knowing and understanding the risks the patient wished to proceed with the surgical option. Will obtain a transthoracic 2D echocardiogram. Hold Plavix and will be made n.p.o. after midnight. Medical management other comorbidities per primary care service. More recommendations to follow based on patient's clinical course. Thank you for this consult we look forward to working with you with the care of this patient. I have personally seen and examined the patient, performed the documentation and the assessment and plan as written. Number of minutes spent on the visit: 30. IRINA White Attending Addendum: Pt seen and evaluated with KEY WORKER above. Agree with his assessment and plan. This is a 63 year-old M s/p OPCABG x 4 approximately 2 months ago who has had some SOB and was found to be in a-fib with RVR in cardiac rehab. Imaging including echo and CT scan reveals a large apical pericardial effusion. Plan to hold plavix in am and perform pericardial window this admission. I spent 45 minutes reviewing the data and discussing the plan of care with the team and patient. Time with Patient: Greater than 30
--- NOTE | 2024-01-16 16:31 | CA ---
Transthoracic Echo Report Name: Jas Lion Age: 63 Gender: M : 1960 Exam Date: 01/16/2024 13:08 Exam Location: [place] [facility] Ht (in): 73 Wt (lb): 187 Ordering Physician: Kevin Pereira MD Attending/Referring Phys: User Experience Team Lead Cailin Fontenot RDCS Procedure CPT: Indications: pericardial effusion Cardiac Hx: Technical Quality: Fair Contrast 1: Total Dose (mL): Contrast 2: Total Dose (mL): MEASUREMENTS (Male / Female) Normal Values 2D ECHO LV Diastolic Diameter PLAX 4.2 cm 4.2 - 5.9 / 3.9 - 5.3 cm LV Systolic Diameter PLAX 2.9 cm IVS Diastolic Thickness 1.3 cm 0.6 - 1.0 / 0.6 - 0.9 cm LVPW Diastolic Thickness 1.3 cm 0.6 - 1.0 / 0.6 - 0.9 cm LV Relative Wall Thickness 0.6 FINDINGS Left Ventricle Normal left ventricular systolic function with no obvious regional wall motion abnormalities. Left ventricular ejection fraction is estimated at 55 %. Right Ventricle Right Atrium Left Atrium Mitral Valve Aortic Valve Tricuspid Valve Pulmonic Valve Pericardium Large pericardial effusion. Loculated pericardial effusion. Pericardial effusion located posteriorly. No Respiratory variation of mitral flow. No Respiratory variation of tricuspid flow. Aorta CONCLUSIONS Large loculated pericardial effusion posterior lateral predominantly Previewed by: Dr. Mg White MD (Electronically Signed) Final Date: 16 January 2024 16:30
[2024-01-16] MEDS: ATORVASTATIN 40 MG TAB PO SCH (21:06)
[2024-01-16] MEDS: METOPROLOL TARTRATE 25 MG TAB PO SCH (21:06)
[2024-01-17] MEDS: ASPIRIN 325 MG TAB PO SCH (08:44)
[2024-01-17] MEDS: PANTOPRAZOLE 40 MG TABLET PO SCH (08:44)
[2024-01-17 08:52] LABS: Basophils % (A) 0 %; Eosinophils % (A) 0 %; HCT 41.4 % (39.0-53.0); HGB 13.6 gm/dL (13.0-17.5); Lymphocytes # (A) 1.1 k/uL (1.0-4.8); Lymphocytes % (A) 16 %; MCH 30.3 pg (25.0-35.0); MCHC 32.8 g/dL (31.0-37.0); MCV 92.1 fL (80.0-100.0); Mean Platelet Volume 9.5; Monocytes # (A) 0.5 k/uL (0-1.0); Monocytes % (A) 7 %; Neutrophils # (A) 5.1 k/uL (1.3-7.7); Neutrophils % (A) 75 %; Platelet Count 191 k/uL (150-450); RDW 13.1 % (11.5-15.5); WBC 6.8 k/uL (3.8-10.6)
[2024-01-17] MEDS ORDERED: CLOPIDOGREL 75 MG TAB PO SCH (09:00)
[2024-01-17 09:10] LABS: ALT 65 U/L (4-49); AST 38 U/L (17-59); African American GFR (CKD) >90 (>60 ml/min/1.73 sqM); Albumin 3.4 g/dL (3.5-5.0); Alkaline Phosphatase 155 U/L (38-126); Anion Gap 7 mmol/L; Blood Urea Nitrogen 15 mg/dL (9-20); Calcium 8.9 mg/dL (8.4-10.2); Carbon Dioxide 29 mmol/L (22-30); Chloride 101 mmol/L (98-107); Glucose 110 mg/dL (74-99); Non-African American GFR(CKD) >90 (>60 ml/min/1.73 sqM); Potassium 4.1 mmol/L (3.5-5.1); Sodium 137 mmol/L (137-145); Total Bilirubin 1.4 mg/dL (0.2-1.3); Total Protein 6.1 g/dL (6.3-8.2)
[2024-01-17] MEDS: amLODIPine 2.5 MG TAB PO SCH (11:23)
[2024-01-17] MEDS: IV FLUID CONTINUATION 1,000 ML IV ONE (12:50)
[2024-01-17] MEDS ORDERED: PROPOFOL 10 MG/ML 20 ML VIAL IV ONE (14:13)
[2024-01-17] MEDS ORDERED: LIDOCAINE 1% INJ 10MG/ML (20 ML MDV) ONE (14:13)
[2024-01-17] MEDS ORDERED: MIDAZOLAM 2 MG/2 ML VIAL ONE (14:13)
[2024-01-17] MEDS ORDERED: ROCURONIUM 10 MG/ML (5 ML VIAL) IV ONE (14:13)
[2024-01-17] MEDS ORDERED: GLYCOPYRROLATE 0.2 MG/ML 2 ML VIAL ONE (14:13)
[2024-01-17] MEDS ORDERED: NEOSTIGMINE 1 MG/ML 10 ML VIAL ONE (14:13)
[2024-01-17] MEDS ORDERED: fentaNYL (PF) 50 MCG/ML 2 ML AMP ONE (14:13)
[2024-01-17] MEDS ORDERED: SUCCINYLCHOLINE CHLORIDE 200 MG/10 ML VIAL IV ONE (14:13)
[2024-01-17] MEDS: SODIUM CHLORIDE 0.9% 50 ML with ceFAZolin 2,000 MG IV ONE (14:15)
--- NOTE | 2024-01-17 14:29 | P.CRDCN ---
History of Present Illness Consult date: 01/17/24 History of present illness: HISTORY OF PRESENTING ILLNESS 63-year-old follows up with Dr. Lopez for cardiology care. He has past medical history of multivessel CAD underwent CABG on November 18, 2023. He underwent four-vessel CABG with left atrial appendage ligation with atrial clip. He also has prior history of recurrent SVT s/p ablation in May 2023. Other history includes hypertension GERD, esophageal cancer in 2008 s/p chemotherapy and radiation therapy. Post surgery patient was discharged home without any postop complications. Patient reports for last 3 to 4 days he has been noticing increased fatigue and exertional shortness of breath. Patient got on a stationary bike in the cardiac rehab program where he was noticed to be in atrial fibrillation with RVR with heart rate 160s. This is a new diagnosis for him. For this a rapid response was called and patient was transferred to the ER. Patient had a CT chest done which showed large left posterolateral pericardial effusion. Follow-up echocardiogram showed preserved LV systolic function with a large left posterolateral pericardial effusion with no concerns of tamponade physiology. For the CT surgery team was consulted who are planning to perform a left minithoracotomy with pericardial window. Currently patient is in normal sinus rhythm with heart rate 90 bpm, he is hemodynamically stable. He denies any active chest pain chest pressure or resting shortness of breath. REVIEW OF SYSTEMS 14 point review of system is negative except what is mentioned above in HPI. PHYSICAL EXAMINATION Vital signs reviewed. Head: Normocephalic. Eyes: Sclerae nonicteric. Neck: Brisk carotid upstroke, no jugular venous distention. Lungs: Clear to auscultation. Heart: Regular rate and rhythm, S1-S2, no S3, no murmur or rub. Abdomen: Soft nontender, positive bowel sounds. Extremities: No edema, intact distal pulses. Neuro: Alert, oritented, no focal deficits. Detailed neuro exam was not perfo rmed. ASSESSMENT Moderate to large left posterolateral pericardial effusion A-fib RVR, new onset, currently in sinus rhythm Multivessel CAD s/p four-vessel CABG, [place] to LAD, left radial from saphenous vein to OM, saphenous vein to ramus, saphenous vein to RCA. 35mm atrial clip. Essential hypertension History of SVT ablation May 2023 Esophageal cancer 2009 s/p 45 radiation treatment, s/p chemotherapy Moderate right ICA disease 50 to 69% PLAN Clinically patient does not appear volume overloaded. He is currently normal sinus rhythm. Plan to undergo left minithoracotomy pericardial window. Patient is currently on aspirin, Plavix, atorvastatin, metoprolol, amlodipine 2.5 mg daily. His Plavix has been held for the thoracotomy surgery. [id number] score is 3 for age, htn and CAD Postoperatively I would recommend patient to go on Plavix and Eliquis. He should get evaluated on outpatient basis with a RICHARD to see if his left atrial appendage is appropriately ligated by the atrial clip, before a decision could be made to discontinue his anticoagulation. Abner Barrientos MD, FACC, RPVI Thank you for allowing [facility] to participate in this patient's care. Feel free to reach out in case of any followup questions. Past Medical History Past Medical History: Coronary Artery Disease (CAD), Cancer, Chest Pain / Angina, GERD/Reflux, Hyperlipidemia, Hypertension, Supraventricular Tachycardia (SVT), Vascular Disorder Additional Past Medical History / Comment(s): SEE DR. LOPEZ'S H&P. 2009 esophageal cancer with sugery/chemo/radiation, R carotid bruit, hemorrhoids/occasionally bleed. pt states chest pain since ablation last fall, recent stress test -abnormal per pt. History of Any Multi-Drug Resistant Organisms: None Reported Past Surgical History: Ablation, Coronary Bypass/CABG (November 18, 2023), Hernia Repair Additional Past Surgical History / Comment(s): Vocal cord surgery, bilateral lasik eye surgery, wisdom teeth extractions, colonoscopy, rt inguinal hernia repair Past Anesthesia/Blood Transfusion Reactions: No Reported Reaction Past Psychological History: No Psychological Hx Reported Additional Psychological History / Comment(s): Pt resides with his spouse. He is independent. Smoking Status: Never smoker (Former chewing tobacco, quit when he was in his 40s) Past Alcohol Use History: None Reported, Rare Additional Past Alcohol Use History / Comment(s): Pt chewed tobacco from 1977 until 1997 Past Drug Use History: None Reported - Past Family History Father Family Medical History: No Reported History, Coronary Artery Disease (CAD) Additional Family Medical History / Comment(s): Father is 92 yrs old and takes care of his spouse. stent Mother Family Medical History: Cancer Additional Family Medical History / Comment(s): Mother is 90 yrs ago. She has bone cancer Medications and Allergies Home Medications Medication Instructions Recorded Confirmed Type Fluticasone Nasal [place] [Flonase 2 spray NASAL DAILY 11/11/23 01/16/24 History Nasal [place]] Pantoprazole Sodium 40 mg PO DAILY 11/11/23 01/16/24 History Acetaminophen Tab [Tylenol] 650 mg PO Q4HR PRN tab 11/22/23 01/16/24 Rx Aspirin 325 mg PO DAILY #30 tab 11/22/23 01/16/24 Rx Clopidogrel [Plavix] 75 mg PO DAILY #30 tab 11/22/23 01/16/24 Rx Metoprolol Tartrate [Lopressor] 25 mg PO BID #60 tab 11/22/23 01/16/24 Rx amLODIPine [Norvasc] 2.5 mg PO DAILY@1200 #30 tab 11/22/23 01/16/24 Rx Atorvastatin [Lipitor] 40 mg PO HS 01/16/24 01/16/24 History Furosemide [Lasix] 10 - 20 mg PO DIRECTED PRN 01/16/24 01/16/24 History Allergies Allergy/AdvReac Type Severity Reaction Status Date / Time No Known Allergies Allergy Verified 01/16/24 10:46 Physical Exam Vitals: Vital Signs Temp Pulse Pulse Resp BP BP Pulse Ox 01/17/24 12:38 97.2 F L 80 16 123/91 98 01/17/24 10:00 78 17 113/86 98 01/17/24 04:33 99.1 F 80 16 117/84 96 01/17/24 02:17 75 14 115/82 96 01/17/24 00:00 98.2 F 69 16 98/74 96 01/16/24 21:07 88 18 127/85 97 01/16/24 18:26 80 18 124/79 98 Intake and Output 01/16/24 01/17/24 01/17/24 22:59 06:59 14:59 Intake Total 350 Balance 350 Intake: IV 350 Results 01/17/24 08:09 01/17/24 08:09 Cardiac Enzymes 01/16/24 01/16/24 01/17/24 Range/Units 14:53 17:45 08:09 AST 38 (17-59) U/L Troponin I 0.050 H* 0.050 H* (0.000-0.034) ng/mL CBC 01/17/24 Range/Units 08:09 WBC 6.8 (3.8-10.6) k/uL RBC 4.50 (4.30-5.90) m/uL Hgb 13.6 (13.0-17.5) gm/dL Hct 41.4 (39.0-53.0) % Plt Count 191 (150-450) k/uL Comprehensive Metabolic Panel 01/17/24 Range/Units 08:09 Sodium 137 (137-145) mmol/L Potassium 4.1 (3.5-5.1) mmol/L Chloride 101 (98-107) mmol/L Carbon Dioxide 29 (22-30) mmol/L BUN 15 (9-20) mg/dL Creatinine 0.68 (0.66-1.25) mg/dL Glucose 110 H (74-99) mg/dL Calcium 8.9 (8.4-10.2) mg/dL AST 38 (17-59) U/L ALT 65 H (4-49) U/L Alkaline Phosphatase 155 H (38-126) U/L Total Protein 6.1 L (6.3-8.2) g/dL Albumin 3.4 L (3.5-5.0) g/dL Current Medications Generic Name Dose Route Start Last Admin Trade Name Freq PRN Reason Stop Dose Admin Acetaminophen 650 mg 01/16/24 14:35 Acetaminophen Tab 325 Mg Tab PO Q4HR PRN Fever and/ or Pain Aspirin 325 mg 01/17/24 09:00 01/17/24 08:44 Aspirin 325 Mg Tab PO 325 mg DAILY NIDA Administration Atorvastatin Calcium 40 mg 01/16/24 21:00 01/16/24 21:06 Atorvastatin 40 Mg Tab PO 40 mg HS NIDA Administration Metoprolol Tartrate 25 mg 01/16/24 21:00 01/17/24 08:44 Metoprolol Tartrate 25 Mg Tab PO 25 mg BID NIDA Administration Naloxone HCl 0.2 mg 01/16/24 13:05 Naloxone 0.4 Mg/Ml 1 Ml Vial IV Q2M PRN Opioid Reversal Ondansetron HCl 4 mg 01/16/24 13:05 Ondansetron 4 Mg/2 Ml Vial IVP Q8HR PRN Nausea And Vomiting Pantoprazole Sodium 40 mg 01/17/24 09:00 01/17/24 08:44 Pantoprazole 40 Mg Tablet PO 40 mg DAILY NIDA Administration Intake and Output 01/16/24 01/17/24 01/17/24 22:59 06:59 14:59 Intake Total 350 Balance 350 Intake: IV 350 01/17/24 08:09 01/17/24 08:09
[2024-01-17] MEDS: LIDOCAINE 1% INJ 10MG/ML (20 ML MDV) SQ ONE ×2 (14:48)
[2024-01-17] MEDS ORDERED: METOCLOPRAMIDE 5 MG/ML 2 ML VIAL IVP PRN (15:38)
[2024-01-17] MEDS ORDERED: IPRATROPIUM-ALBUTEROL 3 ML NEB IH PRN (15:38)
[2024-01-17] MEDS ORDERED: ONDANSETRON 4 MG/2 ML VIAL IVP PRN (15:38)
[2024-01-17 16:03] LABS: HCT 42.2 % (39.0-53.0); HGB 13.7 gm/dL (13.0-17.5); MCH 29.6 pg (25.0-35.0); MCHC 32.4 g/dL (31.0-37.0); MCV 91.4 fL (80.0-100.0); Mean Platelet Volume 9.3; Platelet Count 194 k/uL (150-450); RBC 4.62 m/uL (4.30-5.90); RDW 12.9 % (11.5-15.5); WBC 6.9 k/uL (3.8-10.6)
[2024-01-17 16:24] LABS: African American GFR (CKD) >90 (>60 ml/min/1.73 sqM); Anion Gap 7 mmol/L; Blood Urea Nitrogen 16 mg/dL (9-20); Calcium 8.9 mg/dL (8.4-10.2); Carbon Dioxide 27 mmol/L (22-30); Chloride 103 mmol/L (98-107); Glucose 104 mg/dL (74-99); Non-African American GFR(CKD) >90 (>60 ml/min/1.73 sqM); Potassium 4.2 mmol/L (3.5-5.1); Sodium 137 mmol/L (137-145)
[2024-01-17 16:27] LABS: Glucose,Whole Blood 94 mg/dL (70-110)
--- NOTE | 2024-01-17 17:08 | XR ---
EXAMINATION TYPE: XR chest 1V portable DATE OF EXAM: 01/17/2024 HISTORY: Shortness of breath. COMPARISON: 01/16/2024 TECHNIQUE: Single view of the chest is submitted. FINDINGS: Demonstrated are scattered senescent parenchymal change. There is no evidence for focal infiltrate. The heart is stable. Hilar and mediastinal structures are within normal limits. Degenerative changes are seen of the dorsal spine. IMPRESSION: 1. Chronic changes without evidence for acute pulmonary disease.
[2024-01-17] MEDS: KETOROLAC 15 MG/ML 1 ML VIAL IVP SCH (17:59)
--- NOTE | 2024-01-17 19:26 | P.OP ---
Date of Procedure: 01/17/24 Preoperative Diagnosis: Pericardial Effusion S/P CABG A-fib with RVR Postoperative Diagnosis: Same Procedure(s) Performed: Pericardial window - left mini thoracotomy approach Anesthesia: BEARA Surgeon: Erich Mensah Estimated Blood Loss (ml): 10 Pathology: none sent Condition: stable Disposition: PACU Indications for Procedure: This patient is a 63 year-old M s/p recent CABG 2 months ago. He was noted to be in a-fib with RVR in cardiac rehab and a cardiac alert was called. Imaging revealed a large dependent apical pericardial effusion. He also endorsed some positional SOB recently at home. He is brought back to the operating room for pericardial drainage. Operative Findings: 350cc of serous fluid removed. Description of Procedure: The patient was brought back to the operating room and placed in the supine position. General anesthesia was induced and he was intubated with a double lumen tube. It's position was checked with bronchoscopy. A bump was placed under his left chest and his left chest was prepped and draped in the usual sterile fashion. Antibiotics were given and the left lung was isolated. I made a 3cm incision above the 6th rib in the 5th intercostal space. This was carried down through the intercostal muscle into the pleural space. The pericardium was directly underneath. It was grasped with two tonsil clamps and incised using a 15 blade. 350cc of serous fluid was removed. A 19F G[place] was inserted into the pericardial space and the wound was closed in layers. Patient was extubated at the end of the procedure.
[2024-01-17] MEDS: ACETAMINOPHEN TAB 325 MG TAB PO PRN (20:41)
[2024-01-17] MEDS: IPRATROPIUM-ALBUTEROL 3 ML NEB IH SCH (20:45)
[2024-01-17] MEDS: FORMOTEROL FUMARATE 20 MCG/2 ML NEBU INHALATION SCH (22:26)
--- NOTE | 2024-01-17 22:33 | P.PN ---
Subjective Progress Note Date: 01/17/24 Patient pleasant 58-year-old male was sent in here from cardiac rehab because of atrial fibrillation. Patient heart rate went up to around 1 60-1 90 the rhythm strips looks like atrial fibrillation patient converted to sinus rhythm just with 1 IV Cardizem. Patient is also found to have pericardial effusion moderate on the CT scan that was done because of elevated D-dimer. Patient although does not have any pulmonary embolism. Patient had coronary bypass grafting and left atrial appendage ligation that was done in late November. Patient does not have any chest symptoms of chest pain shortness of breath at this time. Patient is mildly hyponatremic and patient positive troponin is slightly elevated to 0.061. Patient is not started on IV heparin at this time. Cardiology and cardiothoracic surgery were consulted. Patient had a normal ejection fraction in the past patient is presently receiving normal saline at 75 for hyponatremia. 01/17/2024 Patient evaluated today in the ER. Pending bed on the medical floor. Was evaluated with CT surgery and recommending patient to undergo pericardial window later on today. Currently patient is in normal sinus rhythm, has converted with cardizem. He is hemodynamically stable. He denies any active chest pain chest pressure or resting shortness of breath. His LFTs are elevated. Review of Systems Constitutional: Denied any fatigue denied any fever. Cardio vascular: denied any chest pain, palpitations Gastrointestinal: denied any nausea, vomiting, diarrhea Pulmonary: Denied any shortness of breath cough Neurologic denied any new focal deficits All inpatient medications were reviewed and appropriate changes in these medications as dictated in the interval history and assessment and plan. PHYSICAL EXAMINATION: GENERAL: The patient is alert and oriented x3, not in any acute distress. Well developed, well nourished. HEENT: Pupils are round and equally reacting to light. EOMI. No scleral icterus. No conjunctival pallor. Normocephalic, atraumatic. No pharyngeal erythema. No thyromegaly. CARDIOVASCULAR: S1 and S2 present. No murmurs, rubs, or gallops. PULMONARY: Chest is clear to auscultation, no wheezing or crackles. ABDOMEN: Soft, nontender, nondistended, normoactive bowel sounds. No palpable organomegaly. MUSCULOSKELETAL: No joint swelling or deformity. EXTREMITIES: No cyanosis, clubbing, or pedal edema. NEUROLOGICAL: Gross neurological examination did not reveal any focal deficits. SKIN: No rashes. Assessment and plan -New onset atrial fibrillation converted with Cardizem. Patient is presently sinus rhythm cardiology will evaluate the patient cardiology recommending plavix and eliquis postoperatively. Recommending outpatient RICHARD. -Pericardial effusion moderate may be reactive secondary to his CABG, cardioth oracic surgery was consulted and recommending pericardial window today and patient will be transferred to the ICU after. -Mild hypovolemic hyponatremia continue with IV fluids until tomorrow morning. -History of SVT with ablation in the past patient had left atrial appendage ligation History esophageal reflux disease -Hypertension Hyperlipidemia DVT prophylaxis: Early ambulation The impression and plan of care has been dictated by Christen Hernandez Nurse Practitioner as directed. Dr. Kendall MD I have performed a history and physical examination and medical decision making of this patient, discussed the same with the dictator, and agree with the dictators assessment and plan as written, documented as a scribe. Based on total visit time, I have performed more than 50% of this visit. Objective - Vital Signs Vital signs: Vital Signs Temp 99.5 F 01/17/24 15:05 Pulse 82 01/17/24 15:05 Resp 16 01/17/24 15:05 BP 129/70 01/17/24 15:05 Pulse Ox 99 01/17/24 15:05 FiO2 Intake & Output 01/16/24 01/17/24 01/17/24 18:59 06:59 18:59 Intake Total 550 Output Total 10 Balance 540 Weight 84.822 kg Intake: IV 550 Output: Estimated Blood Loss 10 - Labs CBC & Chem 7: 01/17/24 15:50 01/17/24 15:50 Labs: Abnormal Lab Results - Last 24 Hours (Table) 01/16/24 01/16/24 01/17/24 Range/Units 14:53 17:45 08:09 Glucose 110 H (74-99) mg/dL Total Bilirubin 1.4 H (0.2-1.3) mg/dL ALT 65 H (4-49) U/L Alkaline Phosphatase 155 H (38-126) U/L Troponin I 0.050 H* 0.050 H* (0.000-0.034) ng/mL Total Protein 6.1 L (6.3-8.2) g/dL Albumin 3.4 L (3.5-5.0) g/dL Assessment and Plan Time with Patient: Less than 30
[2024-01-17 23:35] LABS: Appearance,Urine Cloudy (Clear); Bacteria,Urine Occasional /hpf; Bilirubin,Urine Negative (Negative); Blood,Urine Negative (Negative); Color,Urine Orange; Glucose,Urine (UA) Negative (Negative); Hyaline Casts,Urine 24 /lpf (0-2); Ketones,Urine Trace (Negative); Leukocyte Esterase,Urine Negative (Negative); Mucus,Urine Many /hpf; Nitrite,Urine Negative (Negative); Protein,Urine 1+ (Negative); RBC,Urine 17 /hpf (0-5); Specific Gravity,Urine 1.042 (1.001-1.035); Squamous Epithelial Cell,Urine 1 /hpf (0-4); WBC,Urine 8 /hpf (0-5)
[2024-01-17] MEDS: DEXTROSE 5% IN WATER 100 ML with AMIODARONE 150 MG IV ONE (23:39)
[2024-01-17] MEDS: AMIODARONE 360 MG in DEXTROSE 5% IN WATER 200 ML IV ONE (23:53)
[2024-01-18 03:45] LABS: Basophils % (A) 0 %; Eosinophils % (A) 0 %; HCT 39.4 % (39.0-53.0); HGB 12.7 gm/dL (13.0-17.5); Lymphocytes # (A) 1.4 k/uL (1.0-4.8); Lymphocytes % (A) 18 %; MCH 29.5 pg (25.0-35.0); MCHC 32.2 g/dL (31.0-37.0); MCV 91.8 fL (80.0-100.0); Mean Platelet Volume 9.5; Monocytes # (A) 0.8 k/uL (0-1.0); Monocytes % (A) 10 %; Neutrophils # (A) 5.2 k/uL (1.3-7.7); Neutrophils % (A) 69 %; Platelet Count 183 k/uL (150-450); RBC 4.29 m/uL (4.30-5.90); WBC 7.6 k/uL (3.8-10.6)
[2024-01-18 04:12] LABS: African American GFR (CKD) >90 (>60 ml/min/1.73 sqM); Anion Gap 6 mmol/L; Blood Urea Nitrogen 17 mg/dL (9-20); Calcium 8.6 mg/dL (8.4-10.2); Carbon Dioxide 26 mmol/L (22-30); Chloride 99 mmol/L (98-107); Glucose 101 mg/dL (74-99); Non-African American GFR(CKD) >90 (>60 ml/min/1.73 sqM); Potassium 4.2 mmol/L (3.5-5.1); Sodium 131 mmol/L (137-145)
[2024-01-18] MEDS: AMIODARONE 450 MG in DEXTROSE 5% IN WATER 250 ML IV SCH (06:40)
[2024-01-18] MEDS: CLOPIDOGREL 75 MG TAB PO SCH (08:51)
[2024-01-18 11:29] VITALS: BMI 24.5
--- NOTE | 2024-01-18 12:44 | P.PN ---
Subjective Progress Note Date: 01/18/24 Principal diagnosis: Pericardial effusion. Past medical history significant for multivessel coronary artery disease, unstable angina, status post off-pump coronary artery bypass gr aft x 4 and exclusion of left atrial appendage on November 18, 2023, recurrent SVT, adenosine sensitive status post successful radiofrequency ablation in May 2023, atrial fibrillation with rapid ventricular response, hypertension, GERD, esophageal cancer in 2008, status post chemotherapy and 45 radiation treatments, is a lifetime non-smoker, has a history of chewing tobacco which he quit in his early 40s, and has a family history of coronary artery disease on his father side. POD #1 Pericardial window - left mini thoracotomy approach. The patient was seen and examined in follow-up today January 18, 2024 at his bedside in the intensive care unit. He is currently sitting up to the bedside chair, is awake, alert, oriented x 3 and is in no acute apparent distress. Denies any complaints of shortness of breath at this time, and states his pain is well-controlled on the current pain medication regiment. He is currently rating his pain 2 out of 10 on the pain scale. Oxygen saturations are 96% on room air and he is achieving 1750 mL on his incentive spirometry with encouragement. The patient did have an episode of atrial fibrillation throughout the night and was started on amiodarone drip per protocol which is currently infusing at 0.5 mg/min. Bedside telemetry is currently showing normal sinus rhythm heart rate 75 bpm. He has been afebrile in the last 24 hours. He remains hemodynamically stable and is currently on no inotropic or pressor support. Chest x-ray and laboratory results reviewed. Left pleural chest tube remains in place to waterseal. No air leak is present. Draining thin serosanguineous drainage with 15 mL output in the last 8 hours and 85 mL output since surgery. 350 mL of serous fluid was removed during the pericardial window procedure yesterday January 17, 2024. Objective - Vital Signs Vital signs: Vital Signs Temp 97.6 F 01/18/24 08:00 Pulse 78 01/18/24 08:39 Resp 16 01/18/24 08:39 BP 115/78 01/18/24 08:00 Pulse Ox 95 01/18/24 08:26 FiO2 Intake & Output 01/17/24 01/18/24 01/18/24 18:59 06:59 18:59 Intake Total 1130 1060 200 Output Total 15 268 20 Balance 1115 792 180 Weight 84.822 kg 84.368 kg Intake: IV 650 100 ceFAZolin 2 gm In Sodium 100 Chloride 0.9% 50 ml @ 100 mls/hr IVPB ONCE ONE Rx# :[id number] Oral 480 960 200 Output: Chest Tube Drainage 28 20 Chest Tube Left 28 20 Mediastinal Drainage 5 Left Anterior Chest 5 Urine 240 Estimated Blood Loss 10 Other: Voiding Method Urinal Urinal Urinal - Exam CONSTITUTIONAL: Appears comfortable, cooperative, no acute distress RESPIRATORY: Lungs sounds diminished bilaterally. Respirations symmetrical, nonlabored. Currently on room air with oxygen saturation 96%. Able to achieve 1000 mL on incentive spirometry. Strong cough. CARDIOVASCULAR: S1, S2 present. Regular rate and rhythm, sinus rhythm on telemetry. Palpable peripheral pulses bilaterally. No edema present. No calf pain or tenderness noted. SCDs present. GASTROINTESTINAL: Abdomen soft, nontender, nondistended. Active bowel sounds present 4 quadrants. Tolerating diet. Passing flatus. GENITOURINARY: Continues to void clear, yellow urine. INTEGUMENTARY: Skin is warm and dry with evidence of good perfusion. Left thoracic incisions well approximated and covered with dry intact dressing. NEUROLOGIC: Cranial nerves II through XII intact MUSKULOSKELETAL: Able to move all extremities, strength equal bilaterally, gait normal PSYCHIATRIC: Alert and oriented to person place and time, appropriate affect, intact judgment and insight INVASIVE LINES AND TUBES: Left pleural Gerson chest tube present to waterseal, no air leaks present. Left pleural chest tube with 15 mL serosanguineous drainage overnight, 85 mL in the last 24 hours. - Allied health notes Allied health notes reviewed: nursing - Labs CBC & Chem 7: 01/18/24 03:16 01/18/24 03:16 Labs: Abnormal Lab Results - Last 24 Hours (Table) 01/17/24 01/17/24 01/18/24 Range/Units 15:50 23:00 03:16 RBC 4.29 L (4.30-5.90) m/uL Hgb 12.7 L (13.0-17.5) gm/dL Sodium (137-145) mmol/L Glucose 104 H (74-99) mg/dL Ur Specific [place] 1.042 H (1.001-1.035) Urine Protein 1+ H (Negative) Urine Ketones Trace H (Negative) Urine RBC 17 H (0-5) /hpf Urine WBC 8 H (0-5) /hpf Urine Bacteria Occasional H (None) /hpf Hyaline Casts 24 H (0-2) /lpf Urine Mucus Many H (None) /hpf 01/18/24 Range/Units 03:16 RBC (4.30-5.90) m/uL Hgb (13.0-17.5) gm/dL Sodium 131 L (137-145) mmol/L Glucose 101 H (74-99) mg/dL Ur Specific [place] (1.001-1.035) Urine Protein (Negative) Urine Ketones (Negative) Urine RBC (0-5) /hpf Urine WBC (0-5) /hpf Urine Bacteria (None) /hpf Hyaline Casts (0-2) /lpf Urine Mucus (None) /hpf - Imaging and Cardiology Chest x-ray: report reviewed, image reviewed Assessment and Plan Assessment: Moderate to large left lateral and basilar aspect pericardial effusion seen on CTA of the chest, status post pericardial window, left minithoracotomy approach Atrial fibrillation with RVR, currently in normal sinus rhythm, status post left atrial appendage ligation with a 35 mm atrial clip on November 18, 2023 Multivessel coronary artery disease, unstable angina, status post off pump coronary artery bypass grafting x 4. Left internal thoracic artery (in-situ) to left anterior descending coronary artery. Left radial from busch of saphenous vein to obtuse marginal coronary artery. Saphenous vein from aorta to ramus intermedius. Saphenous vein from aorta to right coronary artery on November 18, 2023 History of hypertension SVT status post ablation in May 2023 GERD Esophageal cancer in 2008 status post chemotherapy and 45 radiation treatments Lifetime non-smoker although history of chewing tobacco with cessation in his early 40s Right proximal ICA stenosis 50-69% Family history of coronary artery disease Plan: Discontinue left pleural chest tube today. Continue to monitor daily chest x-rays. Encourage use of incentive spirometry 10 times every hour while awake. Continue pain management per current as needed orders. Increase activity as tolerated. Out of bed for all meals. Medical management other comorbidities per primary care service and other consultants. May be discharged home per the cardiothoracic surgery standpoint when okay with primary care and other consultants. More recommendations to follow based on patient's clinical course. Time with Patient: Greater than 30
--- NOTE | 2024-01-18 12:56 | XR ---
EXAMINATION TYPE: XR chest 1V DATE OF EXAM: 01/18/2024 COMPARISON: 01/17/2024 HISTORY: Shortness of breath TECHNIQUE: Single frontal view of the chest is obtained. FINDINGS: Left lower lobe consolidation and small effusion is stable. Cardiomegaly and median sterno adrián findings. Tubing overlying the left chest. Subsegmental atelectasis right lung base. No overt fa ilure. There is underlying COPD. Apical pleural thickening. Favor pleural calcification. Tiny less th an 5% apical pneumothorax is felt less likely and follow-up chest x-ray recommended short-term basis. IMPRESSION: 1. Left lower lobe atelectasis or infiltrate with small effusion. Pleural reflection at the left lung apex. May represent a pleural-based calcification rather than tiny less than 5% pneumothorax. This c ould be monitored with subsequent follow-up chest x-ray. 2. Cardiomegaly\COPD.
--- NOTE | 2024-01-18 14:26 | P.PN ---
Subjective Progress Note Date: 01/18/24 Patient pleasant 58-year-old male was sent in here from cardiac rehab because of atrial fibrillation. Patient heart rate went up to around 1 60-1 90 the rhythm strips looks like atrial fibrillation patient converted to sinus rhythm just with 1 IV Cardizem. Patient is also found to have pericardial effusion moderate on the CT scan that was done because of elevated D-dimer. Patient although does not have any pulmonary embolism. Patient had coronary bypass grafting and left atrial appendage ligation that was done in late November. Patient does not have any chest symptoms of chest pain shortness of breath at this time. Patient is mildly hyponatremic and patient positive troponin is slightly elevated to 0.061. Patient is not started on IV heparin at this time. Cardiology and cardiothoracic surgery were consulted. Patient had a normal ejection fraction in the past patient is presently receiving normal saline at 75 for hyponatremia. 01/17/2024 Patient evaluated today in the ER. Pending bed on the medical floor. Was evaluated with CT surgery and recommending patient to undergo pericardial window later on today. Currently patient is in normal sinus rhythm, has converted with cardizem. He is hemodynamically stable. He denies any active chest pain chest pressure or resting shortness of breath. His LFTs are elevated. 01/18/2024 Today in the intensive care unit. He is postoperative day #1 minithoracotomy pericardial window with 350 mL of fluid taken off. Pigtail chest tube left me diastinal was left in overnight with about an additional 48 mL of drainage. Chest tube will be pulled today. Patient is not complaining of any shortness of breath or chest discomfort at this time. Has converted out of atrial fibrillation and is now in normal sinus rhythm. Noted level today is 131, his renal function is stable. Patient had a chest x-ray today which does reveal left lower lobe atelectasis or infiltrate with small effusion. Pleural reflection of the left lung apex may represent a pleural lateral placed calcification rather than a tiny less than 5% pneumothorax. There is ca rdiomegaly and underlying COPD. Review of Systems Constitutional: Denied any fatigue denied any fever. Cardio vascular: denied any chest pain, palpitations Gastrointestinal: denied any nausea, vomiting, diarrhea Pulmonary: Denied any shortness of breath cough Neurologic denied any new focal deficits All inpatient medications were reviewed and appropriate changes in these medications as dictated in the interval history and assessment and plan. PHYSICAL EXAMINATION: GENERAL: The patient is alert and oriented x3, not in any acute distress. Well developed, well nourished. HEENT: Pupils are round and equally reacting to light. EOMI. No scleral icterus. No conjunctival pallor. Normocephalic, atraumatic. No pharyngeal erythema. No thyromegaly. CARDIOVASCULAR: S1 and S2 present. No murmurs, rubs, or gallops. PULMONARY: Chest is clear to auscultation, no wheezing or crackles. Chest tube in place with serosanguineous drainage. ABDOMEN: Soft, nontender, nondistended, normoactive bowel sounds. No palpable organomegaly. MUSCULOSKELETAL: No joint swelling or deformity. EXTREMITIES: No cyanosis, clubbing, or pedal edema. NEUROLOGICAL: Gross neurological examination did not reveal any focal deficits. SKIN: No rashes. Assessment and plan -New onset atrial fibrillation converted with Cardizem. Patient is presently sinus rhythm cardiology will evaluate the patient cardiology recommending plavix and eliquis postoperatively. Recommending outpatient RICHARD. -Pericardial effusion moderate may be reactive secondary to his CABG, status post pericardial window and monitored in the intensive care unit. Pigtail catheter will be pulled today patient be transferred to the stepdown unit and monitored overnight. -Hyponatremia initially thought to be due to hypovolemia however chest x-ray today does reveal a small pleural effusion this is likely hypervolemic hyponatremia as sodium worsened with IV fluids. -History of SVT with ablation in the past patient had left atrial appendage li gation -Gastro esophageal reflux disease -Hypertension -Hyperlipidemia DVT prophylaxis: Early ambulation The impression and plan of care has been dictated by Christen Hernandez, Nurse Practitioner as directed. Dr. Kendall MD I have performed a history and physical examination and medical decision making of this patient, discussed the same with the dictator, and agree with the dictators assessment and plan as written, documented as a scribe. Based on total visit time, I have performed more than 50% of this visit. Objective - Vital Signs Vital signs: Vital Signs Temp 97.6 F 01/18/24 08:00 Pulse 78 01/18/24 08:39 Resp 16 01/18/24 08:39 BP 115/78 01/18/24 08:00 Pulse Ox 95 01/18/24 08:26 FiO2 Intake & Output 01/17/24 01/18/24 01/18/24 18:59 06:59 18:59 Intake Total 1130 1060 200 Output Total 15 268 20 Balance 1115 792 180 Weight 84.822 kg 84.368 kg Intake: IV 650 100 ceFAZolin 2 gm In Sodium 100 Chloride 0.9% 50 ml @ 100 mls/hr IVPB ONCE ONE Rx# :[id number] Oral 480 960 200 Output: Chest Tube Drainage 28 20 Chest Tube Left 28 20 Mediastinal Drainage 5 Left Anterior Chest 5 Urine 240 Estimated Blood Loss 10 Other: Voiding Method Urinal Urinal Urinal - Labs CBC & Chem 7: 01/18/24 03:16 01/18/24 03:16 Labs: Abnormal Lab Results - Last 24 Hours (Table) 01/17/24 01/17/24 01/18/24 Range/Units 15:50 23:00 03:16 RBC 4.29 L (4.30-5.90) m/uL Hgb 12.7 L (13.0-17.5) gm/dL Sodium (137-145) mmol/L Glucose 104 H (74-99) mg/dL Ur Specific [place] 1.042 H (1.001-1.035) Urine Protein 1+ H (Negative) Urine Ketones Trace H (Negative) Urine RBC 17 H (0-5) /hpf Urine WBC 8 H (0-5) /hpf Urine Bacteria Occasional H (None) /hpf Hyaline Casts 24 H (0-2) /lpf Urine Mucus Many H (None) /hpf 01/18/24 Range/Units 03:16 RBC (4.30-5.90) m/uL Hgb (13.0-17.5) gm/dL Sodium 131 L (137-145) mmol/L Glucose 101 H (74-99) mg/dL Ur Specific [place] (1.001-1.035) Urine Protein (Negative) Urine Ketones (Negative) Urine RBC (0-5) /hpf Urine WBC (0-5) /hpf Urine Bacteria (None) /hpf Hyaline Casts (0-2) /lpf Urine Mucus (None) /hpf Assessment and Plan Time with Patient: Less than 30
[2024-01-18 14:47] VITALS: RESP 16
--- NOTE | 2024-01-18 16:35 | P.PN ---
Subjective Progress Note Date: 01/18/24 HISTORY OF PRESENTING ILLNESS 63-year-old follows up with Dr. White for cardiology care. He has past m edical history of multivessel CAD underwent CABG on November 18, 2023. He underwent four-vessel CABG with left atrial appendage ligation with atrial clip. He also has prior history of recurrent SVT s/p ablation in May 2023. Other history includes hypertension GERD, esophageal cancer in 2008 s/p chemotherapy and radiation therapy. Post surgery patient was discharged home without any postop complications. Patient reports for last 3 to 4 days he has been noticing increased fatigue and exertional shortness of breath. Patient got on a stationary bike in the cardiac rehab program where he was noticed to be in atrial fibrillation with RVR with heart rate 160s. This is a new diagnosis for him. For this a rapid response was called and patient was transferred to the ER. Patient had a CT chest done which showed large left posterolateral pericardial effusion. Follow-up echocardiogram showed preserved LV systolic function with a large left posterolateral pericardial effusion with no concerns of tamponade physiology. For the CT surgery team was consulted who are planning to perform a left minithoracotomy with pericardial window. Currently patient is in normal sinus rhythm with heart rate 90 bpm, he is hemodynamically stable. He denies any active chest pain chest pressure or resti ng shortness of breath. January 18, 2024 BP 127/80, heart rate 71, hemoglobin 12.7, BUN 17, creatinine 0.7, S/p pericardial window. With removal of 350 cc of serous fluid. This morning he only had 15 cc output therefore the LILIA drain was removed. Last night he went into atrial fibrillation at 11:30 PM. He was started on amiodarone drip and he converted out at 2 AM. Currently he is maintaining sinus rhythm. Heart rate around 71 bpm. He denies any chest pain chest pressure. He denies any shortness of breath. He appears euvolemic. PHYSICAL EXAMINATION Vital signs reviewed. Head: Normocephalic. Eyes: Sclerae nonicteric. Neck: Brisk carotid upstroke, no jugular venous distention. Lungs: Clear to auscultation. Heart: Regular rate and rhythm, S1-S2, no S3, no murmur or rub. Abdomen: Soft nontender, positive bowel sounds. Extremities: No edema, intact distal pulses. Neuro: Alert, oritented, no focal deficits. Detailed neuro exam was not performed. ASSESSMENT Moderate to large left posterolateral pericardial effusion, S/p pericardial window, 01/17/2024. 350 mL serous fluid was removed. LILAI drain out Paroxysmal A-fib, new onset, currently in sinus rhythm Multivessel CAD s/p four-vessel CABG, [place] to LAD, left radial from saphenous vein to OM, saphenous vein to ramus, saphenous vein to RCA. 35mm atrial clip. Essential hypertension History of SVT ablation May 2023 Esophageal cancer 2008 s/p 45 radiation treatment, s/p chemotherapy Moderate right ICA disease 50 to 69% PLAN Clinically patient does not appear volume overloaded. He is currently normal sinus rhythm. Patient is currently on aspirin, Plavix, atorvastatin, metoprolol 25 mg BID, [id number] score is 3 for age, htn and CAD Postoperatively I would recommend patient to go on Plavix and Eliquis and d/c aspirin. He should get evaluated on outpatient basis with a RICHARD to see if his left atrial appendage is appropriately ligated by the atrial clip, before a decision could be made to discontinue his anticoagulation. Get ESR and CRP levels Start colchicine 0.6 mg BID for atleast 1 month to reduce pericardial inflammation and reduce chances of fluid recollection. Abner Barrientos MD, FACC, RPVI Thank you for allowing [facility] to participate in this patient's care. Feel free to reach out in case of any followup questions. Objective - Vital Signs Vital signs: Vital Signs Temp 97.7 F 01/18/24 14:46 Pulse 68 01/18/24 16:08 Resp 16 01/18/24 14:46 BP 127/80 01/18/24 14:46 Pulse Ox 97 01/18/24 14:46 FiO2 Intake & Output 01/17/24 01/18/24 01/18/24 18:59 06:59 18:59 Intake Total 1130 1060 440 Output Total 15 268 20 Balance 1115 792 420 Weight 84.822 kg 84.368 kg 84.368 kg Intake: IV 650 100 ceFAZolin 2 gm In Sodium 100 Chloride 0.9% 50 ml @ 100 mls/hr IVPB ONCE ONE Rx# :[id number] Oral 480 960 440 Output: Chest Tube Drainage 28 20 Chest Tube Left 28 20 Mediastinal Drainage 5 Left Anterior Chest 5 Urine 240 0 Estimated Blood Loss 10 Other: Voiding Method Urinal Urinal Urinal - Labs CBC & Chem 7: 01/18/24 03:16 01/18/24 03:16 Labs: Abnormal Lab Results - Last 24 Hours (Table) 01/17/24 01/18/24 01/18/24 Range/Units 23:00 03:16 03:16 RBC 4.29 L (4.30-5.90) m/uL Hgb 12.7 L (13.0-17.5) gm/dL Sodium 131 L (137-145) mmol/L Glucose 101 H (74-99) mg/dL Ur Specific [place] 1.042 H (1.001-1.035) Urine Protein 1+ H (Negative) Urine Ketones Trace H (Negative) Urine RBC 17 H (0-5) /hpf Urine WBC 8 H (0-5) /hpf Urine Bacteria Occasional H (None) /hpf Hyaline Casts 24 H (0-2) /lpf Urine Mucus Many H (None) /hpf
--- NOTE | 2024-01-18 17:35 | CA ---
Transthoracic Echo Report Name: Jas Lion Age: 63 Gender: M : 1960 Exam Date: 01/18/2024 16:40 Exam Location: [facility] Ht (in): 73 Wt (lb): 186 Ordering Physician: Abner Barrientos MD ([id number]) Attending/Referring Phys: Oven Unloader Jyotsna Thakur RDCS Procedure CPT: Indications: pericardial effusion followup Cardiac Hx: Status post pericardial window Technical Quality: Technically difficult study Contrast 1: Total Dose (mL): Contrast 2: Total Dose (mL): MEASUREMENTS (Male / Female) Normal Values 2D ECHO LV Diastolic Diameter PLAX 4.6 cm 4.2 - 5.9 / 3.9 - 5.3 cm LV Systolic Diameter PLAX 3.1 cm IVS Diastolic Thickness 1.3 cm 0.6 - 1.0 / 0.6 - 0.9 cm LVPW Diastolic Thickness 1.6 cm 0.6 - 1.0 / 0.6 - 0.9 cm LV Relative Wall Thickness 0.6 RV Internal Dim ED PLAX 2.0 cm FINDINGS Left Ventricle Mildly increased septal wall thickness. Right Ventricle Right Atrium Left Atrium Mitral Valve Aortic Valve Tricuspid Valve Pulmonic Valve Pericardium No pericardial or pleural effusion. Aorta CONCLUSIONS Limited echo after pericardial window Normal LV size and systolic function. LVEF 55% Mild inferolateral wall hypokinesia. No pericardial or pleural effusion. Normal inferior vena cava dimensions. Greater than 50% respiratory variation in the dimensions of the inferior vena cava. Previewed by: Dr Abner Barrientos (Electronically Signed) Final Date: 18 January 2024 17:34
[2024-01-18] MEDS: APIXABAN 5 MG TAB PO SCH (20:09)
[2024-01-18] MEDS: COLCHICINE 0.6 MG EACH PO SCH (20:09)
[2024-01-19 07:09] LABS: HGB 13.7 gm/dL (13.0-17.5); MCH 29.7 pg (25.0-35.0); MCV 92.7 fL (80.0-100.0); Mean Platelet Volume 8.8; Platelet Count 240 k/uL (150-450); RBC 4.63 m/uL (4.30-5.90); WBC 7.9 k/uL (3.8-10.6)
[2024-01-19 07:22] LABS: African American GFR (CKD) >90 (>60 ml/min/1.73 sqM); Anion Gap 7 mmol/L; Blood Urea Nitrogen 12 mg/dL (9-20); Calcium 8.8 mg/dL (8.4-10.2); Carbon Dioxide 27 mmol/L (22-30); Chloride 102 mmol/L (98-107); Glucose 117 mg/dL (74-99); Non-African American GFR(CKD) >90 (>60 ml/min/1.73 sqM); Potassium 4.2 mmol/L (3.5-5.1); Sodium 136 mmol/L (137-145)
--- NOTE | 2024-01-19 07:56 | XR ---
EXAMINATION TYPE: XR chest 2V DATE OF EXAM: 01/19/2024 6:36 AM CLINICAL INDICATION:Male, 63 years old with history of Postop pericardial window; COMPARISON: Chest radiograph from one day prior. TECHNIQUE: XR chest 2V Frontal and lateral views of the chest. FINDINGS: Lungs/Pleura: There is no evidence of pleural effusion, focal consolidation, or pneumothorax. Pulmonary vascularity: Unremarkable. Heart/mediastinum: Cardiomediastinal silhouette is enlarged and stable. Left atrial appendage occlusi on device is present. Musculoskeletal: No acute osseous pathology. Midline sternotomy wires are noted. IMPRESSION: Postsurgical changes with stable exam.
[2024-01-19 08:24] VITALS: BP 128/82; TEMP 97.6
[2024-01-19] MEDS: AMIODARONE 200 MG TAB PO SCH (08:29)
[2024-01-19] MEDS ORDERED: ASPIRIN 81 MG PO SCH (09:00)
[2024-01-19 09:22] LABS: C Reactive Protein 11.7 mg/dL (<1.0)
[2024-01-19 10:53] VITALS: PULSE 82
[2024-01-19 11:17] LABS: Erythrocyte Sedimentation Rate 16 mm/Hr (0-20)
--- NOTE | 2024-01-22 15:25 | P.DS ---
Providers Date of admission: 01/16/24 13:08 Attending physician: Dot Macias Consults: 01/16/24 13:05 Consult Physician Routine Consulting Provider: [facility] Consult Reason/Comments: new onset afib with rvr, pericardial effusion Do you want consulting provider notified?: Yes Consult Physician Routine Consulting Provider: Erich Mensah Consult Reason/Comments: pericardial effusion post cabg Do you want consulting provider notified?: Yes Primary care physician: Yue Hayward Hospital Course: Final Diagnosis -New onset atrial fibrillation converted with Cardizem. Patient is presently sinus rhythm. -Pericardial effusion moderate may be reactive secondary to his CABG, status post pericardial window -Hyponatremia initially thought to be due to hypovolemia however chest x-ray today does reveal a small pleural effusion this is likely hypervolemic hyponatremia -History of SVT with ablation in the past patient had left atrial appendage ligation -Gastro esophageal reflux disease -Hypertension -Hyperlipidemia Discharge Disposition Stable for discharge home. He is status post pericardial window and repeat echocardiogram shows resolution of the pericardial effusion. He was also found to be in atrial fibrillation this admission and was discharged on Eliquis 5 mg twice a day. Will discharge on oral amiodarone and oral colchicine. Patient will need close follow-up with his hot header operator and cardiothoracic surgeon on discharge. Recommending to see his PCP Dr. Francesca Hayward 1 to 2 days on discharge. Hospital Course Patient pleasant 58-year-old male was sent in here from cardiac rehab because of atrial fibrillation. Patient heart rate went up to around 1 60-1 90 the rhythm strips looks like atrial fibrillation patient converted to sinus rhythm just with 1 IV Cardizem. Patient is also found to have pericardial effusion moderate on the CT scan that was done because of elevated D-dimer. Patient although does not have any pulmonary embolism. Patient had coronary bypass grafting and left atrial appendage ligation that was done in late November. Patient does not have any chest symptoms of chest pain shortness of breath at this time. Patient is mildly hyponatremic and patient positive troponin is slightly elevated to 0.061. Patient is not started on IV heparin at this time. Cardiology and cardiothoracic surgery were consulted. Patient had a normal ejection fraction in the past patient is presently receiving normal saline at 75 for hyponatremia. Was evaluated with CT surgery and recommending patient to undergo pericardial window later on today. Currently patient is in normal sinus rhythm, has converted with cardizem. He is hemodynamically stable. He denies any active chest pain chest pressure or resting shortness of breath. His LFTs are elevated. postoperative day #1 minithoracotomy pericardial window with 350 mL of fluid taken off. Pigtail chest tube left mediastinal was left in overnight with about an additional 48 mL of drainage. Chest tube was discontinued. Patient is not complaining of any shortness of breath or chest discomfort at this time. He was monitored overnight had a chest x-ray that shows no evidence of pleural effusion focal consolidation or pneumothorax. Patient had a repeat limited echocardiogram done showing a normal LV size and systolic function with an of 55%. No pericardial or pleural effusion noted. Sodium level is now 136. Patient was recommended to be started on colchicine for the next 30 days on discharge secondary to an elevated CRP level. Will be discharged home. Please see medication reconciliation for a list of current medications. Thank you for allowing us to participate in the care of this patient. The impression and plan of care has been dictated by Christen Hernandez, Nurse Practitioner as directed. Dr. Kendall MD I have performed a history and physical examination and medical decision making of this patient, discussed the same with the dictator, and agree with the dictators assessment and plan as written, documented as a scribe. Based on total visit time, I have performed more than 50% of this visit. Patient Condition at Discharge: Stable Plan - Discharge Summary Discharge Rx Participant: No New Discharge Prescriptions: New Amiodarone [Cordarone] 200 mg PO DAILY #30 tab Albuterol Inhaler [Ventolin Hfa Inhaler] 1 puff INHALATION QID PRN #8 gm PRN Reason: Shortness Of Breath Or Wheezing Colchicine [Colcrys] 0.6 mg PO BID #60 each Apixaban [Eliquis] 5 mg PO BID #30 tab Continue Fluticasone Nasal [place] [Flonase Nasal [place]] 2 spray NASAL DAILY Metoprolol Tartrate [Lopressor] 25 mg PO BID #60 tab Clopidogrel [Plavix] 75 mg PO DAILY #30 tab Pantoprazole Sodium 40 mg PO DAILY Acetaminophen Tab [Tylenol] 650 mg PO Q4HR PRN tab PRN Reason: Fever And/ Or Pain Atorvastatin [Lipitor] 40 mg PO HS Furosemide [Lasix] 10 - 20 mg PO DIRECTED PRN PRN Reason: Edema Discontinued amLODIPine [Norvasc] 2.5 mg PO DAILY@1200 #30 tab Aspirin 325 mg PO DAILY #30 tab Discharge Medication List Fluticasone Nasal [place] [Flonase Nasal [place]] 2 spray NASAL DAILY 11/11/23 [History] Pantoprazole Sodium 40 mg PO DAILY 11/11/23 [History] Acetaminophen Tab [Tylenol] 650 mg PO Q4HR PRN tab 11/22/23 [Rx] Clopidogrel [Plavix] 75 mg PO DAILY #30 tab 11/22/23 [Rx] Metoprolol Tartrate [Lopressor] 25 mg PO BID #60 tab 11/22/23 [Rx] Atorvastatin [Lipitor] 40 mg PO HS 01/16/24 [History] Furosemide [Lasix] 10 - 20 mg PO DIRECTED PRN 01/16/24 [History] Albuterol Inhaler [Ventolin Hfa Inhaler] 1 puff INHALATION QID PRN #8 gm 01/19/24 [Rx] Amiodarone [Cordarone] 200 mg PO DAILY #30 tab 01/19/24 [Rx] Apixaban [Eliquis] 5 mg PO BID #30 tab 01/19/24 [Rx] Colchicine [Colcrys] 0.6 mg PO BID #60 each 01/19/24 [Rx] Follow up Appointment(s)/Referral(s): Yue Hayward DO [Primary Care Provider] - 1-2 days Chencho Chandler MD [STAFF PHYSICIAN] - 1 Week Erich Mensah MD [STAFF PHYSICIAN] - 1 Week Patient Instructions/Handouts: Pericardial Effusion (DC), Safe Use of Anticoagulants (ED) Discharge Disposition: HOME SELF-CARE
== END 2024-01-19 12:36 | disposition home or self-care (01) | DRG 271 ==
LOC: EC 09:42 → 1SOBS 13:08 → 3SCARD 17:08 → 2SICU 01-17 15:41 → 3SCARD 01-18 14:20
PROVIDERS: ADMIT Internal Medicine; ATTEND Internal Medicine
PROC: 0W9D40Z Drainage of Pericardial Cavity with Drainage Device, Percutaneous Endoscopic Approach (ICD-10-PCS; principal; 2024-01-17 09:45)
PROC: 3E033RZ Introduction of Antiarrhythmic into Peripheral Vein, Percutaneous Approach (ICD-10-PCS; 2024-01-17 09:45)
DX: I31.39 Other pericardial effusion (noninflammatory) (principal); E87.1 Hypo-osmolality and hyponatremia; J98.11 Atelectasis; I11.9 Hypertensive heart disease without heart failure; I48.0 Paroxysmal atrial fibrillation; E78.5 Hyperlipidemia, unspecified; E86.1 Hypovolemia; J44.9 Chronic obstructive pulmonary disease, unspecified; I65.21 Occlusion and stenosis of right carotid artery; I25.10 Atherosclerotic heart disease of native coronary artery without angina pectoris; K21.9 Gastro-esophageal reflux disease without esophagitis; K64.9 Unspecified hemorrhoids; Z79.82 Long term (current) use of aspirin; Z79.02 Long term (current) use of antithrombotics/antiplatelets; Z79.899 Other long term (current) drug therapy; Z95.1 Presence of aortocoronary bypass graft; Z85.01 Personal history of malignant neoplasm of esophagus; Z87.891 Personal history of nicotine dependence; Z92.21 Personal history of antineoplastic chemotherapy; Z92.3 Personal history of irradiation; Z71.3 Dietary counseling and surveillance
CPT/HCPCS: 36415; 71045; 71046; 71275; 80048; 80053; 81001; 83735; 84484; 85025; 85027; 85379; 85610; 85652; 85730; 86140; 86850; 86900; 86901; 93005; 93308; 93970; 94640; 94760; 96361; 96374; 99291